=== PATIENT | male | born 1955 | race Caucasian/White ===

== ENCOUNTER 2016-12-02 16:40 | Inpatient (IN) | payer MEDICARE ==
[2016-12-02] VITALS (11 sets, daily range): BP systolic 85–174; BP diastolic 52–110; PULSE 82–104; RESP 16–20; TEMP 97.4–98.5; O2SAT 100
[~2016-12-02] VITALS: Ht 172.7 cm; Wt 62.0 kg
--- NOTE | 2016-12-02 17:01 | PD ---
HPI Chief Complaint: Alcohol/Drug Intoxication Time Seen by Provider: 16:55 Travel History International Travel<30 days: No Contact w/Intl Traveler<30days: No Traveled to known affect area: No History of Present Illness HPI Patient of unknown identity was brought into the emergency room by EMS and 911 was called by the bystanders while the patient was noticed to be lying unconscious on the ground. He did appear to be intoxicated and he was brought in as an intoxicated, unresponsive person. Soon after coming to the medical pod it was noticed by the nurse that patient was not breathing and I was called in the room. He had agonal respirations with feeble pulses. Decision was made to intubate him. Just before he was getting intubated patient lost his pulse. However soon after intubation and bagging him couple times return of spontaneous circulation was achieved. Patient did not require any CPR. Patient is extremely disheveled and there is no family member or friend who can provide identity or more history. PFSH Past Medical History Narrative Medical Unknown Social History Tobacco Use: Yes Allergies-Medications (Allergen,Severity, Reaction): Coded Allergies: Codeine (Verified Allergy, Severe, HIVES, 12/01/15) Morphine (Verified Allergy, Severe, 12/01/15) Penicillin (Verified Allergy, Severe, HIVES, 12/01/15) Bactrim (Verified Allergy, Mild, HIVES, 12/01/15) Comments Unknown Reported Meds & Prescriptions Reported Meds & Active Scripts Active Active Prescriptions or Reported Medications Unobtainable Narrative Medication Unknown Review of Systems Except as stated in HPI: all other systems reviewed are Neg Physical Exam Narrative GENERAL: Unresponsive, disheveled, extremely poor hygiene SKIN: Poor skin hygiene, cyanotic, ecchymosis on the left upper, lower abdomen and flank HEAD: Atraumatic. Normocephalic. EYES: Pupils equal and round. No scleral icterus. No injection or drainage. ENT: No nasal bleeding or discharge. Mucous membranes pink and moist. Extremely poor dental hygiene with halitosis NECK: Trachea midline. No JVD. CARDIOVASCULAR: Regular rate and rhythm. No murmur appreciated. RESPIRATORY: No accessory muscle use. Clear to auscultation. Breath sounds equal bilaterally. GASTROINTESTINAL: Abdomen soft, non-tender, nondistended. Hepatic and splenic margins not palpable. Large left inguinal hernia into the scrotum MUSCULOSKELETAL: No obvious deformities. No clubbing. No cyanosis. No edema. NEUROLOGICAL: GCS of 3 PSYCHIATRIC: Unable to assess Data Data Last Documented VS Vital Signs Date Time Temp Pulse Resp B/P Pulse Ox O2 Delivery O2 Flow Rate FiO2 12/02/16 18:22 104 174/103 12/02/16 18:02 20 100 Ventilator 12/02/16 17:55 98.5 12/02/16 17:20 100 Orders Complete Blood Count With Diff (12/02/16 17:07) Ct Brain W/O Iv Contrast(Rout) (12/02/16 17:07) Blood Glucose (12/02/16 17:07) Ecg Monitoring (12/02/16 17:07) Oximetry (12/02/16 17:07) Ammonia (12/02/16 17:30) Comprehensive Metabolic Panel (12/02/16 17:30) Creatine Kinase (Cpk) (12/02/16 17:30) Drug Screen, Random Urine (12/02/16 17:30) Prothrombin Time / Inr (Pt) (12/02/16 17:30) Act Partial Throm Time (Ptt) (12/02/16 17:30) Salicylates (Aspirin) (12/02/16 17:30) Troponin I (12/02/16 17:30) Tylenol (Acetaminophen) (12/02/16 17:30) Thyroid Stimulating Hormone (12/02/16 17:30) Lactic Acid Sepsis Protocol (12/02/16 17:30) Urinalysis - C+S If Indicated (12/02/16 17:30) Arterial Blood Gas (Abg) (12/02/16 17:30) Blood Culture (12/02/16 17:30) Chest, Single Ap (12/02/16 17:30) Iv Access Insert/Monitor (12/02/16 17:30) Sodium Chloride 0.9% Flush (Ns Flush) (12/02/16 17:30) Sodium Chlor 0.9% 1000 Ml Inj (Ns 1000 M (12/02/16 17:30) Midazolam Inj (Versed Inj) (12/02/16 17:41) Ct Abd/Pel W/O Iv Contrast (12/02/16 ) Sodium Chlor 0.9% 1000 Ml Inj (Ns 1000 M (12/02/16 18:00) Dexmedetomidine Inj (Precedex Inj) (12/02/16 18:00) Neurological Rass Scale Q30MX2,Q2HX4,Q4H (12/02/16 17:53) Midazolam Inj (Versed Inj) (12/02/16 18:00) I-Stat Creatinine (12/02/16 17:30) I-Stat Profile (12/02/16 17:30) Heparin-Ns/Pf Inj (Heparin-Ns/Pf Inj) (12/02/16 18:07) Magnesium (Mg) (12/02/16 18:21) Alcohol (Ethanol) (12/02/16 18:21) Tyler-Gastric Tube Insert/Mon (12/02/16 18:22) Urinary Catheter Insert/Apply (12/02/16 18:22) Urine Culture (12/02/16 17:20) Ceftriaxone Inj (Rocephin Inj) (12/02/16 18:30) Admit Order (Ed Use Only) (12/02/16 18:27) Labs Laboratory Tests Test 12/02/16 12/02/16 12/02/16 12/02/16 14:55 17:15 17:20 17:30 Lactic Acid Level 2.7 mmol/L 3.2 mmol/L Total Creatine Kinase 374 U/L 235 U/L Creatine Kinase MB 14.7 NG/ML Creatine Kinase MB % 3.9 % Troponin I 0.02 NG/ML LESS THAN 0.02 NG/ML White Blood Count 10.4 TH/MM3 Red Blood Count 4.91 MIL/MM3 Hemoglobin 16.6 GM/DL Hematocrit 49.2 % Mean Corpuscular Volume 100.3 FL Mean Corpuscular Hemoglobin 33.8 PG Mean Corpuscular Hemoglobin 33.7 % Concent Red Cell Distribution Width 15.3 % Platelet Count 170 TH/MM3 Mean Platelet Volume 7.3 FL Neutrophils (%) (Auto) 77.6 % Lymphocytes (%) (Auto) 16.2 % Monocytes (%) (Auto) 5.4 % Eosinophils (%) (Auto) 0.4 % Basophils (%) (Auto) 0.4 % Neutrophils # (Auto) 8.1 TH/MM3 Lymphocytes # (Auto) 1.7 TH/MM3 Monocytes # (Auto) 0.6 TH/MM3 Eosinophils # (Auto) 0.0 TH/MM3 Basophils # (Auto) 0.0 TH/MM3 CBC Comment DIFF FINAL Differential Comment Prothrombin Time 11.3 SEC Prothromb Time International 1.0 RATIO Ratio Activated Partial 24.0 SEC Thromboplast Time Sodium Level 146 MEQ/L Potassium Level 3.5 MEQ/L Chloride Level 107 MEQ/L Carbon Dioxide Level 29.3 MEQ/L Anion Gap 10 MEQ/L Blood Urea Nitrogen 9 MG/DL Creatinine 1.02 MG/DL Estimat Glomerular Filtration 63 ML/MIN Rate Random Glucose 143 MG/DL Calcium Level 8.5 MG/DL Magnesium Level 2.1 MG/DL Total Bilirubin 0.3 MG/DL Aspartate Amino Transf 36 U/L (AST/SGOT) Alanine Aminotransferase 26 U/L (ALT/SGPT) Alkaline Phosphatase 115 U/L Total Protein 7.7 GM/DL Albumin 4.0 GM/DL Thyroid Stimulating Hormone 1.460 uIU/ML 3rd Gen Acetaminophen Level LESS THAN 2.0 MCG/ML Ethyl Alcohol Level 522 MG/DL Urine Color YELLOW Urine Turbidity HAZY Urine pH 5.0 Urine Specific [place] 1.018 Urine Protein TRACE mg/dL Urine Glucose (UA) NEG mg/dL Urine Ketones NEG mg/dL Urine Occult Blood SMALL Urine Nitrite NEG Urine Bilirubin NEG Urine Urobilinogen LESS THAN 2.0 MG/DL Urine Leukocyte Esterase LARGE Urine RBC 8 /hpf Urine WBC 54 /hpf Urine WBC Clumps FEW Urine Squamous Epithelial <1 /hpf Cells Urine Bacteria RARE /hpf Urine Hyaline Casts 18 /lpf Urine Mucus FEW /lpf Microscopic Urinalysis Comment CULTURE INDICATED Urine Opiates Screen NEG Urine Barbiturates Screen NEG Urine Amphetamines Screen NEG Urine Benzodiazepines Screen NEG Urine Cocaine Screen NEG Urine Cannabinoids Screen NEG Bedside Hemoglobin 17.7 G/DL Bedside Hematocrit 52.0 % Bedside Sodium 145 MMOL/L Bedside Potassium 3.5 MMOL/L Bedside Chloride 104 MMOL/L Bedside Blood Urea Nitrogen 9 MG/DL Bedside Creatinine 1.3 MG/DL Bedside Glucose 148 MG/DL Ammonia 18 MCMOL/L Salicylates Level 4.0 MG/DL [facility] Medical Decision Making Medical Screen Exam Complete: Yes Emergency Medical Condition: Yes Medical Record Reviewed: Yes Interpretation(s) Twelve-lead EKG was reviewed by me. Normal sinus rhythm, left axis deviation, possible anterior ST elevation, peaked T waves, tachycardia. Heart rate of 110 bpm. Differential Diagnosis Intracranial bleed, alcohol intoxication, electrolyte abnormalities Narrative Course 6:17 PM based on the EKG and lack of information by patient or absence of any family members a friend's I called a STEMI alert. However I spoke with Dr. Santillan who wanted the 12-lead EKG picture to be texted to him. After he looked at the EKG call back and he did not think this qualified for a STEMI at the present time. STEMI alert was called off. Head CT report is back and within normal limits. I had reduced the hernia manually and completely. Awaiting for the blood test results and blood gas. Patient will be admitted to the ICU. He is getting 2 L of fluid bolus. Chest x-ray showed the ET tube to be in good position and otherwise negative lung centeno. 6:23 PM CAT scan shows recurrence of the left inguinal hernia. However is fully reducible. Currently awaiting for the nurse to put the oral G-tube. Awaiting for the cell coverer to call back for admission. Critical Care Narrative Aggregate critical care time was 60 minutes. Time to perform other separately billable procedures was not included in the critical care time. My time did not include minutes spent treating any other patients simultaneously or on activities that did not directly contribute to the patient's treatment. The services I provided to this patient were to treat and/or prevent clinically significant deterioration that could result in: Cardiorespiratory arrest, return of spontaneous circulation, ventilator management, acute alcohol intoxication I provided critical care services requiring my management, as noted below: Chart data review, documentation time, medication orders and management, vital sign assessments/reviewing monitor data, ordering and reviewing lab tests, ordering and interpreting/reviewing x-rays and diagnostic studies, care of the patient and discussion of the patient with the admitting physicians. Procedures Procedure Narrative Intubation was performed emergently: INTUBATION: The patient was put in optimal position for the procedure. Rapid sequence intubation was initiated by me using 0 milligrams of etomidate IV and 0 milligrams of 0 IV. The patient was intubated with a 7.5 cuffed endotracheal tube. Tube placement was confirmed by visualization of the tube and balloon passing through the cords, capnometry and subsequent chest x-ray. Breath sounds were equal and well aerated bilaterally postintubation. No breath sounds over stomach. Patient tolerated procedure well. EKG Prior to Arrival: No Physician Communication Physician Communication Dr. Spencer Diagnosis Primary Impression: Unresponsive Additional Impressions: Alcohol intoxication Qualified Code: F10.129 - Alcohol intoxication, with unspecified complication Cardiac arrest Respiratory arrest Inguinal hernia Qualified Code: K40.90 - Unilateral inguinal hernia without obstruction or gangrene, recurrence not specified Dehydration Lactic acidosis UTI (urinary tract infection) Qualified Code: N39.0 - Urinary tract infection without hematuria, site unspecified Admitting Information Admitting Physician Requests: Admit Scripts Unable to Obtain Active Prescriptions or Reported Meds Hannah Nam MD Dec 02, 2016 17:01
[2016-12-02] MEDS ORDERED: SODIUM CHLORIDE 0.9% FLUSH 5 ML FLUSH IVF PRN (17:30)
[2016-12-02] MEDS ORDERED: SODIUM CHLOR 0.9% 1000 ML INJ 1,000 ML IV SCH (17:30)
[2016-12-02] MEDS ORDERED: MIDAZOLAM HCL 5 MG/ML VIAL (1 ML) ONE (17:41)
--- NOTE | 2016-12-02 17:51 | RADRPT ---
EXAM DATE/TIME: 12/02/2016 17:41 [facility] COMPARISON: No previous studies available for comparison. INDICATIONS : Post intubation. Stemi-alert. MEDICAL HISTORY : Unobtainable. SURGICAL HISTORY : Unobtainable. ENCOUNTER: Initial ACUITY: 1 day PAIN SCORE: Non-responsive. LOCATION: Bilateral chest FINDINGS: ET tube in good position. A single view of the chest demonstrates the lungs to be symmetrically aera zeynep without evidence of mass, infiltrate or effusion. The cardiomediastinal contours are unremarkabl e. Osseous structures are intact. CONCLUSION: ET tube in good position. Juan Noguera MD FACR on December 02, 2016 at 17:49 Board Certified Radiologist. This report was verified electronically.
--- NOTE | 2016-12-02 17:56 | RADRPT ---
EXAM DATE/TIME: 12/02/2016 17:46 [facility] COMPARISON: No previous studies available for comparison. INDICATIONS : Altered mental status. ETOH. RADIATION DOSE: 45.21 CTDIvol (mGy) MEDICAL HISTORY : Non-responsive. SURGICAL HISTORY : Non-responsive. ENCOUNTER: Initial ACUITY: 1 day PAIN SCALE: Non-responsive LOCATION: cranial TECHNIQUE: Multiple contiguous axial images were obtained of the head. Using automated exposure control and adj ustment of the mA and/or kV according to patient size, radiation dose was kept as low as reasonably a chievable to obtain optimal diagnostic quality images. FINDINGS: CEREBRUM: The ventricles are normal for age. No evidence of midline shift, mass lesion, hemorrhage or acute in farction. No extra-axial fluid collections are seen. Old lacunar infarct head of the caudate on the left. POSTERIOR FOSSA: The cerebellum and brainstem are intact. The 4th ventricle is midline. The cerebellopontine angle i s unremarkable. EXTRACRANIAL: The visualized portion of the orbits is intact. SKULL: The calvaria is intact. No evidence of skull fracture. Moderate sinus disease is evident. CONCLUSION: Negative for acute intracranial process. Juan Noguera MD FACR on December 02, 2016 at 17:53 Board Certified Radiologist. This report was verified electronically.
[2016-12-02] MEDS ORDERED: SODIUM CHLOR 0.9% 1000 ML INJ 1,000 ML IV ONE (18:00)
[2016-12-02] MEDS ORDERED: MIDAZOLAM HCL 2 MG/2 ML VIAL IV PUSH ONE ×2 (18:00→19:30)
[2016-12-02] MEDS ORDERED: DEXMEDETOMIDINE INJ 50 ML IV SCH (18:00)
[2016-12-02 18:07] LABS: AUTOMATED NEUTROPHIL # 8.1 TH/MM3 (1.8-7.7); BASOPHIL % 0.4 % (0.0-2.0); EOSINOPHIL % 0.4 % (0.0-4.0); HEMATOCRIT 49.2 % (39.0-51.0); LYMPH % 16.2 % (9.0-44.0); LYMPHOCYTE # 1.7 TH/MM3 (1.0-4.8); MEAN CELL VOLUME 100.3 FL (80.0-100.0); MEAN CORPUSCULAR HEMOGLOBIN 33.8 PG (27.0-34.0); MEAN CORPUSCULAR HGB CONC 33.7 % (32.0-36.0); MONO % 5.4 % (0.0-8.0); NEUT % 77.6 % (16.0-70.0); PLATELET COUNT 170 TH/MM3 (150-450); PROTHROMBIN TIME - PATIENT 11.3 SEC (9.8-11.6); RED BLOOD COUNT 4.91 MIL/MM3 (4.50-5.90); RED CELL DISTRIBUTION WIDTH 15.3 % (11.6-17.2); WHITE BLOOD COUNT 10.4 TH/MM3 (4.0-11.0)
[2016-12-02] MEDS ORDERED: HEPARIN-NS/PF INJ 500 ML ONE (18:07)
[2016-12-02 18:10] LABS: I-STAT POTASSIUM 3.5 MMOL/L (3.5-4.9)
[2016-12-02 18:12] LABS: HEMO FLAGS DIFF FINAL
[2016-12-02 18:17] LABS: AMPHETAMINE, URINE NEG (NEG); BARBITURATES, URINE NEG (NEG); COCAINE, URINE NEG (NEG)
--- NOTE | 2016-12-02 18:18 | RADRPT ---
EXAM DATE/TIME: 12/02/2016 17:51 [facility] COMPARISON: No previous studies available for comparison. INDICATIONS : Abdominal pain per written order; patient is intubated. ORAL CONTRAST: No oral contrast ingested. RADIATION DOSE: 7.98 CTDIvol (mGy) MEDICAL HISTORY : Non-responsive. SURGICAL HISTORY : Non-responsive. ENCOUNTER: Initial ACUITY: 1 day PAIN SCALE: Non-responsive LOCATION: Abdomen TECHNIQUE: Volumetric scanning of the abdomen and pelvis was performed. Using automated exposure control and ad justment of the mA and/or kV according to patient size, radiation dose was kept as low as reasonably achievable to obtain optimal diagnostic quality images. FINDINGS: The lung bases are clear. There is no pericardial effusion. The liver is free of focal defects. Spleen contains some calcification in the upper pole with what l ooks like an old hematoma that has resolved. Pancreas, adrenal glands and kidneys are unremarkable. There is a large inguinal hernia on the left containing colon without evidence for incarceration. Bowel gas pattern is unremarkable. CONCLUSION: 1. Large inguinal hernia on the left. 2. Apparent old resolved traumatic cyst upper pole of the spleen. 3. Negative for an acute traumatic injury. Juan Noguera MD FACR on December 02, 2016 at 18:07 Board Certified Radiologist. This report was verified electronically.
[2016-12-02 18:24] LABS: BACTERIA, URINE RARE /hpf; BLOOD, URINE SMALL (NEG); COMMENT (UR) CULTURE INDICATED; CULTURE IF INDICATED CULTURE INDICATED; GLUCOSE,URINE NEG (NEG); HYALINE CAST, URINE 18 /lpf (RARE); KETONE, URINE NEG (NEG); MUCUS URINE FEW /lpf (OCC); NITRITE,URINE NEG (NEG); SQUAMOUS EPITHELIAL CELL URINE <1 /hpf (0-5); URINE COLOR YELLOW (YELLW/STRAW)
[2016-12-02 18:26] LABS: ALT (GPT) 26 U/L (12-78); ANION GAP 10 MEQ/L (5-15); AST (GOT) 36 U/L (15-37); BICARBONATE 29.3 MEQ/L (21.0-32.0); BLOOD UREA NITROGEN 9 MG/DL (7-18); CHLORIDE 107 MEQ/L (98-107); GLOMERULAR FILTRATION RATE 63 ML/MIN (>89); POTASSIUM 3.5 MEQ/L (3.5-5.1); SODIUM (NA) 146 MEQ/L (136-145)
[2016-12-02] MEDS ORDERED: cefTRIAXone INJ 1,000 MG in SODIUM CHLORIDE 0.9% INJ 100 ML IV ONE (18:30)
[2016-12-02 18:35] LABS: ALKALINE PHOSPHATASE 115 U/L (45-117); CREATINE KINASE 235 U/L (39-308); TOTAL BILIRUBIN ADULT 0.3 MG/DL (0.2-1.0)
[2016-12-02] MEDS ORDERED: THIAMINE HCL 200 MG/2 ML VIAL IM ONE (18:45)
[2016-12-02 18:53] LABS: ACETAMINOPHEN LESS THAN 2.0 MCG/ML (10.0-30.0)
[2016-12-02] MEDS ORDERED: MISCELLANEOUS NURSING INFORMATION XX SCH (19:00)
[2016-12-02] MEDS ORDERED: CHLORHEXIDINE GLUCONATE 2 % 1 PACK (2 CLOTHS) TOP PRN (19:00)
[2016-12-02] MEDS ORDERED: RESP: ALBUTEROL 2.5 MG/IPRATROPIUM 0.5 MG NEB (PRN) INH (19:00)
[2016-12-02] MEDS ORDERED: SODIUM CHLORIDE 0.9% FLUSH 5 ML FLUSH IV FLUSH PRN (19:00)
[2016-12-02] MEDS ORDERED: LORazepam 2 MG/ML VIAL IV PRN (19:00)
[2016-12-02] MEDS ORDERED: ONDANSETRON HCL 4 MG/2 ML VIAL IV PRN (19:00)
[2016-12-02] MEDS ORDERED: ACETAMINOPHEN 325 MG TAB PO PRN (19:00)
[2016-12-02 19:01] LABS: BLOOD GAS BASE EXCESS -2.5 mmol/L (-2-2); BLOOD GAS CARBOXYHEMOGLOBIN 4.4 % (0-4); BLOOD GAS HCO3 22 mmol/L (22-26); BLOOD GAS METHEMOGLOBIN 1.9 % (0-2); BLOOD GAS O2 HGB SATURATION 94 % (90-100); BLOOD GAS PCO2 41 mmHg (38-42); BLOOD GAS PO2 520 mmHG (61-120); CRITICAL VALUE NO; OXYGEN DEVICE VENTILATOR; TEMP CORR TO 98.6
[2016-12-02 19:02] LABS: DRAW SITE RT RADIAL; FIO2 100 %; NUMBER OF ARTERIAL PUNCTURES 1; STAT NO; ULNAR PULSE PRESENT; VENT SETTINGS SEE COMMENTS
[2016-12-02 19:31] LABS: MAGNESIUM 2.1 MG/DL (1.5-2.5)
[2016-12-02 19:49] LABS: LACTIC ACID GHOST NOT REPORTABLE
[2016-12-02] MEDS: LORazepam 2 MG/ML VIAL IV PUSH SCH (21:00)
[2016-12-02 21:02] LABS: CKMB 14.7 NG/ML (0.5-3.6)
[2016-12-02] MEDS ORDERED: LORazepam 2 MG/ML VIAL IV PUSH PRN (21:15)
--- NOTE | 2016-12-02 21:16 | HHI.HP ---
HPI Service Critical Care Medicine Primary Care Physician Unknown Admission Diagnosis respiratory failure, acute alcohol intoxication, UTI Diagnosis: Chief Complaint: Obtunded. Travel History International Travel<30 Days: No Contact w/Intl Traveler <30 Da: No Traveled to Known Affected Are: No History of Present Illness Elderly man with ETOH toxicity found obtunded on the ground. No history. ETOH level > 500. Review of Systems ROS Unobtainable. Past Family Social History Allergies: Coded Allergies: UNOBTAINABLE (Unverified , 12/02/16) Past Medical History Past Medical History Narrative Medical Unknown Allergies-Medications Allergies-Medications (Allergen,Severity, Reaction): Coded Allergies: UNOBTAINABLE (Unverified , 12/02/16) Comments Unknown Narrative Medication Unknown Physical Exam Vital Signs Vital Signs Date Time Temp Pulse Resp B/P Pulse Ox O2 Delivery O2 Flow Rate FiO2 12/02/16 18:48 100 100 12/02/16 18:48 100 100 12/02/16 18:22 104 174/103 12/02/16 18:02 103 20 152/102 100 Ventilator 12/02/16 17:55 98.5 102 20 166/88 12/02/16 17:20 100 12/02/16 17:20 95 20 152/89 Physical Exam Gen: Jorge appearing, obtunded, flushed. Head: Disheveled hair, no trauma. Neck: Supple, orally intubated. Lungs: Bilateral sonorous rhonchi, acceptable air movement. Heart: NL S1S2, no m,r. RRR. No JVD. Abdomen: Soft, no guarding, BS few. Extremities: Cool, adequately perfused. Neuro: Opens eyes to stimulation, breathes over vent. Otherwise unresponsive. FLAVIO. Laboratory Laboratory Tests Test 12/02/16 12/02/16 12/02/16 12/02/16 14:55 17:15 17:20 17:30 Lactic Acid Level 2.7 3.2 Total Creatine Kinase 374 235 Creatine Kinase MB 14.7 Creatine Kinase MB % 3.9 Troponin I 0.02 LESS THAN 0.02 White Blood Count 10.4 Red Blood Count 4.91 Hemoglobin 16.6 Hematocrit 49.2 Mean Corpuscular Volume 100.3 Mean Corpuscular Hemoglobin 33.8 Mean Corpuscular Hemoglobin 33.7 Concent Red Cell Distribution Width 15.3 Platelet Count 170 Mean Platelet Volume 7.3 Neutrophils (%) (Auto) 77.6 Lymphocytes (%) (Auto) 16.2 Monocytes (%) (Auto) 5.4 Eosinophils (%) (Auto) 0.4 Basophils (%) (Auto) 0.4 Neutrophils # (Auto) 8.1 Lymphocytes # (Auto) 1.7 Monocytes # (Auto) 0.6 Eosinophils # (Auto) 0.0 Basophils # (Auto) 0.0 CBC Comment DIFF FINAL Differential Comment Prothrombin Time 11.3 Prothromb Time International 1.0 Ratio Activated Partial 24.0 Thromboplast Time Sodium Level 146 Potassium Level 3.5 Chloride Level 107 Carbon Dioxide Level 29.3 Anion Gap 10 Blood Urea Nitrogen 9 Creatinine 1.02 Estimat Glomerular Filtration 63 Rate Random Glucose 143 Calcium Level 8.5 Magnesium Level 2.1 Total Bilirubin 0.3 Aspartate Amino Transf 36 (AST/SGOT) Alanine Aminotransferase 26 (ALT/SGPT) Alkaline Phosphatase 115 Total Protein 7.7 Albumin 4.0 Thyroid Stimulating Hormone 1.460 3rd Gen Acetaminophen Level LESS THAN 2.0 Ethyl Alcohol Level 522 Urine Color YELLOW Urine Turbidity HAZY Urine pH 5.0 Urine Specific [place] 1.018 Urine Protein TRACE Urine Glucose (UA) NEG Urine Ketones NEG Urine Occult Blood SMALL Urine Nitrite NEG Urine Bilirubin NEG Urine Urobilinogen LESS THAN 2.0 Urine Leukocyte Esterase LARGE Urine RBC 8 Urine WBC 54 Urine WBC Clumps FEW Urine Squamous Epithelial <1 Cells Urine Bacteria RARE Urine Hyaline Casts 18 Urine Mucus FEW Microscopic Urinalysis Comment CULTURE INDICATED Urine Opiates Screen NEG Urine Barbiturates Screen NEG Urine Amphetamines Screen NEG Urine Benzodiazepines Screen NEG Urine Cocaine Screen NEG Urine Cannabinoids Screen NEG Bedside Hemoglobin 17.7 Bedside Hematocrit 52.0 Bedside Sodium 145 Bedside Potassium 3.5 Bedside Chloride 104 Bedside Blood Urea Nitrogen 9 Bedside Creatinine 1.3 Bedside Glucose 148 Ammonia 18 Salicylates Level 4.0 Test 12/02/16 18:57 Blood Gas Puncture Site RT RADIAL Blood Gas Patient Temperature 98.6 Blood Gas HCO3 22 Blood Gas Base Excess -2.5 Blood Gas Oxygen Saturation 94 Arterial Blood pH 7.35 Arterial Blood Partial 41 Pressure CO2 Arterial Blood Partial 520 Pressure O2 Arterial Blood Oxygen Content 21.0 Arterial Blood 4.4 Carboxyhemoglobin Arterial Blood Methemoglobin 1.9 Blood Gas Hemoglobin 15.0 Oxygen Delivery Device VENTILATOR Blood Gas Ventilator Setting SEE COMMENTS Blood Gas Inspired Oxygen 100 Date/Time Procedure Status Source Growth 12/02/16 17:30 Aerobic Blood Culture Received Blood Peripheral Pending 12/02/16 17:30 Anaerobic Blood Culture Received Blood Peripheral Pending 12/02/16 17:20 Urine Culture Received Urine Catheterized Urine Pending Result Diagram: 12/02/16 1715 12/02/16 1715 Assessment and Plan Assessment and Plan Assessment: 1. Acute Respiratory Failure requiring mechanical ventilation. 2. ETOH toxicity. Plan: 1. PRVC vent mode. 2. Ativan prophylaxis when more responsive. 3. NG to LIS. 4. Propofol for vent synchrony. 5. Lovenox DVT px. 6. Protonix. 7. Thiamine. 8. Seizure precautions. 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 Prognosis guarded. Critical care 44 mins Paul Spencer MD Dec 02, 2016 21:16
[2016-12-02] MEDS: SODIUM CHLOR 0.9% 1000 ML INJ 1,000 ML IV SCH (23:05)
[2016-12-02] MEDS: HEPARIN SODIUM - SQ 10,000 UNITS/ML VIAL SQ SCH (23:06)
[2016-12-02] MEDS: SODIUM CHLORIDE 0.9% FLUSH 5 ML FLUSH IV FLUSH SCH (23:06)
[2016-12-03] VITALS (16 sets, daily range): BP systolic 75–182; BP diastolic 49–114; PULSE 74–116; RESP 12–20; TEMP 97.1–99.9; O2SAT 93–100
[2016-12-03] MEDS: PROPOFOL 1000 MG/100 ML INJ 100 ML IV SCH ×3 (00:26→07:03)
[2016-12-03] MEDS: SODIUM CHLOR 0.9% 1000 ML INJ 1,000 ML IV SCH (02:54)
[2016-12-03 03:01] LABS: ALKALINE PHOSPHATASE 100 U/L (45-117); ALT (GPT) 30 U/L (12-78); ANION GAP 9 MEQ/L (5-15); AST (GOT) 46 U/L (15-37); BICARBONATE 29.5 MEQ/L (21.0-32.0); BLOOD UREA NITROGEN 8 MG/DL (7-18); CHLORIDE 112 MEQ/L (98-107); GLOMERULAR FILTRATION RATE 78 ML/MIN (>89); MAGNESIUM 1.6 MG/DL (1.5-2.5); POTASSIUM 4.4 MEQ/L (3.5-5.1); SODIUM (NA) 150 MEQ/L (136-145); TOTAL BILIRUBIN ADULT 0.3 MG/DL (0.2-1.0)
[2016-12-03] MEDS ORDERED: NOREPINEPHRINE 4 MG/D5W 250 ML IV SCH (03:30)
[2016-12-03] MEDS ORDERED: SODIUM CHLOR 0.9% 1000 ML INJ 999 ML IV ONE (03:30)
[2016-12-03] MEDS: CHLORHEXIDINE GLUCONATE 2 % 1 PACK (2 CLOTHS) TOP SCH (04:00)
[2016-12-03 04:01] LABS: AUTOMATED NEUTROPHIL # 5.5 TH/MM3 (1.8-7.7); BASOPHIL % 0.3 % (0.0-2.0); EOSINOPHIL % 0.6 % (0.0-4.0); HEMATOCRIT 41.6 % (39.0-51.0); HEMO FLAGS DIFF FINAL; LYMPH % 15.4 % (9.0-44.0); LYMPHOCYTE # 1.1 TH/MM3 (1.0-4.8); MEAN CORPUSCULAR HEMOGLOBIN 33.5 PG (27.0-34.0); MEAN CORPUSCULAR HGB CONC 33.5 % (32.0-36.0); MONO % 9.4 % (0.0-8.0); NEUT % 74.3 % (16.0-70.0); PLATELET COUNT 124 TH/MM3 (150-450); RED BLOOD COUNT 4.16 MIL/MM3 (4.50-5.90); RED CELL DISTRIBUTION WIDTH 15.6 % (11.6-17.2); WHITE BLOOD COUNT 7.4 TH/MM3 (4.0-11.0)
[2016-12-03] MEDS: LORazepam 2 MG/ML VIAL IV PUSH SCH ×4 (04:40→20:43)
[2016-12-03] MEDS: HEPARIN SODIUM - SQ 10,000 UNITS/ML VIAL SQ SCH ×3 (04:40→20:42)
--- NOTE | 2016-12-03 08:19 | HHI.CCPN ---
Subjective Remarks/Hospital Course Elderly man with ETOH toxicity found obtunded on the ground. No history. ETOH level > 500. SUBJECTIVE 12/03: Remains intubated sedated with propofol. Spontaneously moves extremities occasionally Objective Vital Signs Date Time Temp Pulse Resp B/P Pulse Ox O2 Delivery O2 Flow Rate FiO2 12/03/16 08:02 99 30 12/03/16 04:00 74 109/69 12/03/16 03:00 Mechanical Ventilator 12/03/16 03:00 97.1 14 Result Diagram: 12/03/16 0352 12/03/16 0149 Other Results Laboratory Tests Test 12/02/16 18:57 Blood Gas Puncture Site RT RADIAL Blood Gas Patient Temperature 98.6 Blood Gas HCO3 22 mmol/L (22-26) Blood Gas Base Excess -2.5 mmol/L (-2-2) Blood Gas Oxygen Saturation 94 % (90-100) Arterial Blood pH 7.35 (7.380-7.420) Arterial Blood Partial 41 mmHg (38-42) Pressure CO2 Arterial Blood Partial 520 mmHG Pressure O2 (61-120) Arterial Blood Oxygen Content 21.0 Vol % (12.0-20.0) Arterial Blood 4.4 % (0-4) Carboxyhemoglobin Arterial Blood Methemoglobin 1.9 % (0-2) Blood Gas Hemoglobin 15.0 G/DL (12.0-16.0) Oxygen Delivery Device VENTILATOR Blood Gas Ventilator Setting SEE COMMENTS Blood Gas Inspired Oxygen 100 % Objective Remarks Gen: Disheveled elderly male, intubated sedated with propofol Head: Disheveled hair, no trauma. Neck: Supple, orally intubated. Lungs: Bilateral sonorous rhonchi, acceptable air movement. Heart: NL S1S2, no m,r. RRR. No JVD. Abdomen: Soft, no guarding, BS few. Extremities: Cool, adequately perfused. Neuro: Intubated sedated, moves extremities spontaneously, breathes over vent. Otherwise unresponsive. FLAVIO. Urinary Catheter: Yes Assessment to: Continue A/P Assessment and Plan Assessment: Acute Respiratory Failure requiring mechanical ventilation. ETOH toxicity. UTI Hypernatremia Alcohol dependence Plan: 1. PRVC vent mode. Daily C Pap trials 2. Ativan prophylaxis when more responsive. 3. NG to LIS. Start tube feeds if not extubated in 24 hours 4. Propofol for vent synchrony. 5. Lovenox DVT px. 6. Protonix. 7. Thiamine 100 mg daily. 8. Seizure precautions. 9. Follow-up on blood and urine culture, Rocephin 1 g IV every 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 Prognosis guarded. Critical care 35 mins Aquiles Marsh MD Dec 03, 2016 08:19
[2016-12-03] MEDS: SODIUM CHLOR 0.45% 1000 ML INJ 1,000 ML IV SCH ×2 (08:31→16:48)
[2016-12-03] MEDS: cefTRIAXone INJ 1,000 MG in SODIUM CHLORIDE 0.9% INJ 100 ML IV SCH (08:32)
[2016-12-03] MEDS: PANTOPRAZOLE SODIUM 40 MG VIAL IV SCH (08:33)
[2016-12-03] MEDS: SODIUM CHLORIDE 0.9% FLUSH 5 ML FLUSH IV FLUSH SCH ×2 (08:34→20:43)
[2016-12-03] MEDS: THIAMINE INJ 100 MG in SODIUM CHLORIDE 0.9% INJ 100 ML IV SCH (10:43)
[2016-12-03] MEDS ORDERED: DEXMEDETOMIDINE INJ 50 ML IV SCH (12:00)
--- NOTE | 2016-12-03 13:42 | EKG ---
Date Performed: 12/03/2016 Time Performed: 02:00:57 PTAGE: 61 years EKG: ECTOPIC ATRIAL RHYTHM SEPTAL MYOCARDIAL INFARCTION POSSIBLE INFERIOR MYOCARDIAL INFARCTION ABNORMAL ECG Compared to prior tracing no significant change PREVIOUS TRACING : 12/03/2016 01.59 DOCTOR: Sánchez Okeefe Interpretating Date/Time 12/03/2016 13:39:53
[2016-12-03] MEDS ORDERED: chlordiazePOXIDE 25 MG CAP PO SCH (14:00)
--- NOTE | 2016-12-03 14:10 | EKG ---
Date Performed: 12/02/2016 Time Performed: 20:09:33 PTAGE: 89 years EKG: SINUS TACHYCARDIA INDETERMINATE AXIS SEPTAL MYOCARDIAL INFARCTION ABNORMAL ECG INTERPRETATI ON BASED ON A DEFAULT AGE OF 39 YEARS Possible paced rhythm Clinical correlation is strongly reccomen ded PREVIOUS TRACING : 12/02/2016 17.22 DOCTOR: Sánchez Okeefe Interpretating Date/Time 12/03/2016 14:13:21
--- NOTE | 2016-12-03 14:14 | EKG ---
Date Performed: 12/02/2016 Time Performed: 17:22:05 PTAGE: 89 years EKG: SINUS TACHYCARDIA MARKED LEFT AXIS DEVIATION SEPTAL MYOCARDIAL INFARCTION INFERIOR MYOCARDI AL INFARCTION ACUTE FL Suggestive of small pacer spikes, best seen in V2 Suggests possible pace d rhythm, which would alter interpretation above Clinical correlation is strongly recommended INTERPR ETATION BASED ON A DEFAULT AGE OF 39 YEARS NO PREVIOUS TRACING DOCTOR: Sánchez Okeefe Interpretating Date/Time 12/03/2016 14:13:58
--- NOTE | 2016-12-03 14:16 | EKG ---
Date Performed: 12/02/2016 Time Performed: 22:48:51 PTAGE: 61 years EKG: Sinus rhythm MARKED LEFT AXIS DEVIATION SEPTAL MYOCARDIAL INFARCTION INFERIOR MYOCARDIAL INFARCTION Possible pace d rhythm Clinical correlation is strongly recommended ABNORMAL ECG PREVIOUS TRACING : 12/02/2016 20.09 DOCTOR: Sánchez Okeefe Interpretating Date/Time 12/03/2016 14:16:33
[2016-12-03] MEDS: chlordiazePOXIDE 25 MG CAP PO SCH ×2 (17:56→20:43)
[2016-12-04] VITALS (9 sets, daily range): BP systolic 136–158; BP diastolic 70–92; PULSE 65–99; RESP 12–20; TEMP 98.1–99.2; O2SAT 93–98
[2016-12-04] MEDS: SODIUM CHLOR 0.45% 1000 ML INJ 1,000 ML IV SCH ×3 (00:30→13:02)
[2016-12-04] MEDS: LORazepam 2 MG/ML VIAL IV PUSH SCH ×4 (03:00→21:50)
[2016-12-04] MEDS: HEPARIN SODIUM - SQ 10,000 UNITS/ML VIAL SQ SCH ×3 (04:00→20:00)
[2016-12-04] MEDS: CHLORHEXIDINE GLUCONATE 2 % 1 PACK (2 CLOTHS) TOP SCH (04:00)
[2016-12-04] MEDS: SODIUM CHLORIDE 0.9% FLUSH 5 ML FLUSH IV FLUSH SCH ×2 (08:32→21:00)
[2016-12-04] MEDS: THIAMINE INJ 100 MG in SODIUM CHLORIDE 0.9% INJ 100 ML IV SCH (08:32)
[2016-12-04] MEDS: cefTRIAXone INJ 1,000 MG in SODIUM CHLORIDE 0.9% INJ 100 ML IV SCH (08:34)
[2016-12-04] MEDS: PANTOPRAZOLE SODIUM 40 MG VIAL IV SCH (08:34)
[2016-12-04] MEDS: chlordiazePOXIDE 25 MG CAP PO SCH ×4 (08:35→21:50)
--- NOTE | 2016-12-04 10:28 | HHI.CCPN ---
Subjective Remarks/Hospital Course Elderly man with ETOH toxicity found obtunded on the ground. No history. ETOH level > 500. SUBJECTIVE 12/03: Remains intubated sedated with propofol. Spontaneously moves extremities occasionally SUBJECTIVE 12/04: Extubated yesterday tolerating well. Drowsy but wakes up easily follows commands. No evidence of alcohol withdrawal it, getting scheduled Librium Objective Vital Signs Date Time Temp Pulse Resp B/P Pulse Ox O2 Delivery O2 Flow Rate FiO2 12/04/16 08:00 98.9 65 20 141/92 95 12/04/16 08:00 Nasal Cannula 2.00 12/04/16 07:20 21 Intake and Output 12/03/16 12/03/16 12/04/16 08:00 16:00 00:00 Intake Total 484 ml 1907 ml Output Total 500 ml 950 ml Balance -16 ml 957 ml Result Diagram: 12/03/16 0352 12/03/16 0149 Other Results Microbiology Date/Time Procedure Status Source Growth 12/02/16 17:20 Urine Culture - Final Complete Urine Catheterized Urine NO GROWTH IN 48 HOURS. Objective Remarks Gen: Disheveled elderly male, slightly drowsy Head: Disheveled, atraumatic Neck: Supple, orally intubated. Lungs: Bilateral sonorous rhonchi, acceptable air movement. Heart: NL S1S2, no m,r. RRR. No JVD. Abdomen: Soft, no guarding, BS few. Extremities: Cool, adequately perfused. Neuro: Alert awake slightly drowsy. Follows commands no focal deficit Urinary Catheter: Yes Assessment to: Remove A/P Assessment and Plan Assessment: Acute Respiratory Failure requiring mechanical ventilation-resolved ETOH toxicity. Possible UTI Hypernatremia Alcohol dependence Plan: 1. NC oxygen, Extubated 12/03/15 2. Ativan PRN. Continue scheduled Librium 25 mg 4 times a day. 3. Diet per speech and swallow 4. PT OOB. Counselled about complete alcohol cessation 5. Lovenox DVT px. 6. Protonix. 7. Thiamine 100 mg daily. 8. Seizure precautions. 9. Negative blood and urine culture,DC Rocephin 1 g IV every 24 hours 10. Reduce IVF to 50 ml per hour [facility] Dr. Bejarano to assume care in am, 12/05/16 Aquiles Marsh MD Dec 04, 2016 10:28
[2016-12-04 12:21] LABS: ANION GAP 8 MEQ/L (5-15); AST (GOT) 27 U/L (15-37); BICARBONATE 27.7 MEQ/L (21.0-32.0); BLOOD UREA NITROGEN 7 MG/DL (7-18); CHLORIDE 104 MEQ/L (98-107); GLOMERULAR FILTRATION RATE 109 ML/MIN (>89); POTASSIUM 3.6 MEQ/L (3.5-5.1); SODIUM (NA) 140 MEQ/L (136-145)
[2016-12-04 12:26] LABS: ALKALINE PHOSPHATASE 93 U/L (45-117); ALT (GPT) 21 U/L (12-78)
[2016-12-05] VITALS (9 sets, daily range): BP systolic 106–181; BP diastolic 60–94; PULSE 74–108; RESP 16–20; TEMP 97.4–99.2; O2SAT 93–100
[2016-12-05] MEDS: HEPARIN SODIUM - SQ 10,000 UNITS/ML VIAL SQ SCH ×3 (03:30→20:25)
[2016-12-05] MEDS: CHLORHEXIDINE GLUCONATE 2 % 1 PACK (2 CLOTHS) TOP SCH (03:47)
[2016-12-05] MEDS: LORazepam 2 MG/ML VIAL IV PUSH SCH ×4 (03:48→20:26)
[2016-12-05] MEDS: SODIUM CHLOR 0.45% 1000 ML INJ 1,000 ML IV SCH (06:30)
[2016-12-05 07:22] LABS: ALKALINE PHOSPHATASE 86 U/L (45-117); ALT (GPT) 20 U/L (12-78); ANION GAP 8 MEQ/L (5-15); AST (GOT) 25 U/L (15-37); BICARBONATE 29.1 MEQ/L (21.0-32.0); BLOOD UREA NITROGEN 10 MG/DL (7-18); CHLORIDE 103 MEQ/L (98-107); GLOMERULAR FILTRATION RATE 102 ML/MIN (>89); POTASSIUM 3.4 MEQ/L (3.5-5.1); SODIUM (NA) 140 MEQ/L (136-145)
[2016-12-05] MEDS: THIAMINE INJ 100 MG in SODIUM CHLORIDE 0.9% INJ 100 ML IV SCH (08:13)
[2016-12-05] MEDS: chlordiazePOXIDE 25 MG CAP PO SCH ×4 (08:13→20:25)
[2016-12-05] MEDS: SODIUM CHLORIDE 0.9% FLUSH 5 ML FLUSH IV FLUSH SCH ×2 (08:17→20:25)
--- NOTE | 2016-12-05 22:41 | HHI.PR ---
Subjective Remarks Follow up for alcoholism, respiratory failure. Mr. Vera is sitting in a chair near nurses station, eating his lunch at the time of this interview. Patient denies any acute concerns. He states he is a [place] . He reports drinking 1 pint of vodka a day and does not have any plan to quit drinking. Objective Vitals Vital Signs Date Time Temp Pulse Resp B/P Pulse Ox O2 Delivery O2 Flow Rate FiO2 12/05/16 20:00 99.2 90 20 106/60 96 12/05/16 16:42 98.2 108 16 120/72 100 12/05/16 16:00 97.5 95 20 130/77 95 Manual Cuff/Auscultation 12/05/16 12:00 98.9 84 20 150/80 96 Automatic Cuff 12/05/16 08:00 98.2 81 18 178/92 97 12/05/16 07:54 87 12/05/16 07:54 Room Air 12/05/16 07:52 96 21 12/05/16 04:00 97.9 86 20 181/94 96 12/05/16 00:00 97.4 74 18 117/75 100 I/O 12/04/16 12/04/16 12/04/16 12/05/16 12/05/16 12/05/16 07:00 15:00 23:00 07:00 15:00 23:00 Intake Total 1615 ml 1027 ml 360 ml 840 ml Output Total 950 ml 1210 ml 500 ml 650 ml Balance 665 ml -183 ml -140 ml 190 ml Intake Oral 240 ml 480 ml 360 ml 840 ml IV Total 1375 ml 547 ml Output Urine Total 950 ml 1210 ml 500 ml 650 ml # Voids 1 2 # Bowel Movements 0 0 0 Result Diagram: 12/03/16 0352 12/05/16 0558 Imaging Last Impressions Chest X-Ray 12/02/16 1730 Signed Impressions: Service Date/Time: Friday, December 02, 2016 17:41 - CONCLUSION: ET tube in good position. Juan Noguera MD FACR Head CT 12/02/16 1707 Signed Impressions: Service Date/Time: Friday, December 02, 2016 17:46 - CONCLUSION: Negative for acute intracranial process. Juan Noguera MD FACR Abdomen/Pelvis CT 12/02/16 0000 Signed Impressions: Service Date/Time: Friday, December 02, 2016 17:51 - CONCLUSION: 1. Large inguinal hernia on the left. 2. Apparent old resolved traumatic cyst upper pole of the spleen. 3. Negative for an acute traumatic injury. Juan Noguera MD FACR Objective Remarks GENERAL: Alert, oriented to person, place. SKIN: Warm and dry. HEAD: Normocephalic. EYES: No scleral icterus. No injection or drainage. NECK: Supple, trachea midline. No JVD or lymphadenopathy. CARDIOVASCULAR: Regular rate and rhythm without murmurs, gallops, or rubs. RESPIRATORY: moderate air entry. Bilateral rhonchi. GASTROINTESTINAL: Abdomen soft, non-tender, nondistended. MUSCULOSKELETAL: No cyanosis, or edema. BACK: Nontender without obvious deformity. No CVA tenderness. Procedures Intubated and extubated on 12/03/2016. A/P Assessment and Plan Mr. Vera is a 61 year, probably a [place] , homeless who was admitted to the hospital on 12/03/2016 due to alcohol toxicity, respiratory failure requiring intubation. He was extubated and managed by critical care team. Care of transferred to the hospitalist service on 12/05/2016. - Acute respiratory failure - Alcohol toxicity - Hypernatremia - Hypertension - Continue Amlodipine 10mg Qday. - Continue Librium 25mg QID, Lorazepam PRN - Folic acid, thiamine PO Qday - Continue mechanical soft diet, thin liquid per speech recommendations. - Hypernatremia resolved. Full code. Heparin SQ. Discharge plan: Will ask CM to look into any [facility] benefit for this patient. Dalton Monae DO Dec 05, 2016 22:41
[2016-12-06] VITALS (8 sets, daily range): BP systolic 125–164; BP diastolic 75–100; PULSE 68–110; RESP 18–20; TEMP 91.8–98.4; O2SAT 94–97
[2016-12-06] MEDS: CHLORHEXIDINE GLUCONATE 2 % 1 PACK (2 CLOTHS) TOP SCH (03:20)
[2016-12-06] MEDS: HEPARIN SODIUM - SQ 10,000 UNITS/ML VIAL SQ SCH ×3 (03:20→19:35)
[2016-12-06] MEDS: LORazepam 2 MG/ML VIAL IV PUSH SCH ×8 (03:20→23:47)
[2016-12-06] MEDS: SODIUM CHLORIDE 0.9% FLUSH 5 ML FLUSH IV FLUSH SCH ×2 (08:39→19:34)
[2016-12-06] MEDS: NICOTINE 21 MG/24 HR PATCH TD SCH (08:39)
[2016-12-06] MEDS: FOLIC ACID 1 MG TAB PO SCH (08:39)
[2016-12-06] MEDS: THIAMINE HCL 100 MG TAB PO SCH (08:40)
[2016-12-06] MEDS: chlordiazePOXIDE 25 MG CAP PO SCH ×4 (08:40→19:35)
--- NOTE | 2016-12-06 15:32 | HHI.PR ---
Subjective Remarks Earlier received a call from the nurse to renew restrain order patient has been agitated this morning trying to jump of bed I went to see the patient later on, he was in bed he was naked, but calm and aware and oriented to the month, place, the president, he was unable to specify the year He wants to be off restrain, I discussed with him and with the nurse, if he continued to be calm we can try to release to restrain He currently doesn't seem to be ready to be discharged, mental status seemed to be on and off altered Objective Vitals Vital Signs Date Time Temp Pulse Resp B/P Pulse Ox O2 Delivery O2 Flow Rate FiO2 12/06/16 12:00 96.8 80 18 142/79 94 12/06/16 08:30 76 12/06/16 08:30 Room Air 12/06/16 08:00 97.7 68 18 159/75 97 12/06/16 04:00 98.0 84 20 161/80 97 12/06/16 02:33 Room Air 12/06/16 00:00 98.4 83 20 143/86 97 12/05/16 20:00 99.2 90 20 106/60 96 12/05/16 16:42 98.2 108 16 120/72 100 12/05/16 16:00 97.5 95 20 130/77 95 Manual Cuff/Auscultation I/O 12/05/16 12/05/16 12/05/16 12/06/16 12/06/16 12/06/16 07:00 15:00 23:00 07:00 15:00 23:00 Intake Total 360 ml 840 ml 420 ml 220 ml Output Total 500 ml 650 ml Balance -140 ml 190 ml 420 ml 220 ml Intake Oral 360 ml 840 ml 420 ml 220 ml Output Urine Total 500 ml 650 ml # Voids 2 2 3 # Bowel Movements 0 0 1 Result Diagram: 12/03/16 0352 12/05/16 0558 Objective Remarks - - GENERAL: This is a frail 61 years old alcoholic male, in no apparent distress. In the restrained SKIN: warm and dry HEAD: Atraumatic. Normocephalic. EYES: Pupils equal round and reactive. Extraocular motions intact. No scleral icterus. ENT: Nose without bleeding, or drainage, Airway patent. NECK: Trachea midline. Supple CARDIOVASCULAR: Regular rate and rhythm without murmurs, gallops, or rubs. RESPIRATORY: Fair air entry bilaterally. No wheezes, rales, or rhonchi. GASTROINTESTINAL: Abdomen soft, non-tender, nondistended. Positive bowel sounds MUSCULOSKELETAL: Extremities without clubbing, cyanosis, or edema. Pedal pulses appreciated NEUROLOGICAL: Awake and alert. Moves all extremity. Normal speech.no focal neurological deficit Procedures Intubated and extubated on 12/03/2016. A/P Assessment and Plan Mr. Vera is a 61 year, probably a [place] , homeless who was admitted to the hospital on 12/03/2016 due to alcohol toxicity, respiratory failure requiring intubation. He was extubated and managed by critical care team. Care of transferred to the hospitalist service on 12/05/2016. - Acute respiratory failure - Alcohol toxicity - Hypernatremia - Hypertension - Continue Amlodipine 10mg Qday. - Continue Librium 25mg QID, Lorazepam PRN - Folic acid, thiamine PO Qday - Continue mechanical soft diet, thin liquid per speech recommendations. - Hypernatremia resolved. Full code. Heparin SQ. Discharge plan: CM 10.patient is not registered with [facility] , we will continue with PT until his strong enough to be discharged home Justyna Carbajal MD Dec 06, 2016 15:32
[2016-12-07] VITALS (8 sets, daily range): BP systolic 124–168; BP diastolic 66–88; PULSE 88–112; RESP 16–18; TEMP 97.1–99; O2SAT 94–100
[2016-12-07] MEDS: LORazepam 2 MG/ML VIAL IV PUSH SCH ×8 (01:54→23:25)
[2016-12-07] MEDS: CHLORHEXIDINE GLUCONATE 2 % 1 PACK (2 CLOTHS) TOP SCH (04:00)
[2016-12-07] MEDS: HEPARIN SODIUM - SQ 10,000 UNITS/ML VIAL SQ SCH ×3 (04:42→21:42)
[2016-12-07] MEDS: NICOTINE 21 MG/24 HR PATCH TD SCH (08:19)
[2016-12-07] MEDS: REMOVE OLD NICODERM (NICOTINE) PATCH TD SCH (08:20)
[2016-12-07] MEDS: chlordiazePOXIDE 25 MG CAP PO SCH ×4 (08:20→21:42)
[2016-12-07] MEDS: THIAMINE HCL 100 MG TAB PO SCH (08:20)
[2016-12-07] MEDS: SODIUM CHLORIDE 0.9% FLUSH 5 ML FLUSH IV FLUSH SCH ×2 (08:20→21:42)
[2016-12-07] MEDS: FOLIC ACID 1 MG TAB PO SCH (08:20)
--- NOTE | 2016-12-07 15:39 | HHI.PR ---
Subjective Remarks Patient sitting at the nursing station eating his lunch, he is not oriented to day he think he is in the collision [place], he is not oriented to time or place He doesn't seem to be safe to be discharged this time, we'll continue assessing daily Per the nurse she getting agitated at night needed vest restraint Objective Vitals Vital Signs Date Time Temp Pulse Resp B/P Pulse Ox O2 Delivery O2 Flow Rate FiO2 12/07/16 12:06 97.1 104 17 130/66 96 12/07/16 10:18 92 12/07/16 08:52 Room Air 12/07/16 08:00 99.0 95 16 146/83 95 12/07/16 04:33 98.9 88 18 168/88 94 12/07/16 00:12 98.3 99 18 124/70 94 12/06/16 20:30 Room Air 21 12/06/16 20:00 97.9 110 20 125/84 94 12/06/16 20:00 107 12/06/16 16:00 91.8 88 18 164/100 94 I/O 12/06/16 12/06/16 12/06/16 12/07/16 12/07/16 12/07/16 06:59 14:59 22:59 06:59 14:59 22:59 Intake Total 220 ml 480 ml 240 ml Output Total 350 ml Balance 220 ml 480 ml -110 ml Intake Oral 220 ml 480 ml 240 ml Output Urine Total 350 ml # Voids 3 4 # Bowel Movements 1 0 Result Diagram: 12/03/16 0352 12/05/16 0558 Objective Remarks - - GENERAL: This is a frail 61 years old alcoholic male, in no apparent distress. In the restrained SKIN: warm and dry HEAD: Atraumatic. Normocephalic. EYES: Pupils equal round and reactive. Extraocular motions intact. No scleral icterus. ENT: Nose without bleeding, or drainage, Airway patent. NECK: Trachea midline. Supple CARDIOVASCULAR: Regular rate and rhythm without murmurs, gallops, or rubs. RESPIRATORY: Fair air entry bilaterally. No wheezes, rales, or rhonchi. GASTROINTESTINAL: Abdomen soft, non-tender, nondistended. Positive bowel sounds MUSCULOSKELETAL: Extremities without clubbing, cyanosis, or edema. Pedal pulses appreciated NEUROLOGICAL: Awake and alert. Moves all extremity. Normal speech.no focal neurological deficit Procedures Intubated and extubated on 12/03/2016. A/P Assessment and Plan 12/07/16: Patient not oriented today, he is very weak and fragile to be discharged, will continue daily assessment, improve nutrition and PT OT Mr. Vera is a 61 year, probably a [place] , homeless who was admitted to the hospital on 12/03/2016 due to alcohol toxicity, respiratory failure requiring intubation. He was extubated and managed by critical care team. Care of transferred to the hospitalist service on 12/05/2016. - Acute respiratory failure - Alcohol toxicity - Hypernatremia - Hypertension - Continue Amlodipine 10mg Qday. - Continue Librium 25mg QID, Lorazepam PRN - Folic acid, thiamine PO Qday - Continue mechanical soft diet, thin liquid per speech recommendations. - Hypernatremia resolved. Full code. Heparin SQ. Discharge plan: CM 10.patient is not registered with [facility] , we will continue with PT until his strong enough to be discharged home Discharge Planning To be discharged home when stable or to rehabilitation if [facility] bed is available Justyna Carbajal MD Dec 07, 2016 15:38
[2016-12-08] VITALS (8 sets, daily range): BP systolic 104–160; BP diastolic 63–80; PULSE 94–113; RESP 20–24; TEMP 96–98.9; O2SAT 82–99
[2016-12-08] MEDS: LORazepam 2 MG/ML VIAL IV PUSH SCH ×3 (02:15→08:00)
[2016-12-08] MEDS: CHLORHEXIDINE GLUCONATE 2 % 1 PACK (2 CLOTHS) TOP SCH (04:00)
[2016-12-08] MEDS: HEPARIN SODIUM - SQ 10,000 UNITS/ML VIAL SQ SCH ×3 (05:19→21:41)
[2016-12-08 06:51] LABS: AUTOMATED NEUTROPHIL # 5.7 TH/MM3 (1.8-7.7); BASOPHIL % 0.3 % (0.0-2.0); EOSINOPHIL # 0.1 TH/MM3 (0-0.4); EOSINOPHIL % 0.6 % (0.0-4.0); HEMO FLAGS DIFF FINAL; LYMPH % 13.9 % (9.0-44.0); LYMPHOCYTE # 1.1 TH/MM3 (1.0-4.8); MEAN CELL VOLUME 98.5 FL (80.0-100.0); MEAN CORPUSCULAR HEMOGLOBIN 33.6 PG (27.0-34.0); MEAN CORPUSCULAR HGB CONC 34.1 % (32.0-36.0); MONO % 12.1 % (0.0-8.0); NEUT % 73.1 % (16.0-70.0); PLATELET COUNT 140 TH/MM3 (150-450); RED BLOOD COUNT 4.16 MIL/MM3 (4.50-5.90); RED CELL DISTRIBUTION WIDTH 14.7 % (11.6-17.2); WHITE BLOOD COUNT 7.8 TH/MM3 (4.0-11.0)
[2016-12-08 07:08] LABS: BICARBONATE 24.7 MEQ/L (21.0-32.0)
[2016-12-08] MEDS: REMOVE OLD NICODERM (NICOTINE) PATCH TD SCH (09:00)
[2016-12-08] MEDS: chlordiazePOXIDE 25 MG CAP PO SCH ×4 (09:00→21:41)
[2016-12-08] MEDS: THIAMINE HCL 100 MG TAB PO SCH (09:00)
[2016-12-08] MEDS: FOLIC ACID 1 MG TAB PO SCH (10:13)
[2016-12-08] MEDS: NICOTINE 21 MG/24 HR PATCH TD SCH (10:14)
[2016-12-08] MEDS: SODIUM CHLORIDE 0.9% FLUSH 5 ML FLUSH IV FLUSH SCH ×2 (10:15→21:41)
[2016-12-08] MEDS: POTASSIUM CHLORIDE 10 MEQ CONTROLLED RELEASE TAB PO SCH ×2 (13:00→17:00)
--- NOTE | 2016-12-08 16:05 | HHI.PR ---
Subjective Remarks Patient sitting on the nurses station is lethargic, discussed with the nurse, obviously is benign Ativan 1 mg every 3 hours ordered by the night physician, we 'll Paper that , we'll check swallow eval per nurse recommendation Patient location very that shape, definitely not safe to be discharged at this point Objective Vitals Vital Signs Date Time Temp Pulse Resp B/P Pulse Ox O2 Delivery O2 Flow Rate FiO2 12/08/16 12:06 98.4 99 20 110/70 99 12/08/16 08:07 96.0 113 20 142/69 82 12/08/16 04:00 98.1 97 20 160/80 96 12/08/16 00:00 98.9 94 20 119/63 93 12/07/16 20:45 Room Air 12/07/16 20:01 94 12/07/16 20:00 99.0 90 16 136/76 100 12/07/16 16:06 98.3 112 18 129/78 94 I/O 12/07/16 12/07/16 12/07/16 12/08/16 12/08/16 12/08/16 07:00 15:00 23:00 07:00 15:00 23:00 Intake Total 140 ml 242 ml 126 ml Output Total 50 ml Balance 140 ml 242 ml 76 ml Intake Oral 140 ml 240 ml 120 ml IV Total 2 ml 6 ml Output Urine Total 50 ml # Voids 5 2 # Bowel Movements 0 0 Result Diagram: 12/08/1652512/08/16 05 Objective Remarks - - GENERAL: This is a frail 61 years old alcoholic male, in no apparent distr ess. He is very somnolent SKIN: warm and dry HEAD: Atraumatic. Normocephalic. EYES: Pupils equal round and reactive. Extraocular motions intact. No scleral icterus. ENT: Nose without bleeding, or drainage, Airway patent. NECK: Trachea midline. Supple CARDIOVASCULAR: Regular rate and rhythm without murmurs, gallops, or rubs. RESPIRATORY: Fair air entry bilaterally. No wheezes, rales, or rhonchi. GASTROINTESTINAL: Abdomen soft, non-tender, nondistended. Positive bowel sounds MUSCULOSKELETAL: Extremities without clubbing, cyanosis, or edema. Pedal pulses appreciated NEUROLOGICAL: Very somnolent, on the chair next to the nurse station Procedures Intubated and extubated on 12/03/2016. A/P Assessment and Plan 12/07/16: Patient not oriented today, he is very weak and fragile to be discharged, will continue daily assessment, improve nutrition and PT OT 12/08/16: Patient lethargic, we'll taper Ativan schedule and make it when necessary, and will monitor his mental status, will check swallow eval for possible problem with dysphagia A/P: Mr. Vera is a 61 year, probably a [place] , homeless who was admitted to the hospital on 12/03/2016 due to alcohol toxicity, respiratory failure requiring intubation. He was extubated and managed by critical care team. Care of transferred to the hospitalist service on 12/05/2016. - Acute respiratory failure - Alcohol toxicity - Hypernatremia - Hypertension - Continue Amlodipine 10mg Qday. - Continue Librium 25mg QID, Lorazepam PRN - Folic acid, thiamine PO Qday - Continue mechanical soft diet, thin liquid per speech recommendations. - Hypernatremia resolved. Full code. Heparin SQ. Discharge plan: CM 10.patient is not registered with [facility] , we will continue with PT until his strong enough to be discharged home Discharge Planning To be discharged home when stable or to rehabilitation if [facility] bed is available Justyna Carbajal MD Dec 08, 2016 16:05 Justyna Carbajal MD Dec 08, 2016 16:05
[2016-12-08] MEDS ORDERED: POTASSIUM CHLOR 20 MEQ PREMIX 100 ML IV ONE (19:00)
[2016-12-09] VITALS (8 sets, daily range): BP systolic 115–166; BP diastolic 67–98; PULSE 91–121; RESP 18–24; TEMP 98.6–100.6; O2SAT 91–97
[2016-12-09] MEDS: CHLORHEXIDINE GLUCONATE 2 % 1 PACK (2 CLOTHS) TOP SCH (03:39)
[2016-12-09] MEDS: HEPARIN SODIUM - SQ 10,000 UNITS/ML VIAL SQ SCH ×3 (03:40→20:42)
[2016-12-09] MEDS: NICOTINE 21 MG/24 HR PATCH TD SCH (09:31)
[2016-12-09] MEDS: chlordiazePOXIDE 25 MG CAP PO SCH (09:31)
[2016-12-09] MEDS: THIAMINE HCL 100 MG TAB PO SCH (09:31)
[2016-12-09] MEDS: SODIUM CHLORIDE 0.9% FLUSH 5 ML FLUSH IV FLUSH SCH ×2 (09:31→20:42)
[2016-12-09] MEDS: FOLIC ACID 1 MG TAB PO SCH (09:31)
[2016-12-09] MEDS: REMOVE OLD NICODERM (NICOTINE) PATCH TD SCH (09:31)
--- NOTE | 2016-12-09 10:22 | RADRPT ---
EXAM DATE/TIME: 12/09/2016 08:58 [facility] COMPARISON: CHEST SINGLE AP, December 02, 2016, 17:41. CHEST PA & LAT, June 17, 2014, 11:20. INDICATIONS : Short of breath. MEDICAL HISTORY : None. SURGICAL HISTORY : None. ENCOUNTER: Initial ACUITY: 3 days PAIN SCORE: Non-responsive. LOCATION: Bilateral chest FINDINGS: Frontal and lateral views of the chest demonstrate a normal-sized cardiac silhouette. There is no eff usion, consolidation, or pneumothorax. The bones and soft tissues demonstrate no acute abnormality. CONCLUSION: No acute cardiopulmonary abnormality is identified. Maximo Encinas MD on December 09, 2016 at 10:20 Board Certified Radiologist. This report was verified electronically.
[2016-12-09] MEDS ORDERED: ACETAMINOPHEN 325 MG/10.15 ML UDC PO PRN (10:45)
--- NOTE | 2016-12-09 10:48 | HHI.PR ---
Subjective Remarks Patient continued to be somnolent, currently he is getting NG tube insertion Per the nurse he had a fever of 100.4 this morning, chest x-ray has been done was unremarkable Very frail, looks ill, malnourished we need to start nutrition with tube feed since he is nothing by mouth by speech therapist due to dysphagia Objective Vitals Vital Signs Date Time Temp Pulse Resp B/P Pulse Ox O2 Delivery O2 Flow Rate FiO2 12/09/16 04:00 99.3 103 24 138/74 94 12/09/16 00:00 99.3 103 20 127/68 94 12/08/16 21:45 Room Air 12/08/16 20:11 101 12/08/16 20:00 98.5 97 24 129/77 95 12/08/16 16:07 98.1 96 20 104/67 96 12/08/16 12:06 98.4 99 20 110/70 99 I/O 12/08/16 12/08/16 12/08/16 12/09/16 12/09/16 12/09/16 07:00 15:00 23:00 07:00 15:00 23:00 Intake Total 126 ml 240 ml 105 ml 0 ml Output Total 50 ml 600 ml 50 ml 175 ml Balance 76 ml -360 ml 55 ml -175 ml Intake Oral 120 ml 240 ml 0 ml 0 ml IV Total 6 ml 105 ml Output Urine Total 50 ml 600 ml 50 ml 175 ml # Bowel Movements 0 0 0 Result Diagram: 12/08/16 0526 12/08/162134 Objective Remarks - - GENERAL: This is a frail 61 years old alcoholic male, in no apparent distress. SKIN: warm and dry HEAD: Atraumatic. Normocephalic. EYES: Pupils equal round and reactive. Extraocular motions intact. No scleral icterus. ENT: Nose without bleeding, or drainage, Airway patent. NECK: Trachea midline. Supple CARDIOVASCULAR: Regular rate and rhythm without murmurs, gallops, or rubs. RESPIRATORY: Fair air entry bilaterally. No wheezes, rales, or rhonchi. GASTROINTESTINAL: Abdomen soft, non-tender, nondistended. Positive bowel sounds MUSCULOSKELETAL: Extremities without clubbing, cyanosis, or edema. Pedal pulses appreciated NEUROLOGICAL: Somnolent, moves extremity to sternal rub Procedures Intubated and extubated on 12/03/2016. A/P Assessment and Plan A/P: Mr. Vera is a 61 year, probably a [place] , homeless who was admitted to the hospital on 12/03/2016 due to alcohol toxicity, respiratory failure requiring intubation. He was extubated and managed by critical care team. Care of transferred to the hospitalist service on 12/05/2016. -Lethargic -Dysphagia -Fever 100.4 Keep nothing by mouth NG tube with Jevity, consult dietary Chest x-ray done last midnight was unremarkable, monitor for fever or hypoxia , consider antibiotic if developed clinical aspiration pneumonia Decrease Librium to 10 mg twice a day On it or mental status Discussed with the nurse - Status post Acute respiratory failure - Alcohol toxicity - Hypernatremia - Hypertension - Continue Amlodipine 10mg Qday. - Continue Librium 25mg QID, Lorazepam PRN - Folic acid, thiamine PO Qday - Continue mechanical soft diet, thin liquid per speech recommendations. - Hypernatremia resolved. Full code. Heparin SQ. Discharge plan: CM 10.patient is not [facility] with [facility] , we will continue with PT until his strong enough to be discharged home Discharge Planning To be discharged home when stable or to rehabilitation if [facility] bed is available Justyna Carbajal MD Dec 09, 2016 10:48
[2016-12-09] MEDS: DEXTROSE 5% IN WATE 1000ML INJ 1,000 ML IV SCH (15:15)
[2016-12-09] MEDS: HYOSCYAMINE SOLN 0.125 MG/ML 15 ML BTL PO PRN ×2 (22:45→23:00)
[2016-12-10] VITALS (10 sets, daily range): BP systolic 119–151; BP diastolic 68–89; PULSE 83–122; RESP 18–20; TEMP 98–100.2; O2SAT 93–99
[2016-12-10] MEDS: HYOSCYAMINE SOLN 0.125 MG/ML 15 ML BTL PO PRN ×2 (01:07→03:30)
[2016-12-10] MEDS: CHLORHEXIDINE GLUCONATE 2 % 1 PACK (2 CLOTHS) TOP SCH (04:00)
[2016-12-10] MEDS: HEPARIN SODIUM - SQ 10,000 UNITS/ML VIAL SQ SCH ×3 (04:57→21:14)
[2016-12-10] MEDS: SODIUM CHLORIDE 0.9% IV SCH (08:26)
[2016-12-10] MEDS: THIAMINE IV SCH (08:26)
[2016-12-10] MEDS: FOLIC ACID IV SCH (08:26)
[2016-12-10] MEDS: FOLIC ACID INJ 1 MG in SYRINGE/BAG 1 EA IM SCH (08:27)
[2016-12-10] MEDS: THIAMINE HCL 200 MG/2 ML VIAL IM SCH (08:27)
[2016-12-10] MEDS: SODIUM CHLORIDE 0.9% FLUSH 5 ML FLUSH IV FLUSH SCH ×2 (08:33→21:11)
[2016-12-10] MEDS: REMOVE OLD NICODERM (NICOTINE) PATCH TD SCH (08:33)
[2016-12-10] MEDS: NICOTINE 21 MG/24 HR PATCH TD SCH (08:34)
[2016-12-10] MEDS ORDERED: THIAMINE HCL 200 MG/2 ML VIAL IV SCH (09:00)
[2016-12-10] MEDS ORDERED: FOLIC ACID 1 MG/0.2 ML INJ IM SCH (09:00)
[2016-12-10] MEDS ORDERED: FOLIC ACID 1 MG/0.2 ML INJ IV SCH (09:00)
[2016-12-10] MEDS: DEXTROSE 5% IN WATE 1000ML INJ 1,000 ML IV SCH (12:25)
--- NOTE | 2016-12-10 14:11 | HHI.PR ---
Subjective Remarks Patient laying in bed he's awake, he is alert oriented to time place and situation and person Denied pain however he said on restrain, per the nurse on and off confusion He still nothing by mouth per speech recommendation for dysphagia, failed NG tube in surgeon yesterday, I discussed with the nurse possible giving Ativan overnight for indication of agitation, will strictly stop that and making only for withdrawal seizure Objective Vitals Vital Signs Date Time Temp Pulse Resp B/P Pulse Ox O2 Delivery O2 Flow Rate FiO2 12/10/16 12:13 98.0 83 19 129/68 99 12/10/16 11:05 122 12/10/16 11:05 Simple Mask 6.00 21 12/10/16 09:51 Simple Mask 6.00 21 12/10/16 08:06 98.8 107 18 137/82 94 12/10/16 04:00 98.3 89 20 119/69 97 12/10/16 00:51 93 Simple Mask 6.00 12/10/16 00:00 98.8 100 20 131/82 97 12/09/16 20:00 98.6 100 20 142/76 97 12/09/16 20:00 Simple Mask 6.00 12/09/16 20:00 Simple Mask 6.00 12/09/16 20:00 91 12/09/16 16:00 99.2 101 18 115/67 96 I/O 12/09/16 12/09/16 12/09/16 12/10/16 12/10/16 12/10/16 07:00 15:00 23:00 07:00 15:00 23:00 Intake Total 0 ml 2 ml Output Total 175 ml 375 ml 300 ml Balance -175 ml 2 ml -375 ml -300 ml Intake Oral 0 ml IV Total 2 ml Output Urine Total 175 ml 375 ml 300 ml # Bowel Movements 0 Result Diagram: 12/08/16 0526 12/08/163 Objective Remarks - - GENERAL: This is a frail 61 years old alcoholic male, in no apparent distr ess. Awake alert oriented SKIN: warm and dry HEAD: Atraumatic. Normocephalic. EYES: Pupils equal round and reactive. Extraocular motions intact. No scleral icterus. ENT: Nose without bleeding, or drainage, Airway patent. NECK: Trachea midline. Supple CARDIOVASCULAR: Regular rate and rhythm without murmurs, gallops, or rubs. RESPIRATORY: Fair air entry bilaterally. No wheezes, rales, or rhonchi. GASTROINTESTINAL: Abdomen soft, non-tender, nondistended. Positive bowel sounds MUSCULOSKELETAL: Extremities without clubbing, cyanosis, or edema. Pedal pulses appreciated NEUROLOGICAL: Awake alert oriented, moves all extremities Procedures Intubated and extubated on 12/03/2016. A/P Assessment and Plan A/P: Mr. Vera is a 61 year, probably a [place] , homeless who was admitted to the hospital on 12/03/2016 due to alcohol toxicity, respiratory failure requiring intubation. He was extubated and managed by critical care team. Care of transferred to the hospitalist service on 12/05/2016. -Lethargic>> resolved but still on and off -Dysphagia -Fever 100.6>> resolved over 24 hours -Hypoxia acute>> repeat chest x-ray rule out aspiration pneumonia reviewed showed only atelectasis>> apply IS Keep nothing by mouth Failed NG tube insertion, continue on D5 iv fluid 8 speech eval Decrease Librium to 10 mg twice a day Ativan only for withdrawal seizure D/W nurse - Status post Acute respiratory failure - Alcohol toxicity - Hypernatremia - Hypertension - Continue Amlodipine 10mg Qday. - Continue Librium 25mg QID, Lorazepam PRN - Folic acid, thiamine PO Qday - Hypernatremia resolved. Full code. Heparin SQ. Discharge plan: CM 10.patient is not [facility] with [facility] , we will continue with PT until his strong enough to be discharged home Discharge Planning To be discharged home when stable or to rehabilitation if [facility] bed is available Justyna Carbajal MD Dec 10, 2016 14:11
--- NOTE | 2016-12-10 15:07 | RADRPT ---
EXAM DATE/TIME: 12/10/2016 14:42 [facility] COMPARISON: CHEST SINGLE AP, December 02, 2016, 17:41. INDICATIONS : Respiratory failure. Desaturation. Infiltrate. MEDICAL HISTORY : None. SURGICAL HISTORY : None. ENCOUNTER: Subsequent ACUITY: 1 week PAIN SCORE: 0/10 LOCATION: Bilateral chest FINDINGS: AP view of the chest demonstrates a normal-sized cardiac silhouette. Lungs are underinflated with mil d atelectasis at the bases. No effusion, consolidation, or pneumothorax is visualized. CONCLUSION: Mild atelectasis at the lung bases. Otherwise, no acute finding is identified. Maximo Encinas MD on December 10, 2016 at 15:04 Board Certified Radiologist. This report was verified electronically.
[2016-12-10 16:11] LABS: AUTOMATED NEUTROPHIL # 6.8 TH/MM3 (1.8-7.7); BASOPHIL # 0.1 TH/MM3 (0-0.2); BASOPHIL % 0.6 % (0.0-2.0); EOSINOPHIL # 0.1 TH/MM3 (0-0.4); EOSINOPHIL % 0.6 % (0.0-4.0); HEMATOCRIT 41.1 % (39.0-51.0); HEMO FLAGS DIFF FINAL; LYMPH % 10.2 % (9.0-44.0); LYMPHOCYTE # 0.9 TH/MM3 (1.0-4.8); MEAN CELL VOLUME 99.7 FL (80.0-100.0); MEAN CORPUSCULAR HEMOGLOBIN 33.6 PG (27.0-34.0); MEAN CORPUSCULAR HGB CONC 33.7 % (32.0-36.0); NEUT % 76.6 % (16.0-70.0); PLATELET COUNT 176 TH/MM3 (150-450); RED BLOOD COUNT 4.13 MIL/MM3 (4.50-5.90); RED CELL DISTRIBUTION WIDTH 14.8 % (11.6-17.2); WHITE BLOOD COUNT 8.9 TH/MM3 (4.0-11.0)
[2016-12-10 16:40] LABS: BICARBONATE 29.1 MEQ/L (21.0-32.0); POTASSIUM 3.4 MEQ/L (3.5-5.1)
[2016-12-11] VITALS (15 sets, daily range): BP systolic 86–170; BP diastolic 49–91; PULSE 67–116; RESP 16–20; TEMP 98.2–99.3; O2SAT 1–100
[2016-12-11] MEDS: HEPARIN SODIUM - SQ 10,000 UNITS/ML VIAL SQ SCH ×2 (03:59→13:11)
[2016-12-11] MEDS: CHLORHEXIDINE GLUCONATE 2 % 1 PACK (2 CLOTHS) TOP SCH (04:00)
[2016-12-11] MEDS: THIAMINE IV SCH (07:54)
[2016-12-11] MEDS: SODIUM CHLORIDE 0.9% IV SCH (07:54)
[2016-12-11] MEDS: FOLIC ACID IV SCH (07:54)
[2016-12-11] MEDS: THIAMINE HCL 200 MG/2 ML VIAL IM SCH ×2 (07:54→08:20)
[2016-12-11] MEDS: NICOTINE 21 MG/24 HR PATCH TD SCH (08:03)
[2016-12-11] MEDS: DEXTROSE 5% IN WATE 1000ML INJ 1,000 ML IV SCH (08:04)
[2016-12-11] MEDS: SODIUM CHLORIDE 0.9% FLUSH 5 ML FLUSH IV FLUSH SCH ×2 (08:04→20:27)
[2016-12-11] MEDS: REMOVE OLD NICODERM (NICOTINE) PATCH TD SCH (08:05)
[2016-12-11 08:10] LABS: AUTOMATED NEUTROPHIL # 7.4 TH/MM3 (1.8-7.7); BASOPHIL % 0.3 % (0.0-2.0); EOSINOPHIL % 0.4 % (0.0-4.0); HEMATOCRIT 44.8 % (39.0-51.0); HEMO FLAGS DIFF FINAL; LYMPH % 12.4 % (9.0-44.0); LYMPHOCYTE # 1.2 TH/MM3 (1.0-4.8); MEAN CELL VOLUME 100.5 FL (80.0-100.0); MEAN CORPUSCULAR HEMOGLOBIN 33.6 PG (27.0-34.0); MEAN CORPUSCULAR HGB CONC 33.4 % (32.0-36.0); MONO % 13.4 % (0.0-8.0); NEUT % 73.5 % (16.0-70.0); PLATELET COUNT 219 TH/MM3 (150-450); RED BLOOD COUNT 4.46 MIL/MM3 (4.50-5.90); WHITE BLOOD COUNT 10.1 TH/MM3 (4.0-11.0)
[2016-12-11] MEDS: ENALAPRILAT 1.25 MG/ML VIAL IV PUSH PRN (08:17)
[2016-12-11] MEDS: FOLIC ACID INJ 1 MG in SYRINGE/BAG 1 EA IM SCH (08:21)
[2016-12-11 08:40] LABS: POTASSIUM 3.4 MEQ/L (3.5-5.1)
[2016-12-11] MEDS ORDERED: METOPROLOL TARTRATE 5 MG/5 ML VIAL IV PUSH ONE (10:45)
[2016-12-11] MEDS ORDERED: MIDAZOLAM HCL 5 MG/ML VIAL (1 ML) ONE ×2 (10:56→11:01)
[2016-12-11] MEDS ORDERED: MIDAZOLAM HCL 5 MG/5 ML VIAL IV ONE (11:00)
[2016-12-11] MEDS ORDERED: NOREPINEPHRINE 4 MG/D5W 250 ML IV SCH (11:15)
--- NOTE | 2016-12-11 11:16 | HHI.PR ---
Addendum to Inpatient Note Additional Information I was called about the patient being tachycardic with high blood pressure and lethargic, I ordered a stat ABG, chest x-ray, CBC and BMP, lactic acid, one dose of Lopressor 5 mg iv 1 By the time I got to the room patient was already called for halicat , was intubated at the site, Dr. Webber sawmill moulder operator intubated the patient, discussed with him and explained about the condition, he graciously will take over care. Patient might have aspirated his own saliva, awaiting chest x-ray and lab test. Justyna Carbajal MD Dec 11, 2016 11:16
[2016-12-11 11:54] LABS: BLOOD GAS VENOUS BASE EXCESS 2.6 mmol/L (-2-2); BLOOD GAS VENOUS HCO3 29 mmol/L (22-26); BLOOD GAS VENOUS O2 CONTENT 10.9 Vol % (9.0-17.0); BLOOD GAS VENOUS O2 HGB SAT 53 % (70-76); BLOOD GAS VENOUS PCO2 64 mmHg (44-48); BLOOD GAS VENOUS PO2 34 mmHg (35-40); BLOOD GAS VENOUS pH 7.28 (7.360-7.400); CRITICAL VALUE YES; OXYGEN DEVICE VENTILATOR; TEMP CORR TO 98.6
[2016-12-11 11:55] LABS: DRAW SITE CENTRAL LINE; FIO2 100 %; STAT YES
--- NOTE | 2016-12-11 12:18 | HHI.CCPN ---
Subjective Remarks/Hospital Course Elderly man with ETOH toxicity found obtunded on the ground. No history. ETOH level > 500. SUBJECTIVE 12/03: Remains intubated sedated with propofol. Spontaneously moves extremities occasionally SUBJECTIVE 12/04: Extubated yesterday tolerating well. Drowsy but wakes up easily follows commands. No evidence of alcohol withdrawal it, getting scheduled Librium 12/11: Reconsulted for combined respiratory failure, obtundation. Required immediate intubation and respiratory resuscitation. Objective Vital Signs Date Time Temp Pulse Resp B/P Pulse Ox O2 Delivery O2 Flow Rate FiO2 12/11/16 08:00 98.2 110 20 170/91 94 12/11/16 07:45 Simple Mask 6.00 12/10/16 11:05 21 Intake and Output 12/10/16 12/10/16 12/11/16 08:00 16:00 00:00 Intake Total 1180 ml 311 ml Output Total 300 ml 100 ml Balance -300 ml 1180 ml 211 ml Result Diagram: 12/11/16 0651 12/11/16 0651 Other Results Laboratory Tests Test 12/11/16 11:43 Blood Gas Puncture Site CENTRAL LINE Blood Gas Patient Temperature 98.6 Venous Blood pH 7.28 (7.360-7.400) Venous Blood Partial Pressure 64 mmHg (44-48) CO2 Venous Blood Partial Pressure 34 mmHg (35-40) O2 Venous Blood HCO3 29 mmol/L (22-26) Venous Blood Oxygen Saturation 53 % (70-76) Venous Blood Oxygen Content 10.9 Vol % (9.0-17.0) Venous Blood Base Excess 2.6 mmol/L (-2-2) Oxygen Delivery Device VENTILATOR Blood Gas Ventilator Setting Blood Gas Inspired Oxygen 100 % Objective Remarks Gen: Disheveled elderly male, unresponsive. Head: Normal, atraumatic Neck: Supple, orally intubated. Lungs: Minimal respiratory effort, diffuse rhonchi and secretions. Blue. Heart: NL S1S2, no m,r. RRR. No JVD. Abdomen: Soft, no guarding, BS few. Nondistended. Extremities: Tepid, adequately perfused. Neuro: Unresponsive. Gag weak. Pupils 3 mm. Procedures Intubated and extubated on 12/03/2016. A/P Assessment and Plan Assessment: Acute Respiratory Failure requiring mechanical ventilation ETOHism Alcohol dependence Metabolic encephalopathy. Plan: 1. PRVC vent mode. 2.Scheduled Librium 25 mg 4 times a day when alet. 3. NG to LIS. 4. Place a-line. 5. Lovenox DVT px. 6. Protonix. 7. Thiamine 100 mg daily. 8. Seizure precautions. 9. Sputume cults 10. NS bolus 1 liter. 11. Nebs. Overall impression: Chronic alcoholic resuscitated partially from respiratory arrest. Never lost pulse. Critically ill with pneumonia and severe hypoxemia. Critical care 40 mins aside from procedures. Paul Spnecer MD Dec 11, 2016 12:17
--- NOTE | 2016-12-11 12:27 | PD.PROCEDR ---
Procedure Note Procedure DX: Respiratory Arrest, Hypoxemia OP: 1. Orotracheal Intubation (27461) 2. Insertion Left Subclavian Central Venous Line (09451) 3. Insertion Right radial artery line (37673) Procedure: Bag mask ventilation and hyperoxygenation. Versed 5 mg iv. Intubated orally with 8.0 tube. Position confirmed with CO2 detection, breath sounds, improved sats. Left chest prepped and draped. Left subclavian vein cannulated and wire advanced. Catheter passed over wire to 18 cm. Lumens aspirated and flushed. Dressing applied. Right hand Alexei test intact and normal. Right radial artery cannulated with 20 gauge needle and cannula advanced into artery. Good waveform observed. Dressing applied. Circulation to right hand intact after procedure. CXR ordered, will review. Paul Spencer MD Dec 11, 2016 12:27
[2016-12-11] MEDS ORDERED: Vancomycin Consult Pharmacy 1 EA OTHER SCH (12:30)
[2016-12-11] MEDS: AZTREONAM INJ 1,000 MG in SODIUM CHLORIDE 0.9% INJ 100 ML IV SCH ×2 (13:11→20:27)
[2016-12-11] MEDS: NS + KCL 20 MEQ INJ 1,000 ML IV SCH ×2 (13:11→20:09)
--- NOTE | 2016-12-11 14:00 | RADRPT ---
EXAM DATE/TIME: 12/11/2016 12:28 [facility] COMPARISON: CHEST SINGLE AP, December 10, 2016, 14:42. INDICATIONS : Central line placement And endotracheal tube placement MEDICAL HISTORY : None. SURGICAL HISTORY : None. ENCOUNTER: Subsequent ACUITY: 4 - 6 days PAIN SCORE: Non-responsive. LOCATION: Bilateral chest FINDINGS: A single portable frontal view of the chest shows an endotracheal tube tip approximately 3 cm proxima l to the miguel. Left subclavian central line with the tip at the innominate vein/brachiocephalic vei n confluence. Nasogastric tube tip courses off the inferior margin of the film. A 2.5 cm rounded area of consolidation is seen within the medial right lung base. This is new. Left lung is clear. No disc rete effusions. Heart is normal in size. CONCLUSION: 1. Lines and tubes as detailed above without pneumothorax. 2. 2.5 cm rounded area of consolidation involving the medial right lung base. Differential diagnostic considerations include an infectious infiltrate versus rounded atelectasis. Jay Velasquez Jr., MD on December 11, 2016 at 13:53 Board Certified Radiologist. This report was verified electronically.
[2016-12-11 14:25] LABS: AUTOMATED NEUTROPHIL # 11.2 TH/MM3 (1.8-7.7); BASOPHIL % 0.1 % (0.0-2.0); EOSINOPHIL % 0.1 % (0.0-4.0); HEMATOCRIT 42.8 % (39.0-51.0); LYMPH % 2.3 % (9.0-44.0); LYMPHOCYTE # 0.3 TH/MM3 (1.0-4.8); MEAN CELL VOLUME 98.7 FL (80.0-100.0); MEAN CORPUSCULAR HGB CONC 34.5 % (32.0-36.0); MONO % 7.1 % (0.0-8.0); NEUT % 90.4 % (16.0-70.0); PLATELET COUNT 246 TH/MM3 (150-450); RED BLOOD COUNT 4.34 MIL/MM3 (4.50-5.90); RED CELL DISTRIBUTION WIDTH 14.1 % (11.6-17.2); WHITE BLOOD COUNT 12.4 TH/MM3 (4.0-11.0)
[2016-12-11 14:26] LABS: HEMO FLAGS AUTO DIFF
[2016-12-11 15:04] LABS: BICARBONATE 24.8 MEQ/L (21.0-32.0); POTASSIUM 3.8 MEQ/L (3.5-5.1)
[2016-12-11 15:10] LABS: BANDS 23 % (0-6); METAMYELOCYTES 3 % (0-1); NEUTROPHIL # MANUAL DIFF 11.3 TH/MM3 (1.8-7.7); PLATELET ESTIMATE SMEAR NORMAL (NORMAL); PLATELET MORPHOLOGY NORMAL (NORMAL); POLYS (SEG NEUTROPHILS) 65 % (16-70); SCAN/DIFF FINAL DIFF MANUAL; WBC DIFF SAMPLE 100
[2016-12-11] MEDS: VANCOMYCIN 1,000 MG/NS 250 ML IV SCH ×2 (15:42)
[2016-12-11] MEDS: PROPOFOL 1000 MG/100 ML IV SCH (15:42)
[2016-12-11] MEDS ORDERED: SODIUM CHLOR 0.9% 1000 ML INJ 1,000 ML IV ONE (17:00)
[2016-12-11] MEDS: PANTOPRAZOLE INJ 80 MG in SODIUM CHLORIDE 0.9% INJ 100 ML IV SCH (17:37)
[2016-12-11 18:00] LABS: APTT (PATIENT) 30.6 SEC (24.3-30.1); INTERNATIONAL NORMALIZED RATIO 1.1 RATIO
[2016-12-11] MEDS ORDERED: PANTOPRAZOLE INJ 80 MG in SODIUM CHLORIDE 0.9% INJ 35 ML IV ONE (18:00)
[2016-12-11] MEDS: CHLORHEXIDINE 0.12% (ORAL KIT) 15 ML CUP MT SCH (20:00)
[2016-12-11] MEDS ORDERED: FAMOTIDINE 20 MG TAB PO SCH (21:00)
[2016-12-11 21:45] LABS: HEMATOCRIT 39.2 % (39.0-51.0); REVIEW FLAG FINAL
[2016-12-12] VITALS (18 sets, daily range): BP systolic 115–169; BP diastolic 59–90; PULSE 64–88; RESP 20–27; TEMP 97.7–99.3; O2SAT 98–100
[2016-12-12] MEDS: PANTOPRAZOLE INJ 80 MG in SODIUM CHLORIDE 0.9% INJ 100 ML IV SCH ×2 (00:26→12:02)
[2016-12-12] MEDS: VANCOMYCIN 1,000 MG/NS 250 ML IV SCH ×4 (02:48→14:39)
[2016-12-12] MEDS: NS + KCL 20 MEQ INJ 1,000 ML IV SCH ×3 (02:49→21:53)
[2016-12-12] MEDS: CHLORHEXIDINE GLUCONATE 2 % 1 PACK (2 CLOTHS) TOP SCH (02:49)
[2016-12-12 04:18] LABS: AUTOMATED NEUTROPHIL # 14.5 TH/MM3 (1.8-7.7); BASOPHIL % 0.1 % (0.0-2.0); HEMO FLAGS DIFF FINAL; LYMPH % 5.4 % (9.0-44.0); LYMPHOCYTE # 0.9 TH/MM3 (1.0-4.8); MEAN CELL VOLUME 99.9 FL (80.0-100.0); MEAN CORPUSCULAR HEMOGLOBIN 33.3 PG (27.0-34.0); MEAN CORPUSCULAR HGB CONC 33.3 % (32.0-36.0); MONO % 6.5 % (0.0-8.0); PLATELET COUNT 194 TH/MM3 (150-450); RED CELL DISTRIBUTION WIDTH 14.1 % (11.6-17.2); WHITE BLOOD COUNT 16.5 TH/MM3 (4.0-11.0)
[2016-12-12 04:36] LABS: BLOOD GAS BASE EXCESS -4.4 mmol/L (-2-2); BLOOD GAS HCO3 20 mmol/L (22-26); BLOOD GAS METHEMOGLOBIN 0.8 % (0-2); BLOOD GAS O2 HGB SATURATION 98 % (90-100); BLOOD GAS OXYGEN CONTENT 18.5 Vol % (12.0-20.0); BLOOD GAS PCO2 37 mmHg (38-42); BLOOD GAS PO2 163 mmHg (61-120); BLOOD GAS TOTAL HGB 13.3 G/DL (12.0-16.0); CRITICAL VALUE NO; OXYGEN DEVICE VENTILATOR; TEMP CORR TO 98.6
[2016-12-12 04:37] LABS: DRAW SITE ART LINE; FIO2 70 %; NUMBER OF ARTERIAL PUNCTURES 0; STAT NO; ULNAR PULSE PRESENT; VENT SETTINGS SEE COMMENTS
[2016-12-12 04:45] LABS: ALKALINE PHOSPHATASE 71 U/L (45-117); ALT (GPT) 26 U/L (12-78); ANION GAP 10 MEQ/L (5-15); AST (GOT) 17 U/L (15-37); BICARBONATE 22.4 MEQ/L (21.0-32.0); BLOOD UREA NITROGEN 17 MG/DL (7-18); CHLORIDE 119 MEQ/L (98-107); GLOMERULAR FILTRATION RATE 82 ML/MIN (>89); POTASSIUM 3.9 MEQ/L (3.5-5.1); SODIUM (NA) 151 MEQ/L (136-145); TOTAL BILIRUBIN ADULT 1.1 MG/DL (0.2-1.0)
[2016-12-12] MEDS: AZTREONAM INJ 1,000 MG in SODIUM CHLORIDE 0.9% INJ 100 ML IV SCH ×3 (05:13→19:45)
[2016-12-12] MEDS: CHLORHEXIDINE 0.12% (ORAL KIT) 15 ML CUP MT SCH ×2 (08:00→19:44)
[2016-12-12] MEDS: REMOVE OLD NICODERM (NICOTINE) PATCH TD SCH (08:30)
[2016-12-12] MEDS: NICOTINE 21 MG/24 HR PATCH TD SCH (08:30)
[2016-12-12] MEDS ORDERED: FOLIC ACID INJ 1 MG in SYRINGE/BAG 1 EA IV PRN (09:00)
[2016-12-12] MEDS: SODIUM CHLORIDE 0.9% FLUSH 5 ML FLUSH IV FLUSH SCH ×2 (09:00→19:45)
[2016-12-12] MEDS ORDERED: THIAMINE HCL 200 MG/2 ML VIAL IM PRN (09:00)
[2016-12-12] MEDS ORDERED: FOLIC ACID INJ 1 MG in SYRINGE/BAG 1 EA IM PRN (09:00)
--- NOTE | 2016-12-12 09:38 | HHI.CCPN ---
Subjective Remarks/Hospital Course Elderly man with ETOH toxicity found obtunded on the ground. No history. ETOH level > 500. SUBJECTIVE 12/03: Remains intubated sedated with propofol. Spontaneously moves extremities occasionally SUBJECTIVE 12/04: Extubated yesterday tolerating well. Drowsy but wakes up easily follows commands. No evidence of alcohol withdrawal it, getting scheduled Librium 12/11: Reconsulted for combined respiratory failure, obtundation. Required immediate intubation and respiratory resuscitation. 12/12: Poor gas exchange with bad diffusion capacity. Objective Vital Signs Date Time Temp Pulse Resp B/P Pulse Ox O2 Delivery O2 Flow Rate FiO2 12/12/16 08:00 99.3 73 20 156/65 100 12/12/16 07:59 50 12/11/16 19:15 Mechanical Ventilator 12/11/16 07:45 6.00 Intake and Output 12/11/16 12/11/16 12/12/16 08:00 16:00 00:00 Intake Total 376 ml 1192 ml 1918 ml Output Total 150 ml 275 ml 500 ml Balance 226 ml 917 ml 1418 ml Result Diagram: 12/12/16 0345 12/12/16 0345 Other Results Laboratory Tests Test 12/11/16 12/12/16 11:43 04:15 Blood Gas Puncture Site CENTRAL LINE ART LINE Blood Gas Patient Temperature 98.6 98.6 Venous Blood pH 7.28 (7.360-7.400) Venous Blood Partial Pressure 64 mmHg (44-48) CO2 Venous Blood Partial Pressure 34 mmHg (35-40) O2 Venous Blood HCO3 29 mmol/L (22-26) Venous Blood Oxygen Saturation 53 % (70-76) Venous Blood Oxygen Content 10.9 Vol % (9.0-17.0) Venous Blood Base Excess 2.6 mmol/L (-2-2) Oxygen Delivery Device VENTILATOR VENTILATOR Blood Gas Ventilator Setting SEE COMMENTS Blood Gas Inspired Oxygen 100 % 70 % Blood Gas HCO3 20 mmol/L (22-26) Blood Gas Base Excess -4.4 mmol/L (-2-2) Blood Gas Oxygen Saturation 98 % (90-100) Arterial Blood pH 7.36 (7.380-7.420) Arterial Blood Partial 37 mmHg (38-42) Pressure CO2 Arterial Blood Partial 163 mmHg Pressure O2 (61-120) Arterial Blood Oxygen Content 18.5 Vol % (12.0-20.0) Arterial Blood 1.0 % (0-4) Carboxyhemoglobin Arterial Blood Methemoglobin 0.8 % (0-2) Blood Gas Hemoglobin 13.3 G/DL (12.0-16.0) Objective Remarks Gen: Disheveled elderly male, unresponsive. Head: Normal, atraumatic Neck: Supple, orally intubated. Lungs: Acceptable harshad air entry, diffuse rhonchi and secretions. Heart: NL S1S2, no m,r. RRR. No JVD. Abdomen: Soft, no guarding, BS few. Nondistended. Extremities: Warm, adequately perfused. Neuro: Unresponsive. Gag weak. Pupils 3 mm. Procedures Intubated and extubated on 12/03/2016. A/P Assessment and Plan Assessment: Acute Respiratory Failure requiring mechanical ventilation ETOHism Alcohol dependence Metabolic encephalopathy. Plan: 1. PRVC vent mode. 2. Scheduled Librium 25 mg 4 times a day when alert. 3. NG to LIS. 4. Place a-line. 5. Lovenox DVT px. 6. Protonix. 7. Thiamine 100 mg daily. 8. Seizure precautions. 9. Sputum cults 10. NS bolus 1 liter. 11. Nebs. 12. Review cultures. Continue broad coverage pending C&S sputum. Overall impression: Chronic alcoholic resuscitated from respiratory arrest and sepsis. Critically ill with pneumonia and continued severe hypoxemia. Critical care 36 mins aside from procedures. Paul Spencer MD Dec 12, 2016 09:38
[2016-12-12] MEDS: FOLIC ACID IV SCH (12:02)
[2016-12-12] MEDS: SODIUM CHLORIDE 0.9% IV SCH (12:02)
[2016-12-12] MEDS: THIAMINE IV SCH (12:02)
[2016-12-12] MEDS: PROPOFOL 1000 MG/100 ML IV SCH (19:47)
[2016-12-12] MEDS ORDERED: PHARMACY ORDERED LAB XX ONE (20:45)
[2016-12-13] VITALS (15 sets, daily range): BP systolic 133–172; BP diastolic 69–89; PULSE 65–95; RESP 14–25; TEMP 97.6–98.7; O2SAT 93–100
[2016-12-13] MEDS: PROPOFOL 1000 MG/100 ML IV SCH ×2 (01:21→05:31)
[2016-12-13] MEDS ORDERED: PHARMACY ORDERED LAB XX ONE (02:45)
[2016-12-13 02:58] LABS: AUTOMATED NEUTROPHIL # 10.2 TH/MM3 (1.8-7.7); BASOPHIL # 0.1 TH/MM3 (0-0.2); BASOPHIL % 0.4 % (0.0-2.0); EOSINOPHIL # 0.1 TH/MM3 (0-0.4); EOSINOPHIL % 0.5 % (0.0-4.0); HEMATOCRIT 35.8 % (39.0-51.0); HEMO FLAGS DIFF FINAL; LYMPH % 8.3 % (9.0-44.0); MEAN CELL VOLUME 99.5 FL (80.0-100.0); MEAN CORPUSCULAR HGB CONC 33.2 % (32.0-36.0); MONO % 6.9 % (0.0-8.0); NEUT % 83.9 % (16.0-70.0); PLATELET COUNT 194 TH/MM3 (150-450); RED CELL DISTRIBUTION WIDTH 14.4 % (11.6-17.2); WHITE BLOOD COUNT 12.2 TH/MM3 (4.0-11.0)
[2016-12-13] MEDS: VANCOMYCIN 1,000 MG/NS 250 ML IV SCH ×2 (03:00)
[2016-12-13 03:24] LABS: BICARBONATE 23.3 MEQ/L (21.0-32.0); POTASSIUM 3.5 MEQ/L (3.5-5.1)
[2016-12-13 03:28] LABS: VANCOMYCIN TROUGH 10.7 MCG/ML (5.0-10.0)
[2016-12-13] MEDS: CHLORHEXIDINE GLUCONATE 2 % 1 PACK (2 CLOTHS) TOP SCH (04:00)
[2016-12-13] MEDS: NS + KCL 20 MEQ INJ 1,000 ML IV SCH ×2 (04:00→11:34)
--- NOTE | 2016-12-13 04:32 | RADRPT ---
EXAM DATE/TIME: 12/13/2016 03:03 [facility] COMPARISON: CHEST SINGLE AP, December 10, 2016, 14:42. CHEST PA & LAT, December 09, 2016, 8:58. CHEST SINGLE AP, December 11, 2016, 12:28. INDICATIONS : Respiratory failure MEDICAL HISTORY : Unknown SURGICAL HISTORY : Uknown ENCOUNTER: Subsequent ACUITY: 4 - 6 days PAIN SCORE: Non-responsive. LOCATION: Bilateral chest FINDINGS: A single view of the chest demonstrates hyperaeration of both lung centeno. There continues to be a ro unded density in the medial right lung base. This was present on the prior study and appears to be ab out the same. The rest of the lungs are grossly clear. The support devices remain in place. There is no pneumothorax. No pleural effusions. The heart size is stable. The bony structures are stable.. CONCLUSION: Stable rounded density in the medial right lower lung suggestive of rounded atelectasis. Otherwise, n o other new infiltrates are demonstrated. No significant change compared to the prior study.. Celestino Galindo MD on December 13, 2016 at 4:29 Board Certified Radiologist. This report was verified electronically.
[2016-12-13] MEDS: ENALAPRILAT 1.25 MG/ML VIAL IV PUSH PRN (05:53)
[2016-12-13] MEDS: AZTREONAM INJ 1,000 MG in SODIUM CHLORIDE 0.9% INJ 100 ML IV SCH (06:11)
[2016-12-13] MEDS: PANTOPRAZOLE INJ 80 MG in SODIUM CHLORIDE 0.9% INJ 100 ML IV SCH ×3 (07:26)
[2016-12-13] MEDS: SODIUM CHLORIDE 0.9% FLUSH 5 ML FLUSH IV FLUSH SCH ×2 (07:54→19:28)
[2016-12-13] MEDS: NICOTINE 21 MG/24 HR PATCH TD SCH (07:54)
[2016-12-13] MEDS: CHLORHEXIDINE 0.12% (ORAL KIT) 15 ML CUP MT SCH ×2 (07:54→19:28)
[2016-12-13] MEDS: REMOVE OLD NICODERM (NICOTINE) PATCH TD SCH (07:55)
--- NOTE | 2016-12-13 09:57 | HHI.CCPN ---
Subjective Remarks/Hospital Course Elderly man with ETOH toxicity found obtunded on the ground. No history. ETOH level > 500. SUBJECTIVE 12/03: Remains intubated sedated with propofol. Spontaneously moves extremities occasionally SUBJECTIVE 12/04: Extubated yesterday tolerating well. Drowsy but wakes up easily follows commands. No evidence of alcohol withdrawal it, getting scheduled Librium 12/11: Reconsulted for combined respiratory failure, obtundation. Required immediate intubation and respiratory resuscitation. 12/12: Poor gas exchange with bad diffusion capacity. 12/13: Sputum culture NGTD.CXR clearing. Objective Vital Signs Date Time Temp Pulse Resp B/P Pulse Ox O2 Delivery O2 Flow Rate FiO2 12/13/16 08:47 100 40 12/13/16 06:00 66 12/13/16 04:00 98.0 20 146/76 12/11/16 19:15 Mechanical Ventilator 12/11/16 07:45 6.00 Intake and Output 12/12/16 12/12/16 12/13/16 08:00 16:00 00:00 Intake Total 1207 ml 1102 ml 1312 ml Output Total 225 ml 250 ml 300 ml Balance 982 ml 852 ml 1012 ml Result Diagram: 12/13/16 0245 12/13/16 0245 Objective Remarks Gen: Disheveled elderly male, unresponsive. Head: Normal, atraumatic Neck: Supple, orally intubated. Lungs: Acceptable harshad air entry, few rhonchi. Heart: NL S1S2, no m,r. RRR. No JVD. Abdomen: Soft, no guarding, BS few. Nondistended. Extremities: Warm, adequately perfused. Neuro: Opens eyes.. Gag weak. Pupils 3 mm. Procedures Intubated and extubated on 12/03/2016. A/P Assessment and Plan Assessment: Acute Respiratory Failure requiring mechanical ventilation ETOHism Alcohol dependence Metabolic encephalopathy. Plan: 1. PRVC vent mode. Start CPAP trials. 2. Scheduled Librium 25 mg 4 times a day when alert. 3. NG to LIS. 5. Lovenox DVT px. 6. Protonix. 7. Thiamine 100 mg daily. 8. Seizure precautions. 9. Sputum cults 11. Nebs. 12. Stop abx, reculture for fevers. Overall impression: Chronic alcoholic resuscitated from respiratory arrest and sepsis. Critically ill with ongoing hypoxemia, unable to wean from vent, failed SBT. Critical care 33 mins Paul Spencer MD Dec 13, 2016 09:57
[2016-12-13] MEDS: SODIUM CHLORIDE 0.9% IV SCH (11:39)
[2016-12-13] MEDS: FOLIC ACID IV SCH (11:39)
[2016-12-13] MEDS: THIAMINE IV SCH (11:39)
[2016-12-13] MEDS ORDERED: VANCOMYCIN INJ 1,500 MG in SODIUM CHLORID 0.9% 500 ML INJ 500 ML IV SCH (12:00)
[2016-12-13] MEDS: cefTRIAXone INJ 1,000 MG in SODIUM CHLORIDE 0.9% INJ 100 ML IV SCH (13:37)
[2016-12-13] MEDS: LABETALOL HCL 100 MG/20 ML VIAL IV PUSH PRN (18:15)
[2016-12-13] MEDS: LORazepam 2 MG/ML VIAL IV PUSH PRN (18:20)
[2016-12-13] MEDS: HYOSCYAMINE 0.5 MG/ML AMP IVP PRN (21:56)
[2016-12-14] VITALS (11 sets, daily range): BP systolic 128–185; BP diastolic 72–90; PULSE 79–102; RESP 22–27; TEMP 98.2–98.8; O2SAT 87–96
[2016-12-14] MEDS: NS + KCL 20 MEQ INJ 1,000 ML IV SCH ×2 (01:09→17:58)
[2016-12-14] MEDS: CHLORHEXIDINE GLUCONATE 2 % 1 PACK (2 CLOTHS) TOP SCH (01:10)
[2016-12-14] MEDS ORDERED: HALOPERIDOL LACTATE 5 MG/ML AMP IV PUSH ONE (02:15)
[2016-12-14 04:20] LABS: AUTOMATED NEUTROPHIL # 8.6 TH/MM3 (1.8-7.7); BASOPHIL # 0.1 TH/MM3 (0-0.2); BASOPHIL % 0.5 % (0.0-2.0); EOSINOPHIL # 0.1 TH/MM3 (0-0.4); EOSINOPHIL % 0.8 % (0.0-4.0); HEMATOCRIT 32.9 % (39.0-51.0); HEMO FLAGS DIFF FINAL; LYMPH % 8.9 % (9.0-44.0); LYMPHOCYTE # 0.9 TH/MM3 (1.0-4.8); MEAN CORPUSCULAR HEMOGLOBIN 33.9 PG (27.0-34.0); MEAN CORPUSCULAR HGB CONC 34.2 % (32.0-36.0); MONO % 7.4 % (0.0-8.0); NEUT % 82.4 % (16.0-70.0); PLATELET COUNT 207 TH/MM3 (150-450); RED BLOOD COUNT 3.32 MIL/MM3 (4.50-5.90); RED CELL DISTRIBUTION WIDTH 14.3 % (11.6-17.2); WHITE BLOOD COUNT 10.4 TH/MM3 (4.0-11.0)
[2016-12-14 04:43] LABS: BICARBONATE 24.8 MEQ/L (21.0-32.0); POTASSIUM 3.4 MEQ/L (3.5-5.1)
[2016-12-14] MEDS: LABETALOL HCL 100 MG/20 ML VIAL IV PUSH PRN ×4 (07:19→20:20)
[2016-12-14] MEDS: CHLORHEXIDINE 0.12% (ORAL KIT) 15 ML CUP MT SCH ×2 (08:00→20:36)
[2016-12-14] MEDS: SODIUM CHLORIDE 0.9% FLUSH 5 ML FLUSH IV FLUSH SCH ×2 (08:40→20:19)
[2016-12-14] MEDS: NICOTINE 21 MG/24 HR PATCH TD SCH (08:47)
[2016-12-14] MEDS: HYOSCYAMINE 0.5 MG/ML AMP IVP PRN ×2 (08:47→21:50)
[2016-12-14] MEDS: REMOVE OLD NICODERM (NICOTINE) PATCH TD SCH (08:48)
--- NOTE | 2016-12-14 10:24 | HHI.PR ---
Subjective Remarks somewhat lethargic and on four point restraints. afebrile. has failed the swallow eval so far. d/w the RN. Objective Vitals Vital Signs Date Time Temp Pulse Resp B/P Pulse Ox O2 Delivery O2 Flow Rate FiO2 12/14/16 08:00 98.2 93 27 155/90 95 12/14/16 08:00 95 Nasal Cannula 4.00 12/14/16 08:00 93 12/14/16 06:00 96 12/14/16 04:00 92 12/14/16 04:00 98.8 92 24 156/85 95 12/14/16 02:00 102 12/14/16 00:00 89 12/14/16 00:00 98.6 89 22 161/82 95 12/13/16 22:00 95 12/13/16 20:00 92 12/13/16 20:00 98.5 92 25 141/77 94 12/13/16 19:37 93 Nasal Cannula 5.00 12/13/16 19:15 96 Nasal Cannula 4.00 12/13/16 16:00 98.5 83 18 156/82 99 12/13/16 16:00 99 Nasal Cannula 4.00 12/13/16 16:00 83 12/13/16 12:37 94 Nasal Cannula 2.00 12/13/16 12:00 91 Nasal Cannula 4.00 12/13/16 12:00 88 12/13/16 12:00 98.4 88 14 133/69 93 12/13/16 11:50 94 Nasal Cannula 2 12/13/16 11:50 98 Nasal Cannula 3.00 12/13/16 11:04 Nasal Cannula 40 12/13/16 11:04 100 40 12/13/16 11:04 40 I/O 12/13/16 12/13/16 12/13/16 12/14/16 12/14/16 12/14/16 07:00 15:00 23:00 07:00 15:00 23:00 Intake Total 1085 ml 1213 ml 520 ml 634 ml Output Total 275 ml 350 ml 850 ml 1175 ml Balance 810 ml 863 ml -330 ml -541 ml IV Total 1025 ml 1213 ml 520 ml 634 ml Tube Irrigant 60 ml Output Urine Total 250 ml 350 ml 850 ml 1175 ml Gastric Drainage Total 25 ml # Bowel Movements 0 Result Diagram: 1/26/17 0400 12/14/16 0400 Imaging Last Impressions Chest X-Ray 12/13/16 0400 Signed Impressions: Service Date/Time: Tuesday, December 13, 2016 03:03 - CONCLUSION: Stable rounded density in the medial right lower lung suggestive of rounded atelectasis. Otherwise, no other new infiltrates are demonstrated. No significant change compared to the prior study.. Celestino Galindo MD Head CT 12/02/16 1707 Signed Impressions: Service Date/Time: Friday, December 02, 2016 17:46 - CONCLUSION: Negative for acute intracranial process. Juan Noguera MD FACR Abdomen/Pelvis CT 12/02/16 0000 Signed Impressions: Service Date/Time: Friday, December 02, 2016 17:51 - CONCLUSION: 1. Large inguinal hernia on the left. 2. Apparent old resolved traumatic cyst upper pole of the spleen. 3. Negative for an acute traumatic injury. Juan Noguera MD FACR Objective Remarks GENERAL: ill looking but in no acute distress CARDIOVASCULAR: Regular rate and irregular rhythm without murmurs, gallops, or rubs. RESPIRATORY: sounds congested GASTROINTESTINAL: Abdomen soft, non-tender, nondistended. Normal, active bowel sounds MUSCULOSKELETAL: Extremities without clubbing, cyanosis, or edema. NEURO: somewhat lethargic- Procedures intubation/ extubation Medications and IVs Current Medications IV Flush 2 ml 2 ml UNSCH PRN IVF FLUSH AFTER USING IV ACCESS Last administered on 12/02/16 18:06; Start 12/02/16 at 17:30; Stop 12/09/16 at 15:07; Status DC Sodium Chloride (NS 1000 ml Inj) 1,000 ml @ 1,000 mls/hr Q1H IV Last administered on 12/02/16 18:06; Start 12/02/16 at 17:30; Stop 12/02/16 at 18:29 ; Status DC Midazolam HCl 5 mg 5 mg STK-MED ONCE .ROUTE Last administered on 12/02/16 18: 04; Start 12/02/16 at 17:41; Stop 12/02/16 at 17:42; Status DC Sodium Chloride 1,000 ml @ 999 mls/hr BOLUS ONCE IV Last administered on 12/02 20:05; Start 12/02/16 at 18:00; Stop 12/02/16 at 19:00; Status DC Dexmedetomidine HCl (Precedex Inj) 50 ml @ 0 mls/hr TITRATE IV ; Start 12/02/16 at 18:00; Stop 12/04/16 at 09:58; Status DC Midazolam HCl 2 mg 2 mg ONCE ONCE IV PUSH Last administered on 12/02/16 18:23 ; Start 12/02/16 at 18:00; Stop 12/02/16 at 18:01; Status DC Heparin Sodium/ Sodium Chloride 500 ml @ As Directed STK-MED ONCE .ROUTE ; Start 12/02/16 at 18:07; Stop 12/02/16 at 18:08; Status DC Ceftriaxone Sodium/Sodium Chloride (Rocephin Inj/NS Inj) 100 ml @ 200 mls/hr ONCE ONCE IV Last administered on 12/02/16 18:48; Start 12/02/16 at 18:30; Stop 12/02/16 at 18:59; Status DC Thiamine HCl 100 mg 100 mg ONCE ONCE IM Last administered on 12/02/16 18:49; Start 12/02/16 at 18:45; Stop 12/02/16 at 18:46; Status DC Sodium Chloride (NS 1000 ml Inj) 1,000 ml @ 125 mls/hr Q8H IV Last administered on 12/03/16 02:54; Start 12/02/16 at 18:54; Stop 12/03/16 at 08:23 ; Status DC IV Flush (NS Flush) 2 ml UNSCH PRN IV FLUSH FLUSH AFTER USING IV ACCESS; Start 12/02/16 at 19:00 IV Flush (NS Flush) 2 ml BID IV FLUSH Last administered on 12/14/16 08:40; Start 12/02/16 at 21:00 Acetaminophen (Tylenol) 650 mg Q6H PRN PO PAIN 1-10 AND/OR FEVER >101F; Start 12/02/16 at 19:00; Stop 12/04/16 at 10:27; Status DC Pantoprazole Sodium (Protonix Inj) 40 mg DAILY IV Last administered on 08:34; Start 12/03/16 at 09:00; Stop 12/04/16 at 09:58; Status DC Lorazepam (Ativan Inj) 1 mg Q1H PRN IV Seizures; Start 12/02/16 at 19:00; Stop 12/02/16 at 21:09; Status DC Ondansetron HCl (Zofran Inj) 4 mg Q6H PRN IV NAUSEA OR VOMITING; Start at 19:00 Albuterol/ Ipratropium (Duoneb Neb) 1 ampule Q4HR NEB PRN INH WHEEZING Last administered on 12/13/16 19:39; Start 12/02/16 at 19:00 Heparin Sodium (Porcine) (Heparin Inj) 5,000 units Q8H SQ Last administered on 12/11/16 13:11; Start 12/02/16 at 20:00; Stop 12/11/16 at 16:58; Status DC Miscellaneous Information 1 [id number] XX ; Start 12/02/16 at 19:00 Chlorhexidine Gluconate (Chlorhexidine 2% Cloth) Taper DAILY@04 TOP Last administered on 12/04/16 04:00; Start 12/03/16 at 04:00; Stop 11/29/17 at 03:59 Chlorhexidine Gluconate 3 pack 3 pack UNSCH PRN TOP HYGIENIC CARE; Start at 19:00 Propofol (Diprivan 1000 Mg/100ml Inj) 100 ml @ 0 mls/hr TITRATE IV Last administered on 12/03/16 07:03; Start 12/02/16 at 19:00; Stop 12/04/16 at 09:58 ; Status DC Midazolam HCl 2 mg 2 mg ONCE ONCE IV PUSH ; Start 12/02/16 at 19:30; Stop 12/02 at 19:32; Status DC Thiamine HCl/ Sodium Chloride (Thiamine Inj/NS Inj) 101 ml @ 101 mls/hr DAILY IV Last administered on 12/05/16 08:13; Start 12/03/16 at 09:00; Stop at 22:36; Status DC Lorazepam (Ativan Inj) 1 mg Q15M PRN IV PUSH seizures; Start 12/02/16 at 21:15 ; Stop 12/08/16 at 13:19; Status DC Lorazepam 1 mg 1 mg Q6H IV PUSH Last administered on 12/05/16 20:26; Start at 21:00; Stop 12/06/16 at 03:06; Status DC Sodium Chloride 999 ml @ 0 mls/hr BOLUS ONCE IV Last administered on 03:30; Start 12/03/16 at 03:30; Stop 12/03/16 at 03:31; Status DC Norepinephrine Bitartrate 250 ml @ 0 mls/hr TITRATE IV ; Start 12/03/16 at 03:30 ; Stop 12/04/16 at 09:58; Status DC Ceftriaxone Sodium 1000 mg/ Sodium Chloride 100 ml @ 200 mls/hr Q24H IV Last administered on 12/04/16 08:34; Start 12/03/16 at 09:00; Stop 12/04/16 at 10:27 ; Status DC Sodium Chloride (1/2 NS 1000 ml Inj) 1,000 ml @ 125 mls/hr Q8H IV Last administered on 12/04/16 08:30; Start 12/03/16 at 08:30; Stop 12/04/16 at 09:58 ; Status DC Labetalol HCl 20 mg 20 mg Q3H PRN IV PUSH SBP >160 Last administered on 07:19; Start 12/03/16 at 12:00 Dexmedetomidine HCl (Precedex Inj) 50 ml @ 0 mls/hr TITRATE IV ; Start 12/03/16 at 12:00; Stop 12/04/16 at 09:59; Status DC Chlordiazepoxide (Librium) 50 mg Q8H PO ; Start 12/03/16 at 14:00; Stop at 14:34; Status DC Hyoscyamine Sulfate (Levsin Liq) 0.25 mg Q3H PRN PO ORAL SECRETIONS Last administered on 12/10/16 03:30; Start 12/03/16 at 13:00; Stop 12/13/16 at 21:39 ; Status DC Chlordiazepoxide 25 mg 25 mg QID PO Last administered on 12/09/16 09:31; Start 12/03/16 at 18:00; Stop 12/09/16 at 10:44; Status DC Sodium Chloride (1/2 NS 1000 ml Inj) 1,000 ml @ 50 mls/hr Q20H IV Last administered on 12/04/16 13:02; Start 12/04/16 at 10:30; Stop 12/05/16 at 10:29 ; Status DC Amlodipine Besylate (Norvasc) 10 mg DAILY PO Last administered on 12/13/16 07: 54; Start 12/05/16 at 05:08 Folic Acid (Folate) 1 mg DAILY PO Last administered on 12/09/16 09:31; Start 12/06/16 at 09:00; Stop 12/09/16 at 15:09; Status DC Thiamine HCl (Vitamin B1) 100 mg DAILY PO Last administered on 12/09/16 09:31 ; Start 12/06/16 at 09:00; Stop 12/09/16 at 15:06; Status DC Lorazepam (Ativan Inj) 1 mg Q3HR IV PUSH Last administered on 12/08/16 05:20; Start 12/06/16 at 03:15; Stop 12/08/16 at 13:12; Status DC Nicotine (Habitrol 21 Mg Patch.24 Hr) 1 patch Q24H TD Last administered on 12/14 08:47; Start 12/06/16 at 09:00 Miscellaneous Information 1 DAILY TD Last administered on 12/14/16 08:48; Start 12/07/16 at 09:00 Potassium Chloride (KCl) 40 meq Q4H PO ; Start 12/08/16 at 13:00; Stop 12/08/16 at 17:01; Status DC Lorazepam 1 mg 1 mg Q6H PRN IV PUSH withdrawl seizure only Last administered on 12/13/16 18:20; Start 12/08/16 at 18:00 Potassium Chloride (KCl 20 Meq Premix Inj) 100 ml @ 50 mls/hr ONCE ONCE IV Last administered on 12/08/16 21:41; Start 12/08/16 at 19:00; Stop 12/08/16 at 20:59; Status DC Chlordiazepoxide (Librium) 10 mg BID PO Last administered on 12/13/16 07:54; Start 12/09/16 at 21:00 Acetaminophen (Tylenol 325 Mg/ 10 ml Liq) 325 mg Q6H PRN PO fever; Start at 10:45 Enalaprilat 1.25 mg 1.25 mg Q6H PRN IV PUSH SBP > 160 OR DBP > 90 Last administered on 12/13/16 05:53; Start 12/09/16 at 15:15 Dextrose (D5W 1000 ml Inj) 1,000 ml @ 50 mls/hr Q20H IV Last administered on t 08:04; Start 12/09/16 at 16:00; Stop 12/11/16 at 12:31; Status DC Thiamine HCl (Thiamine Inj) 100 mg DAILY IV ; Start 12/10/16 at 09:00; Stop at 09:00; Status DC Thiamine HCl (Thiamine Inj) 100 mg DAILY IM ; Start 12/10/16 at 09:00; Stop at 08:21; Status DC Folic Acid (Folvite Inj) 1 mg DAILY IV ; Start 12/10/16 at 09:00; Stop 12/10/16 at 09:00; Status DC Folic Acid 1 mg 1 mg DAILY IM ; Start 12/10/16 at 09:00; Stop 12/10/16 at 09:00 ; Status DC Folic Acid 1 mg/ Syringe / Bag 0.2 ml @ 0 mls/hr DAILY IM ; Start 12/10/16 at 09 :00; Stop 12/11/16 at 08:22; Status DC Thiamine HCl 100 mg/Folic Acid 1 mg/Sodium Chloride 101.2 ml @ 101 mls/hr DAILY IV Last administered on 12/13/16t 11:39; Start 12/10/16 at 09:00 Folic Acid/ Syringe / Bag (Folvite Inj/ Syringe/Bag) 0.2 ml @ 0 mls/hr DAILY PRN IV ALTERNATIVE TO IM ROUTE; Start 12/12/16 at 09:00; Status Cancel Thiamine HCl 100 mg 100 mg DAILY PRN IM ; Start 12/12/16 at 09:00; Stop at 09:00; Status DC Folic Acid/ Syringe / Bag (Folvite Inj/ Syringe/Bag) 0.2 ml @ 0 mls/hr DAILY PRN IM ; Start 12/12/16 at 09:00; Stop 12/12/16 at 09:00; Status DC Metoprolol Tartrate (Lopressor Inj) 5 mg NOW ONCE IV PUSH ; Start 12/11/16 at 10:45; Stop 12/11/16 at 10:46; Status DC Midazolam HCl (Versed Inj) 5 mg STK-MED ONCE .ROUTE ; Start 12/11/16 at 10:56; Stop 12/11/16 at 10:57; Status DC Midazolam HCl (Versed Inj) 5 mg STAT ONCE IV ; Start 12/11/16 at 11:00; Stop at 11:01; Status DC Midazolam HCl 5 mg 5 mg STK-MED ONCE .ROUTE ; Start 12/11/16 at 11:01; Stop at 11:02; Status DC Norepinephrine Bitartrate (Levophed-Dextrose Drip) 250 ml @ 0 mls/hr TITRATE IV ; Start 12/11/16 at 11:15; Stop 12/13/16 at 12:19; Status DC Chlorhexidine Gluconate (Peridex 0.12% Liq) 15 ml BID@08,20 MT Last administered on 12/14/16 08:00; Start 12/11/16 at 20:00 Famotidine 20 mg 20 mg BID PO ; Start 12/11/16 at 21:00; Stop 12/11/16 at 21:00 ; Status DC Potassium Chloride/Sodium Chloride 1,000 ml @ 75 mls/hr [id number] IV Last administered on 12/14/16 01:09; Start 12/11/16 at 12:00 Aztreonam 1000 mg/ Sodium Chloride 100 ml @ 200 mls/hr Q8H IV Last administered on 12/13/16 06:11; Start 12/11/16 at 13:00; Stop 12/13/16 at 12:19 ; Status DC Pharmacy Profile Note 0 ml @ 0 mls/hr UNSCH OTHER ; Start 12/11/16 at 12:30; Stop 12/13/16 at 12:19; Status DC Vancomycin HCl/ Sodium Chloride (Vancomycin Inj/ NS 250 ml Inj) 250 ml @ 250 mls/hr Q12H IV Last administered on 12/13/16 03:00; Start 12/11/16 at 15:00; Stop 12/13/16 at 09:12; Status DC Miscellaneous Information SPECIFIC LAB TO BE JOANNA... ONCE ONCE XX ; Start at 20:45; Stop 12/12/16 at 20:45; Status DC Propofol 100 ml @ 0 mls/hr TITRATE IV Last administered on 12/13/16 05:31; Start 12/11/16 at 14:30; Stop 12/13/16 at 12:20; Status DC Pantoprazole Sodium 80 mg/ Sodium Chloride 35 ml @ 420 mls/hr ONCE ONCE IV Last administered on 12/11/16 17:37; Start 12/11/16 at 18:00; Stop 12/11/16 at 18:04; Status DC Pantoprazole Sodium 80 mg/ Sodium Chloride 100 ml @ 10 mls/hr Q10H IV Last administered on 12/13/16 07:26; Start 12/11/16 at 18:00; Stop 12/13/16 at 12:20 ; Status DC Sodium Chloride (NS 1000 ml Inj) 1,000 ml @ 999 mls/hr BOLUS ONCE IV Last administered on 12/11/16 17:36; Start 12/11/16 at 17:00; Stop 12/11/16 at 18:00 ; Status DC Miscellaneous Information SPECIFIC LAB TO BE DRAWN:VANCOMYCIN TROUGH DATE TO... ONCE ONCE XX Last administered on 12/13/16 02:45; Start 12/13/16 at 02:45; Stop 12/13/16 at 02:46; Status DC Vancomycin HCl/ Sodium Chloride (Vancomycin Inj/ NS 500 ml Inj) 515 ml @ 250 mls/hr Q12H IV Last administered on 12/13/16 11:37; Start 12/13/16 at 12:00; Stop 12/13/16 at 12:20; Status DC Miscellaneous Information SPECIFIC LAB TO BE DRAWN:VANCOMYCIN TROUGH DATE TO... ONCE ONCE XX ; Start 12/15/16 at 11:45; Stop 12/15/16 at 11:46; Status Cancel Ceftriaxone Sodium/Sodium Chloride (Rocephin Inj/NS Inj) 100 ml @ 200 mls/hr Q24H IV Last administered on 12/13/16 13:37; Start 12/13/16 at 13:00 Hyoscyamine Sulfate (Levsin Inj) 0.25 mg Q4H PRN IVP SECRETIONS Last administered on 12/14/16 08:47; Start 12/13/16 at 21:45 Haloperidol Lactate (Haldol Inj) 5 mg ONCE ONCE IV PUSH Last administered on 02:12; Start 12/14/16 at 02:15; Stop 12/14/16 at 02:16; Status DC A/P Assessment and Plan A/P Acute Respiratory Failure requiring mechanical ventilation s/p extubation- continue neb treatment- suction as needed. keep on oxygen to keep O2 sat > 90% pneumococcal pneumonia continue with IV Rocephin - neb treatment ETOHism; continue librium and ativan- continue thiamine/ folic acid dysphagia; has failed the swallow eval- will insert NG tube and consult criminal profiler for tube feeding for now Metabolic encephalopathy; continue neuro-checks hypernatremia; continue with IV fluid- will monitor- BMP in am DVT/ GI prophylaxis with subq lovenox/ and PPI patient is ill looking- will keep in ICU for now for close monitoring. low threshold for hourly sales staff reconsult and this was d/w the RN. Janette Penaloza MD Dec 14, 2016 10:24
[2016-12-14] MEDS: PANTOPRAZOLE SODIUM 40 MG VIAL IV PUSH SCH (10:59)
[2016-12-14] MEDS: ENOXAPARIN SODIUM 40 MG/0.4 ML SYRINGE SQ SCH (10:59)
[2016-12-14] MEDS: SODIUM CHLORIDE 0.9% IV SCH (11:00)
[2016-12-14] MEDS: THIAMINE IV SCH (11:00)
[2016-12-14] MEDS: FOLIC ACID IV SCH (11:00)
[2016-12-14] MEDS: ENALAPRILAT 1.25 MG/ML VIAL IV PUSH PRN ×3 (11:45→21:44)
[2016-12-14] MEDS: hydrALAZINE HCL 20 MG/ML VIAL IV PRN ×2 (12:30→23:12)
[2016-12-14] MEDS ORDERED: hydrALAZINE HCL 20 MG/ML VIAL ONE (12:30)
[2016-12-14] MEDS: cefTRIAXone INJ 1,000 MG in SODIUM CHLORIDE 0.9% INJ 100 ML IV SCH (12:32)
[2016-12-15] VITALS (8 sets, daily range): BP systolic 146–164; BP diastolic 70–86; PULSE 60–91; RESP 16–24; TEMP 98.1–98.9; O2SAT 93–100
[2016-12-15] MEDS: CHLORHEXIDINE GLUCONATE 2 % 1 PACK (2 CLOTHS) TOP SCH (04:00)
[2016-12-15] MEDS: NS + KCL 20 MEQ INJ 1,000 ML IV SCH (04:35)
[2016-12-15 04:50] LABS: BICARBONATE 25.7 MEQ/L (21.0-32.0); POTASSIUM 3.2 MEQ/L (3.5-5.1)
[2016-12-15] MEDS: LORazepam 2 MG/ML VIAL IV PUSH PRN (04:52)
[2016-12-15] MEDS ORDERED: MIDAZOLAM HCL 5 MG/ML VIAL (1 ML) ONE ×2 (06:33→06:34)
--- NOTE | 2016-12-15 06:53 | HHI.CCPN ---
Subjective Remarks/Hospital Course Elderly man with ETOH toxicity found obtunded on the ground. No history. ETOH level > 500. SUBJECTIVE 12/03: Remains intubated sedated with propofol. Spontaneously moves extremities occasionally SUBJECTIVE 12/04: Extubated yesterday tolerating well. Drowsy but wakes up easily follows commands. No evidence of alcohol withdrawal it, getting scheduled Librium 12/11: Reconsulted for combined respiratory failure, obtundation. Required immediate intubation and respiratory resuscitation. 12/12: Poor gas exchange with bad diffusion capacity. 12/13: Sputum culture NGTD.CXR clearing. 12/15: Hypoxemic and hypercapneic respiratory distress made worse due to inability to clear secretions. Intubated for respiratory failure. Will require tracheostomy. Objective Vital Signs Date Time Temp Pulse Resp B/P Pulse Ox O2 Delivery O2 Flow Rate FiO2 12/15/16 06:00 91 12/15/16 04:00 98.7 24 163/77 95 12/14/16 19:31 Nasal Cannula 4.00 12/13/16 11:04 40 Intake and Output 12/14/16 12/14/16 12/15/16 08:00 16:00 00:00 Intake Total 634 ml 633 ml 624 ml Output Total 1175 ml 1225 ml 1000 ml Balance -541 ml -592 ml -376 ml Result Diagram: 12/14/16 0400 12/15/16409 Objective Remarks Gen: Disheveled elderly male, obtunded, gasping. Head: Normal, atraumatic Neck: Supple, obstructed with secretions. Lungs: Obstructed harshad air entry, diffuse rhonchi and mobile secretions. Heart: NL S1S2, no m,r. RRR. No JVD. Abdomen: Soft, no guarding, BS few. Nondistended. Extremities: Warm, adequately perfused. Neuro: Opens eyes. Gag negative. Pupils 2 mm, reactive. Weakly moves 4 limbs. Procedures intubation/ extubation A/P Assessment and Plan Assessment: Acute Respiratory Failure, combined, requiring mechanical ventilation ETOHism Alcohol dependence Metabolic encephalopathy. Plan: 1. PRVC vent mode. 2. D/C sedation. 3. NG to LIS. 5. Lovenox DVT px. 6. Protonix. 7. Thiamine 100 mg daily. 8. Seizure precautions. 9. Sputum cults 11. Nebs. 12. Sputum cultures. Overall impression: Chronic alcoholic with acute on chronic combined respiratory failure. Critically ill and requiring intubation and mechanical ventilation again. Will require tracheostomy. Critical care 38 mins aside from procedures Paul Spencer MD Dec 15, 2016 06:53
[2016-12-15] MEDS ORDERED: PROPOFOL 1000 MG/100 ML INJ 100 ML IV SCH (07:00)
[2016-12-15 07:39] LABS: BLOOD GAS VENOUS BASE EXCESS -0.7 mmol/L (-2-2); BLOOD GAS VENOUS HCO3 24 mmol/L (22-26); BLOOD GAS VENOUS O2 CONTENT 15.4 Vol % (9.0-17.0); BLOOD GAS VENOUS O2 HGB SAT 83 % (70-76); BLOOD GAS VENOUS PCO2 44 mmHg (44-48); BLOOD GAS VENOUS PO2 56 mmHg (35-40); BLOOD GAS VENOUS pH 7.36 (7.360-7.400); CRITICAL VALUE NO; OXYGEN DEVICE VENTILATOR; TEMP CORR TO 98.6
[2016-12-15 07:40] LABS: DRAW SITE CENTRAL LINE; FIO2 100 %; STAT YES
[2016-12-15] MEDS: SODIUM CHLORIDE 0.9% FLUSH 5 ML FLUSH IV FLUSH SCH (07:52)
[2016-12-15] MEDS ORDERED: ROCURONIUM INJ 50 MG/5 ML VIAL ONE (07:52)
[2016-12-15] MEDS ORDERED: CHLORHEXIDINE 0.12% (ORAL KIT) 15 ML CUP MT SCH (08:00)
--- NOTE | 2016-12-15 08:14 | RADRPT ---
EXAM DATE/TIME: 12/15/2016 07:40 [facility] COMPARISON: CHEST SINGLE AP, December 13, 2016, 3:03. INDICATIONS : Evaluate ET tube placment. MEDICAL HISTORY : Unknown. SURGICAL HISTORY : Unknown. ENCOUNTER: Initial ACUITY: 1 day PAIN SCORE: Non-responsive. LOCATION: chest FINDINGS: 2 portable frontal views of the chest show an endotracheal tube with the tip approximately 3 cm cepha lad to the miguel. Nasogastric tube tip is just past the GE junction. The most proximal sidehole is a t the GE junction. Left subclavian central line unchanged in position. No pneumothorax. Heart is mild ly enlarged. Small bilateral pleural effusions and associated bibasilar parenchymal opacities are mor e pronounced from the prior study. CONCLUSION: 1. Lines and tubes as detailed above. 2. Small bilateral pleural effusions with worsening bibasilar infiltrates. Jay Velasquez Jr., MD on December 15, 2016 at 8:10 Board Certified Radiologist. This report was verified electronically.
[2016-12-15] MEDS: FOLIC ACID IV SCH (09:00)
[2016-12-15] MEDS: THIAMINE IV SCH (09:00)
[2016-12-15] MEDS: REMOVE OLD NICODERM (NICOTINE) PATCH TD SCH (09:00)
[2016-12-15] MEDS: SODIUM CHLORIDE 0.9% IV SCH (09:00)
[2016-12-15] MEDS: NICOTINE 21 MG/24 HR PATCH TD SCH (09:31)
[2016-12-15] MEDS: CHLORHEXIDINE 0.12% (ORAL KIT) 15 ML CUP MT SCH (09:31)
[2016-12-15] MEDS: ENOXAPARIN SODIUM 40 MG/0.4 ML SYRINGE SQ SCH (09:32)
[2016-12-15] MEDS: PANTOPRAZOLE SODIUM 40 MG VIAL IV PUSH SCH (09:32)
[2016-12-15] MEDS ORDERED: ICU - SODIUM PHOSPHATE 30 MMOL/NS 250 ML IV PRN ×2 (11:45)
[2016-12-15] MEDS ORDERED: ICU - CALL ORDERING PHYSICIAN XX PRN (11:45)
[2016-12-15] MEDS ORDERED: ICU - MAGNESIUM OXIDE 400 MG TAB PO PRN (11:45)
[2016-12-15] MEDS ORDERED: ICU - POTASSIUM CHLORIDE/AQUEOUS SOLN 20 MEQ/100 ML IVPB IV PRN (11:45)
[2016-12-15] MEDS ORDERED: ICU - MAGNESIUM SULFATE 4 GM/NS 100 ML IV PRN ×2 (11:45)
[2016-12-15] MEDS ORDERED: ICU - POTASSIUM PHOSPHATE 30 MMOL/NS 250 ML IV PRN ×2 (11:45)
[2016-12-15] MEDS ORDERED: ICU - POTASSIUM PHOSPHATE MONOBASIC 500 MG TAB PO/TUBE PRN (11:45)
[2016-12-15] MEDS ORDERED: ICU - D/C ICU ELECTROLYTE ORDERS XX PRN (11:45)
[2016-12-15] MEDS ORDERED: ICU - POTASSIUM CHLORIDE 10% LIQUID 40 MEQ/30 ML CUP PO PRN (11:45)
[2016-12-15] MEDS ORDERED: ICU - MAGNESIUM SULFATE 2 GM/NS 100 ML IV PRN ×2 (11:45)
[2016-12-15] MEDS ORDERED: PHARMACY ORDERED LAB XX ONE (11:45)
[2016-12-15] MEDS: cefTRIAXone INJ 1,000 MG in SODIUM CHLORIDE 0.9% INJ 100 ML IV SCH (11:48)
[2016-12-15] MEDS: ICU - POTASSIUM CHLORIDE/AQUEOUS SOLN 40 MEQ/100 ML IVPB IV PRN (11:49)
--- NOTE | 2016-12-15 12:26 | HHI.DS ---
Discharge Summary Admission Date Dec 02, 2016 at 18:29 Discharge Date: Dec 15, 2016 Admitting Diagnosis respiratory failure, acute alcohol intoxication, UTI Procedures intubation/ extubation Brief History Elderly man with ETOH toxicity found obtunded on the ground. No history. ETOH level > 500. CBC/BMP: 12/14/16 0400 12/15/16 0410 Significant Findings Laboratory Tests Test 12/13/16 12/14/16 12/15/16 12/15/16 02:45 04:00 04:10 07:25 White Blood Count 12.2 TH/MM3 (4.0-11.0) Red Blood Count 3.60 MIL/MM3 3.32 MIL/MM3 (4.50-5.90) (4.50-5.90) Hemoglobin 11.9 GM/DL 11.2 GM/DL (13.0-17.0) (13.0-17.0) Hematocrit 35.8 % 32.9 % (39.0-51.0) (39.0-51.0) Neutrophils (%) (Auto) 83.9 % 82.4 % (16.0-70.0) (16.0-70.0) Lymphocytes (%) (Auto) 8.3 % 8.9 % (9.0-44.0) (9.0-44.0) Neutrophils # (Auto) 10.2 TH/MM3 8.6 TH/MM3 (1.8-7.7) (1.8-7.7) Sodium Level 151 MEQ/L 151 MEQ/L (136-145) (136-145) Chloride Level 121 MEQ/L 118 MEQ/L 109 MEQ/L (98-107) (98-107) (98-107) Random Glucose 108 MG/DL (74-106) Vancomycin Level Trough 10.7 MCG/ML (5.0-10.0) Lymphocytes # (Auto) 0.9 TH/MM3 (1.0-4.8) Potassium Level 3.4 MEQ/L 3.2 MEQ/L (3.5-5.1) (3.5-5.1) Calcium Level 8.3 MG/DL (8.5-10.1) Venous Blood Partial Pressure 56 mmHg (35-40) O2 Venous Blood Oxygen Saturation 83 % (70-76) PE at Discharge GENERAL: ill-appearing but in no acute distress CARDIOVASCULAR: Regular rate and irregular rhythm without murmurs, gallops, or rubs. RESPIRATORY: diffuse mobile secretions, diffuse wheezes GASTROINTESTINAL: Abdomen soft, non-tender, nondistended. Normal, active bowel sounds MUSCULOSKELETAL: Extremities without clubbing, cyanosis, or edema. Well perfused. NEURO: Lethargic, moves 4 limbs to stimulation Hospital Course Elderly man with ETOH toxicity found obtunded on the ground. No history. ETOH level > 500. SUBJECTIVE 12/03: Remains intubated sedated with propofol. Spontaneously moves extremities occasionally SUBJECTIVE 12/04: Extubated yesterday tolerating well. Drowsy but wakes up easily follows commands. No evidence of alcohol withdrawal it, getting scheduled Librium 12/11: Reconsulted for combined respiratory failure, obtundation. Required immediate intubation and respiratory resuscitation. 12/12: Poor gas exchange with bad diffusion capacity. 12/13: Sputum culture NGTD.CXR clearing. 12/15: Hypoxemic and hypercapneic respiratory distress made worse due to inability to clear secretions. Intubated for respiratory failure. Will require tracheostomy. Pt Condition on Discharge: Stable Discharge Instructions Speech Therapy-Diet Recommends: Mechanical Soft, [place] Thickened Liquids Additional Information Chronic alcoholic. Required re-intubation twice for inability to clear secretions, hypoxemia. Very weak. Probably will require trach. Paul Spencer MD Dec 15, 2016 12:26
[2016-12-19 11:09] LABS: BLOOD GAS BASE EXCESS -1.1 mmol/L (-2-2); BLOOD GAS CARBOXYHEMOGLOBIN 0.9 % (0-4); BLOOD GAS HCO3 23 mmol/L (22-26); BLOOD GAS METHEMOGLOBIN 0.7 % (0-2); BLOOD GAS O2 HGB SATURATION 99 % (90-100); BLOOD GAS OXYGEN CONTENT 18.8 Vol % (12.0-20.0); BLOOD GAS PCO2 34 mmHg (38-42); BLOOD GAS PO2 400 mmHg (61-120); BLOOD GAS TOTAL HGB 12.9 G/DL (12.0-16.0); CRITICAL VALUE NO; OXYGEN DEVICE VENTILATOR
[2016-12-19 11:10] LABS: DRAW SITE RT RADIAL; FIO2 40 %; NUMBER OF ARTERIAL PUNCTURES 1; STAT NO; TEMP CORR TO 98.6; ULNAR PULSE PRESENT; VENT SETTINGS PRVC/550/16/5PEEP
== END 2016-12-15 14:15 | DRG 917 ==
LOC: NEPC 16:40 → EDBD 18:29 → NEDA 18:29 → MERGE 18:29 → NEDH 23:04 → HCVR 12-03 02:25 → N04B 12-04 12:12 → N03A 12-11 11:08
PROVIDERS: ADMIT Internal Medicine; ATTEND Internal Medicine
PROC: 5A1935Z Respiratory Ventilation, Less than 24 Consecutive Hours (ICD-10-PCS; 2016-12-02)
PROC: 0BH17EZ Insertion of Endotracheal Airway into Trachea, Via Natural or Artificial Opening (ICD-10-PCS; 2016-12-04)
PROC: 5A1955Z Respiratory Ventilation, Greater than 96 Consecutive Hours (ICD-10-PCS; principal; 2016-12-11)
PROC: 03HY32Z Insertion of Monitoring Device into Upper Artery, Percutaneous Approach (ICD-10-PCS; 2016-12-11)
PROC: 0BH17EZ Insertion of Endotracheal Airway into Trachea, Via Natural or Artificial Opening (ICD-10-PCS; 2016-12-11)
PROC: 05H633Z Insertion of Infusion Device into Left Subclavian Vein, Percutaneous Approach (ICD-10-PCS; 2016-12-11)
DX: T51.0X1A Toxic effect of ethanol, accidental (unintentional), initial encounter (principal); I46.9 Cardiac arrest, cause unspecified; J96.21 Acute and chronic respiratory failure with hypoxia; G93.41 Metabolic encephalopathy; J13 Pneumonia due to Streptococcus pneumoniae; A41.9 Sepsis, unspecified organism; E87.0 Hyperosmolality and hypernatremia; E46 Unspecified protein-calorie malnutrition; J96.22 Acute and chronic respiratory failure with hypercapnia; E87.2 Acidosis; N39.0 Urinary tract infection, site not specified; J98.11 Atelectasis; R13.10 Dysphagia, unspecified; G83.89 Other specified paralytic syndromes; K40.90 Unilateral inguinal hernia, without obstruction or gangrene, not specified as recurrent; I10 Essential (primary) hypertension; F10.229 Alcohol dependence with intoxication, unspecified; Y90.8 Blood alcohol level of 240 mg/100 ml or more; Z59.0 Homelessness; Z68.20 Body mass index [BMI] 20.0-20.9, adult; Z72.0 Tobacco use; Z78.1 Physical restraint status; Z88.0 Allergy status to penicillin; Z88.2 Allergy status to sulfonamides; Z88.5 Allergy status to narcotic agent
CPT/HCPCS: 31500; 36556; 36600; 51702; 70450; 71010; 71020; 74176; 80048; 80053; 80202; 80307; 80320; 80329; 81001; 82140; 82435; 82550; 82552; 82565; 82805; 82947; 83605; 83735; 84100; 84132; 84295; 84443; 84484; 84520; 85007; 85014; 85018; 85025; 85027; 85610; 85730; 87040; 87070; 87086; 87186; 87205; 87641; 93005; 94002; 94003; 94150; 94664; 96361; 96374; C9113; G0480; G0481; J0360; J0696; J1630; J1644; J1650; J1980; J2060; J2250; J3370; J3411; J3480; J7030; J7040; J7050; J7070

== ENCOUNTER 2017-03-15 12:35 | Inpatient (IN) | payer MEDICARE ==
[~2017-03-15] VITALS: Ht 172.7 cm; Wt 61.3 kg
[2017-03-15 12:39] VITALS: BP 129/76; PULSE 124; RESP 20; TEMP 99.6; O2SAT 92
[2017-03-15] MEDS ORDERED: SODIUM CHLOR 0.9% 1000 ML INJ 1,000 ML IV ONE ×3 (14:45→16:00)
--- NOTE | 2017-03-15 15:03 | PD ---
HPI Chief Complaint: Medical Clearance Time Seen by Provider: 14:32 Travel History International Travel<30 days: No Contact w/Intl Traveler<30days: No Traveled to known affect area: No History of Present Illness HPI The patient is a 61-year-old male who presents emergency department for multiple complaints. The patient notes a productive cough over the last several days with mild shortness of breath, has a history of pneumonia and bronchitis with similar symptoms. The patient also complains of difficulty with urination, he notes urgency, hesitancy, dribbling, and difficulty initiating a stream. The patient believes he may have an a large prostate, has not followed up with a primary physician or urologist. The patient also notes a history of left inguinal hernia that is been present for the last 2 years. He notes occasional discomfort in left side of the scrotum, states when he lays down the hernia is reducible, when he stands up or sits, the hernia is larger. He has not followed up with a general surgeon or his primary physician for referral to see a general surgeon in regards to his left inguinal hernia. The patient does admit to drinking alcohol earlier today, denies any accompany chest pain, nausea, vomiting, diarrhea, or upper abdominal pain. PFSH Past Medical History ADD: Yes Arthritis: Yes Asthma: No Autoimmune Disease: No Blood Disorders: No Anxiety: No Depression: No Heart Rhythm Problems: No Cancer: No Cardiovascular Problems: Yes High Cholesterol: No Chemotherapy: No Chest Pain: No Congestive Heart Failure: No COPD: Yes Cerebrovascular Accident: No Diabetes: No Diminished Hearing: No Endocrine: No Gastrointestinal Disorders: No GERD: No Genitourinary: No Headaches: No Hepatitis: No Hiatal Hernia: Yes Heparin Induced Thrombocytopen: No Hypertension: Yes Immune Disorder: No Implanted Vascular Access Dvce: No Kidney Stones: No Musculoskeletal: Yes Neurologic: Yes Psychiatric: No Reproductive: No Respiratory: Yes (BRONCHITIS YEARLY, PNEUMONIA X 2) Migraines: No Myocardial Infarction: No Pneumonia: Yes Radiation Therapy: No Renal Failure: No Seizures: No Sickle Cell Disease: No Sleep Apnea: No Thyroid Disease: No Ulcer: No Past Surgical History Abdominal Surgery: No AICD: No Appendectomy: No Arteriovenous Shunt: No Cardiac Surgery: No Cholecystectomy: No Ear Surgery: No Endocrine Surgery: No Eye Surgery: No Genitourinary Surgery: No Gynecologic Surgery: No Insulin Pump: No Joint Replacement: No Neurologic Surgery: No Oral Surgery: No Pacemaker: No Thoracic Surgery: No Tonsillectomy: Yes Other Surgery: Yes Social History Tobacco Use: Yes Substance Use: Yes (Alcohol ) Allergies-Medications (Allergen,Severity, Reaction): Coded Allergies: Codeine (Verified Allergy, Severe, HIVES, 03/15/17) Morphine (Verified Allergy, Severe, 03/15/17) Penicillin (Verified Allergy, Severe, HIVES, 03/15/17) Bactrim (Verified Allergy, Mild, HIVES, 03/15/17) Reported Meds & Prescriptions Reported Meds & Active Scripts Active Active Prescriptions or Reported Medications Unobtainable Review of Systems Except as stated in HPI: all other systems reviewed are Neg General / Constitutional: No: Fever Cardiovascular: No: Chest Pain or Discomfort Respiratory: Positive: Cough, Shortness of Breath Gastrointestinal: Positive: Other (left inguinal hernia), No: Nausea, Vomiting , Abdominal Pain Genitourinary: Positive: Urgency, Frequency, Hesitancy, Dribbling Musculoskeletal: Positive: Edema, No: Myalgias, Arthralgias Physical Exam Narrative GENERAL: Awake, alert, very pleasant 61-year-old male who appears his stated age and is in no acute respiratory distress. SKIN: Focused skin assessment warm/dry. HEAD: Atraumatic. Normocephalic. EYES: Pupils equal and round. No scleral icterus. No injection or drainage. ENT: No nasal bleeding or discharge. Breath smells of alcohol. NECK: Trachea midline. No JVD. CARDIOVASCULAR: Regular, tachycardic with a heart rate of 115. RESPIRATORY: No accessory muscle use. Diminished breath sounds in the right base with rhonchi. GASTROINTESTINAL: Abdomen soft, non-tender, nondistended. No rebound tenderness. Genitourinary: Large left inguinal hernia which is reducible when the patient is placed in the Trendelenburg position. No erythema or tenderness. MUSCULOSKELETAL: No obvious deformities. No clubbing. No cyanosis. No edema. NEUROLOGICAL: Awake and alert. No obvious cranial nerve deficits. Motor grossly within normal limits. Normal speech. PSYCHIATRIC: Appropriate mood and affect; insight and judgment normal. Data Data Last Documented VS Vital Signs Date Time Temp Pulse Resp B/P Pulse Ox O2 Delivery O2 Flow Rate FiO2 03/15/17 12:39 99.6 124 20 129/76 92 Room Air Orders Complete Blood Count With Diff (03/15/17 14:42) Comprehensive Metabolic Panel (03/15/17 14:42) Alcohol (Ethanol) (03/15/17 14:42) Chest, Single Ap (03/15/17 ) Urinalysis - C+S If Indicated (03/15/17 14:42) Sodium Chlor 0.9% 1000 Ml Inj (Ns 1000 M (03/15/17 14:45) Albuterol-Ipratropium Neb (Duoneb Neb) (03/15/17 16:00) Blood Culture (03/15/17 15:56) Lactic Acid (03/15/17 15:56) Sodium Chlor 0.9% 1000 Ml Inj (Ns 1000 M (03/15/17 16:00) Sodium Chlor 0.9% 1000 Ml Inj (Ns 1000 M (03/15/17 16:00) Levofloxacin 500 Mg Premix Inj (Levaquin (03/15/17 16:00) Aztreonam Inj (Azactam Inj) (03/15/17 15:59) Levofloxacin 750 Mg Premix Inj (Levaquin (03/15/17 15:59) Labs Laboratory Tests Test 03/15/17 03/15/17 03/15/17 14:50 14:55 16:00 Urine Color YELLOW Urine Turbidity CLEAR Urine pH 6.0 Urine Specific [place] 1.017 Urine Protein 30 mg/dL Urine Glucose (UA) NEG mg/dL Urine Ketones TRACE mg/dL Urine Occult Blood TRACE Urine Nitrite NEG Urine Bilirubin NEG Urine Urobilinogen 2.0 MG/DL Urine Leukocyte Esterase NEG Urine RBC LESS THAN 1 /hpf Urine WBC 1 /hpf Urine Mucus FEW /lpf Microscopic Urinalysis Comment CULT NOT INDICATED White Blood Count 14.6 TH/MM3 Red Blood Count 3.73 MIL/MM3 Hemoglobin 11.5 GM/DL Hematocrit 34.0 % Mean Corpuscular Volume 91.1 FL Mean Corpuscular Hemoglobin 30.7 PG Mean Corpuscular Hemoglobin 33.7 % Concent Red Cell Distribution Width 16.9 % Platelet Count 151 TH/MM3 Mean Platelet Volume 6.8 FL Neutrophils (%) (Auto) 87.9 % Lymphocytes (%) (Auto) 6.4 % Monocytes (%) (Auto) 5.4 % Eosinophils (%) (Auto) 0.0 % Basophils (%) (Auto) 0.3 % Neutrophils # (Auto) 12.8 TH/MM3 Lymphocytes # (Auto) 0.9 TH/MM3 Monocytes # (Auto) 0.8 TH/MM3 Eosinophils # (Auto) 0.0 TH/MM3 Basophils # (Auto) 0.0 TH/MM3 CBC Comment DIFF FINAL Differential Comment Sodium Level 140 MEQ/L Potassium Level 3.4 MEQ/L Chloride Level 99 MEQ/L Carbon Dioxide Level 29.2 MEQ/L Anion Gap 12 MEQ/L Blood Urea Nitrogen 11 MG/DL Creatinine 0.74 MG/DL Estimat Glomerular Filtration 107 ML/MIN Rate Random Glucose 189 MG/DL Calcium Level 9.2 MG/DL Total Bilirubin 0.4 MG/DL Aspartate Amino Transf 26 U/L (AST/SGOT) Alanine Aminotransferase 16 U/L (ALT/SGPT) Alkaline Phosphatase 119 U/L Total Protein 7.3 GM/DL Albumin 2.3 GM/DL Ethyl Alcohol Level 256 MG/DL Lactic Acid Level 3.4 mmol/L MDM Medical Decision Making Medical Screen Exam Complete: Yes Emergency Medical Condition: Yes Medical Record Reviewed: Yes Interpretation(s) Laboratory Tests Test 03/15/17 03/15/17 14:50 14:55 Urine Color YELLOW Urine Turbidity CLEAR Urine pH 6.0 Urine Specific [place] 1.017 Urine Protein 30 mg/dL Urine Glucose (UA) NEG mg/dL Urine Ketones TRACE mg/dL Urine Occult Blood TRACE Urine Nitrite NEG Urine Bilirubin NEG Urine Urobilinogen 2.0 MG/DL Urine Leukocyte Esterase NEG Urine RBC LESS THAN 1 /hpf Urine WBC 1 /hpf Urine Mucus FEW /lpf Microscopic Urinalysis Comment CULT NOT INDICATED White Blood Count 14.6 TH/MM3 Red Blood Count 3.73 MIL/MM3 Hemoglobin 11.5 GM/DL Hematocrit 34.0 % Mean Corpuscular Volume 91.1 FL Mean Corpuscular Hemoglobin 30.7 PG Mean Corpuscular Hemoglobin 33.7 % Concent Red Cell Distribution Width 16.9 % Platelet Count 151 TH/MM3 Mean Platelet Volume 6.8 FL Neutrophils (%) (Auto) 87.9 % Lymphocytes (%) (Auto) 6.4 % Monocytes (%) (Auto) 5.4 % Eosinophils (%) (Auto) 0.0 % Basophils (%) (Auto) 0.3 % Neutrophils # (Auto) 12.8 TH/MM3 Lymphocytes # (Auto) 0.9 TH/MM3 Monocytes # (Auto) 0.8 TH/MM3 Eosinophils # (Auto) 0.0 TH/MM3 Basophils # (Auto) 0.0 TH/MM3 CBC Comment DIFF FINAL Differential Comment Sodium Level 140 MEQ/L Potassium Level 3.4 MEQ/L Chloride Level 99 MEQ/L Carbon Dioxide Level 29.2 MEQ/L Anion Gap 12 MEQ/L Blood Urea Nitrogen 11 MG/DL Creatinine 0.74 MG/DL Estimat Glomerular Filtration 107 ML/MIN Rate Random Glucose 189 MG/DL Calcium Level 9.2 MG/DL Total Bilirubin 0.4 MG/DL Aspartate Amino Transf 26 U/L (AST/SGOT) Alanine Aminotransferase 16 U/L (ALT/SGPT) Alkaline Phosphatase 119 U/L Total Protein 7.3 GM/DL Albumin 2.3 GM/DL Ethyl Alcohol Level 256 MG/DL Differential Diagnosis Differential diagnoses includes inguinal hernia, reducible inguinal hernia, strangulated hernia, incarcerated hernia, pneumonia, bronchitis, UTI, BPH. Narrative Course IV was established, labs are drawn and sent, and the patient was placed on cardiac telemetry monitoring and continuous pulse oximetry monitoring. The patient was placed in the Trendelenburg position, was able to reduce the hernia , there is no evidence of obstruction, straining ablation, or incarceration. The patient is advised to follow-up with general surgery in regards to his inguinal hernia. Chest x-ray was obtained to evaluate for pneumonia. The patient was administered IV fluids. UA was sent to lab. Alcohol was elevated at 246. UA is negative for infection. White count is mildly elevated at 14.6. Electrolytes are unremarkable. The patient's chest x-ray reveals a left lower lobe pneumonia, patient is tachycardic with an elevated white count of 14.6, meets SIRS criteria. Therefore, blood culture and lactic acid were sent to lab. The patient was administered 2 more liters of IV fluids and administered Levaquin 750 milligrams intravenously. The patient's lactic acid is elevated at 3.4. The patient meets severe sepsis criteria, is immunocompromised secondary to alcohol abuse. O2 sat was 92%, therefore, patient will be admitted for pulmonary toilet, IV antibiotics, and IV fluids. The on-call medical service will be paged for admission. Sepsis Criteria SIRS Criteria (2 or more): Heart rate over 90, WBC > 59658, < 4000 or > 10% bands Severe Sepsis (+one): Lactate >2 Criteria Outcome: Meets severe sepsis criteria Physician Communication Physician Communication [facility]. Diagnosis Primary Impression: Pneumonia Qualified Code: J18.1 - Pneumonia of left lower lobe due to infectious organism Additional Impressions: Sepsis Qualified Code: A41.9 - Sepsis, due to unspecified organism Inguinal hernia Qualified Code: K40.90 - Unilateral inguinal hernia without obstruction or gangrene, recurrence not specified Alcohol abuse Admitting Information Admitting Physician Requests: Admit Scripts Unable to Obtain Active Prescriptions or Reported Meds Condition: Stable Morgan Gutierrez MD Mar 15, 2017 15:03
[2017-03-15 15:11] LABS: AUTOMATED NEUTROPHIL # 12.8 TH/MM3 (1.8-7.7); BASOPHIL % 0.3 % (0.0-2.0); HEMO FLAGS DIFF FINAL; LYMPH % 6.4 % (9.0-44.0); LYMPHOCYTE # 0.9 TH/MM3 (1.0-4.8); MEAN CELL VOLUME 91.1 FL (80.0-100.0); MEAN CORPUSCULAR HEMOGLOBIN 30.7 PG (27.0-34.0); MEAN CORPUSCULAR HGB CONC 33.7 % (32.0-36.0); MONO % 5.4 % (0.0-8.0); NEUT % 87.9 % (16.0-70.0); PLATELET COUNT 151 TH/MM3 (150-450); RED BLOOD COUNT 3.73 MIL/MM3 (4.50-5.90); RED CELL DISTRIBUTION WIDTH 16.9 % (11.6-17.2); WHITE BLOOD COUNT 14.6 TH/MM3 (4.0-11.0)
[2017-03-15 15:13] LABS: BLOOD, URINE TRACE (NEG); COMMENT (UR) CULT NOT INDICATED; CULTURE IF INDICATED CULT NOT INDICATED; GLUCOSE,URINE NEG (NEG); KETONE, URINE TRACE mg/dL (NEG); MUCUS URINE FEW /lpf (OCC); NITRITE,URINE NEG (NEG); URINE COLOR YELLOW (YELLW/STRAW)
[2017-03-15 15:24] LABS: ALT (GPT) 16 U/L (12-78); ANION GAP 12 MEQ/L (5-15); AST (GOT) 26 U/L (15-37); BICARBONATE 29.2 MEQ/L (21.0-32.0); BLOOD UREA NITROGEN 11 MG/DL (7-18); CHLORIDE 99 MEQ/L (98-107); GLOMERULAR FILTRATION RATE 107 ML/MIN (>89); POTASSIUM 3.4 MEQ/L (3.5-5.1); SODIUM (NA) 140 MEQ/L (136-145)
[2017-03-15 15:26] LABS: ALKALINE PHOSPHATASE 119 U/L (45-117); TOTAL BILIRUBIN ADULT 0.4 MG/DL (0.2-1.0)
[2017-03-15] MEDS ORDERED: LEVOFLOXACIN 750 MG PREMIX INJ 150 ML IV STA (15:59)
[2017-03-15] MEDS ORDERED: AZTREONAM INJ 2,000 MG in SODIUM CHLORIDE 0.9% INJ 100 ML IV STA (15:59)
[2017-03-15] MEDS ORDERED: RESP: ALBUTEROL 2.5 MG/IPRATROPIUM 0.5 MG NEB (SCH) NEB ONE (16:00)
[2017-03-15] MEDS ORDERED: LEVOFLOXACIN 500 MG PREMIX INJ 100 ML IV ONE (16:00)
--- NOTE | 2017-03-15 16:26 | RADRPT ---
EXAM DATE/TIME: 03/15/2017 15:38 [facility] COMPARISON: CHEST SINGLE AP, December 15, 2016, 7:40. INDICATIONS : Chest pain, cough, and shortness of breath. MEDICAL HISTORY : COPD SURGICAL HISTORY : None. ENCOUNTER: Initial ACUITY: 1 month PAIN SCORE: 0/10 LOCATION: Bilateral chest FINDINGS: A single AP erect portable view of the chest was obtained and demonstrates patchy left perihilar and lower lobe consolidative infiltrate with small to moderate left effusion with blunting of the costoph renic angle. The right lung is clear. The heart size is at the upper limits of normal. The bony thora x is intact. CONCLUSION: Consolidative opacity in the left perihilar region and left lung base as well as small to moderate ef fusion. These findings are most characteristic of pneumonia. Wilfredo Andersen MD on March 15, 2017 at 16:23 Board Certified Radiologist. This report was verified electronically.
[2017-03-15 16:50] VITALS: BP 138/80; PULSE 105; RESP 18; O2SAT 93
[2017-03-15] MEDS: SODIUM CHLOR 0.9% 1000 ML INJ 1,000 ML IV SCH (17:40)
[2017-03-15] MEDS ORDERED: SODIUM CHLORIDE 0.9% FLUSH 10 ML FLUSH IV FLUSH PRN (17:45)
[2017-03-15] MEDS ORDERED: Vancomycin Consult Pharmacy 1 EA OTHER SCH ×2 (17:45→18:15)
[2017-03-15] MEDS ORDERED: NALOXONE HCL 0.4 MG/ML AMP IV PRN (17:45)
[2017-03-15] MEDS ORDERED: DEXTROSE 50% IN WATER 50 ML VIAL(D50) IV PUSH PRN (17:45)
[2017-03-15] MEDS ORDERED: ACETAMINOPHEN 325 MG TAB PO PRN (17:45)
[2017-03-15] MEDS ORDERED: ONDANSETRON HCL 4 MG/2 ML VIAL IVP PRN (17:45)
[2017-03-15] MEDS ORDERED: GLUCAGON 1 MG/ML VIAL OTHER PRN (17:45)
[2017-03-15] MEDS ORDERED: RESP: ALBUTEROL 2.5 MG/IPRATROPIUM 0.5 MG NEB (PRN) NEB (17:45)
--- NOTE | 2017-03-15 17:58 | HHI.HP ---
[facility] No Primary Care Physician Admission Diagnosis left lower lobe pneumonia, sepsis, alcohol abuse Diagnoses: Chief Complaint: Left lower lobe pneumonia, shortness of breath Travel History International Travel<30 Days: No Contact w/Intl Traveler <30 Da: No Traveled to Known Affected Are: No Sepsis Criteria SIRS Criteria (2 or more): Heart rate over 90, RR > 20 or PaCO2 < 32, WBC > 03319, < 4000 or > 10% bands Sepsis Criteria (SIRS+source): Infect source susp/known Severe Sepsis (+one): Lactate >2 Criteria Outcome: Meets SIRS criteria, Meets sepsis criteria History of Present Illness Patient is a 61-year-old male with primary medical history of COPD, HTN who came in to the hospital complaining of productive cough, not feeling well, generalized weakness, fevers, chills. Patient states that it started about 2 days ago, noted some swelling on his face and increasingly not feeling that he brought himself to the hospital for further evaluation. States that about 3-4 [place] but he has no vertigo secondary to homelessness. Patient states he is expectorating yellow dark sputum, has been having fevers, chills, shortness of breath. He also noted that he has been dribbling when he voids. Patient denies any hematuria, dysuria, urgency, frequency. Denies pain and discomfort. Denies chest pain, palpitations, headaches, dizziness. Denies v/d. Chest x-ray showed consolidative opacity in the left perihilar region and left lung base as well as small to moderate effusion. This findings are most characteristic of pneumonia. Leukocytosis WBC 14.6. Normocytic normochromic anemia RBC 3.73, hemoglobin 11.5 , hematocrit 34. Hypokalemia 3.4 potassium, random glucose 189, lactic acid 3.4, alkaline phosphatase 119, albumin 2.3 Review of Systems Except as stated in HPI: all other systems reviewed are Neg Past Family Social History Past Medical History HTN COPD ADD Arthritis Hiatal hernia Bronchitis Pneumonia Past Surgical History Tonsillectomy Abdominal surgery, X oratory left Reported Medications None Allergies: Coded Allergies: Codeine (Verified Allergy, Severe, HIVES, 03/15/17) Morphine (Verified Allergy, Severe, 03/15/17) Penicillin (Verified Allergy, Severe, HIVES, 03/15/17) Bactrim (Verified Allergy, Mild, HIVES, 03/15/17) Family History Father of brain cancer Mother of heart disease Social History Daily alcohol use 1 pint of vodka Daily tobacco use 1 pack per day Denies recent illicit drug use, smokes marijuana previous years Physical Exam Vital Signs Vital Signs Date Time Temp Pulse Resp B/P Pulse Ox O2 Delivery O2 Flow Rate FiO2 03/15/17 16:50 105 18 138/80 93 Room Air 03/15/17 12:39 99.6 124 20 129/76 92 Room Air Physical Exam GENERAL: This is a disheveled, older than stated age, mildly ill-appearing SKIN: Left periorbital area bulla, facial sunburn HEAD: Normocephalic. No temporal or scalp tenderness. EYES: Pupils equal round and reactive. No scleral icterus. No injection or drainage. ENT: Nose without bleeding. Throat mild erythema. Uvula midline. Airway patent. NECK: Trachea midline. No JVD or lymphadenopathy. CARDIOVASCULAR: Regular rate and rhythm without murmurs, gallops, or rubs. RESPIRATORY: Bibasilar crackles, left greater than the right, positive wheezes GASTROINTESTINAL: Abdomen soft, non-tender, nondistended. No hepato-splenomegaly , or palpable masses. No guarding. Bowel sounds active 4 MUSCULOSKELETAL: Extremities without clubbing, cyanosis, trace bilateral lower extremity edema. Left third and fourth digit amputation. NEUROLOGICAL: Awake and alert. Motor and sensory grossly within normal limits. No focal neuro deficits. Normal speech. Laboratory Laboratory Tests Test 03/15/17 03/15/17 03/15/17 14:50 14:55 16:00 Urine Color YELLOW Urine Turbidity CLEAR Urine pH 6.0 Urine Specific [place] 1.017 Urine Protein 30 Urine Glucose (UA) NEG Urine Ketones TRACE Urine Occult Blood TRACE Urine Nitrite NEG Urine Bilirubin NEG Urine Urobilinogen 2.0 Urine Leukocyte Esterase NEG Urine RBC LESS THAN 1 Urine WBC 1 Urine Mucus FEW Microscopic Urinalysis Comment CULT NOT INDICATED White Blood Count 14.6 Red Blood Count 3.73 Hemoglobin 11.5 Hematocrit 34.0 Mean Corpuscular Volume 91.1 Mean Corpuscular Hemoglobin 30.7 Mean Corpuscular Hemoglobin 33.7 Concent Red Cell Distribution Width 16.9 Platelet Count 151 Mean Platelet Volume 6.8 Neutrophils (%) (Auto) 87.9 Lymphocytes (%) (Auto) 6.4 Monocytes (%) (Auto) 5.4 Eosinophils (%) (Auto) 0.0 Basophils (%) (Auto) 0.3 Neutrophils # (Auto) 12.8 Lymphocytes # (Auto) 0.9 Monocytes # (Auto) 0.8 Eosinophils # (Auto) 0.0 Basophils # (Auto) 0.0 CBC Comment DIFF FINAL Differential Comment Sodium Level 140 Potassium Level 3.4 Chloride Level 99 Carbon Dioxide Level 29.2 Anion Gap 12 Blood Urea Nitrogen 11 Creatinine 0.74 Estimat Glomerular Filtration 107 Rate Random Glucose 189 Calcium Level 9.2 Total Bilirubin 0.4 Aspartate Amino Transf 26 (AST/SGOT) Alanine Aminotransferase 16 (ALT/SGPT) Alkaline Phosphatase 119 Total Protein 7.3 Albumin 2.3 Ethyl Alcohol Level 256 Lactic Acid Level 3.4 Date/Time Procedure Status Source Growth 03/15/17 16:00 Aerobic Blood Culture Received Blood Peripheral Pending 03/15/17 16:00 Anaerobic Blood Culture Received Blood Peripheral Pending Result Diagram: 03/15/17 1455 03/15/17 1455 Imaging Last Impressions Chest X-Ray 03/15/17 0000 Signed Impressions: Service Date/Time: February 15:38 - CONCLUSION: Consolidative opacity in the left perihilar region and left lung base as well as small to moderate effusion. These findings are most characteristic of pneumonia. Wilfredo Andersen MD Assessment and Plan Problem List: (1) Alcohol abuse ICD Code: 305.00 Status: Chronic (2) Pneumonia ICD Code: J18.9 Status: Acute (3) Inguinal hernia ICD Code: K40.90 Status: Acute (4) Severe sepsis ICD Code: A41.9 Status: Acute (5) Lactic acidosis ICD Code: E87.2 Status: Acute Assessment and Plan Patient is a 61-year-old male with primary medical history of COPD, HTN who came in to the hospital complaining of productive cough, not feeling well, generalized weakness, fevers, chills, SOB/ Dyspnea. Patient recent admission 12/02/16 with acute respiratory failure secondary to pneumonia. Severe sepsis Hospital acquired pneumonia, increased risk for multidrug resistant pathogens ( MDR) Lactic acidosis, leukocytosis - Chest x-ray showed consolidative opacity in the left perihilar region and left lung base as well as small to moderate effusion. This findings are most characteristic of pneumonia. - Leukocytosis WBC 14.6 - Lactic acid 3.4 - Blood cultures, sputum culture - Patient was given Levaquin IV and aztreonam IV in the ED. - Continue with Levaquin, aztreonam IV, vancomycin 1250mg q12 - Solu-Medrol 40 mg every 8 hours - DuoNeb scheduled, when necessary - Trend lactic acid, trend CBC, BMP Facial burn, sunburn - Aquaphor ointment every 12 hours apply to facial area Tobacco abuse - Nicotine patch Alcohol abuse - Alcohol level 256 - Librium 10mg TID PRN - Ativan when necessary - Folic acid, thiamine Hyperglycemia - Insulin sliding scale, blood glucose checked - Maybe secondary to Solu-Medrol use Normocytic normochromic anemia - Monitor trend Noncompliance, social issues - Patient is homeless - Case management to facilitate safe discharge DVT prop Lovenox Written by Miguel Laws, acting as scribe for Dr. Carbajal on 03/15/17 at 17:55. Code Status Full code Discussed Condition With Patient, nursing, ED attending Physician Certification 2 Midnight Certification Type: Admission for Inpatient Services Order for Inpatient Services The services are ordered in accordance with Medicare regulations or non- Medicare payer requirements, as applicable. In the case of services not specified as inpatient-only, they are appropriately provided as inpatient services in accordance with the 2-midnight benchmark. Estimated LOS (days): 2 days is the estimated time the patient will need to remain in the hospital, assuming treatment plan goals are met and no additional complications. Post-Hospital Plan: Not yet determined Problem Qualifiers (1) Pneumonia: Qualified Code: J18.1 - Pneumonia of left lower lobe due to infectious organism (2) Inguinal hernia: Qualified Code: K40.90 - Unilateral inguinal hernia without obstruction or gangrene, recurrence not specified Miguel Chaudhary Mar 15, 2017 17:58 Justyna Carbajal MD Mar 16, 2017 09:13
[2017-03-15] MEDS ORDERED: VANCOMYCIN INJ 1,250 MG in SODIUM CHLOR 0.9% 250 ML INJ 250 ML IV SCH (18:15)
[2017-03-15 18:41] VITALS: BP 138/80; PULSE 78; RESP 16; O2SAT 97
[2017-03-15 20:00] VITALS: BP 152/92; PULSE 89; RESP 20; TEMP 100.7; O2SAT 92
[2017-03-15] MEDS ORDERED: VANCOMYCIN INJ 1,250 MG in SODIUM CHLOR 0.9% 250 ML INJ 250 ML IV ONE (20:00)
[2017-03-15] MEDS: ENOXAPARIN SODIUM 40 MG/0.4 ML SYRINGE SQ SCH (20:33)
[2017-03-15] MEDS: LORazepam 2 MG/ML VIAL IV PUSH PRN (20:33)
[2017-03-15] MEDS: methylPREDNISolone SOD SUCC 40 MG/1 ML VIAL IV PUSH SCH (20:34)
[2017-03-15] MEDS: NICOTINE 14 MG/24 HR PATCH T-DERMAL SCH (20:34)
[2017-03-15] MEDS: RESP: ALBUTEROL 2.5 MG/IPRATROPIUM 0.5 MG NEB (SCH) NEB (20:39)
[2017-03-15] MEDS: SODIUM CHLORIDE 0.9% FLUSH 10 ML FLUSH IV FLUSH SCH (20:42)
[2017-03-15 21:00] VITALS: PULSE 111
[2017-03-15] MEDS: AQUAPHOR OINT 50 APPLIC/50 GM TUBE TOPICAL SCH (21:00)
[2017-03-15] MEDS: INSULIN NovoLIN REGULAR SUPPLEMENTAL SCALE SQ SCH (21:00)
[2017-03-16] VITALS (7 sets, daily range): BP systolic 151–172; BP diastolic 90–105; PULSE 92–119; RESP 17–21; TEMP 96.9–99; O2SAT 95–98
[2017-03-16] MEDS ORDERED: LORazepam 2 MG/ML VIAL IV PUSH ONE
[2017-03-16] MEDS: AZTREONAM INJ 2,000 MG in SODIUM CHLORIDE 0.9% INJ 100 ML IV SCH ×3 (00:20→16:50)
[2017-03-16 05:03] LABS: BASOPHIL % 0.2 % (0.0-2.0); HEMATOCRIT 33.3 % (39.0-51.0); HEMO FLAGS DIFF FINAL; LYMPH % 3.5 % (9.0-44.0); LYMPHOCYTE # 0.4 TH/MM3 (1.0-4.8); MEAN CORPUSCULAR HEMOGLOBIN 30.4 PG (27.0-34.0); MEAN CORPUSCULAR HGB CONC 33.4 % (32.0-36.0); MONO % 1.5 % (0.0-8.0); NEUT % 94.8 % (16.0-70.0); PLATELET COUNT 102 TH/MM3 (150-450); RED BLOOD COUNT 3.66 MIL/MM3 (4.50-5.90); WHITE BLOOD COUNT 10.5 TH/MM3 (4.0-11.0)
[2017-03-16 05:11] LABS: BICARBONATE 27.6 MEQ/L (21.0-32.0); POTASSIUM 3.6 MEQ/L (3.5-5.1)
[2017-03-16 05:36] LABS: INDIRECT BILIRUBIN 0.4 MG/DL (0.0-0.8); TOTAL BILIRUBIN ADULT 0.5 MG/DL (0.2-1.0)
[2017-03-16] MEDS: LORazepam 2 MG/ML VIAL IV PUSH PRN (06:24)
[2017-03-16] MEDS: SODIUM CHLOR 0.9% 1000 ML INJ 1,000 ML IV SCH ×3 (06:24→22:07)
[2017-03-16] MEDS: INSULIN NovoLIN REGULAR SUPPLEMENTAL SCALE SQ SCH ×4 (06:24→21:00)
[2017-03-16] MEDS: methylPREDNISolone SOD SUCC 40 MG/1 ML VIAL IV PUSH SCH ×3 (06:24→22:07)
[2017-03-16] MEDS: RESP: ALBUTEROL 2.5 MG/IPRATROPIUM 0.5 MG NEB (SCH) NEB ×4 (08:00→20:00)
[2017-03-16] MEDS ORDERED: PHARMACY ORDERED LAB ONE (08:45)
[2017-03-16] MEDS: NICOTINE 14 MG/24 HR PATCH T-DERMAL SCH (08:50)
[2017-03-16] MEDS: AQUAPHOR OINT 50 APPLIC/50 GM TUBE TOPICAL SCH ×2 (08:51→22:10)
[2017-03-16] MEDS: SODIUM CHLORIDE 0.9% FLUSH 10 ML FLUSH IV FLUSH SCH ×2 (08:51→21:00)
[2017-03-16] MEDS: REMOVE OLD PATCH T-DERMAL SCH (08:52)
--- NOTE | 2017-03-16 09:12 | HHI.PR ---
Subjective Remarks Resting and then, sleeping, woke up to verbal stimuli He had a fever 100.7 last night, he is afebrile this morning Blood pressure is uncontrolled, patient received 2 doses of Ativan overnight, Currently no chest pain, still having crackles and wheezes Objective Vitals Vital Signs Date Time Temp Pulse Resp B/P Pulse Ox O2 Delivery O2 Flow Rate FiO2 03/16/17 08:16 96.9 95 19 166/97 95 03/16/17 04:00 97.8 92 19 172/92 97 03/16/17 00:00 99.0 119 21 155/105 96 03/15/17 21:00 111 03/15/17 20:00 100.7 89 20 152/92 92 03/15/17 18:41 78 16 138/80 97 03/15/17 16:50 105 18 138/80 93 Room Air 03/15/17 12:39 99.6 124 20 129/76 92 Room Air I/O 03/15/17 03/15/17 03/15/17 03/16/17 03/16/17 03/16/17 07:00 15:00 23:00 07:00 15:00 23:00 Intake Total 120 ml 1284 ml 120 ml Output Total 300 ml 300 ml Balance -180 ml 984 ml 120 ml Intake Oral 120 ml 120 ml 120 ml IV Total 1164 ml Output Urine Total 300 ml 300 ml # Voids 1 2 # Bowel Movements 0 1 Result Diagram: 03/16/17 0424 03/16/17 0424 Objective Remarks GENERAL: This is a disheveled, older than stated age, mildly ill-appearing SKIN: Left periorbital area bulla, facial sunburn HEAD: Normocephalic. No temporal or scalp tenderness. EYES: Pupils equal round and reactive. No scleral icterus. No injection or drainage. ENT: Nose without bleeding. Throat mild erythema. Uvula midline. Airway patent. NECK: Trachea midline. No JVD or lymphadenopathy. CARDIOVASCULAR: Regular rate and rhythm without murmurs, gallops, or rubs. RESPIRATORY: Bibasilar crackles, left greater than the right, positive wheezes GASTROINTESTINAL: Abdomen soft, non-tender, nondistended. No hepato-splenomegaly , or palpable masses. No guarding. Bowel sounds active 4 MUSCULOSKELETAL: Extremities without clubbing, cyanosis, trace bilateral lower extremity edema. Left third and fourth digit amputation. NEUROLOGICAL: Awake and alert. Motor and sensory grossly within normal limits. No focal neuro deficits. Normal speech. A/P Problem List: (1) Alcohol abuse ICD Code: 305.00 Status: Chronic (2) Pneumonia ICD Code: J18.9 Status: Acute (3) Inguinal hernia ICD Code: K40.90 Status: Acute (4) Severe sepsis ICD Code: A41.9 Status: Acute (5) Lactic acidosis ICD Code: E87.2 Status: Acute Assessment and Plan Patient is a 61-year-old male with primary medical history of COPD, HTN who came in to the hospital complaining of productive cough, not feeling well, generalized weakness, fevers, chills, SOB/ Dyspnea. Patient recent admission 12/02/16 with acute respiratory failure secondary to pneumonia. Severe sepsis Hospital acquired pneumonia, increased risk for multidrug resistant pathogens ( MDR) Lactic acidosis, leukocytosis>resolved - Chest x-ray showed consolidative opacity in the left perihilar region and left lung base as well as small to moderate effusion. This findings are most characteristic of pneumonia. - Leukocytosis WBC 14.6>>10.5 - Lactic acid 3.4>>0.9, cont IVF - Blood cultures, sputum culture - Patient was given Levaquin IV and aztreonam IV in the ED. - Continue with Levaquin, aztreonam IV, vancomycin 1250mg q12 - Solu-Medrol 40 mg every 8 hours - DuoNeb scheduled, when necessary - Trend lactic acid, trend CBC, BMP Uncontrolled HTN: - Vasotec prn , add lisinopril , monitor bp Facial burn, sunburn - Aquaphor ointment every 12 hours apply to facial area Tobacco abuse - Nicotine patch Alcohol abuse - Alcohol level 256 - Librium 10mg TID PRN - Ativan when necessary - Folic acid, thiamine Hyperglycemia - Insulin sliding scale, blood glucose checked - Maybe secondary to Solu-Medrol use Normocytic normochromic anemia - Monitor trend Noncompliance, social issues - Patient is homeless - Case management to facilitate safe discharge DVT prop Lovenox Problem Qualifiers (1) Pneumonia: Qualified Code: J18.1 - Pneumonia of left lower lobe due to infectious organism (2) Inguinal hernia: Qualified Code: K40.90 - Unilateral inguinal hernia without obstruction or gangrene, recurrence not specified Justyna Carbajal MD Mar 16, 2017 09:12
[2017-03-16] MEDS: VANCOMYCIN 1,000 MG/NS 250 ML IV SCH ×4 (09:26→22:06)
[2017-03-16] MEDS: LISINOPRIL 5 MG TAB PO SCH (11:36)
[2017-03-16] MEDS: LEVOFLOXACIN 750 MG PREMIX INJ 150 ML IV SCH (11:37)
[2017-03-16] MEDS: LORazepam 1 MG TAB PO PRN ×2 (13:53→22:06)
[2017-03-16] MEDS: ENOXAPARIN SODIUM 40 MG/0.4 ML SYRINGE SQ SCH (22:06)
[2017-03-17] VITALS (7 sets, daily range): BP systolic 141–171; BP diastolic 76–111; PULSE 81–121; RESP 17–20; TEMP 96.9–98.3; O2SAT 94–98
[2017-03-17] MEDS: AZTREONAM INJ 2,000 MG in SODIUM CHLORIDE 0.9% INJ 100 ML IV SCH ×3 (01:32→17:22)
[2017-03-17] MEDS: methylPREDNISolone SOD SUCC 40 MG/1 ML VIAL IV PUSH SCH ×2 (05:25→12:36)
[2017-03-17] MEDS: INSULIN NovoLIN REGULAR SUPPLEMENTAL SCALE SQ SCH ×4 (05:27→20:51)
[2017-03-17] MEDS: LISINOPRIL 5 MG TAB PO SCH (07:55)
[2017-03-17] MEDS: REMOVE OLD PATCH T-DERMAL SCH (07:55)
[2017-03-17] MEDS: SODIUM CHLORIDE 0.9% FLUSH 10 ML FLUSH IV FLUSH SCH ×2 (07:55→20:50)
[2017-03-17] MEDS: NICOTINE 14 MG/24 HR PATCH T-DERMAL SCH (07:56)
[2017-03-17] MEDS: SODIUM CHLOR 0.9% 1000 ML INJ 1,000 ML IV SCH ×2 (07:56→17:22)
[2017-03-17] MEDS: AQUAPHOR OINT 50 APPLIC/50 GM TUBE TOPICAL SCH ×2 (07:58→20:51)
[2017-03-17] MEDS: RESP: ALBUTEROL 2.5 MG/IPRATROPIUM 0.5 MG NEB (SCH) NEB ×4 (08:00→20:00)
[2017-03-17] MEDS ORDERED: PHARMACY ORDERED LAB ONE (08:45)
[2017-03-17] MEDS: VANCOMYCIN 1,000 MG/NS 250 ML IV SCH ×2 (09:14)
[2017-03-17] MEDS: LEVOFLOXACIN 750 MG PREMIX INJ 150 ML IV SCH (11:43)
[2017-03-17] MEDS: LISINOPRIL 10 MG TAB PO SCH ×2 (12:36→20:51)
--- NOTE | 2017-03-17 15:25 | HHI.PR ---
Subjective Remarks Patient doing okay, laying in bed stated he breathing better, off oxygen but still coughing Blood pressure is not control with increase lisinopril to 10 mg twice a day Will get PT OT and will wean O2 Objective Vitals Vital Signs Date Time Temp Pulse Resp B/P Pulse Ox O2 Delivery O2 Flow Rate FiO2 03/17/17 12:00 98.2 104 17 141/81 95 03/17/17 08:00 97.0 98 17 147/95 94 03/17/17 04:00 96.9 81 18 147/76 96 03/17/17 00:00 98.0 84 18 171/100 98 03/16/17 20:00 98.0 95 18 161/91 97 03/16/17 16:00 99.0 117 20 151/90 95 I/O 03/16/17 03/16/17 03/16/17 03/17/17 03/17/17 03/17/17 07:00 15:00 23:00 07:00 15:00 23:00 Intake Total 1284 ml 793 ml 1280 ml 920 ml 2055 ml Output Total 300 ml 300 ml 700 ml 675 ml Balance 984 ml 793 ml 980 ml 220 ml 1380 ml Intake Oral 120 ml 120 ml 480 ml 120 ml 720 ml IV Total 1164 ml 673 ml 800 ml 800 ml 1335 ml Output Urine Total 300 ml 300 ml 700 ml 675 ml # Voids 2 # Bowel Movements 1 1 Result Diagram: 03/16/1742303/16/17423 Objective Remarks GENERAL: This is a disheveled, older than stated age, mildly ill-appearing SKIN: Left periorbital area bulla, facial sunburn HEAD: Normocephalic. No temporal or scalp tenderness. EYES: Pupils equal round and reactive. No scleral icterus. No injection or drainage. ENT: Nose without bleeding. Throat mild erythema. Uvula midline. Airway patent. NECK: Trachea midline. No JVD or lymphadenopathy. CARDIOVASCULAR: Regular rate and rhythm without murmurs, gallops, or rubs. RESPIRATORY: Bibasilar crackles, left greater than the right, positive wheezes GASTROINTESTINAL: Abdomen soft, non-tender, nondistended. No hepato-splenomegaly , or palpable masses. No guarding. Bowel sounds active 4 MUSCULOSKELETAL: Extremities without clubbing, cyanosis, trace bilateral lower extremity edema. Left third and fourth digit amputation. NEUROLOGICAL: Awake and alert. Motor and sensory grossly within normal limits. No focal neuro deficits. Normal speech. A/P Problem List: (1) Alcohol abuse ICD Code: 305.00 Status: Chronic (2) Pneumonia ICD Code: J18.9 Status: Acute (3) Inguinal hernia ICD Code: K40.90 Status: Acute (4) Severe sepsis ICD Code: A41.9 Status: Acute (5) Lactic acidosis ICD Code: E87.2 Status: Acute Assessment and Plan 03/17: Continue current care, taper Solu-Medrol, PT OT, wean O2, ambulate, discharge in a.m. if stable Uncontrolled blood aguayo or increase lisinopril to 10 mg twice a day Initial A/P: Patient is a 61-year-old male with primary medical history of COPD, HTN who came in to the hospital complaining of productive cough, not feeling well, generalized weakness, fevers, chills, SOB/ Dyspnea. Patient recent admission 12/02/16 with acute respiratory failure secondary to pneumonia. Severe sepsis Hospital acquired pneumonia, increased risk for multidrug resistant pathogens ( MDR) Lactic acidosis, leukocytosis>resolved - Chest x-ray showed consolidative opacity in the left perihilar region and left lung base as well as small to moderate effusion. This findings are most characteristic of pneumonia. - Leukocytosis WBC 14.6>>10.5 - Lactic acid 3.4>>0.9, cont IVF - Blood cultures, sputum culture - Patient was given Levaquin IV and aztreonam IV in the ED. - Continue with Levaquin, aztreonam IV, vancomycin 1250mg q12 - Solu-Medrol 40 mg every 8 hours - DuoNeb scheduled, when necessary - Trend lactic acid, trend CBC, BMP Uncontrolled HTN: - Vasotec prn , add lisinopril , monitor bp Facial burn, sunburn - Aquaphor ointment every 12 hours apply to facial area Tobacco abuse - Nicotine patch Alcohol abuse - Alcohol level 256 - Librium 10mg TID PRN - Ativan when necessary - Folic acid, thiamine Hyperglycemia - Insulin sliding scale, blood glucose checked - Maybe secondary to Solu-Medrol use Normocytic normochromic anemia - Monitor trend Noncompliance, social issues - Patient is homeless - Case management to facilitate safe discharge DVT prop Lovenox Problem Qualifiers (1) Pneumonia: Qualified Code: J18.1 - Pneumonia of left lower lobe due to infectious organism (2) Inguinal hernia: Qualified Code: K40.90 - Unilateral inguinal hernia without obstruction or gangrene, recurrence not specified Justyna Carbajal MD Mar 17, 2017 15:25
[2017-03-17] MEDS: ENOXAPARIN SODIUM 40 MG/0.4 ML SYRINGE SQ SCH (20:50)
[2017-03-17] MEDS: VANCOMYCIN INJ 1,250 MG in SODIUM CHLOR 0.9% 250 ML INJ 250 ML IV SCH (20:50)
[2017-03-17] MEDS: LORazepam 1 MG TAB PO PRN (20:51)
[2017-03-17] MEDS: ENALAPRILAT 1.25 MG/ML VIAL IV PUSH PRN (20:57)
[2017-03-18] VITALS (7 sets, daily range): BP systolic 152–171; BP diastolic 91–115; PULSE 81–115; RESP 16–20; TEMP 97–98.3; O2SAT 93–98
[2017-03-18] MEDS: AZTREONAM INJ 2,000 MG in SODIUM CHLORIDE 0.9% INJ 100 ML IV SCH ×2 (00:52→08:10)
[2017-03-18] MEDS: SODIUM CHLOR 0.9% 1000 ML INJ 1,000 ML IV SCH ×2 (02:43→12:18)
[2017-03-18] MEDS: ENALAPRILAT 1.25 MG/ML VIAL IV PUSH PRN (03:07)
[2017-03-18] MEDS: INSULIN NovoLIN REGULAR SUPPLEMENTAL SCALE SQ SCH ×4 (05:54→20:57)
[2017-03-18] MEDS ORDERED: METOPROLOL TARTRATE 25 MG TAB PO ONE (06:00)
[2017-03-18] MEDS: RESP: ALBUTEROL 2.5 MG/IPRATROPIUM 0.5 MG NEB (SCH) NEB ×4 (08:00→20:00)
[2017-03-18] MEDS: REMOVE OLD PATCH T-DERMAL SCH (08:10)
[2017-03-18] MEDS: LISINOPRIL 10 MG TAB PO SCH (08:10)
[2017-03-18] MEDS: SODIUM CHLORIDE 0.9% FLUSH 10 ML FLUSH IV FLUSH SCH ×2 (08:10→20:57)
[2017-03-18] MEDS: NICOTINE 14 MG/24 HR PATCH T-DERMAL SCH (08:11)
[2017-03-18] MEDS: AQUAPHOR OINT 50 APPLIC/50 GM TUBE TOPICAL SCH ×2 (08:11→21:00)
[2017-03-18] MEDS: VANCOMYCIN INJ 1,250 MG in SODIUM CHLOR 0.9% 250 ML INJ 250 ML IV SCH (08:14)
[2017-03-18] MEDS ORDERED: methylPREDNISolone SOD SUCC 40 MG/1 ML VIAL IV PUSH SCH (09:00)
[2017-03-18] MEDS: LEVOFLOXACIN 750 MG PREMIX INJ 150 ML IV SCH (10:53)
[2017-03-18] MEDS ORDERED: LISINOPRIL 20 MG TAB PO ONE (11:45)
--- NOTE | 2017-03-18 11:58 | HHI.PR ---
Subjective Remarks Patient was found smoking tobacco in the bathroom today Reported feeling well, is off oxygen, no fever or chills or chest tightness We'll DC iv antibiotic and Solu-Medrol and place him Levaquin and prednisone, monitor O2 and temperature if stable will discharge in a.m. Objective Vitals Vital Signs Date Time Temp Pulse Resp B/P Pulse Ox O2 Delivery O2 Flow Rate FiO2 03/18/17 09:36 96 21 03/18/17 08:00 97.2 81 16 167/91 96 03/18/17 04:00 97.8 90 20 152/103 93 03/18/17 02:14 169/99 03/18/17 00:00 97.2 115 20 171/115 96 03/17/17 20:45 95 21 03/17/17 20:00 98.3 99 20 168/111 97 03/17/17 20:00 100 03/17/17 16:00 97.8 121 18 163/90 95 03/17/17 12:00 98.2 104 17 141/81 95 I/O 03/17/17 03/17/17 03/17/17 03/18/17 03/18/17 03/18/17 07:00 15:00 23:00 07:00 15:00 23:00 Intake Total 920 ml 2055 ml 1074 ml 787 ml Output Total 700 ml 675 ml 250 ml 750 ml Balance 220 ml 1380 ml 824 ml 37 ml Intake Oral 120 ml 720 ml 240 ml 0 ml IV Total 800 ml 1335 ml 834 ml 787 ml Output Urine Total 700 ml 675 ml 250 ml 750 ml # Bowel Movements 1 1 Result Diagram: 03/16/17 0424 03/16/17 0424 Objective Remarks GENERAL: This is a disheveled, older than stated age, mildly ill-appearing SKIN: Left periorbital area bulla, facial sunburn HEAD: Normocephalic. No temporal or scalp tenderness. EYES: Pupils equal round and reactive. No scleral icterus. No injection or drainage. ENT: Nose without bleeding. Throat mild erythema. Uvula midline. Airway patent. NECK: Trachea midline. No JVD or lymphadenopathy. CARDIOVASCULAR: Regular rate and rhythm without murmurs, gallops, or rubs. RESPIRATORY: Bibasilar crackles, left greater than the right, positive wheezes GASTROINTESTINAL: Abdomen soft, non-tender, nondistended. No hepato-splenomegaly , or palpable masses. No guarding. Bowel sounds active 4 MUSCULOSKELETAL: Extremities without clubbing, cyanosis, trace bilateral lower extremity edema. Left third and fourth digit amputation. NEUROLOGICAL: Awake and alert. Motor and sensory grossly within normal limits. No focal neuro deficits. Normal speech. A/P Problem List: (1) Alcohol abuse ICD Code: 305.00 Status: Chronic (2) Pneumonia ICD Code: J18.9 Status: Acute (3) Inguinal hernia ICD Code: K40.90 Status: Acute (4) Severe sepsis ICD Code: A41.9 Status: Acute (5) Lactic acidosis ICD Code: E87.2 Status: Acute Assessment and Plan 03/17: Continue current care, taper Solu-Medrol, PT OT, wean O2, ambulate, discharge in a.m. if stable Uncontrolled blood aguayo or increase lisinopril to 10 mg twice a day 03/18:We'll DC iv antibiotic and Solu-Medrol and place him Levaquin po and prednisone, monitor O2 and temperature if stable will discharge in a.m. Blood pressure still uncontrolled with tachycardia, will increase lisinopril and add low dose Lopressor Initial A/P: Patient is a 61-year-old male with primary medical history of COPD, HTN who came in to the hospital complaining of productive cough, not feeling well, generalized weakness, fevers, chills, SOB/ Dyspnea. Patient recent admission 12/02/16 with acute respiratory failure secondary to pneumonia. Severe sepsis Hospital acquired pneumonia, increased risk for multidrug resistant pathogens ( MDR) Lactic acidosis, leukocytosis>resolved - Chest x-ray showed consolidative opacity in the left perihilar region and left lung base as well as small to moderate effusion. This findings are most characteristic of pneumonia. - Leukocytosis WBC 14.6>>10.5 - Lactic acid 3.4>>0.9, cont IVF - Blood cultures, sputum culture - Patient was given Levaquin IV and aztreonam IV in the ED. - Continue with Levaquin, aztreonam IV, vancomycin 1250mg q12 - Solu-Medrol 40 mg every 8 hours - DuoNeb scheduled, when necessary - Trend lactic acid, trend CBC, BMP Uncontrolled HTN: With tachycardia - Vasotec prn , increase lisinopril , at low dose Lopressor monitor bp Facial burn, sunburn - Aquaphor ointment every 12 hours apply to facial area Tobacco abuse - Nicotine patch Alcohol abuse - Alcohol level 256 - Librium 10mg TID PRN - Ativan when necessary - Folic acid, thiamine Hyperglycemia - Insulin sliding scale, blood glucose checked - Maybe secondary to Solu-Medrol use Normocytic normochromic anemia - Monitor trend Noncompliance, social issues - Patient is homeless - Case management to facilitate safe discharge DVT prop Lovenox Problem Qualifiers (1) Pneumonia: Qualified Code: J18.1 - Pneumonia of left lower lobe due to infectious organism (2) Inguinal hernia: Qualified Code: K40.90 - Unilateral inguinal hernia without obstruction or gangrene, recurrence not specified Justyna Carbajal MD Mar 18, 2017 11:58
[2017-03-18] MEDS: METOPROLOL TARTRATE 25 MG TAB PO SCH ×2 (12:18→20:56)
[2017-03-18 13:48] LABS: AUTOMATED NEUTROPHIL # 11.1 TH/MM3 (1.8-7.7); HEMO FLAGS DIFF FINAL; LYMPH % 1.7 % (9.0-44.0); LYMPHOCYTE # 0.2 TH/MM3 (1.0-4.8); MEAN CELL VOLUME 91.4 FL (80.0-100.0); MEAN CORPUSCULAR HEMOGLOBIN 30.1 PG (27.0-34.0); MONO % 4.2 % (0.0-8.0); NEUT % 94.1 % (16.0-70.0); PLATELET COUNT 198 TH/MM3 (150-450); RED CELL DISTRIBUTION WIDTH 17.3 % (11.6-17.2); WHITE BLOOD COUNT 11.7 TH/MM3 (4.0-11.0)
[2017-03-18 14:06] LABS: BICARBONATE 30.1 MEQ/L (21.0-32.0); POTASSIUM 3.8 MEQ/L (3.5-5.1)
[2017-03-18] MEDS: ENOXAPARIN SODIUM 40 MG/0.4 ML SYRINGE SQ SCH (20:56)
[2017-03-19] VITALS: BP 154/90; PULSE 76; RESP 20; TEMP 96.8; O2SAT 97
[2017-03-19] MEDS: SODIUM CHLOR 0.9% 1000 ML INJ 1,000 ML IV SCH ×2 (01:40→11:40)
[2017-03-19 05:12] LABS: AUTOMATED NEUTROPHIL # 6.1 TH/MM3 (1.8-7.7); BASOPHIL % 0.1 % (0.0-2.0); EOSINOPHIL % 0.3 % (0.0-4.0); HEMATOCRIT 29.5 % (39.0-51.0); HEMO FLAGS DIFF FINAL; LYMPH % 15.1 % (9.0-44.0); LYMPHOCYTE # 1.2 TH/MM3 (1.0-4.8); MEAN CELL VOLUME 90.7 FL (80.0-100.0); MEAN CORPUSCULAR HEMOGLOBIN 30.7 PG (27.0-34.0); MEAN CORPUSCULAR HGB CONC 33.9 % (32.0-36.0); MONO % 10.8 % (0.0-8.0); NEUT % 73.7 % (16.0-70.0); PLATELET COUNT 158 TH/MM3 (150-450); RED BLOOD COUNT 3.26 MIL/MM3 (4.50-5.90); RED CELL DISTRIBUTION WIDTH 16.9 % (11.6-17.2); WHITE BLOOD COUNT 8.3 TH/MM3 (4.0-11.0)
[2017-03-19] MEDS: INSULIN NovoLIN REGULAR SUPPLEMENTAL SCALE SQ SCH ×2 (05:29→12:23)
[2017-03-19 08:00] VITALS: BP 164/92; PULSE 86; RESP 18; TEMP 98.2; O2SAT 96
[2017-03-19] MEDS: RESP: ALBUTEROL 2.5 MG/IPRATROPIUM 0.5 MG NEB (SCH) NEB ×2 (08:00→08:43)
[2017-03-19 08:42] VITALS: O2SAT 95
[2017-03-19] MEDS ORDERED: PHARMACY ORDERED LAB ONE (08:45)
[2017-03-19] MEDS: REMOVE OLD PATCH T-DERMAL SCH (08:51)
[2017-03-19] MEDS: METOPROLOL TARTRATE 25 MG TAB PO SCH (08:51)
[2017-03-19] MEDS: NICOTINE 14 MG/24 HR PATCH T-DERMAL SCH (08:51)
[2017-03-19] MEDS: AQUAPHOR OINT 50 APPLIC/50 GM TUBE TOPICAL SCH (08:52)
[2017-03-19] MEDS: SODIUM CHLORIDE 0.9% FLUSH 10 ML FLUSH IV FLUSH SCH (08:52)
[2017-03-19] MEDS ORDERED: LEVOFLOXACIN 750 MG TAB PO SCH (09:00)
[2017-03-19] MEDS ORDERED: predniSONE 20 MG TAB PO SCH (09:00)
[2017-03-19] MEDS ORDERED: LISINOPRIL 10 MG TAB PO SCH (09:00)
[2017-03-19] MEDS ORDERED: LISI10TA3 PO (11:55)
[2017-03-19] MEDS ORDERED: PRED10PA PO (11:55)
[2017-03-19] MEDS ORDERED: METO25TA3 PO (11:55)
[2017-03-19] MEDS ORDERED: LEVA750T PO (11:55)
[2017-03-19 12:00] VITALS: BP 141/77; PULSE 82; RESP 18; TEMP 98.6; O2SAT 97
--- NOTE | 2017-03-19 16:05 | HHI.DS ---
Discharge Summary Admission Date Mar 15, 2017 at 16:58 Discharge Date: March 19, 2017 Admitting Diagnosis left lower lobe pneumonia, sepsis, alcohol abuse (1) Alcohol abuse ICD Code: 305.00 (2) Pneumonia ICD Code: J18.9 (3) Inguinal hernia ICD Code: K40.90 (4) Severe sepsis ICD Code: A41.9 (5) Lactic acidosis ICD Code: E87.2 Procedures None Brief History - From Admission Patient is a 61-year-old male with primary medical history of COPD, HTN who came in to the hospital complaining of productive cough, not feeling well, generalized weakness, fevers, chills. Patient states that it started about 2 days ago, noted some swelling on his face and increasingly not feeling that he brought himself to the hospital for further evaluation. States that about 3-4 [place] but he has no vertigo secondary to homelessness. Patient states he is expectorating yellow dark sputum, has been having fevers, chills, shortness of breath. He also noted that he has been dribbling when he voids. Patient denies any hematuria, dysuria, urgency, frequency. Denies pain and discomfort. Denies chest pain, palpitations, headaches, dizziness. Denies v/d. Chest x-ray showed consolidative opacity in the left perihilar region and left lung base as well as small to moderate effusion. This findings are most characteristic of pneumonia. Leukocytosis WBC 14.6. Normocytic normochromic anemia RBC 3.73, hemoglobin 11.5 , hematocrit 34. Hypokalemia 3.4 potassium, random glucose 189, lactic acid 3.4, alkaline phosphatase 119, albumin 2.3 CBC/BMP: 03/19/17 0445 03/18/17 1300 Significant Findings Laboratory Tests Test 03/18/17 03/19/17 13:00 04:45 White Blood Count 11.7 TH/MM3 (4.0-11.0) Red Blood Count 3.60 MIL/MM3 3.26 MIL/MM3 (4.50-5.90) (4.50-5.90) Hemoglobin 10.9 GM/DL 10.0 GM/DL (13.0-17.0) (13.0-17.0) Hematocrit 33.0 % 29.5 % (39.0-51.0) (39.0-51.0) Red Cell Distribution Width 17.3 % (11.6-17.2) Neutrophils (%) (Auto) 94.1 % 73.7 % (16.0-70.0) (16.0-70.0) Lymphocytes (%) (Auto) 1.7 % (9.0-44.0) Neutrophils # (Auto) 11.1 TH/MM3 (1.8-7.7) Lymphocytes # (Auto) 0.2 TH/MM3 (1.0-4.8) Sodium Level 134 MEQ/L (136-145) Chloride Level 97 MEQ/L (98-107) Random Glucose 177 MG/DL (74-106) Calcium Level 8.1 MG/DL (8.5-10.1) Monocytes (%) (Auto) 10.8 % (0.0-8.0) PE at Discharge GENERAL: This is a disheveled, older than stated age, mildly ill-appearing SKIN: Left periorbital area bulla, facial sunburn HEAD: Normocephalic. No temporal or scalp tenderness. EYES: Pupils equal round and reactive. No scleral icterus. No injection or drainage. ENT: Nose without bleeding. Throat mild erythema. Uvula midline. Airway patent. NECK: Trachea midline. No JVD or lymphadenopathy. CARDIOVASCULAR: Regular rate and rhythm without murmurs, gallops, or rubs. RESPIRATORY: Bibasilar crackles, left greater than the right, positive wheezes GASTROINTESTINAL: Abdomen soft, non-tender, nondistended. No hepato-splenomegaly , or palpable masses. No guarding. Bowel sounds active 4 MUSCULOSKELETAL: Extremities without clubbing, cyanosis, trace bilateral lower extremity edema. Left third and fourth digit amputation. NEUROLOGICAL: Awake and alert. Motor and sensory grossly within normal limits. No focal neuro deficits. Normal speech. Hospital Course Patient is a 61-year-old male with primary medical history of COPD, HTN who came in to the hospital complaining of productive cough, not feeling well, generalized weakness, fevers, chills, SOB/ Dyspnea. Patient recent admission 12/02/16 with acute respiratory failure secondary to pneumonia. Patient started on iv antibiotic for Severe sepsis, Hospital acquired pneumonia , increased risk for multidrug resistant pathogens (MDR) He also had Lactic acidosis, leukocytosis, Uncontrolled HTN: With tachycardia, O2 DuoNeb Solu-Medrol iv continued along with titration of his antihypertensive medication, patient improved, O2 sat improved wean down oxygen he was stable to be discharged on by mouth antibiotic and taper her prednisone dose Pt Condition on Discharge: Fair Discharge Disposition: Discharge Home Discharge Time: <= 30 minutes Discharge Instructions DIET: Follow Instructions for: Heart Healthy Diet Activities you can perform: Weight Bearing as [place] Follow up Referrals: PCP Follow-up - 1 Week New Medications: Prednisone (21) 10 mg tab Dose Pack (Prednisone (21) 10 mg tab Dose Pack) 10 Mg Pack 10 MG PO DIRECTED Inflammation #1 Ref 0 DSPK Levofloxacin (Levaquin) 750 Mg Tab 750 MG PO DAILY pna #7 TAB Lisinopril (Lisinopril) 10 Mg Tab 40 MG PO DAILY htn #30 TAB Metoprolol Tartrate (Metoprolol Tartrate) 25 Mg Tab 25 MG PO Q12HR htn #60 TAB Justyna Carbajal MD March 19, 2017 16:05
== END 2017-03-19 13:33 | disposition home or self-care (01) | DRG 871 ==
LOC: NEPE 12:35 → NEDA 16:58 → N07A 19:32
PROVIDERS: ADMIT Hospitalist; ATTEND Hospitalist
DX: A41.9 Sepsis, unspecified organism (principal); J18.9 Pneumonia, unspecified organism; E87.2 Acidosis; J44.9 Chronic obstructive pulmonary disease, unspecified; K40.90 Unilateral inguinal hernia, without obstruction or gangrene, not specified as recurrent; F10.10 Alcohol abuse, uncomplicated; R00.0 Tachycardia, unspecified; Z72.0 Tobacco use; Z88.5 Allergy status to narcotic agent; Z88.0 Allergy status to penicillin; Z88.2 Allergy status to sulfonamides; I10 Essential (primary) hypertension; Z59.0 Homelessness; D64.9 Anemia, unspecified; E87.6 Hypokalemia; M19.90 Unspecified osteoarthritis, unspecified site; K44.9 Diaphragmatic hernia without obstruction or gangrene; J40 Bronchitis, not specified as acute or chronic; Z80.8 Family history of malignant neoplasm of other organs or systems; Z82.49 Family history of ischemic heart disease and other diseases of the circulatory system; R65.20 Severe sepsis without septic shock; L55.9 Sunburn, unspecified; Y90.8 Blood alcohol level of 240 mg/100 ml or more; R73.9 Hyperglycemia, unspecified; Z91.19 Patient's noncompliance with other medical treatment and regimen; Y95 Nosocomial condition; Z87.01 Personal history of pneumonia (recurrent)
CPT/HCPCS: 71010; 76937; 80048; 80053; 80076; 80202; 80307; 81001; 82948; 83605; 85025; 87040; 94640; 94664; 96374; 96375; 96376; J1650; J1956; J2060; J2920; J3370; J7030; J7050; J7512

== ENCOUNTER 2017-04-11 09:50 | Inpatient (IN) | payer MEDICARE ==
[~2017-04-11] VITALS: Ht 172.7 cm; Wt 54.2 kg
[2017-04-11] VITALS (10 sets, daily range): BP systolic 118–165; BP diastolic 38–91; PULSE 95–148; RESP 18–24; TEMP 96.9–99.1; O2SAT 87–100
[~2017-04-11 09:50] MED LIST: LEVA750T PO; LISI10TA3 PO; METO25TA3 PO; PRED10PA PO
[2017-04-11] MEDS ORDERED: methylPREDNISolone SOD SUCC 125 MG/2 ML VIAL IVP ONE (10:00)
[2017-04-11] MEDS ORDERED: SODIUM CHLORIDE 0.9% FLUSH 10 ML FLUSH IVF PRN (10:00)
[2017-04-11] MEDS ORDERED: AMLO2.5T PO (10:01)
[2017-04-11] MEDS ORDERED: FAMO1TAB30 PO (10:01)
--- NOTE | 2017-04-11 10:01 | PD ---
HPI Chief Complaint: Respiratory Distress Time Seen by Provider: 09:56 Travel History International Travel<30 days: No Contact w/Intl Traveler<30days: No Traveled to known affect area: No History of Present Illness HPI 61-year-old male with history of COPD, recent admission for pneumonia a few weeks ago, never got his scripts filled because he states he could not afford them, presents to the ER today for coughing, shortness of breath, and dyspnea on exertion that has been worsening over several days. He had some palpitations several days ago and family had called EMS but he had refused to come. He denies other issues, vomiting, or other symptoms. Modifying Factors: None Associated Signs & Symptoms: Coughing, shortness of breath, dyspnea on exertion Risk Factors: COPD, recent pneumonia PFSH Past Medical History ADD: Yes Arthritis: Yes Asthma: No Autoimmune Disease: No Blood Disorders: No Anxiety: No Depression: No Heart Rhythm Problems: No Cancer: No Cardiovascular Problems: Yes High Cholesterol: No Chemotherapy: No Chest Pain: No Congestive Heart Failure: No COPD: Yes Cerebrovascular Accident: No Diabetes: No Diminished Hearing: No Endocrine: No Gastrointestinal Disorders: No GERD: No Genitourinary: No Headaches: No Hepatitis: No Hiatal Hernia: Yes Heparin Induced Thrombocytopen: No Hypertension: Yes Immune Disorder: No Implanted Vascular Access Dvce: No Kidney Stones: No Musculoskeletal: Yes Neurologic: Yes Psychiatric: No Reproductive: No Respiratory: Yes Migraines: No Myocardial Infarction: No Pneumonia: Yes Radiation Therapy: No Renal Failure: No Seizures: No Sickle Cell Disease: No Sleep Apnea: No Thyroid Disease: No Ulcer: No Past Surgical History Abdominal Surgery: Yes (ABDOMINAL SX) AICD: No Appendectomy: No Arteriovenous Shunt: No Cardiac Surgery: No Cholecystectomy: No Ear Surgery: No Endocrine Surgery: No Eye Surgery: No Genitourinary Surgery: No Gynecologic Surgery: No Insulin Pump: No Joint Replacement: No Neurologic Surgery: No Oral Surgery: No Pacemaker: No Thoracic Surgery: No Tonsillectomy: Yes Other Surgery: Yes Social History Alcohol Use: Yes Tobacco Use: Yes Substance Use: No Allergies-Medications (Allergen,Severity, Reaction): Coded Allergies: Codeine (Verified Allergy, Severe, HIVES, 04/11/17) Morphine (Verified Allergy, Severe, 04/11/17) Penicillin (Verified Allergy, Severe, HIVES, 04/11/17) Bactrim (Verified Allergy, Mild, HIVES, 04/11/17) Reported Meds & Prescriptions Reported Meds & Active Scripts Active Metoprolol Tartrate 25 Mg Tab 25 Mg PO Q12HR Lisinopril 10 Mg Tab 40 Mg PO DAILY Reported Famotidine 10 Mg Tab 10 Mg PO BID Amlodipine (Amlodipine Besylate) 2.5 Mg Tab 2.5 Mg PO DAILY Review of Systems Except as stated in HPI: all other systems reviewed are Neg Physical Exam Narrative GENERAL: Well-developed elderly white male patient in moderate respiratory distress. Awake and oriented 3. SKIN: Focused skin assessment warm/dry. HEAD: Atraumatic. Normocephalic. EYES: Pupils equal and round. No scleral icterus. No injection or drainage. ENT: No nasal bleeding or discharge. Mucous membranes pink and moist. NECK: Trachea midline. No JVD. CARDIOVASCULAR: Regular rate and rhythm. No murmur appreciated. RESPIRATORY: Moderate accessory muscle use. Equal but decreased throughout with mild wheezes bilaterally. GASTROINTESTINAL: Abdomen soft, non-tender, nondistended. Hepatic and splenic margins not palpable. MUSCULOSKELETAL: No obvious deformities. No clubbing. No cyanosis. No edema. NEUROLOGICAL: Awake and alert. No obvious cranial nerve deficits. Motor grossly within normal limits. Normal speech. PSYCHIATRIC: Appropriate mood and affect; insight and judgment normal. Data Data Last Documented VS Vital Signs Date Time Temp Pulse Resp B/P Pulse Ox O2 Delivery O2 Flow Rate FiO2 04/11/17 10:05 133 24 124/83 95 Nasal Cannula 3 04/11/17 09:54 99.1 Orders Complete Blood Count With Diff (04/11/17 09:56) Comprehensive Metabolic Panel (04/11/17 09:56) B-Type Natriuretic Peptide (04/11/17 09:56) Ckmb (Isoenzyme) Profile (04/11/17 09:56) Troponin I (04/11/17 09:56) Blood Culture (04/11/17 09:56) Iv Access Insert/Monitor (04/11/17 09:56) Electrocardiogram (04/11/17 09:56) Ecg Monitoring (04/11/17 09:56) Oximetry (04/11/17 09:56) Oxygen Administration (04/11/17 09:56) Chest, Single Ap (04/11/17 09:56) Sodium Chloride 0.9% Flush (Ns Flush) (04/11/17 10:00) Methylprednisolone So Succ Inj (Solumedr (04/11/17 10:00) Albuterol-Ipratropium Neb (Duoneb Neb) (04/11/17 10:00) Lactic Acid Sepsis Protocol (04/11/17 09:56) Cefepime Inj (Maxipime Inj) (04/11/17 10:18) Azithromycin Inj (Zithromax Inj) (04/11/17 10:18) Sodium Chlorid 0.9% 500 Ml Inj (Ns 500 M (04/11/17 10:30) Chest, Pa & Lat (04/11/17 10:53) Ns + Kcl 20 Meq Inj (Ns + Kcl 20 Meq Inj (04/11/17 11:45) Consult General Surgery (04/11/17 ) Labs Laboratory Tests Test 04/11/17 04/11/17 10:10 10:15 White Blood Count 14.6 TH/MM3 Red Blood Count 3.54 MIL/MM3 Hemoglobin 10.4 GM/DL Hematocrit 31.6 % Mean Corpuscular Volume 89.3 FL Mean Corpuscular Hemoglobin 29.5 PG Mean Corpuscular Hemoglobin 33.0 % Concent Red Cell Distribution Width 17.1 % Platelet Count 486 TH/MM3 Mean Platelet Volume 7.4 FL Neutrophils (%) (Auto) 88.6 % Lymphocytes (%) (Auto) 4.1 % Monocytes (%) (Auto) 7.2 % Eosinophils (%) (Auto) 0.0 % Basophils (%) (Auto) 0.1 % Neutrophils # (Auto) 12.9 TH/MM3 Lymphocytes # (Auto) 0.6 TH/MM3 Monocytes # (Auto) 1.0 TH/MM3 Eosinophils # (Auto) 0.0 TH/MM3 Basophils # (Auto) 0.0 TH/MM3 CBC Comment DIFF FINAL Differential Comment Sodium Level 139 MEQ/L Potassium Level 2.9 MEQ/L Chloride Level 95 MEQ/L Carbon Dioxide Level 29.1 MEQ/L Anion Gap 15 MEQ/L Blood Urea Nitrogen 13 MG/DL Creatinine 0.61 MG/DL Estimat Glomerular Filtration 134 ML/MIN Rate Random Glucose 97 MG/DL Calcium Level 8.9 MG/DL Total Bilirubin 0.6 MG/DL Aspartate Amino Transf 58 U/L (AST/SGOT) Alanine Aminotransferase 20 U/L (ALT/SGPT) Alkaline Phosphatase 153 U/L Total Creatine Kinase 29 U/L Troponin I LESS THAN 0.02 NG/ML B-Type Natriuretic Peptide 123 PG/ML Total Protein 7.6 GM/DL Albumin 1.9 GM/DL Lactic Acid Level 2.1 mmol/L MDM Medical Decision Making Medical Screen Exam Complete: Yes Emergency Medical Condition: Yes Medical Record Reviewed: Yes Interpretation(s) EKG shows sinus tachycardia at rate of 130 bpm with no signs of acute ST-T changes. Laboratory Tests Test 04/11/17 04/11/17 10:10 10:15 White Blood Count 14.6 TH/MM3 (4.0-11.0) Red Blood Count 3.54 MIL/MM3 (4.50-5.90) Hemoglobin 10.4 GM/DL (13.0-17.0) Hematocrit 31.6 % (39.0-51.0) Platelet Count 486 TH/MM3 (150-450) Neutrophils (%) (Auto) 88.6 % (16.0-70.0) Lymphocytes (%) (Auto) 4.1 % (9.0-44.0) Neutrophils # (Auto) 12.9 TH/MM3 (1.8-7.7) Lymphocytes # (Auto) 0.6 TH/MM3 (1.0-4.8) Monocytes # (Auto) 1.0 TH/MM3 (0-0.9) Potassium Level 2.9 MEQ/L (3.5-5.1) Chloride Level 95 MEQ/L (98-107) Aspartate Amino Transf 58 U/L (15-37) (AST/SGOT) Alkaline Phosphatase 153 U/L (45-117) Total Creatine Kinase 29 U/L (39-308) Troponin I LESS THAN 0.02 NG/ML (0.02-0.05) B-Type Natriuretic Peptide 123 PG/ML (0-100) Albumin 1.9 GM/DL (3.4-5.0) Lactic Acid Level 2.1 mmol/L (0.4-2.0) Last 24 hours Impressions Chest X-Ray 04/11/17 1053 Signed Impressions: Service Date/Time: Tuesday, April 11, 2017 11:36 - CONCLUSION: Hydropneumothorax on the left. Left basilar consolidation. Sacha Benites MD Chest X-Ray 04/11/17 0956 Signed Impressions: Service Date/Time: Tuesday, April 11, 2017 10:04 - CONCLUSION: 1. Left basilar consolidation and pleural effusion. 2. New vertical curvilinear opacity left upper lobe could be related to fluid in fissure or possible pneumothorax. PA and lateral views of the chest are recommended for further characterization. Sacha Benites MD Differential Diagnosis Coughing, shortness of breathCOPD exacerbation versus bronchitis versus pneumonia versus CHF Narrative Course White blood cell count is fairly elevated and there is concern for underlying sepsis. IV antibiotics were started after blood cultures were done. Lactate is also elevated. Chest x-rays showing a left-sided pleural effusion as well as pneumothorax and there is concern for a parapneumonic infection. At this point, case was discussed with general surgery, Dr. Suarez, who agrees to do a chest tube in this patient. In addition, case was discussed with family practice resident service for admission for further treatment. Diagnosis Primary Impression: Pneumonia Additional Impressions: Severe sepsis Pneumothorax Pleural effusion Admitting Information Admitting Physician Requests: Admit Aundrea Lam MD April 11, 2017 10:01
[2017-04-11] MEDS ORDERED: AZITHROMYCIN INJ 500 MG in SODIUM CHLOR 0.9% 250 ML INJ 250 ML IV STA (10:18)
[2017-04-11] MEDS ORDERED: CEFEPIME INJ 2,000 MG in SODIUM CHLORIDE 0.9% INJ 100 ML IV STA (10:18)
[2017-04-11] MEDS ORDERED: SODIUM CHLORID 0.9% 500 ML INJ 500 ML IV ONE (10:30)
--- NOTE | 2017-04-11 10:36 | RADRPT ---
EXAM DATE/TIME: 04/11/2017 10:04 [facility] COMPARISON: CHEST SINGLE AP, March 15, 2017, 15:38. INDICATIONS : short of breath. MEDICAL HISTORY : Chronic obstructive pulmonary disease. Pneumonia. SURGICAL HISTORY : None. ENCOUNTER: Initial ACUITY: 1 day PAIN SCORE: 0/10 LOCATION: Bilateral chest FINDINGS: A single view of the chest demonstrates left basilar consolidation and small pleural effusion. There is a vertical curvilinear opacity in the left upper lobe could be related to fluid in fissure or poss ible pneumothorax. Right lung is clear. Osseous structures are intact. CONCLUSION: 1. Left basilar consolidation and pleural effusion. 2. New vertical curvilinear opacity left upper lobe could be related to fluid in fissure or possible pneumothorax. PA and lateral views of the chest are recommended for further characterization. Sacha Benites MD on April 11, 2017 at 10:31 Board Certified Radiologist. This report was verified electronically.
[2017-04-11] MEDS: RESP: ALBUTEROL 2.5 MG/IPRATROPIUM 0.5 MG NEB (SCH) INH (10:45)
[2017-04-11 10:49] LABS: AUTOMATED NEUTROPHIL # 12.9 TH/MM3 (1.8-7.7); BASOPHIL % 0.1 % (0.0-2.0); HEMATOCRIT 31.6 % (39.0-51.0); HEMO FLAGS DIFF FINAL; LYMPH % 4.1 % (9.0-44.0); LYMPHOCYTE # 0.6 TH/MM3 (1.0-4.8); MEAN CELL VOLUME 89.3 FL (80.0-100.0); MEAN CORPUSCULAR HEMOGLOBIN 29.5 PG (27.0-34.0); MONO % 7.2 % (0.0-8.0); NEUT % 88.6 % (16.0-70.0); PLATELET COUNT 486 TH/MM3 (150-450); RED BLOOD COUNT 3.54 MIL/MM3 (4.50-5.90); RED CELL DISTRIBUTION WIDTH 17.1 % (11.6-17.2); WHITE BLOOD COUNT 14.6 TH/MM3 (4.0-11.0)
[2017-04-11 11:14] LABS: ALT (GPT) 20 U/L (12-78); ANION GAP 15 MEQ/L (5-15); AST (GOT) 58 U/L (15-37); BICARBONATE 29.1 MEQ/L (21.0-32.0); BLOOD UREA NITROGEN 13 MG/DL (7-18); CHLORIDE 95 MEQ/L (98-107); GLOMERULAR FILTRATION RATE 134 ML/MIN (>89); SODIUM (NA) 139 MEQ/L (136-145)
[2017-04-11 11:17] LABS: POTASSIUM 2.9 MEQ/L (3.5-5.1)
[2017-04-11 11:20] LABS: ALKALINE PHOSPHATASE 153 U/L (45-117); TOTAL BILIRUBIN ADULT 0.6 MG/DL (0.2-1.0)
[2017-04-11 11:24] LABS: CREATINE KINASE 29 U/L (39-308)
--- NOTE | 2017-04-11 11:43 | RADRPT ---
EXAM DATE/TIME: 04/11/2017 11:36 [facility] COMPARISON: CHEST SINGLE AP, April 11, 2017, 10:04. INDICATIONS : Short of breath. MEDICAL HISTORY : Chronic obstructive pulmonary disease. Pneumonia. SURGICAL HISTORY : None. ENCOUNTER: Initial ACUITY: 1 day PAIN SCORE: 6/10 LOCATION: Bilateral chest FINDINGS: PA and lateral views of the chest demonstrate hydropneumothorax on the left mediastinum is midline. A ir-fluid level within the left pleural space. Left basilar consolidation. Osseous structures are inta ct. CONCLUSION: Hydropneumothorax on the left. Left basilar consolidation. Sacha Benites MD on April 11, 2017 at 11:39 Board Certified Radiologist. This report was verified electronically.
[2017-04-11] MEDS ORDERED: NS + KCL 20 MEQ INJ 1,000 ML IV ONE (11:45)
[2017-04-11 12:37] LABS: LACTIC ACID GHOST NOT REPORTABLE
[2017-04-11] MEDS ORDERED: Vancomycin Consult Pharmacy 1 EA OTHER SCH (13:00)
--- NOTE | 2017-04-11 13:04 | HHI.HP ---
HPI Service Family Medicine Primary Care Physician Unknown Admission Diagnosis pneumonia/sepsis/left-sided pneumo/ pleural effusion Diagnoses: International Travel<30 Days: No Contact w/Intl Traveler<30days: No Known Affected Area: No History of Present Illness Patient is a 61-year-old male with PMH significant for COPD not requiring oxygen at home, brought to the ED via [facility] today due to shortness of breath at home. Patient was evaluated in the ED with his caregiver at bedside. His caregiver states earlier today he became very short of breath while walking a short distance in his living room and it was concerning enough to call the ambulance. Patient was recently admitted here to the hospital on 03/15/17 and treated for sepsis due to HCAP with Levaquin, aztreonam, and vancomycin. He was discharged on 03/19/17 on po antibiotics and a prednisone taper. His chest x-ray today in the ED demonstrates a left hydropneumothorax, and left basilar consolidation. He denies any significant cough recently. Denies fevers. He may have had some chills recently. They also state that over the past week the patient has not been able to tolerate PO intake. They also report black stools and at times visible blood in his stools. His caregiver states that sometimes he has fecal incontinence while sleeping at night. Patient denies any abdominal pain. Patient states he is a Mu-ism and would not want blood products if indicated. (Ernst David MD R1) Review of Systems Constitutional: COMPLAINS OF: Fever, Chills, Change in appetite Respiratory: COMPLAINS OF: Shortness of breath, DENIES: Cough, Sputum production Cardiovascular: DENIES: Chest pain Gastrointestinal: COMPLAINS OF: Black stools, Bloody stools, Diarrhea, Nausea, Vomiting, DENIES: Abdominal pain, Constipation Genitourinary: DENIES: Hematuria, Dysuria Neurologic: DENIES: Headache (Ernst David MD R1) Past Family Social History Past Medical History HTN COPD not on home O2 ADD Arthritis Hiatal hernia Bronchitis Pneumonia Past Surgical History Tonsillectomy Abdominal surgery, X oratory left (Ernst David MD R1) Allergies: Coded Allergies: Codeine (Verified Allergy, Severe, HIVES, 04/11/17) Morphine (Verified Allergy, Severe, 04/11/17) Penicillin (Verified Allergy, Severe, HIVES, 04/11/17) Bactrim (Verified Allergy, Mild, HIVES, 04/11/17) Family History Father of brain cancer Mother of heart disease Social History Admits to daily etoh intake for many years, drink of choice is vodka, he states he drinks at least one pint of vodka daily; last etoh drink was early this AM Tobacco: at least 1 PPD for many years Denies recent illicit drug use, per EMR had smoked marijuana in earlier years Lives with his caregiver Had previously been homeless (Ernst David MD R1) Physical Exam Vital Signs Vital Signs Date Time Temp Pulse Resp B/P Pulse Ox O2 Delivery O2 Flow Rate FiO2 04/11/17 12:40 119 22 133/84 94 Nasal Cannula 3 04/11/17 10:05 133 24 124/83 95 Nasal Cannula 3 04/11/17 10:03 133 24 95 Nasal Cannula 04/11/17 10:02 24 95 Nasal Cannula 3 04/11/17 10:01 95 Nasal Cannula 3 04/11/17 09:54 99.1 148 24 124/80 93 Physical Exam GENERAL: NAD, lying comfortably in bed NEURO: AOx3. Normal speech. 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 SKIN: Warm and dry. No rashes or erythema. HEAD: Normocephalic. Atraumatic. EYES: PERRL. EOMI. No scleral icterus. No injection or drainage. ENT: No nasal drainage. Moist mucous membranes. No oral ulcers or lesions. NECK: Supple, trachea midline. No JVD or lymphadenopathy. CARDIOVASCULAR: Tachycardic rate, regular rhythm without murmurs, rubs, or gallops. Peripheral pulses 2+. Capillary refill < 2 seconds. RESPIRATORY: Diminished breath sounds at left mid lung to left lung base. Fair aeration of left upper lung field. Clear breath sounds right lung. GASTROINTESTINAL: Abdomen soft, nontender, nondistended, normal BS. No rebound tenderness. No guarding. MUSCULOSKELETAL: No edema, cyanosis, or clubbing. Normal range of motion. BACK: Nontender without obvious deformity. Laboratory Laboratory Tests Test 04/11/17 04/11/17 10:10 10:15 White Blood Count 14.6 Red Blood Count 3.54 Hemoglobin 10.4 Hematocrit 31.6 Mean Corpuscular Volume 89.3 Mean Corpuscular Hemoglobin 29.5 Mean Corpuscular Hemoglobin 33.0 Concent Red Cell Distribution Width 17.1 Platelet Count 486 Mean Platelet Volume 7.4 Neutrophils (%) (Auto) 88.6 Lymphocytes (%) (Auto) 4.1 Monocytes (%) (Auto) 7.2 Eosinophils (%) (Auto) 0.0 Basophils (%) (Auto) 0.1 Neutrophils # (Auto) 12.9 Lymphocytes # (Auto) 0.6 Monocytes # (Auto) 1.0 Eosinophils # (Auto) 0.0 Basophils # (Auto) 0.0 CBC Comment DIFF FINAL Differential Comment Sodium Level 139 Potassium Level 2.9 Chloride Level 95 Carbon Dioxide Level 29.1 Anion Gap 15 Blood Urea Nitrogen 13 Creatinine 0.61 Estimat Glomerular Filtration 134 Rate Random Glucose 97 Calcium Level 8.9 Total Bilirubin 0.6 Aspartate Amino Transf 58 (AST/SGOT) Alanine Aminotransferase 20 (ALT/SGPT) Alkaline Phosphatase 153 Total Creatine Kinase 29 Troponin I LESS THAN 0.02 B-Type Natriuretic Peptide 123 Total Protein 7.6 Albumin 1.9 Lactic Acid Level 2.1 Date/Time Procedure Status Source Growth 04/11/17 10:15 Aerobic Blood Culture Received Blood Peripheral Pending 04/11/17 10:15 Anaerobic Blood Culture Received Blood Peripheral Pending (Ernst David MD R1) Result Diagram: 04/11/17 1010 04/11/17 1010 Septic Shock Reassessment Heart: Other (tachycardic rate, regular rhythm) Lungs: Other (as above) Skin: Cold, Dry Peripheral Pulses: Bounding Right Radial Bounding Left Radial Bounding Right Dorsalis Pedis Bounding Left Dorsalis Pedis Bounding Right Posterior Tibial Bounding Left Posterior Tibial Capillary Refill: <2 seconds (Ernst David MD R1) Assessment and Plan Assessment and Plan 61-year-old male with PMH significant for COPD brought to the ED via [facility] today due to shortness of breath at home and found to have a left hydropneumothorax and left basilar consolidation. Cardiovascular surgery has been consulted for recommendations and chest tube placement. Code Status Full code Discussed Condition With Dr. Justin Suarez (Ernst David MD R1) Attending Attestation Patient seen, examined, and discussed with resident team. I agree with assessment and management as documented and discussed with me. The patient has been seen and examined. The chart and all resident notes have been reviewed. I agree that inpatient care is appropriate and that a two midnight stay is expected for the reasons documented in the resident history and physical. I have discussed this with the resident and certify the resident s order for inpatient admission. Ric Vera is a 61yo gentleman with hx significant for alcohol abuse and tobacco abuse admitted for hydropneumothorax. He was hospitalized for pneumonia and discharged roughly 3 weeks ago on Levaquin. He did not take this medication and subsequently developed worsening shortness of breath. Plan for IV antibiotics (treatment of health care associated pneumonia); chest tube to be placed by Dr Rae. Fluid studies per orders - suspect empyema. [facility] protocol for anticipated alcohol withdrawal. 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 - Pleural fluid studies ordered - Per cardiovascular surgery, if the patient's long does not fully expand the patient will require video-assisted thoracotomy or a small open thoracotomy with decortication - Patient should not lie on his disease-free right lateral side - Will treat patient for HCAP, patient meets sepsis criteria - Received cefepime 2 g IV 1 and azithromycin 500 mg IV 1 in the ED - Start Vancomycin IV q12h, dosing per pharmacy consult - Zosyn 4.5 gm IV q6h - Levaquin 750 mg IV q24h - ABG shows mild respiratory acidosis with metabolic compensation (2) Sepsis Status: Acute Plan: Patient meets sepsis criteria on admission Plan as above (3) Hypokalemia Status: Acute Plan: 2.9 on admission; most recently 3.8 on 03/18/17 May be due to GI losses due to diarrhea, acidosis with resulting K shifts, hypomagnesemia KCl 20 mEq IV ordered by ED, added additional 40 mEq IV Replete magnesium Continue to monitor and replete if necessary (4) Hypomagnesemia Status: Acute Plan: 1.3 on admission Replete with magnesium sulfate 1gm IV x1 Continue to monitor (5) Anemia Status: Acute Plan: Hgb 10.4 on admission Normocytic Patient reported melena over the past week as well as visible blood in stools Obtain hemoccult, GI consult if positive Consider iron studies Patient is a Mu-ism Continue to monitor Avoid frequent blood draws (6) Melena Status: Acute Plan: - Patient endorsed melena over the past week - Obtain Hemoccult, GI consult if positive (7) Alcohol abuse Status: Chronic Plan: - Last etoh drink early this AM - [facility] protocol - IV MVs and thiamine, PO tomorrow (8) Tobacco dependence, continuous Status: Chronic Plan: Nicotine patch 21 mg Remove each night before sleeping (9) Nutrition, metabolism, and development symptoms Status: Acute Plan: Fluids: NS at 100 cc/hr Electrolytes: Continue to monitor and replete as necessary Nutrition: Heart healthy diet DVT prophylaxis: Lovenox GI prophylaxis: Protonix Patient is a Mu-ism, avoid blood draws if possible (Ernst David MD R1) Physician Certification 2 Midnight Certification Type: Admission for Inpatient Services Order for Inpatient Services The services are ordered in accordance with Medicare regulations or non- Medicare payer requirements, as applicable. In the case of services not specified as inpatient-only, they are appropriately provided as inpatient services in accordance with the 2-midnight benchmark. Estimated LOS (days): 2 days is the estimated time the patient will need to remain in the hospital, assuming treatment plan goals are met and no additional complications. Post-Hospital Plan: Home (Ernst Davdi MD R1) Ernst David MD R1 April 11, 2017 13:04 Emilia Anderson MD April 11, 2017 20:30
[2017-04-11] MEDS ORDERED: SODIUM CHLORIDE 0.9% FLUSH 10 ML FLUSH IV FLUSH PRN (13:15)
[2017-04-11] MEDS ORDERED: FLUMAZENIL 0.5 MG/5 ML VIAL IV PUSH PRN (13:15)
[2017-04-11] MEDS ORDERED: LORazepam 2 MG TAB PO PRN (13:15)
[2017-04-11] MEDS ORDERED: LORazepam 2 MG/ML VIAL IV PUSH PRN ×2 (13:15)
[2017-04-11] MEDS: SODIUM CHLORIDE 0.9% FLUSH 10 ML FLUSH IV FLUSH SCH ×2 (13:15→21:56)
[2017-04-11] MEDS ORDERED: NALOXONE HCL 0.4 MG/ML AMP IV PRN (13:15)
[2017-04-11] MEDS ORDERED: RESP: ALBUTEROL 2.5 MG/3 ML NEB (PRN) NEB (13:30)
[2017-04-11] MEDS: LEVOFLOXACIN 750 MG PREMIX INJ 150 ML IV SCH (13:46)
[2017-04-11] MEDS ORDERED: ACETAMINOPHEN 325 MG TAB PO PRN (14:00)
[2017-04-11] MEDS ORDERED: VANCOMYCIN INJ 1,000 MG in SODIUM CHLOR 0.9% 250 ML INJ 250 ML IV SCH (14:00)
[2017-04-11] MEDS ORDERED: LIDOCAINE 1%/EPINEPHrine 1:100,000 SOLN 50 ML VIAL ONE (14:08)
[2017-04-11] MEDS ORDERED: MIDAZOLAM HCL 5 MG/ML VIAL (1 ML) ONE (14:10)
[2017-04-11] MEDS ORDERED: LIDOCAINE 1%/EPINEPHrine 1:100,000 SOLN 20 ML VIAL INFIL ONE (14:30)
[2017-04-11] MEDS ORDERED: MIDAZOLAM HCL 5 MG/ML VIAL (1 ML) IM ONE (14:30)
[2017-04-11] MEDS: THIAMINE INJ 100 MG in SODIUM CHLORIDE 0.9% INJ 100 ML IV SCH (14:37)
[2017-04-11] MEDS ORDERED: MIDAZOLAM HCL 5 MG/5 ML VIAL IV PUSH ONE (14:45)
[2017-04-11] MEDS ORDERED: MAGNESIUM SULFATE 1 GM PREMIX 100 ML IV ONE (15:00)
[2017-04-11] MEDS: NICOTINE 21 MG/24 HR PATCH T-DERMAL SCH (15:04)
--- NOTE | 2017-04-11 15:36 | PD.CAR.PN ---
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 Left chest tube placed and about 500 cc of foul-smelling purulent material obtained Discussed with medicine CT of the chest pending Patient will either proceed to be on antibiotics and heal this or the lung will not fully expand and patient will require thoracoscopy and decortication We will see which way it goes Full consult dictated Will follow Itzel Rae Objective: Vital Signs Date Time Temp Pulse Resp B/P Pulse Ox O2 Delivery O2 Flow Rate FiO2 04/11/17 14:42 121 22 134/68 91 Nasal Cannula 3 04/11/17 12:40 119 22 133/84 94 Nasal Cannula 3 04/11/17 10:05 133 24 124/83 95 Nasal Cannula 3 04/11/17 10:03 133 24 95 Nasal Cannula 04/11/17 10:02 24 95 Nasal Cannula 3 04/11/17 10:01 95 Nasal Cannula 3 04/11/17 09:54 99.1 148 24 124/80 93 Labs: Laboratory Tests Test 04/11/17 04/11/17 04/11/17 10:10 10:15 13:45 White Blood Count 14.6 TH/MM3 (4.0-11.0) Red Blood Count 3.54 MIL/MM3 (4.50-5.90) Hemoglobin 10.4 GM/DL (13.0-17.0) Hematocrit 31.6 % (39.0-51.0) Mean Corpuscular Volume 89.3 FL (80.0-100.0) Mean Corpuscular Hemoglobin 29.5 PG (27.0-34.0) Mean Corpuscular Hemoglobin 33.0 % Concent (32.0-36.0) Red Cell Distribution Width 17.1 % (11.6-17.2) Platelet Count 486 TH/MM3 (150-450) Mean Platelet Volume 7.4 FL (7.0-11.0) Neutrophils (%) (Auto) 88.6 % (16.0-70.0) Lymphocytes (%) (Auto) 4.1 % (9.0-44.0) Monocytes (%) (Auto) 7.2 % (0.0-8.0) Eosinophils (%) (Auto) 0.0 % (0.0-4.0) Basophils (%) (Auto) 0.1 % (0.0-2.0) Neutrophils # (Auto) 12.9 TH/MM3 (1.8-7.7) Lymphocytes # (Auto) 0.6 TH/MM3 (1.0-4.8) Monocytes # (Auto) 1.0 TH/MM3 (0-0.9) Eosinophils # (Auto) 0.0 TH/MM3 (0-0.4) Basophils # (Auto) 0.0 TH/MM3 (0-0.2) CBC Comment DIFF FINAL Differential Comment Sodium Level 139 MEQ/L (136-145) Potassium Level 2.9 MEQ/L (3.5-5.1) Chloride Level 95 MEQ/L (98-107) Carbon Dioxide Level 29.1 MEQ/L (21.0-32.0) Anion Gap 15 MEQ/L (5-15) Blood Urea Nitrogen 13 MG/DL (7-18) Creatinine 0.61 MG/DL (0.60-1.30) Estimat Glomerular Filtration 134 ML/MIN Rate (>89) Random Glucose 97 MG/DL (74-106) Calcium Level 8.9 MG/DL (8.5-10.1) Magnesium Level 1.3 MG/DL (1.5-2.5) Total Bilirubin 0.6 MG/DL (0.2-1.0) Aspartate Amino Transf 58 U/L (15-37) (AST/SGOT) Alanine Aminotransferase 20 U/L (12-78) (ALT/SGPT) Alkaline Phosphatase 153 U/L (45-117) Total Creatine Kinase 29 U/L (39-308) Troponin I LESS THAN 0.02 NG/ML (0.02-0.05) B-Type Natriuretic Peptide 123 PG/ML (0-100) Total Protein 7.6 GM/DL (6.4-8.2) Albumin 1.9 GM/DL (3.4-5.0) Lactic Acid Level 2.1 mmol/L 1.9 mmol/L (0.4-2.0) (0.4-2.0) Result Diagram: 04/11/17 1010 04/11/17 1010 Emma Suarez MD April 11, 2017 3:36 pm
[2017-04-11] MEDS ORDERED: PILL SPLITTER OTHER PRN (15:45)
[2017-04-11] MEDS: ENOXAPARIN SODIUM 40 MG/0.4 ML SYRINGE SQ SCH (15:48)
[2017-04-11] MEDS: RESP: ALBUTEROL 2.5 MG/IPRATROPIUM 0.5 MG NEB (SCH) NEB ×2 (15:57→21:55)
--- NOTE | 2017-04-11 16:00 | RADRPT ---
EXAM DATE/TIME: 04/11/2017 15:31 [facility] COMPARISON: CHEST PA & LAT, April 11, 2017, 11:36. INDICATIONS : Pleural effusion RADIATION DOSE: 3.07 CTDIvol (mGy) MEDICAL HISTORY : Cardiovascular disease. Hypertension. SURGICAL HISTORY : Chest tube insertion today ENCOUNTER: Initial ACUITY: 1 day PAIN SCALE: 10/10 LOCATION: chest TECHNIQUE: Volumetric scanning of the chest was performed. Using automated exposure control and adjustment of t he mA and/or kV according to patient size, radiation dose was kept as low as reasonably achievable to obtain optimal diagnostic quality images. FINDINGS: A left-sided chest tube is in place with a small hydropneumothorax identified greatest at the left sandy ng base. There is consolidation with air bronchogram formation in the left lower lobe and lingula. Th e right lung demonstrates minimal airspace disease in the medial segment of the right middle lobe and medial right lower lobe. There is an air cyst in the right upper lobe measuring 1.7 cm. Atherosclero tic calcifications of the aorta and coronary arteries are identified. Volume loss of the left hemith orax. There are subcentimeter nodes in the AP window, subcarinal and left hilar region. Degenerative changes of the spine are noted. CONCLUSION: 1. Consolidation, hydropneumothorax and volume loss on the left with chest tube in place. 2. Minimal airspace disease in the right lung. Gregory Douglas MD on April 11, 2017 at 15:56 Board Certified Radiologist. This report was verified electronically.
[2017-04-11] MEDS: MULTIVITAMIN INJ 10 ML, FOLIC ACID INJ 1 MG in SODIUM CHLORID 0.9% 500 ML INJ 500 ML IV SCH (16:57)
[2017-04-11 17:15] LABS: BLOOD GAS BASE EXCESS 1.7 mmol/L (-2-2); BLOOD GAS CARBOXYHEMOGLOBIN 1.4 % (0-4); BLOOD GAS HCO3 27 mmol/L (22-26); BLOOD GAS METHEMOGLOBIN 0.7 % (0-2); BLOOD GAS O2 HGB SATURATION 96 % (90-100); BLOOD GAS OXYGEN CONTENT 20.3 Vol % (12.0-20.0); BLOOD GAS PCO2 47 mmHg (38-42); BLOOD GAS PO2 122 mmHG (61-120); CRITICAL VALUE NO; DRAW SITE RT RADIAL; LITER FLOW 4 L/M; NUMBER OF ARTERIAL PUNCTURES 1; OXYGEN DEVICE NASAL CANNULA; STAT YES; TEMP CORR TO 98.6; ULNAR PULSE PRESENT
--- NOTE | 2017-04-11 17:19 | MB ---
cc: EMMA DOLAN MD DATE OF CONSULTATION 04/11/[address] Dolan, general and chest surgery. REASON FOR CONSULTATION Hydropneumothorax of the left chest. HISTORY OF THE PRESENT ILLNESS This 61-year-old male with a long past medical history comes to the emergency room with shortness of breath. The patient apparently was here for awhile, was diagnosed with left lower lobe pneumonia, discharged on p.o. antibiotics which he never took. And then became progressively worse in the last week. Hence, the patient is now here. A chest x-ray reveals collapse of the left lung and hydropneumothorax which in this case is obviously empyema of the chest hence the consultation. PAST MEDICAL HISTORY Is that of: 1. Severe chronic obstructive pulmonary disease, oxygen-dependent. 2. Hiatal hernia. 3. Recurrent pneumonia. 4. Hypertension. PAST SURGICAL HISTORY 1. Tonsillectomy. 2. Some sort of a abdominal exploration in the distant past. SOCIAL HISTORY The patient drinks vodka heavily all day. At least one pack a day smoker and clearly noncompliant with any level of care. PHYSICAL EXAMINATION GENERAL: Reveals a 61-year-old male in somewhat of a respiratory distress but doing okay. HEENT: Normocephalic. No trauma to the head. Pupils equally reactive. Extraocular muscles intact. NECK: Supple. Bilateral carotid pulses. Bilateral faint bruits. CHEST: Over the right side the patient has decreased breath sounds consistent with COPD and some expiratory wheezing. Over the left side the patient has no breath sounds. On percussion the left chest is hyperresonant in the upper part and dull in the lower part consistent with hydrothorax. HEART: Regular rhythm. The patient has all signs of pulmonary cachexia with loss of the chest wall musculature and atrophy of the chest wall. ABDOMEN: Soft. Active bowel sounds. No rebound or guarding. No masses. The patient is fairly thin. The liver is enlarged. It is about 2 inches below the costal margin in the midclavicular line. The spleen is also a little bigger than it should be. Groins are normal. EXTREMITIES: The patient has bilateral femoral, popliteal, dorsalis pedis and posterior tibial pulses on palpation. BACK: Grossly normal. IMPRESSION AND RECOMMENDATIONS I reviewed laboratory and diagnostic procedures. 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 The patient needs a chest tube placed at this point and empyema drained, followed by the CT scan. By no means should the patient be placed at the diseased side up because there is a good chance that there is a hole in the bronchus big enough for this purulent material to traverse into the right lung and this would be fatal. Once the chest tube is placed this will drain and we will go from there. In the best case scenario the lung will expand and the patient be treated with antibiotics, the chest tube will be removed and he will be able to go home. And worst case scenario the patient's lung is already entrapped and there is a inflammatory peel on it and will not completely expand at which time the patient will need to go to the operating room for decortication and expansion of the left lung. Sometimes this can be accomplished by video-assisted thoracotomy and sometimes patients will need small open thoracotomy to accomplish this. This patient is a poor surgical candidate to start with and every effort should be made to fix this without needing any major surgery. I will place the chest tube next. Thank you much for the referral. Emma Dolan SJ/KK /3:19 PM /5:02 PM DOTTIE
[2017-04-11] MEDS: VANCOMYCIN INJ 1,500 MG in SODIUM CHLORID 0.9% 500 ML INJ 500 ML IV SCH (17:38)
[2017-04-11] MEDS: POTASSIUM CHLOR 20 MEQ PREMIX 100 ML IV SCH ×2 (18:33→21:56)
--- NOTE | 2017-04-11 19:18 | EKG ---
Date Performed: 04/11/2017 Time Performed: 10:09:20 PTAGE: 61 years EKG: SINUS TACHYCARDIA LOW QRS VOLTAGE IN EXTREMITY LEADS LEFT ANTERIOR FASCICULAR BLOCK SEPTAL MYOCARDIAL INFARCTION ABNORMAL ECG PREVIOUS TRACING : 09/24/2016 16.31 Compared to the previous tracing rate faster DOCTOR: Lily Smith Interpretating Date/Time 04/11/2017 19:18:00
--- NOTE | 2017-04-11 19:37 | HHI.FPPN ---
Addendum to progress note ADDENDUM Reason for addendum: Additonal documentation Additional information S: Patient seen and examined at ~19:30. Chest tube in place, draining thick yellow purulent material. Patient was drowsy. He was oriented to person and place. He stated it was 1977. He did not have any complaints other than being tired. O: GEN: Drowsy. Oriented to person and place, not to time NEURO: Normal speech. recreation therapist grossly intact. Moving all extremities. SKIN: Warm and dry. HEAD: Normocephalic. Atraumatic. EYES: EOMI. Mild scleral icterus. No injection or drainage. NECK: Supple, trachea midline. No JVD. CARDIOVASCULAR: RRR without murmurs, rubs, or gallops. RESPIRATORY: Coarse breath sounds of left lung centeno. Clear breath sounds right lung. GASTROINTESTINAL: Abdomen soft, nontender, nondistended, normal BS. A/P: 61-year-old male with PMH significant for COPD admitted with a left hydropneumothorax with empyema and bronchopleural fistula. Now a concern as patient seems to have altered mentation with unclear etiology at this time. - Will transfer patient to the ICU as patient is high risk for respiratory decompensation - Neuro checks q2h - Repeat BMP to assess for electrolytes abnormalities - Repeat lactic acid - Recheck EKG - Consider neuroimaging or repeat CXR or ABG if patient has worsening mentation or respiratory distress Ernst David MD R1 April 11, 2017 19:37
[2017-04-11 20:56] LABS: ALKALINE PHOSPHATASE 113 U/L (45-117); ALT (GPT) 17 U/L (12-78); ANION GAP 10 MEQ/L (5-15); AST (GOT) 43 U/L (15-37); BLOOD UREA NITROGEN 12 MG/DL (7-18); CHLORIDE 102 MEQ/L (98-107); GLOMERULAR FILTRATION RATE 181 ML/MIN (>89); POTASSIUM 3.1 MEQ/L (3.5-5.1); SODIUM (NA) 141 MEQ/L (136-145); TOTAL BILIRUBIN ADULT 0.4 MG/DL (0.2-1.0)
[2017-04-11] MEDS: SODIUM CHLOR 0.9% 1000 ML INJ 1,000 ML IV SCH ×2 (21:53→23:12)
[2017-04-11] MEDS: REMOVE OLD PATCH T-DERMAL SCH (21:53)
[2017-04-11] MEDS: PANTOPRAZOLE SOD 40 MG DELAYED RELEASE TAB PO SCH (21:56)
[2017-04-11] MEDS: PIPERACIL-TAZO 4.5 GM PREMIX 100 ML IV SCH (21:56)
[2017-04-11] MEDS ORDERED: POTASSIUM CHLORIDE 20 MEQ CONTROLLED RELEASE TAB PO ONE (23:15)
[2017-04-11] MEDS: LORazepam 1 MG TAB PO PRN (23:28)
[2017-04-12] VITALS (14 sets, daily range): BP systolic 136–177; BP diastolic 74–87; PULSE 82–97; RESP 18–27; TEMP 97.3–98.1; O2SAT 97–100
[2017-04-12] MEDS: PIPERACIL-TAZO 4.5 GM PREMIX 100 ML IV SCH ×4 (01:47→18:58)
[2017-04-12 04:42] LABS: AUTOMATED NEUTROPHIL # 11.9 TH/MM3 (1.8-7.7); BASOPHIL % 0.1 % (0.0-2.0); EOSINOPHIL % 0.1 % (0.0-4.0); HEMATOCRIT 31.1 % (39.0-51.0); HEMO FLAGS DIFF FINAL; LYMPH % 3.1 % (9.0-44.0); LYMPHOCYTE # 0.4 TH/MM3 (1.0-4.8); MEAN CELL VOLUME 91.3 FL (80.0-100.0); MEAN CORPUSCULAR HGB CONC 31.7 % (32.0-36.0); MONO % 5.6 % (0.0-8.0); NEUT % 91.1 % (16.0-70.0); PLATELET COUNT 383 TH/MM3 (150-450); RED BLOOD COUNT 3.41 MIL/MM3 (4.50-5.90); RED CELL DISTRIBUTION WIDTH 16.6 % (11.6-17.2)
[2017-04-12 04:52] LABS: ALKALINE PHOSPHATASE 121 U/L (45-117); ALT (GPT) 18 U/L (12-78); ANION GAP 9 MEQ/L (5-15); AST (GOT) 40 U/L (15-37); BICARBONATE 28.4 MEQ/L (21.0-32.0); BLOOD UREA NITROGEN 14 MG/DL (7-18); CHLORIDE 102 MEQ/L (98-107); GLOMERULAR FILTRATION RATE 101 ML/MIN (>89); POTASSIUM 3.4 MEQ/L (3.5-5.1); SODIUM (NA) 139 MEQ/L (136-145); TOTAL BILIRUBIN ADULT 0.4 MG/DL (0.2-1.0)
[2017-04-12] MEDS: RESP: ALBUTEROL 2.5 MG/IPRATROPIUM 0.5 MG NEB (SCH) NEB ×4 (05:06→20:55)
[2017-04-12] MEDS: VANCOMYCIN INJ 1,500 MG in SODIUM CHLORID 0.9% 500 ML INJ 500 ML IV SCH ×2 (05:08→15:14)
[2017-04-12] MEDS ORDERED: POTASSIUM CHLORIDE 10 MEQ CONTROLLED RELEASE TAB PO ONE (07:15)
[2017-04-12] MEDS: PANTOPRAZOLE SOD 40 MG DELAYED RELEASE TAB PO SCH (07:53)
[2017-04-12] MEDS: LISINOPRIL 20 MG TAB PO SCH (07:53)
[2017-04-12] MEDS: amLODIPine BESYLATE 5 MG TAB PO SCH (07:53)
[2017-04-12] MEDS: NICOTINE 21 MG/24 HR PATCH T-DERMAL SCH (07:53)
[2017-04-12] MEDS: SODIUM CHLOR 0.9% 1000 ML INJ 1,000 ML IV SCH ×2 (07:54→18:58)
[2017-04-12] MEDS: SODIUM CHLORIDE 0.9% FLUSH 10 ML FLUSH IV FLUSH SCH ×2 (07:54→20:39)
--- NOTE | 2017-04-12 08:45 | MP ---
cc: EMMA DOLAN MD DATE OF SURGERY 04/11/2017 PREOPERATIVE DIAGNOSIS Left hydropneumothorax, empyema of the left chest, collapse of the left lung. POSTOPERATIVE DIAGNOSIS Left hydropneumothorax, empyema of the left chest, collapse of the left lung. OPERATIVE PROCEDURE Left chest tube placement. SURGEON MD Erick ANESTHESIA 1% Xylocaine and Versed. ESTIMATED BLOOD LOSS Minimal. PROCEDURE IN DETAIL The patient is prepped and draped in the usual fashion, the area filtrated with 1% Xylocaine. The patient is given 4 mg of Versed and under monitored conditions, the incision is made at the sixth intercostal space in the mid-axillary line and deepened down with hemostat into the chest cavity. A 28-Arabic chest tube is easily placed in the posterior sulcus, sutured in place with 0-silk and connected to Pleur-Evac. About 500-600 cc of white, purulent material, foul-smelling is obtained. This was all sent for cultures and other studies. The patient is to undergo CAT scan shortly and further care of chronic illnesses. Emma YEAGER/MICHELLE /3:24 PM /8:30 AM
[2017-04-12] MEDS ORDERED: REMOVE OLD PATCH T-DERMAL SCH (09:00)
--- NOTE | 2017-04-12 09:23 | RADRPT ---
EXAM DATE/TIME: 04/12/2017 08:39 [facility] COMPARISON: CT THORAX W/O CONTRAST, April 11, 2017, 15:31. CHEST SINGLE AP, April 11, 2017, 10:04. INDICATIONS : Post chest tube placement on 04/11. MEDICAL HISTORY : Cardiovascular disease. Hypertension. SURGICAL HISTORY : Chest tube. ENCOUNTER: Subsequent ACUITY: 3 days PAIN SCORE: 4/10 LOCATION: Bilateral chest FINDINGS: Portable upright expiratory view the chest demonstrates a normal-sized cardiac silhouette. Large or l eft chest tube remains present. There is trace pleural air but no significant pleural effusion is pre sent. There is persistent thickening of the pleura on the left and there is airspace consolidation in the left lower lung zone. Right lung demonstrates no significant abnormality. CONCLUSION: 1. Left chest tube is present and there is only trace pleural air with associated pleural thickening. No significant pneumothorax is present. 2. Stable severe air space consolidation in the left lower lung zone. Maximo Encinas MD on April 12, 2017 at 9:14 Board Certified Radiologist. This report was verified electronically.
[2017-04-12] MEDS: LEVOFLOXACIN 750 MG PREMIX INJ 150 ML IV SCH (12:18)
--- NOTE | 2017-04-12 12:25 | HHI.FPPN ---
Subjective Remarks No acute events overnight. Remains afebrile. BPs ranging 110s-170s/70s-90s. Remains on 3L O2 via NC. Patient is alert and oriented this AM. States he has about a 6-7/10 pain around his chest tube. Denies significant SOB while at rest. (Ernst David MD R1) Objective Vitals Vital Signs Date Time Temp Pulse Resp B/P Pulse Ox O2 Delivery O2 Flow Rate FiO2 04/12/17 12:00 98.0 89 24 136/78 99 04/12/17 12:00 89 04/12/17 10:00 93 04/12/17 09:30 100 Nasal Cannula 2.00 04/12/17 08:00 93 04/12/17 08:00 97.6 93 25 149/80 100 04/12/17 07:00 99 Nasal Cannula 2.00 04/12/17 06:00 86 04/12/17 04:00 97.3 93 27 177/82 98 04/12/17 04:00 86 04/12/17 02:00 94 04/12/17 00:00 98.0 97 24 137/74 100 04/12/17 00:00 97 04/11/17 22:00 96.9 106 24 165/90 99 04/11/17 22:00 106 04/11/17 22:00 99 Nasal Cannula 3.00 04/11/17 21:55 100 Nasal Cannula 3.00 04/11/17 18:33 97.4 95 20 151/91 87 04/11/17 16:16 97.2 101 18 118/81 99 Nasal Cannula 4 04/11/17 15:59 97 Nasal Cannula 4.00 04/11/17 14:42 121 22 134/68 91 Nasal Cannula 3 04/11/17 12:40 119 22 133/84 94 Nasal Cannula 3 I/O 04/11/17 04/11/17 04/11/17 04/12/17 04/12/17 04/12/17 07:00 15:00 23:00 07:00 15:00 23:00 Intake Total 990 ml 908 ml Output Total 601 ml 318 ml Balance 389 ml 590 ml Intake Oral 240 ml IV Total 750 ml 908 ml Output Urine Total 200 ml 250 ml Stool Total 1 ml Chest Tube Drainage Total 400 ml 68 ml # Voids 2 (Ernst David MD R1) Result Diagram: 04/12/17 0346 04/12/17 0346 Objective Remarks GENERAL: NAD, lying comfortably in bed NEURO: AOx3. Normal speech. assistant golf coach grossly intact. SKIN: Warm and dry. No rashes or erythema. HEAD: Normocephalic. Atraumatic. EYES: EOMI. No scleral icterus. No injection or drainage. ENT: No nasal drainage. Moist mucous membranes. NECK: Supple, trachea midline. No JVD. CARDIOVASCULAR: Tachycardic rate, regular rhythm without murmurs, rubs, or gallops. Peripheral pulses 2+. RESPIRATORY: Diminished breath sounds at left mid lung to left lung base. Fair aeration of left upper lung field. Clear breath sounds right lung. GASTROINTESTINAL: Abdomen soft, nontender, nondistended, normal BS. MUSCULOSKELETAL: No edema, cyanosis, or clubbing. Normal range of motion. BACK: Nontender without obvious deformity. (Ernst David MD R1) A/P Assessment and Plan 61-year-old male with PMH significant for COPD brought to the ED via [facility] today due to shortness of breath at home and found to have a left hydropneumothorax and left basilar consolidation. Cardiovascular surgery has been consulted for recommendations and chest tube placement. Patient is a Rastafarian Avoid frequent blood draws Discharge Planning Unclear timetable. Cardiovascular surgery following patient. Pt may need additional procedure in OR if lung is unable to fully expand (Ernst David MD R1) Attending Attestation Patient seen, examined, and discussed with resident team. I agree with assessment and management as documented and discussed with me. Pt still with significant output from chest tube. Continue antibiotics. Await pleural studies, culture. (Emilia Anderson MD) Problem List: (1) Hydropneumothorax Status: Acute Plan: - Cardiovascular surgery consulted, has placed left chest tube noting to drain purulent material - Patient has a pneumothorax on the left consistent with empyema of the chest and bronchopleural fistula - Pleural fluid studies ordered - Serum LDH 210 - Per cardiovascular surgery, if the patient's long does not fully expand the patient will require video-assisted thoracotomy or a small open thoracotomy with decortication - Patient should not lie on his disease-free right lateral side - Will treat patient for HCAP, patient meets sepsis criteria - Received cefepime 2 g IV 1 and azithromycin 500 mg IV 1 in the ED - Continue Vancomycin IV q12h, dosing per pharmacy consult - Continue Zosyn 4.5 gm IV q6h - Continue Levaquin 750 mg IV q24h - ABG shows mild respiratory acidosis with metabolic compensation (2) Sepsis Status: Acute Plan: Patient meets sepsis criteria on admission Plan as above (3) Hypokalemia Status: Resolved Plan: 2.9 on admission; most recently 3.8 on 03/18/17 May be due to GI losses due to diarrhea, acidosis with resulting K shifts, hypomagnesemia Replete as necessary Replete magnesium Continue to monitor and replete if necessary (4) Hypomagnesemia Status: Acute Plan: 1.3 on admission Replete with magnesium sulfate 1gm IV x1 Continue to monitor (5) Anemia Status: Acute Plan: Hgb 10.4 on admission Normocytic Patient reported melena over the past week as well as visible blood in stools Obtain hemoccult, GI consult if positive Consider iron studies Patient is a Rastafarian Continue to monitor Avoid frequent blood draws (6) Melena Status: Acute Plan: - Patient endorsed melena over the past week - Obtain Hemoccult, GI consult if positive (7) Alcohol abuse Status: Chronic Plan: - Last etoh drink early this AM - [facility] protocol - PO MV, thiamine, folic acid (8) Tobacco dependence, continuous Status: Chronic Plan: Nicotine patch 21 mg Remove each night before sleeping (9) Nutrition, metabolism, and development symptoms Status: Acute Plan: Fluids: NS at 100 cc/hr Electrolytes: Continue to monitor and replete as necessary Nutrition: Heart healthy diet DVT prophylaxis: Lovenox GI prophylaxis: Protonix Patient is a Rastafarian, avoid blood draws if possible (Ernst David MD R1) Ernst David MD R1 April 12, 2017 12:25 Emilia Anderson MD April 13, 2017 10:45
[2017-04-12] MEDS: MULTIVITAMIN INJ 10 ML, FOLIC ACID INJ 1 MG in SODIUM CHLORID 0.9% 500 ML INJ 500 ML IV SCH (13:20)
[2017-04-12] MEDS: THIAMINE INJ 100 MG in SODIUM CHLORIDE 0.9% INJ 100 ML IV SCH (13:20)
--- NOTE | 2017-04-12 13:25 | PD.CAR.PN ---
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 Left chest tube placed and about 500 cc of foul-smelling purulent material obtained Discussed with medicine CT of the chest pending Patient will either proceed to be on antibiotics and heal this or the lung will not fully expand and patient will require thoracoscopy and decortication We will see which way it goes Full consult dictated Will follow Thanks J 04/12/17 Patient with left chest empyema and partial entrapment of the left lung Chest tube drainage is copious and the pleura vac had to be changed yesterday due to month of drainage which is now over a liter in last 24 hours. Patient is on wide spectrum antibiotics as he should be Lung is not fully expanded yet and when drainage seizes in next few days we will reevaluate the patient as far as the need for surgery In the lung is unable to expand due to pleural peel patient will need thoracoscopy and possible thoracotomy with decortication but I will give him at least 4-5 days for this to sort out All things equal patient may need thoracoscopy in the near future and I'll taken to the OR next week if indicated Will continue to follow Objective: Vital Signs Date Time Temp Pulse Resp B/P Pulse Ox O2 Delivery O2 Flow Rate FiO2 04/12/17 12:00 98.0 89 24 136/78 99 04/12/17 12:00 89 04/12/17 10:00 93 04/12/17 09:30 100 Nasal Cannula 2.00 04/12/17 08:00 93 04/12/17 08:00 97.6 93 25 149/80 100 04/12/17 07:00 99 Nasal Cannula 2.00 04/12/17 06:00 86 04/12/17 04:00 97.3 93 27 177/82 98 04/12/17 04:00 86 04/12/17 02:00 94 04/12/17 00:00 98.0 97 24 137/74 100 04/12/17 00:00 97 04/11/17 22:00 96.9 106 24 165/90 99 04/11/17 22:00 106 04/11/17 22:00 99 Nasal Cannula 3.00 04/11/17 21:55 100 Nasal Cannula 3.00 04/11/17 18:33 97.4 95 20 151/91 87 04/11/17 16:16 97.2 101 18 118/81 99 Nasal Cannula 4 04/11/17 15:59 97 Nasal Cannula 4.00 04/11/17 14:42 121 22 134/68 91 Nasal Cannula 3 Labs: Laboratory Tests Test 04/12/17 04/12/17 03:44 03:46 Nasal Screen MRSA (PCR) MRSA NOT DETECTED (NOT DETECT) White Blood Count 13.0 TH/MM3 (4.0-11.0) Red Blood Count 3.41 MIL/MM3 (4.50-5.90) Hemoglobin 9.9 GM/DL (13.0-17.0) Hematocrit 31.1 % (39.0-51.0) Mean Corpuscular Volume 91.3 FL (80.0-100.0) Mean Corpuscular Hemoglobin 29.0 PG (27.0-34.0) Mean Corpuscular Hemoglobin 31.7 % Concent (32.0-36.0) Red Cell Distribution Width 16.6 % (11.6-17.2) Platelet Count 383 TH/MM3 (150-450) Mean Platelet Volume 7.7 FL (7.0-11.0) Neutrophils (%) (Auto) 91.1 % (16.0-70.0) Lymphocytes (%) (Auto) 3.1 % (9.0-44.0) Monocytes (%) (Auto) 5.6 % (0.0-8.0) Eosinophils (%) (Auto) 0.1 % (0.0-4.0) Basophils (%) (Auto) 0.1 % (0.0-2.0) Neutrophils # (Auto) 11.9 TH/MM3 (1.8-7.7) Lymphocytes # (Auto) 0.4 TH/MM3 (1.0-4.8) Monocytes # (Auto) 0.7 TH/MM3 (0-0.9) Eosinophils # (Auto) 0.0 TH/MM3 (0-0.4) Basophils # (Auto) 0.0 TH/MM3 (0-0.2) CBC Comment DIFF FINAL Differential Comment Sodium Level 139 MEQ/L (136-145) Potassium Level 3.4 MEQ/L (3.5-5.1) Chloride Level 102 MEQ/L (98-107) Carbon Dioxide Level 28.4 MEQ/L (21.0-32.0) Anion Gap 9 MEQ/L (5-15) Blood Urea Nitrogen 14 MG/DL (7-18) Creatinine 0.78 MG/DL (0.60-1.30) Estimat Glomerular Filtration 101 ML/MIN Rate (>89) Random Glucose 284 MG/DL (74-106) Calcium Level 8.1 MG/DL (8.5-10.1) Total Bilirubin 0.4 MG/DL (0.2-1.0) Aspartate Amino Transf 40 U/L (15-37) (AST/SGOT) Alanine Aminotransferase 18 U/L (12-78) (ALT/SGPT) Alkaline Phosphatase 121 U/L (45-117) Total Protein 6.6 GM/DL (6.4-8.2) Albumin 1.5 GM/DL (3.4-5.0) Result Diagram: 04/12/17 0346 04/12/17 0346 Emma Suarez MD April 12, 2017 13:25
[2017-04-12] MEDS: ENOXAPARIN SODIUM 40 MG/0.4 ML SYRINGE SQ SCH (15:14)
[2017-04-12] MEDS ORDERED: POTASSIUM CHLORIDE 20 MEQ CONTROLLED RELEASE TAB PO ONE (15:30)
--- NOTE | 2017-04-12 17:16 | EKG ---
Date Performed: 04/11/2017 Time Performed: 20:31:14 PTAGE: 61 years EKG: Sinus rhythm with PAC(s) Left axis deviation Possible septal infarct - age undetermined Low QRS voltages in limb leads Abnormal ECG PREVIOUS TRACING : 04/11/2017 10.09 Compared to prior tracing no significant change DOCTOR: Radhames Corado Interpretating Date/Time 04/12/2017 17:15:29
[2017-04-12 18:24] LABS: PLEURAL FLUID LYMPHS 0 %; PLEURAL FLUID PH 6.5
[2017-04-12] MEDS: REMOVE OLD PATCH T-DERMAL SCH (20:37)
[2017-04-12] MEDS: LORazepam 1 MG TAB PO PRN (23:31)
[2017-04-13] VITALS (7 sets, daily range): BP systolic 127–154; BP diastolic 82–89; PULSE 71–98; RESP 18–24; TEMP 97.2–98.7; O2SAT 93–98
[2017-04-13] MEDS: PIPERACIL-TAZO 4.5 GM PREMIX 100 ML IV SCH ×4 (01:00→19:37)
[2017-04-13 01:22] LABS: GLUCOSE,PLEURAL FLUID 10 MG/DL; TOTAL PROTEIN,PLEURAL FLUID 2.9 GM/DL
[2017-04-13] MEDS ORDERED: PHARMACY ORDERED LAB ONE (03:45)
[2017-04-13] MEDS: RESP: ALBUTEROL 2.5 MG/IPRATROPIUM 0.5 MG NEB (SCH) NEB ×4 (04:00→20:19)
[2017-04-13] MEDS: SODIUM CHLOR 0.9% 1000 ML INJ 1,000 ML IV SCH ×2 (04:05→15:12)
[2017-04-13] MEDS: VANCOMYCIN INJ 1,500 MG in SODIUM CHLORID 0.9% 500 ML INJ 500 ML IV SCH ×2 (04:05→16:00)
[2017-04-13 08:06] LABS: BASOPHIL % 0.1 % (0.0-2.0); EOSINOPHIL % 0.1 % (0.0-4.0); HEMATOCRIT 29.7 % (39.0-51.0); HEMO FLAGS DIFF FINAL; LYMPH % 8.2 % (9.0-44.0); LYMPHOCYTE # 1.1 TH/MM3 (1.0-4.8); MEAN CELL VOLUME 91.2 FL (80.0-100.0); MEAN CORPUSCULAR HEMOGLOBIN 28.5 PG (27.0-34.0); MEAN CORPUSCULAR HGB CONC 31.3 % (32.0-36.0); MONO % 7.1 % (0.0-8.0); NEUT % 84.5 % (16.0-70.0); PLATELET COUNT 379 TH/MM3 (150-450); RED BLOOD COUNT 3.25 MIL/MM3 (4.50-5.90); RED CELL DISTRIBUTION WIDTH 16.9 % (11.6-17.2)
[2017-04-13 08:15] LABS: BICARBONATE 30.8 MEQ/L (21.0-32.0); POTASSIUM 3.9 MEQ/L (3.5-5.1)
[2017-04-13] MEDS: SODIUM CHLORIDE 0.9% FLUSH 10 ML FLUSH IV FLUSH SCH ×2 (09:00→21:00)
[2017-04-13] MEDS: PANTOPRAZOLE SOD 40 MG DELAYED RELEASE TAB PO SCH (09:00)
[2017-04-13] MEDS: LISINOPRIL 20 MG TAB PO SCH (09:05)
[2017-04-13] MEDS: FOLIC ACID 1 MG TAB PO SCH (09:05)
[2017-04-13] MEDS: THIAMINE HCL 100 MG TAB PO SCH (09:05)
[2017-04-13] MEDS: NICOTINE 21 MG/24 HR PATCH T-DERMAL SCH (09:05)
[2017-04-13] MEDS: amLODIPine BESYLATE 5 MG TAB PO SCH (09:05)
[2017-04-13] MEDS: MULTIVITAMINS/MINERALS THERAPEUTIC TAB PO SCH (09:05)
--- NOTE | 2017-04-13 09:42 | HHI.FPPN ---
Subjective Remarks Patient doing well this morning. Patient states he did not sleep very well, otherwise denies chest pain, nausea, vomiting, shortness of breath. No fevers. Intermittent chills. Chest tube with approximately 700 mL's output since 04/12 (Niko Bauer MD R2) Objective Vitals Vital Signs Date Time Temp Pulse Resp B/P Pulse Ox O2 Delivery O2 Flow Rate FiO2 04/13/17 08:00 97.3 93 20 138/85 94 04/13/17 04:00 97.4 89 20 147/88 98 04/13/17 04:00 Room Air 04/13/17 00:00 97.2 83 18 154/87 98 04/13/17 00:00 Nasal Cannula 2.00 04/12/17 23:28 83 04/12/17 20:59 97 Nasal Cannula 2.00 04/12/17 20:35 Nasal Cannula 2.00 04/12/17 20:35 98.1 86 18 151/87 100 04/12/17 18:00 90 04/12/17 16:00 85 04/12/17 16:00 98.0 85 20 161/84 99 04/12/17 14:00 82 04/12/17 12:00 98.0 89 24 136/78 99 04/12/17 12:00 89 04/12/17 10:00 93 04/12/17 09:30 100 Nasal Cannula 2.00 I/O 04/12/17 04/12/17 04/12/17 04/13/17 04/13/17 04/13/17 07:00 15:00 23:00 07:00 15:00 23:00 Intake Total 908 ml 1916 ml 1182 ml 1588 ml Output Total 318 ml 442 ml 600 ml 675 ml Balance 590 ml 1474 ml 582 ml 913 ml Intake Oral 720 ml 360 ml 0 ml IV Total 908 ml 1196 ml 822 ml 1588 ml Output Urine Total 250 ml 350 ml 550 ml 600 ml Chest Tube Drainage Total 68 ml 92 ml 50 ml 75 ml # Bowel Movements 1 0 (Niko Bauer MD R2) Result Diagram: 04/13/17 0648 04/13/17 0648 Objective Remarks GENERAL: NAD, lying comfortably in bed NEURO: AOx3. Normal speech. administrative support specialist grossly intact. SKIN: Warm and dry. No rashes or erythema. HEAD: Normocephalic. Atraumatic. EYES: EOMI. No scleral icterus. No injection or drainage. ENT: No nasal drainage. Moist mucous membranes. NECK: Supple, trachea midline. No JVD. CARDIOVASCULAR: Regular rate and rhythm. RESPIRATORY: Diminished breath sounds at left mid lung to left lung base. Fair aeration of left upper lung field. Clear breath sounds right lung. GASTROINTESTINAL: Abdomen soft, nontender, nondistended, normal BS. MUSCULOSKELETAL: No edema, cyanosis, or clubbing. Normal range of motion. BACK: Nontender without obvious deformity. (Niko Bauer MD R2) A/P Assessment and Plan 61-year-old male with PMH significant for COPD brought to the ED via [facility] today due to shortness of breath at home and found to have a left hydropneumothorax and left basilar consolidation. Cardiovascular surgery has been consulted for recommendations and chest tube placement. Patient is a Tenriism Avoid frequent blood draws Discharge Planning Unclear timetable. Cardiovascular surgery following patient. Pt may need additional procedure in OR if lung is unable to fully expand (Niko Bauer MD R2) Attending Attestation Patient seen and examined, discussed with resident team. I agree with assessment and management as documented and discussed with me. Monitor with chest x-ray, chest tube output. Await pleural culture. Continue IV antibiotics, broad spectrum, until able to narrow based on pleural culture. Patient is now on room air. (Emilia Anderson MD) Problem List: (1) Hydropneumothorax Status: Acute Plan: - Cardiovascular surgery consulted, has placed left chest tube noting to drain purulent material - Per cardiovascular surgery, if the patient's long does not fully expand the patient will require video-assisted thoracotomy or a small open thoracotomy with decortication Pleural fluid: Elevated white blood cells. LDH greater than 4000. 99 neutrophils. Pleural culture: Pending Blood culture: No growth 1 day Antibiotics: - Received cefepime 2 g IV 1 and azithromycin 500 mg IV 1 in the ED - Continue Vancomycin IV q12h, dosing per pharmacy consult - Continue Zosyn 4.5 gm IV q6h - Continue Levaquin 750 mg IV q24h (2) Sepsis Status: Acute Plan: Patient meets sepsis criteria on admission Plan as above (3) Hypomagnesemia Status: Acute Plan: 1.3 on admission Replete with magnesium sulfate 1gm IV x1 Continue to monitor (4) Anemia Status: Acute Plan: Hgb 10.4 on admission Stable Normocytic Patient reported melena over the past week as well as visible blood in stools Obtain hemoccult, GI consult if positive Consider iron studies Patient is a Tenriism Continue to monitor Avoid frequent blood draws (5) Melena Status: Acute Plan: - Patient endorsed melena over the past week - Obtain Hemoccult, GI consult if positive (6) Alcohol abuse Status: Chronic Plan: - [facility] protocol - PO MV, thiamine, folic acid (7) Tobacco dependence, continuous Status: Chronic Plan: Nicotine patch 21 mg Remove each night before sleeping (8) Nutrition, metabolism, and development symptoms Status: Acute Plan: Fluids: NS at 100 cc/hr Electrolytes: Continue to monitor and replete as necessary Nutrition: Heart healthy diet DVT prophylaxis: Lovenox GI prophylaxis: Protonix Patient is a Tenriism, avoid blood draws if possible (9) Hypokalemia Status: Resolved Plan: Resolved. (Niko Bauer MD R2) Niko Bauer MD R2 April 13, 2017 09:42 Emilia Anderson MD April 13, 2017 15:24
--- NOTE | 2017-04-13 09:49 | RADRPT ---
EXAM DATE/TIME: 04/13/2017 09:26 [facility] COMPARISON: CHEST SINGLE AP, April 12, 2017, 8:39. INDICATIONS : Dizziness. Evaluate for pneumothorax post chest tube placement. MEDICAL HISTORY : Hypertension. Cardiovascular disease. SURGICAL HISTORY : Chest tube. ENCOUNTER: Subsequent ACUITY: 2 days PAIN SCORE: 0/10 LOCATION: Bilateral chest FINDINGS: A single view of the chest demonstrates tiny lateral pneumothorax. Pleural-parenchymal density is sta ble. Right lung clear. Left-sided chest tube is stable in position. CONCLUSION: Tiny lateral pneumothorax, unchanged. Sacha Benites MD on April 13, 2017 at 9:46 Board Certified Radiologist. This report was verified electronically.
[2017-04-13] MEDS: LEVOFLOXACIN 750 MG PREMIX INJ 150 ML IV SCH (11:31)
[2017-04-13] MEDS: ENOXAPARIN SODIUM 40 MG/0.4 ML SYRINGE SQ SCH (14:11)
--- NOTE | 2017-04-13 15:04 | PD.CAR.PN ---
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 Patient is on wide spectrum antibiotics as he should be Lung is not fully expanded yet and when drainage seizes in next few days we will reevaluate the patient as far as the need for surgery In the lung is unable to expand due to pleural peel patient will need thoracoscopy and possible thoracotomy with decortication but I will give him at least 4-5 days for this to sort out All things equal patient may need thoracoscopy in the near future and I'll taken to the OR next week if indicated Will continue to follow 04/13/17 Drainage from the left chest tube has decreased and is more serosanguineous at this time Patient continuous IV antibiotics and will remain on for at least 2 weeks On current chest x-ray lung is still not fully expanded and there is a residual pneumothorax of about 2 cm all around the lower portion of the lung where it does not appear to the chest wall If this persists patient will be taken next week for thoracoscopy/thoracotomy and decortication Objective: Vital Signs Date Time Temp Pulse Resp B/P Pulse Ox O2 Delivery O2 Flow Rate FiO2 04/13/17 12:00 98.7 94 20 127/82 93 04/13/17 10:16 93 04/13/17 08:00 71 04/13/17 08:00 Nasal Cannula 2.00 04/13/17 08:00 97.3 93 20 138/85 94 04/13/17 04:00 97.4 89 20 147/88 98 04/13/17 04:00 Room Air 04/13/17 00:00 97.2 83 18 154/87 98 04/13/17 00:00 Nasal Cannula 2.00 04/12/17 23:28 83 04/12/17 20:59 97 Nasal Cannula 2.00 04/12/17 20:35 Nasal Cannula 2.00 04/12/17 20:35 98.1 86 18 151/87 100 04/12/17 18:00 90 04/12/17 16:00 85 04/12/17 16:00 98.0 85 20 161/84 99 Labs: Laboratory Tests Test 04/13/17 04/13/17 03:40 06:48 Vancomycin Level Trough 16.6 MCG/ML (5.0-10.0) White Blood Count 13.0 TH/MM3 (4.0-11.0) Red Blood Count 3.25 MIL/MM3 (4.50-5.90) Hemoglobin 9.3 GM/DL (13.0-17.0) Hematocrit 29.7 % (39.0-51.0) Mean Corpuscular Volume 91.2 FL (80.0-100.0) Mean Corpuscular Hemoglobin 28.5 PG (27.0-34.0) Mean Corpuscular Hemoglobin 31.3 % Concent (32.0-36.0) Red Cell Distribution Width 16.9 % (11.6-17.2) Platelet Count 379 TH/MM3 (150-450) Mean Platelet Volume 7.4 FL (7.0-11.0) Neutrophils (%) (Auto) 84.5 % (16.0-70.0) Lymphocytes (%) (Auto) 8.2 % (9.0-44.0) Monocytes (%) (Auto) 7.1 % (0.0-8.0) Eosinophils (%) (Auto) 0.1 % (0.0-4.0) Basophils (%) (Auto) 0.1 % (0.0-2.0) Neutrophils # (Auto) 11.0 TH/MM3 (1.8-7.7) Lymphocytes # (Auto) 1.1 TH/MM3 (1.0-4.8) Monocytes # (Auto) 0.9 TH/MM3 (0-0.9) Eosinophils # (Auto) 0.0 TH/MM3 (0-0.4) Basophils # (Auto) 0.0 TH/MM3 (0-0.2) CBC Comment DIFF FINAL Differential Comment Sodium Level 142 MEQ/L (136-145) Potassium Level 3.9 MEQ/L (3.5-5.1) Chloride Level 106 MEQ/L (98-107) Carbon Dioxide Level 30.8 MEQ/L (21.0-32.0) Anion Gap 5 MEQ/L (5-15) Blood Urea Nitrogen 9 MG/DL (7-18) Creatinine 0.51 MG/DL (0.60-1.30) Estimat Glomerular Filtration 165 ML/MIN Rate (>89) Random Glucose 97 MG/DL (74-106) Calcium Level 8.0 MG/DL (8.5-10.1) Result Diagram: 04/13/17 0648 04/13/17 0648 Emma Suarez MD April 13, 2017 15:04
[2017-04-13] MEDS: REMOVE OLD PATCH T-DERMAL SCH (21:00)
[2017-04-13] MEDS: LORazepam 2 MG/ML VIAL IV PUSH PRN ×2 (21:14→23:40)
[2017-04-14] VITALS (10 sets, daily range): BP systolic 114–147; BP diastolic 68–84; PULSE 82–114; RESP 18–24; TEMP 94.3–98.6; O2SAT 92–100
[2017-04-14] MEDS: PIPERACIL-TAZO 4.5 GM PREMIX 100 ML IV SCH ×4 (01:19→18:27)
[2017-04-14] MEDS: SODIUM CHLOR 0.9% 1000 ML INJ 1,000 ML IV SCH ×3 (01:20→22:02)
[2017-04-14] MEDS: LORazepam 2 MG/ML VIAL IV PUSH PRN ×5 (02:19→20:21)
[2017-04-14] MEDS: VANCOMYCIN INJ 1,500 MG in SODIUM CHLORID 0.9% 500 ML INJ 500 ML IV SCH ×2 (03:09→15:38)
[2017-04-14] MEDS: RESP: ALBUTEROL 2.5 MG/IPRATROPIUM 0.5 MG NEB (SCH) NEB ×4 (04:40→20:37)
--- NOTE | 2017-04-14 07:14 | HHI.FPPN ---
Addendum to progress note ADDENDUM Reason for addendum: Additonal documentation Additional information Residents paged regarding pt had fallen earlier this morning. Per nurse, he fell and hit his head while walking in the room. He sustained a laceration on his head. Nurse states that he denies any headache or pain anywhere else. Nurse states he is mildly confused, but at baseline. Placed order for CT scan and went to evaluate patient. Patient had already been taken down for CT scan. Will discuss with day team and reevaluate after pt returns. pio Masterson,Dani Rae MD R1 April 14, 2017 07:14
--- NOTE | 2017-04-14 07:15 | RADRPT ---
EXAM DATE/TIME: 04/14/2017 07:01 [facility] COMPARISON: CT BRAIN W/O CONTRAST, December 02, 2016, 17:46. INDICATIONS : Trauma; fall. RADIATION DOSE: 37.22 CTDIvol (mGy) MEDICAL HISTORY : Cardiovascular disease. Hypertension. SURGICAL HISTORY : Tonsillectomy. ENCOUNTER: Initial ACUITY: 1 day PAIN SCALE: 3/10 LOCATION: cranial TECHNIQUE: Multiple contiguous axial images were obtained of the head. Using automated exposure control and adj ustment of the mA and/or kV according to patient size, radiation dose was kept as low as reasonably a chievable to obtain optimal diagnostic quality images. FINDINGS: CEREBRUM: There is moderate generalized atrophy. Ventricles are normal in size given the degree of atrophy pres ent. There is an ovoid area of low density near the left caudate nucleus head and characteristic of a n old lacune. This finding is stable. There is mild periventricular white matter low attenuation. No evidence of midline shift, mass lesion, hemorrhage or acute infarction. No extra-axial fluid collec tions are seen. POSTERIOR FOSSA: The cerebellum and brainstem emonstrate no acute finding. The 4th ventricle is midline. The cerebel lopontine angle is unremarkable. EXTRACRANIAL: Sinuses demonstrate no acute abnormality. SKULL: The calvaria is intact. No evidence of skull fracture. CONCLUSION: Stable noncontrast head CT. No acute intracranial abnormality is identified. Chronic changes include generalized atrophy and old left lacune. Maximo Encinas MD on April 14, 2017 at 7:11 Board Certified Radiologist. This report was verified electronically.
--- NOTE | 2017-04-14 07:45 | HHI.FPPN ---
Subjective Remarks Overnight the patient had a fall and did hit his head. RN who had the patient overnight stated the patient started walking out of bed himself and fell while in his room and had trauma to his head and sustained a laceration to his head as well as trauma to his left elbow area. RN stated the patient remains at his baseline neurological functioning. Head CT shows no acute intracranial abnormality. He stated the patient prior to the fall alternated between periods of being alert and oriented and then being very tired. Patient remains afebrile, vitals are stable. RN states the chest tube drainage has been about 60 cc of drained fluid, however the chest tube sometimes unhooks and some drainage is noted on the patients bed. Bedsheets have been changed a few times due to this. RN stated patient would likely need soft restraints as the patient frequently sits up on the side of the bed himself and sometimes starts walking himself. RN also stated the patients caregiver would be OK with this as well. (Ernst David MD R1) Objective Vitals Vital Signs Date Time Temp Pulse Resp B/P Pulse Ox O2 Delivery O2 Flow Rate FiO2 04/14/17 06:00 98.1 114 22 135/73 92 04/14/17 04:44 96 Nasal Cannula 2.00 04/14/17 04:00 97.6 90 22 123/84 96 04/14/17 00:00 98.6 96 22 114/68 95 04/13/17 20:00 98.6 96 24 137/89 93 04/13/17 16:00 97.6 98 20 136/88 94 04/13/17 12:00 98.7 94 20 127/82 93 04/13/17 10:16 93 04/13/17 08:00 71 04/13/17 08:00 Nasal Cannula 2.00 04/13/17 08:00 97.3 93 20 138/85 94 I/O 04/13/17 04/13/17 04/13/17 04/14/17 04/14/17 04/14/17 07:00 15:00 23:00 07:00 15:00 23:00 Intake Total 1588 ml 1432 ml 320 ml 240 ml Output Total 675 ml 1660 ml 900 ml 2200 ml Balance 913 ml -228 ml -580 ml -1960 ml Intake Oral 0 ml 600 ml 320 ml 240 ml IV Total 1588 ml 832 ml Output Urine Total 600 ml 1600 ml 900 ml 2200 ml Chest Tube Drainage Total 75 ml 60 ml # Bowel Movements 0 0 0 1 (Ernst David MD R1) Result Diagram: 04/13/1764704/13/17647 Objective Remarks GENERAL: NAD, lying comfortably in bed NEURO: Alert. Oriented to person and place. States it is 1978. Normal speech. pole inspector grossly intact. Triple Drum Operator strength 4/5 b/l. Lower extremity strength 4/5 b/l. SKIN: Warm and dry. Small laceration covered by adhesive over left eyebrow. Another small laceration along left elbow that is wrapped. No active bleeding. HEAD: Normocephalic. Atraumatic. EYES: EOMI. No scleral icterus. No injection or drainage. ENT: No nasal drainage. Moist mucous membranes. NECK: Supple, trachea midline. No JVD. CARDIOVASCULAR: Regular rate and rhythm. RESPIRATORY: Diminished breath sounds at left mid lung to left lung base. Fair aeration of left upper lung field. Clear breath sounds right lung. GASTROINTESTINAL: Abdomen soft, nontender, nondistended, normal BS. MUSCULOSKELETAL: No edema, cyanosis, or clubbing. Normal range of motion. BACK: Nontender without obvious deformity. (Ernst David MD R1) A/P Assessment and Plan 61-year-old male with PMH significant for COPD brought to the ED via [facility] today due to shortness of breath at home and found to have a left hydropneumothorax and left basilar consolidation. Cardiovascular surgery has been consulted for recommendations and chest tube placement. Patient is a Buddhist Avoid frequent blood draws Discharge Planning Unclear timetable. Cardiovascular surgery following patient. Pt may need additional procedure in OR if lung is unable to fully expand (Ernst David MD R1) Attending Attestation Patient seen, examined, and discussed with Dr. David. I agree with assessment and management as documented and discussed with me. CXR with residual pneumothorax despite Chest tube to suction. Anticiapte surgery early next week by Dr. aRe. Pt without complaints this morning except that he wants to smoke. He denies chest pain, SOB. (Emilia Anderson MD) Problem List: (1) Hydropneumothorax Status: Acute Plan: - Cardiovascular surgery consulted, has placed left chest tube noting to drain purulent material - Per cardiovascular surgery, if the patient's long does not fully expand the patient will require video-assisted thoracotomy or a small open thoracotomy with decortication Pleural fluid: Elevated white blood cells. LDH greater than 4000. 99 neutrophils. Pleural culture: light growth streptococcus species, further ID to follow; no anaerobes isolated Blood culture: No growth 2 day Repeat CXR to assess extent of residual pneumothorax Antibiotics: - Received cefepime 2 g IV 1 and azithromycin 500 mg IV 1 in the ED - Continue Vancomycin IV q12h, dosing per pharmacy consult - Continue Zosyn 4.5 gm IV q6h - Continue Levaquin 750 mg IV q24h (2) Sepsis Status: Acute Plan: Patient meets sepsis criteria on admission Plan as above (3) Anemia Status: Acute Plan: Hgb 10.4 on admission Stable Normocytic Patient reported melena over the past week as well as visible blood in stools Obtain hemoccult, GI consult if positive Consider iron studies Patient is a Buddhist Continue to monitor Avoid frequent blood draws (4) Hypokalemia Status: Acute Plan: 3.3 today Replete PO Continue to monitor Draw blood with pediatric tubs (5) Hypomagnesemia Status: Acute Plan: 1.3 on admission Replete with magnesium sulfate 1gm IV x1 Continue to monitor (6) Melena Status: Acute Plan: - Patient endorsed melena over the past week - Obtain Hemoccult, GI consult if positive (7) Alcohol abuse Status: Chronic Plan: - [facility] protocol - PO MV, thiamine, folic acid (8) Tobacco dependence, continuous Status: Chronic Plan: Nicotine patch 21 mg Remove each night before sleeping (9) Nutrition, metabolism, and development symptoms Status: Acute Plan: Fluids: NS at 100 cc/hr Electrolytes: Continue to monitor and replete as necessary Nutrition: Heart healthy diet DVT prophylaxis: Lovenox GI prophylaxis: Protonix Patient is a Buddhist, avoid blood draws if possible (Ernst David MD R1) Ernst David MD R1 April 14, 2017 07:45 Emilia Anderson MD April 14, 2017 17:26
[2017-04-14 08:45] LABS: AUTOMATED NEUTROPHIL # 13.1 TH/MM3 (1.8-7.7); BASOPHIL % 0.2 % (0.0-2.0); EOSINOPHIL % 0.1 % (0.0-4.0); HEMATOCRIT 27.5 % (39.0-51.0); HEMO FLAGS DIFF FINAL; LYMPH % 6.4 % (9.0-44.0); MEAN CELL VOLUME 88.1 FL (80.0-100.0); MEAN CORPUSCULAR HEMOGLOBIN 28.9 PG (27.0-34.0); MEAN CORPUSCULAR HGB CONC 32.7 % (32.0-36.0); MONO % 7.3 % (0.0-8.0); PLATELET COUNT 342 TH/MM3 (150-450); RED BLOOD COUNT 3.12 MIL/MM3 (4.50-5.90); WHITE BLOOD COUNT 15.3 TH/MM3 (4.0-11.0)
[2017-04-14 09:12] LABS: ALKALINE PHOSPHATASE 109 U/L (45-117); ALT (GPT) 30 U/L (12-78); ANION GAP 9 MEQ/L (5-15); AST (GOT) 45 U/L (15-37); BICARBONATE 29.4 MEQ/L (21.0-32.0); CHLORIDE 101 MEQ/L (98-107); GLOMERULAR FILTRATION RATE 168 ML/MIN (>89); POTASSIUM 3.3 MEQ/L (3.5-5.1); SODIUM (NA) 139 MEQ/L (136-145); TOTAL BILIRUBIN ADULT 0.4 MG/DL (0.2-1.0)
[2017-04-14 09:16] LABS: BLOOD UREA NITROGEN 6 MG/DL (7-18)
[2017-04-14] MEDS: amLODIPine BESYLATE 5 MG TAB PO SCH (10:22)
[2017-04-14] MEDS: THIAMINE HCL 100 MG TAB PO SCH (10:23)
[2017-04-14] MEDS: LISINOPRIL 20 MG TAB PO SCH (10:23)
[2017-04-14] MEDS: NICOTINE 21 MG/24 HR PATCH T-DERMAL SCH (10:23)
[2017-04-14] MEDS: FOLIC ACID 1 MG TAB PO SCH (10:23)
[2017-04-14] MEDS: MULTIVITAMINS/MINERALS THERAPEUTIC TAB PO SCH (10:23)
[2017-04-14] MEDS: PANTOPRAZOLE SOD 40 MG DELAYED RELEASE TAB PO SCH (10:23)
[2017-04-14] MEDS: SODIUM CHLORIDE 0.9% FLUSH 10 ML FLUSH IV FLUSH SCH ×2 (10:24→20:20)
--- NOTE | 2017-04-14 11:07 | PD.CAR.PN ---
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 Patient is on wide spectrum antibiotics as he should be Lung is not fully expanded yet and when drainage seizes in next few days we will reevaluate the patient as far as the need for surgery In the lung is unable to expand due to pleural peel patient will need thoracoscopy and possible thoracotomy with decortication but I will give him at least 4-5 days for this to sort out All things equal patient may need thoracoscopy in the near future and I'll taken to the OR next week if indicated Will continue to follow 04/13/17 Drainage from the left chest tube has decreased and is more serosanguineous at this time Patient continuous IV antibiotics and will remain on for at least 2 weeks On current chest x-ray lung is still not fully expanded and there is a residual pneumothorax of about 2 cm all around the lower portion of the lung where it does not appear to the chest wall If this persists patient will be taken next week for thoracoscopy/thoracotomy and decortication 04/14/17 Lung still not fully expanded and while the left lower lobe area is slowly expanding and effusion is clearing up the entire lung appears to be encased and there is a persistent pneumothorax present due to lung entrapment Patient will be scheduled for thoracoscopy / thoracotomy and decortication early next week Objective: Vital Signs Date Time Temp Pulse Resp B/P Pulse Ox O2 Delivery O2 Flow Rate FiO2 04/14/17 10:02 98 Nasal Cannula 2.00 04/14/17 08:00 98.2 101 24 129/81 97 04/14/17 06:00 98.1 114 22 135/73 92 04/14/17 04:44 96 Nasal Cannula 2.00 04/14/17 04:00 97.6 90 22 123/84 96 04/14/17 00:00 98.6 96 22 114/68 95 04/13/17 20:30 Room Air 04/13/17 20:00 98.6 96 24 137/89 93 04/13/17 20:00 95 04/13/17 16:00 97.6 98 20 136/88 94 04/13/17 12:00 98.7 94 20 127/82 93 Labs: Laboratory Tests Test 04/14/17 08:03 White Blood Count 15.3 TH/MM3 (4.0-11.0) Red Blood Count 3.12 MIL/MM3 (4.50-5.90) Hemoglobin 9.0 GM/DL (13.0-17.0) Hematocrit 27.5 % (39.0-51.0) Mean Corpuscular Volume 88.1 FL (80.0-100.0) Mean Corpuscular Hemoglobin 28.9 PG (27.0-34.0) Mean Corpuscular Hemoglobin 32.7 % Concent (32.0-36.0) Red Cell Distribution Width 17.0 % (11.6-17.2) Platelet Count 342 TH/MM3 (150-450) Mean Platelet Volume 7.6 FL (7.0-11.0) Neutrophils (%) (Auto) 86.0 % (16.0-70.0) Lymphocytes (%) (Auto) 6.4 % (9.0-44.0) Monocytes (%) (Auto) 7.3 % (0.0-8.0) Eosinophils (%) (Auto) 0.1 % (0.0-4.0) Basophils (%) (Auto) 0.2 % (0.0-2.0) Neutrophils # (Auto) 13.1 TH/MM3 (1.8-7.7) Lymphocytes # (Auto) 1.0 TH/MM3 (1.0-4.8) Monocytes # (Auto) 1.1 TH/MM3 (0-0.9) Eosinophils # (Auto) 0.0 TH/MM3 (0-0.4) Basophils # (Auto) 0.0 TH/MM3 (0-0.2) CBC Comment DIFF FINAL Differential Comment Hematology Comments Sodium Level 139 MEQ/L (136-145) Potassium Level 3.3 MEQ/L (3.5-5.1) Chloride Level 101 MEQ/L (98-107) Carbon Dioxide Level 29.4 MEQ/L (21.0-32.0) Anion Gap 9 MEQ/L (5-15) Blood Urea Nitrogen 6 MG/DL (7-18) Creatinine 0.50 MG/DL (0.60-1.30) Estimat Glomerular Filtration 168 ML/MIN Rate (>89) Random Glucose 103 MG/DL (74-106) Calcium Level 7.9 MG/DL (8.5-10.1) Total Bilirubin 0.4 MG/DL (0.2-1.0) Aspartate Amino Transf 45 U/L (15-37) (AST/SGOT) Alanine Aminotransferase 30 U/L (12-78) (ALT/SGPT) Alkaline Phosphatase 109 U/L (45-117) Total Protein 5.3 GM/DL (6.4-8.2) Albumin 1.3 GM/DL (3.4-5.0) Result Diagram: 04/14/17 0803 04/14/17 0803 Emma Suarez MD April 14, 2017 11:07
[2017-04-14] MEDS ORDERED: POTASSIUM CHLORIDE 10 MEQ CONTROLLED RELEASE TAB PO ONE (11:15)
--- NOTE | 2017-04-14 11:17 | RADRPT ---
EXAM DATE/TIME: 04/14/2017 10:42 [facility] COMPARISON: CHEST SINGLE AP, April 13, 2017, 9:26. INDICATIONS : Short of breath. Evaluate for pneumothorax. MEDICAL HISTORY : Hypertension. Cardiovascular disease. SURGICAL HISTORY : Chest tube. ENCOUNTER: Subsequent ACUITY: 3 days PAIN SCORE: Non-responsive. LOCATION: Bilateral chest FINDINGS: Portable upright expiratory view of the chest demonstrates a normal-sized cardiac silhouette. Large b ore left chest tube remains present. There is persistent but decreased trace left pleural air. No sig nificant pneumothorax is present. There is stable pleural thickening on the left with airspace consol idation the left lung base. There is also mild atelectasis versus consolidation at the right base. CONCLUSION: 1. Trace left pleural air, slightly decreased from yesterday's examination. No significant pneumothor ax is present. 2. Stable left pleural thickening and consolidation at the left lung base. Maximo Encinas MD on April 14, 2017 at 11:14 Board Certified Radiologist. This report was verified electronically.
[2017-04-14] MEDS: LEVOFLOXACIN 750 MG PREMIX INJ 150 ML IV SCH (12:33)
--- NOTE | 2017-04-14 12:43 | HHI.FPPN ---
Addendum to progress note ADDENDUM Reason for addendum: Additonal documentation Additional information Patient seen and examined this afternoon. Patient sleeping in bed. Per RN, he had been awake all morning and had eaten some of his breakfast. He was given 1mg of IV ativan at about 10:30. He has been drowsy for about the past hour. Patient is asking for a beer upon waking up. Patient is alert and oriented to person and place. Still states that it is 1978. Able to follow basic commands. His only complaint is of wanting a beer and stating he is tired. CXR shows trace left pleural air, slightly decreased from yesterdays examination; stable left pleural thickening and consolidation at the left lung base. Will continue to monitor clinically and reevaluate if the patient has any acute changes respiratory or in mentation. Ernst David MD R1 April 14, 2017 12:43
[2017-04-14] MEDS ORDERED: MAGNESIUM OXIDE 400 MG TAB PO ONE (12:45)
[2017-04-14] MEDS: ENOXAPARIN SODIUM 40 MG/0.4 ML SYRINGE SQ SCH (14:20)
[2017-04-14] MEDS: REMOVE OLD PATCH T-DERMAL SCH (20:20)
[2017-04-15] VITALS (9 sets, daily range): BP systolic 100–141; BP diastolic 53–83; PULSE 80–98; RESP 18–20; TEMP 97.6–98.3; O2SAT 95–98
[2017-04-15] MEDS: PIPERACIL-TAZO 4.5 GM PREMIX 100 ML IV SCH ×4 (00:40→19:00)
[2017-04-15] MEDS: LORazepam 2 MG/ML VIAL IV PUSH PRN ×2 (00:44→04:56)
[2017-04-15] MEDS: RESP: ALBUTEROL 2.5 MG/IPRATROPIUM 0.5 MG NEB (SCH) NEB ×4 (03:58→20:41)
[2017-04-15] MEDS: VANCOMYCIN INJ 1,500 MG in SODIUM CHLORID 0.9% 500 ML INJ 500 ML IV SCH ×2 (04:54→16:00)
[2017-04-15 07:12] LABS: BASOPHIL # 0.1 TH/MM3 (0-0.2); BASOPHIL % 0.5 % (0.0-2.0); EOSINOPHIL % 0.3 % (0.0-4.0); HEMATOCRIT 28.6 % (39.0-51.0); HEMO FLAGS DIFF FINAL; LYMPH % 7.2 % (9.0-44.0); LYMPHOCYTE # 0.9 TH/MM3 (1.0-4.8); MEAN CELL VOLUME 89.2 FL (80.0-100.0); MEAN CORPUSCULAR HEMOGLOBIN 28.8 PG (27.0-34.0); MEAN CORPUSCULAR HGB CONC 32.3 % (32.0-36.0); MONO % 5.9 % (0.0-8.0); NEUT % 86.1 % (16.0-70.0); PLATELET COUNT 352 TH/MM3 (150-450); RED CELL DISTRIBUTION WIDTH 17.1 % (11.6-17.2); WHITE BLOOD COUNT 12.8 TH/MM3 (4.0-11.0)
[2017-04-15 07:38] LABS: BICARBONATE 34.4 MEQ/L (21.0-32.0); MAGNESIUM 1.2 MG/DL (1.5-2.5); POTASSIUM 3.3 MEQ/L (3.5-5.1)
[2017-04-15] MEDS ORDERED: POTASSIUM CHLORIDE 10 MEQ CONTROLLED RELEASE TAB PO ONE ×2 (08:00→10:45)
[2017-04-15] MEDS: SODIUM CHLORIDE 0.9% FLUSH 10 ML FLUSH IV FLUSH SCH ×2 (09:00→21:30)
--- NOTE | 2017-04-15 09:04 | HHI.FPPN ---
Subjective Remarks Patient is doing "okay" this morning. He states "the pneumonia is taking its toll on me." Discussed with nursing, patient is in restraints and has a sitter because he has tried pulling out his lines overnight. Nursing states if allowed to be out of the restraints, he will get up and walk out of the room. Nursing is concerned with his swallowing, and is requesting a swallow evaluation by speech therapy. He is tolerating Jell-O without problems. Denies fever, chills, nausea, vomiting. (Niko Bauer MD R2) Objective Vitals Vital Signs Date Time Temp Pulse Resp B/P Pulse Ox O2 Delivery O2 Flow Rate FiO2 04/15/17 04:00 97.6 95 18 124/76 96 04/15/17 00:00 97.6 94 18 141/81 98 04/14/17 20:42 96 Nasal Cannula 2.00 04/14/17 20:00 Nasal Cannula 2.00 04/14/17 20:00 97.7 94 18 139/76 94 04/14/17 16:00 94.3 82 20 143/80 100 04/14/17 12:00 98.2 87 20 147/72 98 04/14/17 10:02 98 Nasal Cannula 2.00 I/O 04/14/17 04/14/17 04/14/17 04/15/17 04/15/17 04/15/17 07:00 15:00 23:00 07:00 15:00 23:00 Intake Total 240 ml 0 ml 160 ml 1829 ml Output Total 2200 ml 1000 ml 0 ml 650 ml Balance -1960 ml -1000 ml 160 ml 1179 ml Intake Oral 240 ml 0 ml 160 ml 100 ml IV Total 1729 ml Output Urine Total 2200 ml 900 ml 600 ml Chest Tube Drainage Total 100 ml 0 ml 50 ml # Voids 1 1 # Bowel Movements 1 0 0 (Niko Bauer MD R2) Result Diagram: 04/15/1734 04/15/17 06 Objective Remarks Chest tube: 150 ML's sero-sanguinous output in 24 hours GENERAL: NAD, lying comfortably in bed NEURO: Alert. Oriented to person and place. Not oriented to time. States the months of the years forward, refuses to state the months of the years in reverse. Normal speech. pumper gauger grossly intact. Woods Rider strength 4/5 b/l. Lower extremity strength 4/5 b/l. SKIN: Warm and dry. Small laceration covered by adhesive over left eyebrow. Another small laceration along left elbow that is wrapped. No active bleeding. HEAD: Normocephalic. Atraumatic. EYES: EOMI. No scleral icterus. No injection or drainage. ENT: No nasal drainage. Moist mucous membranes. NECK: Supple, trachea midline. No JVD. CARDIOVASCULAR: Regular rate and rhythm. RESPIRATORY: Diminished breath sounds at left mid lung to left lung base. Fair aeration of left upper lung field. Clear breath sounds right lung. GASTROINTESTINAL: Abdomen soft, nontender, nondistended, normal BS. MUSCULOSKELETAL: No edema, cyanosis, or clubbing. Normal range of motion. BACK: Nontender without obvious deformity. (Niko Bauer MD R2) A/P Assessment and Plan 61-year-old male with PMH significant for COPD brought to the ED via EV[facility] today due to shortness of breath at home and found to have a left hydropneumothorax and left basilar consolidation. Cardiovascular surgery has been consulted for recommendations and chest tube placement. Patient is a [employer] Avoid frequent blood draws Discharge Planning Unclear timetable. Cardiovascular surgery following patient. Pt may need additional procedure in OR if lung is unable to fully expand (Niko Bauer MD R2) Attending Attestation Patient seen and examined, discussed with resident team. I agree with assessment and management as documented and discussed with me. Pt denies SOB, chest pain. Pneumothorax resolved on today's CXR. Still with drainage/output from chest tube. Strep viridans from pleural culture - Requested sensitivities. D/C Levaquin today. Consider d/c of vancomycin pending sensitivities results. (Emilia Anderson MD) Problem List: (1) Hydropneumothorax Status: Acute Plan: - Cardiovascular surgery consulted, has placed left chest tube noting to drain purulent material - Per cardiovascular surgery, if the patient's long does not fully expand the patient will require video-assisted thoracotomy or a small open thoracotomy with decortication Pleural fluid: Elevated white blood cells. LDH greater than 4000. 99 neutrophils. Pleural culture: streptococcus species Blood culture: No growth 3 day Repeat x-ray this a.m. Antibiotics: - Received cefepime 2 g IV 1 and azithromycin 500 mg IV 1 in the ED - Continue Vancomycin IV q12h, dosing per pharmacy consult - Continue Zosyn 4.5 gm IV q6h - Continue Levaquin 750 mg IV q24h (2) Sepsis Status: Acute Plan: Patient meets sepsis criteria on admission Plan as above (3) Anemia Status: Acute Plan: Hgb 10.4 on admission Stable Normocytic Patient reported melena over the past week as well as visible blood in stools Obtain hemoccult, GI consult if positive Consider iron studies Patient is a [employer] Continue to monitor Avoid frequent blood draws (4) Hypokalemia Status: Acute Plan: Monitor and replace as needed (5) Hypomagnesemia Status: Acute Plan: Monitor and replace as needed (6) Melena Status: Acute Plan: - Patient endorsed melena over the past week - Obtain Hemoccult, GI consult if positive (7) Alcohol abuse Status: Chronic Plan: - [facility] protocol - PO MV, thiamine, folic acid (8) Tobacco dependence, continuous Status: Chronic Plan: Nicotine patch 21 mg Remove each night before sleeping (9) Nutrition, metabolism, and development symptoms Status: Acute Plan: Fluids: NS at 100 cc/hr Electrolytes: Continue to monitor and replete as necessary Nutrition: Heart healthy diet DVT prophylaxis: Lovenox GI prophylaxis: Protonix Patient is a [employer], avoid blood draws if possible (Niko Bauer MD R2) Niko Bauer MD R2 April 15, 2017 09:04 Emilia Anderson MD April 15, 2017 12:20
[2017-04-15] MEDS: MAGNESIUM OXIDE 400 MG TAB PO SCH ×2 (09:15→21:30)
--- NOTE | 2017-04-15 09:29 | RADRPT ---
EXAM DATE/TIME: 04/15/2017 09:03 [place] COMPARISON: CHEST SINGLE AP, April 14, 2017, 10:42. INDICATIONS : Evaluate for pneumonia. Shortness of breath. MEDICAL HISTORY : Hypertension. Cardiovascular disease. SURGICAL HISTORY : None. ENCOUNTER: Initial ACUITY: 1 day PAIN SCORE: 0/10 LOCATION: Bilateral chest FINDINGS: Portable AP view of the chest demonstrates a normal-sized cardiac silhouette. Left chest tube is pres ent and no pneumothorax is visualized. There is stable left pleural thickening and severe air space c onsolidation in the left lower lung zone. Hazy opacity remains present at the right lung base. CONCLUSION: 1. Stable severe air space consolidation at the left lung base. This could represent a pneumonia in t he proper clinical setting. 2. Left chest tube remains present and no pneumothorax is seen. There is stable left pleural thickeni ng. Maximo Encinas MD on April 15, 2017 at 9:27 Board Certified Radiologist. This report was verified electronically.
[2017-04-15] MEDS: THIAMINE HCL 100 MG TAB PO SCH (10:13)
[2017-04-15] MEDS: NICOTINE 21 MG/24 HR PATCH T-DERMAL SCH (10:13)
[2017-04-15] MEDS: LISINOPRIL 20 MG TAB PO SCH (10:14)
[2017-04-15] MEDS: FOLIC ACID 1 MG TAB PO SCH (10:14)
[2017-04-15] MEDS: PANTOPRAZOLE SOD 40 MG DELAYED RELEASE TAB PO SCH (10:14)
[2017-04-15] MEDS: MULTIVITAMINS/MINERALS THERAPEUTIC TAB PO SCH (10:14)
[2017-04-15] MEDS: SODIUM CHLOR 0.9% 1000 ML INJ 1,000 ML IV SCH ×2 (10:15→17:12)
[2017-04-15] MEDS: amLODIPine BESYLATE 5 MG TAB PO SCH (10:15)
[2017-04-15] MEDS ORDERED: MAGNESIUM OXIDE 400 MG TAB PO ONE (10:45)
--- NOTE | 2017-04-15 12:47 | PD.CAR.PN ---
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 Patient is on wide spectrum antibiotics as he should be Lung is not fully expanded yet and when drainage seizes in next few days we will reevaluate the patient as far as the need for surgery In the lung is unable to expand due to pleural peel patient will need thoracoscopy and possible thoracotomy with decortication but I will give him at least 4-5 days for this to sort out All things equal patient may need thoracoscopy in the near future and I'll taken to the OR next week if indicated Will continue to follow 04/13/17 Drainage from the left chest tube has decreased and is more serosanguineous at this time Patient continuous IV antibiotics and will remain on for at least 2 weeks On current chest x-ray lung is still not fully expanded and there is a residual pneumothorax of about 2 cm all around the lower portion of the lung where it does not appear to the chest wall If this persists patient will be taken next week for thoracoscopy/thoracotomy and decortication 04/14/17 Lung still not fully expanded and while the left lower lobe area is slowly expanding and effusion is clearing up the entire lung appears to be encased and there is a persistent pneumothorax present due to lung entrapment Patient will be scheduled for thoracoscopy / thoracotomy and decortication early next week 04/15/17 Patient with entrapped left lung and left drained empyema Scheduled for Sunday for thoracoscopy and decortication of the left lung Objective: Vital Signs Date Time Temp Pulse Resp B/P Pulse Ox O2 Delivery O2 Flow Rate FiO2 04/15/17 12:00 98.0 90 18 100/53 96 04/15/17 11:43 98 Nasal Cannula 2.00 04/15/17 08:00 97.8 80 18 136/83 98 04/15/17 04:00 97.6 95 18 124/76 96 04/15/17 00:00 97.6 94 18 141/81 98 04/14/17 20:42 96 Nasal Cannula 2.00 04/14/17 20:00 Nasal Cannula 2.00 04/14/17 20:00 97.7 94 18 139/76 94 04/14/17 16:00 94.3 82 20 143/80 100 Labs: Laboratory Tests Test 04/15/17 06:34 White Blood Count 12.8 TH/MM3 (4.0-11.0) Red Blood Count 3.20 MIL/MM3 (4.50-5.90) Hemoglobin 9.2 GM/DL (13.0-17.0) Hematocrit 28.6 % (39.0-51.0) Mean Corpuscular Volume 89.2 FL (80.0-100.0) Mean Corpuscular Hemoglobin 28.8 PG (27.0-34.0) Mean Corpuscular Hemoglobin 32.3 % Concent (32.0-36.0) Red Cell Distribution Width 17.1 % (11.6-17.2) Platelet Count 352 TH/MM3 (150-450) Mean Platelet Volume 7.3 FL (7.0-11.0) Neutrophils (%) (Auto) 86.1 % (16.0-70.0) Lymphocytes (%) (Auto) 7.2 % (9.0-44.0) Monocytes (%) (Auto) 5.9 % (0.0-8.0) Eosinophils (%) (Auto) 0.3 % (0.0-4.0) Basophils (%) (Auto) 0.5 % (0.0-2.0) Neutrophils # (Auto) 11.0 TH/MM3 (1.8-7.7) Lymphocytes # (Auto) 0.9 TH/MM3 (1.0-4.8) Monocytes # (Auto) 0.7 TH/MM3 (0-0.9) Eosinophils # (Auto) 0.0 TH/MM3 (0-0.4) Basophils # (Auto) 0.1 TH/MM3 (0-0.2) CBC Comment DIFF FINAL Differential Comment Sodium Level 142 MEQ/L (136-145) Potassium Level 3.3 MEQ/L (3.5-5.1) Chloride Level 100 MEQ/L (98-107) Carbon Dioxide Level 34.4 MEQ/L (21.0-32.0) Anion Gap 8 MEQ/L (5-15) Blood Urea Nitrogen 4 MG/DL (7-18) Creatinine 0.53 MG/DL (0.60-1.30) Estimat Glomerular Filtration 158 ML/MIN Rate (>89) Random Glucose 91 MG/DL (74-106) Calcium Level 7.8 MG/DL (8.5-10.1) Magnesium Level 1.2 MG/DL (1.5-2.5) Result Diagram: 04/15/17 0634 04/15/17 0634 Emma Suarez MD April 15, 2017 12:47
[2017-04-15] MEDS: ENOXAPARIN SODIUM 40 MG/0.4 ML SYRINGE SQ SCH (15:00)
[2017-04-15] MEDS: REMOVE OLD PATCH T-DERMAL SCH (21:00)
[2017-04-15] MEDS: LORazepam 1 MG TAB PO PRN (21:29)
[2017-04-16] VITALS (8 sets, daily range): BP systolic 120–150; BP diastolic 66–96; PULSE 95–106; RESP 16–20; TEMP 97.2–98.4; O2SAT 96–98
[2017-04-16] MEDS: PIPERACIL-TAZO 4.5 GM PREMIX 100 ML IV SCH ×4 (02:43→18:53)
[2017-04-16] MEDS: SODIUM CHLOR 0.9% 1000 ML INJ 1,000 ML IV SCH ×3 (03:12→23:19)
[2017-04-16] MEDS: RESP: ALBUTEROL 2.5 MG/IPRATROPIUM 0.5 MG NEB (SCH) NEB ×3 (03:42→15:37)
[2017-04-16] MEDS: VANCOMYCIN INJ 1,500 MG in SODIUM CHLORID 0.9% 500 ML INJ 500 ML IV SCH ×2 (04:58→15:13)
[2017-04-16 08:18] LABS: AUTOMATED NEUTROPHIL # 11.2 TH/MM3 (1.8-7.7); BASOPHIL % 0.2 % (0.0-2.0); EOSINOPHIL % 0.4 % (0.0-4.0); HEMATOCRIT 28.1 % (39.0-51.0); HEMO FLAGS DIFF FINAL; LYMPH % 7.8 % (9.0-44.0); MEAN CELL VOLUME 90.5 FL (80.0-100.0); MONO % 6.7 % (0.0-8.0); NEUT % 84.9 % (16.0-70.0); PLATELET COUNT 376 TH/MM3 (150-450); RED BLOOD COUNT 3.11 MIL/MM3 (4.50-5.90); RED CELL DISTRIBUTION WIDTH 17.1 % (11.6-17.2); WHITE BLOOD COUNT 13.2 TH/MM3 (4.0-11.0)
[2017-04-16 08:51] LABS: ALKALINE PHOSPHATASE 112 U/L (45-117); ALT (GPT) 22 U/L (12-78); ANION GAP 6 MEQ/L (5-15); AST (GOT) 26 U/L (15-37); BLOOD UREA NITROGEN 7 MG/DL (7-18); CHLORIDE 105 MEQ/L (98-107); GLOMERULAR FILTRATION RATE 82 ML/MIN (>89); MAGNESIUM 1.5 MG/DL (1.5-2.5); SODIUM (NA) 145 MEQ/L (136-145); TOTAL BILIRUBIN ADULT 0.4 MG/DL (0.2-1.0)
[2017-04-16] MEDS: THIAMINE HCL 100 MG TAB PO SCH (09:00)
[2017-04-16] MEDS: MAGNESIUM OXIDE 400 MG TAB PO SCH ×2 (09:00→20:27)
[2017-04-16] MEDS: FOLIC ACID 1 MG TAB PO SCH (09:00)
[2017-04-16] MEDS: PANTOPRAZOLE SOD 40 MG DELAYED RELEASE TAB PO SCH (09:00)
[2017-04-16] MEDS: LISINOPRIL 20 MG TAB PO SCH (09:00)
[2017-04-16] MEDS: NICOTINE 21 MG/24 HR PATCH T-DERMAL SCH (09:00)
[2017-04-16] MEDS: SODIUM CHLORIDE 0.9% FLUSH 10 ML FLUSH IV FLUSH SCH ×2 (09:00→20:29)
[2017-04-16] MEDS: MULTIVITAMINS/MINERALS THERAPEUTIC TAB PO SCH (09:00)
[2017-04-16] MEDS: amLODIPine BESYLATE 5 MG TAB PO SCH (09:00)
--- NOTE | 2017-04-16 11:22 | HHI.FPPN ---
Subjective Remarks No acute events overnight. Afebrile, vitals stable. Patient remains in restraints this AM. Per RN, patient still had been attempting to get OOB and had made some attempts to alter his chest tube placement. Patient is alert this morning. Endorses pain around his chest tube site. Denies any new chest pain, denies pain elsewhere, no fevers. (Ernst David MD R1) Objective Vitals Vital Signs Date Time Temp Pulse Resp B/P Pulse Ox O2 Delivery O2 Flow Rate FiO2 04/16/17 08:59 97 Nasal Cannula 2.00 04/16/17 08:00 97.2 97 20 140/88 98 04/16/17 04:00 97.5 103 20 149/79 97 04/16/17 00:00 98.2 101 18 120/66 96 04/16/17 00:00 Nasal Cannula 2.00 04/15/17 20:41 95 Nasal Cannula 2.00 04/15/17 20:24 98 04/15/17 20:00 Nasal Cannula 2.00 04/15/17 20:00 98.3 98 20 124/71 96 04/15/17 16:00 97.8 91 18 118/64 97 04/15/17 12:00 98.0 90 18 100/53 96 04/15/17 11:43 98 Nasal Cannula 2.00 I/O 04/15/17 04/15/17 04/15/17 04/16/17 04/16/17 04/16/17 06:59 14:59 22:59 06:59 14:59 22:59 Intake Total 1829 ml 360 ml 360 ml 1540 ml Output Total 650 ml 1100 ml 775 ml 1580 ml Balance 1179 ml -740 ml -415 ml -40 ml Intake Oral 100 ml 360 ml 360 ml 240 ml IV Total 1729 ml 1300 ml Output Urine Total 600 ml 1100 ml 775 ml 1550 ml Chest Tube Drainage Total 50 ml 30 ml # Voids 1 # Bowel Movements 0 0 0 3 (Ernst David MD R1) Result Diagram: 04/16/17 0710 04/16/17 0710 Objective Remarks GENERAL: NAD, lying comfortably in bed NEURO: Alert. Oriented to person and place. Not oriented to time. Normal speech. jig grinder grossly intact. Agile Tester strength 4/5 b/l. Lower extremity strength 4/5 b/l. SKIN: Warm and dry. Small laceration covered by adhesive over left eyebrow. Another small laceration along left elbow that is wrapped. No active bleeding. HEAD: Normocephalic. Atraumatic. EYES: EOMI. No scleral icterus. No injection or drainage. ENT: No nasal drainage. Moist mucous membranes. NECK: Supple, trachea midline. No JVD. CARDIOVASCULAR: Regular rate and rhythm. RESPIRATORY: Diminished breath sounds at left mid lung to left lung base. Fair aeration of left upper lung field. Clear breath sounds right lung. GASTROINTESTINAL: Abdomen soft, nontender, nondistended, normal BS. MUSCULOSKELETAL: No edema, cyanosis, or clubbing. Normal range of motion. BACK: Nontender without obvious deformity. (Ernst David MD R1) A/P Assessment and Plan 61-year-old male with PMH significant for COPD brought to the ED via [facility] today due to shortness of breath at home and found to have a left hydropneumothorax and left basilar consolidation. Cardiovascular surgery has been consulted for recommendations and chest tube placement. Patient is a Jehovah's witness Avoid frequent blood draws Discharge Planning Unclear timetable. Cardiovascular surgery following patient, recommending thoracoscopy and decortication of the left lung for Tuesday 04/17 AM (Ernst David MD R1) Attending Attestation Patient seen, examined, and discussed with resident team. I agree with assessment and management as documented and discussed with me. pt remains stable. He continues to have some output from chest tube. Appreciate Dr. Leblanc (Eimlia Anderson MD) Problem List: (1) Hydropneumothorax Status: Acute Plan: - Cardiovascular surgery consulted, has placed left chest tube noting to drain purulent material, planning for OR tomorrow 04/17 for thoracoscopy and decortication of the left lung Pleural fluid: Elevated white blood cells. LDH greater than 4000. 99 neutrophils. Pleural culture: viridans streptococcus; awaiting sensitivities that have been requested Blood culture: No growth 5 day Antibiotics: - Received cefepime 2 g IV 1 and azithromycin 500 mg IV 1 in the ED - Continue Vancomycin IV q12h, dosing per pharmacy consult - Continue Zosyn 4.5 gm IV q6h - Discontinued Levaquin 750 mg IV q24h (04/11-04/14) - Consider deescalating antibiotics pending pleural fluid culture sensitivities (2) Sepsis Status: Acute Plan: Patient meets sepsis criteria on admission Plan as above (3) Anemia Status: Acute Plan: Hgb 10.4 on admission Stable Normocytic Patient is a Jehovah's witness Continue to monitor Avoid frequent blood draws (4) Hypokalemia Status: Resolved Plan: Monitor and replace as needed (5) Hypomagnesemia Status: Resolved Plan: Monitor and replace as needed (6) Melena Status: Resolved Plan: - Patient endorsed melena over the past week - Obtain Hemoccult, GI consult if positive (7) Alcohol abuse Status: Chronic Plan: - [facility] protocol - PO MV, thiamine, folic acid (8) Tobacco dependence, continuous Status: Chronic Plan: Nicotine patch 21 mg Remove each night before sleeping (9) Nutrition, metabolism, and development symptoms Status: Acute Plan: Fluids: NS at 100 cc/hr Electrolytes: Continue to monitor and replete as necessary Nutrition: Heart healthy diet. NPO after MN ahead of OR 04/17 DVT prophylaxis: Hold Lovenox today GI prophylaxis: Protonix 40 mg po daily Patient is a Jehovah's witness, avoid blood draws if possible (Ernst David MD R1) Ernst David MD R1 April 16, 2017 11:22 Emilia Anderson MD April 16, 2017 12:41
--- NOTE | 2017-04-16 13:33 | PD.CAR.PN ---
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 Patient is on wide spectrum antibiotics as he should be Lung is not fully expanded yet and when drainage seizes in next few days we will reevaluate the patient as far as the need for surgery In the lung is unable to expand due to pleural peel patient will need thoracoscopy and possible thoracotomy with decortication but I will give him at least 4-5 days for this to sort out All things equal patient may need thoracoscopy in the near future and I'll taken to the OR next week if indicated Will continue to follow 04/13/17 Drainage from the left chest tube has decreased and is more serosanguineous at this time Patient continuous IV antibiotics and will remain on for at least 2 weeks On current chest x-ray lung is still not fully expanded and there is a residual pneumothorax of about 2 cm all around the lower portion of the lung where it does not appear to the chest wall If this persists patient will be taken next week for thoracoscopy/thoracotomy and decortication 04/14/17 Lung still not fully expanded and while the left lower lobe area is slowly expanding and effusion is clearing up the entire lung appears to be encased and there is a persistent pneumothorax present due to lung entrapment Patient will be scheduled for thoracoscopy / thoracotomy and decortication early next week 04/15/17 Patient with entrapped left lung and left drained empyema Scheduled for Sunday for thoracoscopy and decortication of the left lung 04/16/17 Patient with persistent lung entrapment and inability to the expand the lung Patient will need thoracoscopy and decortication of the lung patient scheduled for surgery tomorrow Objective: Vital Signs Date Time Temp Pulse Resp B/P Pulse Ox O2 Delivery O2 Flow Rate FiO2 5/29/17 11:53 97.9 98 18 150/81 98 04/16/17 08:59 97 Nasal Cannula 2.00 04/16/17 08:00 95 Nasal Cannula 2.00 04/16/17 08:00 97.2 97 20 140/88 98 04/16/17 04:00 97.5 103 20 149/79 97 04/16/17 00:00 98.2 101 18 120/66 96 04/16/17 00:00 Nasal Cannula 2.00 04/15/17 20:41 95 Nasal Cannula 2.00 04/15/17 20:24 98 04/15/17 20:00 Nasal Cannula 2.00 04/15/17 20:00 98.3 98 20 124/71 96 04/15/17 16:00 97.8 91 18 118/64 97 Labs: Laboratory Tests Test 04/16/17 07:10 White Blood Count 13.2 TH/MM3 (4.0-11.0) Red Blood Count 3.11 MIL/MM3 (4.50-5.90) Hemoglobin 9.0 GM/DL (13.0-17.0) Hematocrit 28.1 % (39.0-51.0) Mean Corpuscular Volume 90.5 FL (80.0-100.0) Mean Corpuscular Hemoglobin 29.0 PG (27.0-34.0) Mean Corpuscular Hemoglobin 32.0 % Concent (32.0-36.0) Red Cell Distribution Width 17.1 % (11.6-17.2) Platelet Count 376 TH/MM3 (150-450) Mean Platelet Volume 7.2 FL (7.0-11.0) Neutrophils (%) (Auto) 84.9 % (16.0-70.0) Lymphocytes (%) (Auto) 7.8 % (9.0-44.0) Monocytes (%) (Auto) 6.7 % (0.0-8.0) Eosinophils (%) (Auto) 0.4 % (0.0-4.0) Basophils (%) (Auto) 0.2 % (0.0-2.0) Neutrophils # (Auto) 11.2 TH/MM3 (1.8-7.7) Lymphocytes # (Auto) 1.0 TH/MM3 (1.0-4.8) Monocytes # (Auto) 0.9 TH/MM3 (0-0.9) Eosinophils # (Auto) 0.0 TH/MM3 (0-0.4) Basophils # (Auto) 0.0 TH/MM3 (0-0.2) CBC Comment DIFF FINAL Differential Comment Sodium Level 145 MEQ/L (136-145) Potassium Level 4.0 MEQ/L (3.5-5.1) Chloride Level 105 MEQ/L (98-107) Carbon Dioxide Level 34.0 MEQ/L (21.0-32.0) Anion Gap 6 MEQ/L (5-15) Blood Urea Nitrogen 7 MG/DL (7-18) Creatinine 0.93 MG/DL (0.60-1.30) Estimat Glomerular Filtration 82 ML/MIN (>89) Rate Random Glucose 119 MG/DL (74-106) Calcium Level 7.8 MG/DL (8.5-10.1) Magnesium Level 1.5 MG/DL (1.5-2.5) Total Bilirubin 0.4 MG/DL (0.2-1.0) Aspartate Amino Transf 26 U/L (15-37) (AST/SGOT) Alanine Aminotransferase 22 U/L (12-78) (ALT/SGPT) Alkaline Phosphatase 112 U/L (45-117) Total Protein 6.1 GM/DL (6.4-8.2) Albumin 1.5 GM/DL (3.4-5.0) Result Diagram: 04/16/17 0710 04/16/17 0710 Emma Suarez MD April 16, 2017 13:33
[2017-04-16] MEDS: LORazepam 1 MG TAB PO PRN (15:14)
[2017-04-16] MEDS: REMOVE OLD PATCH T-DERMAL SCH (20:30)
[2017-04-17] VITALS (8 sets, daily range): BP systolic 124–145; BP diastolic 78–95; PULSE 96–107; RESP 18; TEMP 97.7–98.4; O2SAT 92–99
[2017-04-17] MEDS: PIPERACIL-TAZO 4.5 GM PREMIX 100 ML IV SCH ×2 (01:00→06:16)
[2017-04-17] MEDS: RESP: ALBUTEROL 2.5 MG/IPRATROPIUM 0.5 MG NEB (SCH) NEB ×4 (04:00→21:53)
[2017-04-17] MEDS: VANCOMYCIN INJ 1,500 MG in SODIUM CHLORID 0.9% 500 ML INJ 500 ML IV SCH (04:23)
[2017-04-17 07:39] LABS: AUTOMATED NEUTROPHIL # 10.7 TH/MM3 (1.8-7.7); BASOPHIL # 0.1 TH/MM3 (0-0.2); BASOPHIL % 0.4 % (0.0-2.0); EOSINOPHIL # 0.1 TH/MM3 (0-0.4); EOSINOPHIL % 0.6 % (0.0-4.0); HEMATOCRIT 28.9 % (39.0-51.0); HEMO FLAGS DIFF FINAL; LYMPH % 9.3 % (9.0-44.0); LYMPHOCYTE # 1.2 TH/MM3 (1.0-4.8); MEAN CELL VOLUME 90.4 FL (80.0-100.0); MEAN CORPUSCULAR HEMOGLOBIN 27.9 PG (27.0-34.0); MEAN CORPUSCULAR HGB CONC 30.9 % (32.0-36.0); MONO % 7.2 % (0.0-8.0); NEUT % 82.5 % (16.0-70.0); PLATELET COUNT 347 TH/MM3 (150-450); RED CELL DISTRIBUTION WIDTH 17.3 % (11.6-17.2)
[2017-04-17 07:50] LABS: BICARBONATE 33.8 MEQ/L (21.0-32.0)
[2017-04-17] MEDS: SODIUM CHLORIDE 0.9% FLUSH 10 ML FLUSH IV FLUSH SCH ×2 (09:00→20:41)
--- NOTE | 2017-04-17 09:04 | HHI.FPPN ---
Subjective Remarks No acute events overnight. Afebrile, vitals are stable. Patient is alert this morning, oriented x3. He is aware and has a basic understanding of the procedure today and recalls his conversation with Dr. Suarez. He endorses some pain around site of chest tube insertion. Denies chest pain otherwise; denies fevers or SOB. No calf pain. (Ernst David MD R1) Objective Vitals Vital Signs Date Time Temp Pulse Resp B/P Pulse Ox O2 Delivery O2 Flow Rate FiO2 04/17/17 08:00 97.8 102 18 133/87 98 04/17/17 04:00 98.1 102 18 124/78 92 04/17/17 04:00 Room Air 04/17/17 00:00 97.7 100 18 145/95 95 04/17/17 00:00 Nasal Cannula 2.00 04/16/17 20:00 Nasal Cannula 2.00 04/16/17 20:00 106 04/16/17 20:00 98.4 99 16 133/78 98 04/16/17 19:24 98 Nasal Cannula 2.00 04/16/17 16:04 16 04/16/17 16:00 97.8 95 20 141/96 97 04/16/17 11:53 97.9 98 18 150/81 98 I/O 04/16/17 04/16/17 04/16/17 04/17/17 04/17/17 04/17/17 06:59 14:59 22:59 06:59 14:59 22:59 Intake Total 1540 ml 840 ml 2043 ml 1269 ml Output Total 1580 ml 1825 ml 850 ml 770 ml Balance -40 ml -985 ml 1193 ml 499 ml Intake Oral 240 ml 840 ml IV Total 1300 ml 2043 ml 1269 ml Output Urine Total 1550 ml 1825 ml 850 ml 750 ml Chest Tube Drainage Total 30 ml 0 ml 20 ml # Bowel Movements 3 3 0 1 (Ernst David MD R1) Result Diagram: 04/17/17 0540 04/17/17 0540 Objective Remarks GENERAL: NAD, lying comfortably in bed NEURO: Alert. Oriented to person and place. Not oriented to time. Normal speech. jewel hole finish opener grossly intact. Dude Wrangler strength 4/5 b/l. Lower extremity strength 4/5 b/l. SKIN: Warm and dry. Small laceration covered by adhesive over left eyebrow. Another small laceration along left elbow that is wrapped. No active bleeding. HEAD: Normocephalic. Atraumatic. EYES: EOMI. No scleral icterus. No injection or drainage. ENT: No nasal drainage. Moist mucous membranes. NECK: Supple, trachea midline. No JVD. CARDIOVASCULAR: Regular rate and rhythm. RESPIRATORY: Diminished breath sounds at left mid lung to left lung base. Fair aeration of left upper lung field. Clear breath sounds right lung. GASTROINTESTINAL: Abdomen soft, nontender, nondistended, normal BS. MUSCULOSKELETAL: No edema, cyanosis, or clubbing. Normal range of motion. BACK: Nontender without obvious deformity. (Ernst David MD R1) A/P Assessment and Plan 61-year-old male with PMH significant for COPD brought to the ED via EVAC today due to shortness of breath at home and found to have a left hydropneumothorax and left basilar consolidation. Cardiovascular surgery has been consulted for recommendations. Patient is a Shinto Avoid frequent blood draws Discharge Planning Unclear timetable. Cardiovascular surgery following patient, recommending thoracoscopy and decortication of the left lung for Tuesday 04/17 (Ernst David MD R1) Attending Attestation Patient seen and examined, discussed with resident team. I agree with assessment and management as documented and discussed with me. Pt feels ready for surgery today. His friend and caregiver, Da Dubois, is in room today. Appreciate Dr. Leblanc (Emilia Anderson MD) Problem List: (1) Hydropneumothorax Status: Acute Plan: - Cardiovascular surgery consulted, has placed left chest tube noting to drain purulent material, planning for OR 04/17 for thoracoscopy and decortication of the left lung Pleural fluid: Elevated white blood cells. LDH greater than 4000. 99 neutrophils. Pleural culture: viridans streptococcus; awaiting sensitivities that have been requested Blood culture: No growth 5 day Antibiotics: - Received cefepime 2 g IV 1 and azithromycin 500 mg IV 1 in the ED - Continue Vancomycin IV q12h, dosing per pharmacy consult - Continue Zosyn 4.5 gm IV q6h - Discontinued Levaquin 750 mg IV q24h (04/11-04/14) - Consider deescalating antibiotics pending pleural fluid culture sensitivities (2) Sepsis Status: Acute Plan: Patient meets sepsis criteria on admission Plan as above (3) Anemia Status: Acute Plan: Hgb 10.4 on admission Stable Normocytic Patient is a Shinto Continue to monitor Avoid frequent blood draws (4) Hypokalemia Status: Resolved Plan: Monitor and replace as needed (5) Hypomagnesemia Status: Resolved Plan: Monitor and replace as needed (6) Melena Status: Resolved Plan: - Patient endorsed melena over the past week - Obtain Hemoccult, GI consult if positive - Hgb stable (7) Alcohol abuse Status: Chronic Plan: - [facility] protocol - PO MV, thiamine, folic acid (8) Tobacco dependence, continuous Status: Chronic Plan: Nicotine patch 21 mg Remove each night before sleeping (9) Nutrition, metabolism, and development symptoms Status: Acute Plan: Fluids: NS at 100 cc/hr Electrolytes: Continue to monitor and replete as necessary Nutrition: Has been NPO after this past MN ahead of OR today. Resume heart healthy diet when appropriate DVT prophylaxis: Hold Lovenox; b/l SCDs GI prophylaxis: Protonix 40 mg po daily (Ernst David MD R1) Ernst David MD R1 April 17, 2017 09:04 Emilia Anderson MD April 17, 2017 12:30
[2017-04-17] MEDS: THIAMINE HCL 100 MG TAB PO SCH (09:57)
[2017-04-17] MEDS: LISINOPRIL 20 MG TAB PO SCH (09:57)
[2017-04-17] MEDS: amLODIPine BESYLATE 5 MG TAB PO SCH (09:57)
[2017-04-17] MEDS: PANTOPRAZOLE SOD 40 MG DELAYED RELEASE TAB PO SCH (09:58)
[2017-04-17] MEDS: MULTIVITAMINS/MINERALS THERAPEUTIC TAB PO SCH (09:58)
[2017-04-17] MEDS: FOLIC ACID 1 MG TAB PO SCH (09:58)
[2017-04-17] MEDS: MAGNESIUM OXIDE 400 MG TAB PO SCH ×2 (09:58→20:41)
[2017-04-17] MEDS: SODIUM CHLOR 0.9% 1000 ML INJ 1,000 ML IV SCH ×2 (15:00→19:12)
[2017-04-17] MEDS: REMOVE OLD PATCH T-DERMAL SCH ×2 (16:02→20:44)
[2017-04-17] MEDS: NICOTINE 21 MG/24 HR PATCH T-DERMAL SCH (16:02)
[2017-04-17] MEDS: cefTRIAXone INJ 1,000 MG in SODIUM CHLORIDE 0.9% INJ 100 ML IV SCH (16:08)
--- NOTE | 2017-04-17 18:11 | PD.CAR.PN ---
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 Patient is on wide spectrum antibiotics as he should be Lung is not fully expanded yet and when drainage seizes in next few days we will reevaluate the patient as far as the need for surgery In the lung is unable to expand due to pleural peel patient will need thoracoscopy and possible thoracotomy with decortication but I will give him at least 4-5 days for this to sort out All things equal patient may need thoracoscopy in the near future and I'll taken to the OR next week if indicated Will continue to follow 04/13/17 Drainage from the left chest tube has decreased and is more serosanguineous at this time Patient continuous IV antibiotics and will remain on for at least 2 weeks On current chest x-ray lung is still not fully expanded and there is a residual pneumothorax of about 2 cm all around the lower portion of the lung where it does not appear to the chest wall If this persists patient will be taken next week for thoracoscopy/thoracotomy and decortication 04/14/17 Lung still not fully expanded and while the left lower lobe area is slowly expanding and effusion is clearing up the entire lung appears to be encased and there is a persistent pneumothorax present due to lung entrapment Patient will be scheduled for thoracoscopy / thoracotomy and decortication early next week 04/15/17 Patient with entrapped left lung and left drained empyema Scheduled for Sunday for thoracoscopy and decortication of the left lung 04/16/17 Patient with persistent lung entrapment and inability to the expand the lung Patient will need thoracoscopy and decortication of the lung patient scheduled for surgery tomorrow 04/17/17 Clearing up of the left lower quadrant of the lung with better visualization of the diaphragm Lung is still not fully inflated and there is about a centimeter or 2 between the chest wall and the actual lung parenchyma due to entrapment and inability to expand completely Patient was going to have a VATS today yet he refuses blood or blood products While most likely patient would not need transfusion doing the pleurectomy and removing the peel is often associated with diffuse bleeding and before you know at the hemoglobin can drop significantly I've discussed this with patient at length and at this point given the circumstances I believe the risk-benefit ratio goes against surgery for I'll not be in the clinical situation where patient requires blood by every medical standard but refuses to get it Surgeries therefore postponed and we will work to get patient's hemoglobin up before we do any surgery Objective: Vital Signs Date Time Temp Pulse Resp B/P Pulse Ox O2 Delivery O2 Flow Rate FiO2 04/17/17 16:00 98.1 107 18 128/80 96 04/17/17 12:00 98.2 100 18 145/91 95 04/17/17 08:15 100 04/17/17 08:00 97.8 102 18 133/87 98 04/17/17 07:00 Nasal Cannula 2.00 04/17/17 07:00 Nasal Cannula 2.00 04/17/17 04:00 98.1 102 18 124/78 92 04/17/17 04:00 Room Air 04/17/17 00:00 97.7 100 18 145/95 95 04/17/17 00:00 Nasal Cannula 2.00 04/16/17 20:00 Nasal Cannula 2.00 04/16/17 20:00 106 04/16/17 20:00 98.4 99 16 133/78 98 04/16/17 19:24 98 Nasal Cannula 2.00 Result Diagram: 04/17/17 0540 04/17/17 0540 Emma Suarez MD April 17, 2017 18:11
[2017-04-18] VITALS (10 sets, daily range): BP systolic 120–138; BP diastolic 72–86; PULSE 54–109; RESP 16–18; TEMP 97.8–98.6; O2SAT 94–100
[2017-04-18] MEDS ORDERED: PHARMACY ORDERED LAB ONE (03:45)
[2017-04-18] MEDS: RESP: ALBUTEROL 2.5 MG/IPRATROPIUM 0.5 MG NEB (SCH) NEB ×4 (04:00→21:11)
[2017-04-18 07:28] LABS: AUTOMATED NEUTROPHIL # 8.7 TH/MM3 (1.8-7.7); BASOPHIL % 0.4 % (0.0-2.0); EOSINOPHIL # 0.1 TH/MM3 (0-0.4); EOSINOPHIL % 0.6 % (0.0-4.0); HEMATOCRIT 28.9 % (39.0-51.0); HEMO FLAGS DIFF FINAL; LYMPH % 12.6 % (9.0-44.0); LYMPHOCYTE # 1.4 TH/MM3 (1.0-4.8); MEAN CELL VOLUME 89.1 FL (80.0-100.0); MEAN CORPUSCULAR HEMOGLOBIN 29.1 PG (27.0-34.0); MEAN CORPUSCULAR HGB CONC 32.6 % (32.0-36.0); MONO % 9.2 % (0.0-8.0); NEUT % 77.2 % (16.0-70.0); PLATELET COUNT 354 TH/MM3 (150-450); RED BLOOD COUNT 3.24 MIL/MM3 (4.50-5.90); RED CELL DISTRIBUTION WIDTH 17.3 % (11.6-17.2); WHITE BLOOD COUNT 11.2 TH/MM3 (4.0-11.0)
[2017-04-18 08:06] LABS: POTASSIUM 4.1 MEQ/L (3.5-5.1)
[2017-04-18] MEDS: LISINOPRIL 20 MG TAB PO SCH (08:19)
[2017-04-18] MEDS: MAGNESIUM OXIDE 400 MG TAB PO SCH ×2 (08:19→22:26)
[2017-04-18] MEDS: THIAMINE HCL 100 MG TAB PO SCH (08:19)
[2017-04-18] MEDS: amLODIPine BESYLATE 5 MG TAB PO SCH (08:19)
[2017-04-18] MEDS: PANTOPRAZOLE SOD 40 MG DELAYED RELEASE TAB PO SCH (08:19)
[2017-04-18] MEDS: SODIUM CHLORIDE 0.9% FLUSH 10 ML FLUSH IV FLUSH SCH ×2 (08:20→22:27)
[2017-04-18] MEDS: NICOTINE 21 MG/24 HR PATCH T-DERMAL SCH (08:20)
--- NOTE | 2017-04-18 08:21 | HHI.FPPN ---
Subjective Remarks Patient unable to go for VATS yesterday by cardiovascular surgery due to low Hgb level. Patient is a Hoahaoism and denies any administration of blood products. Patient resting comfortably in bed this morning. Denies fevers or SOB. Endorses chest pain around chest tube insertion; otherwise no new chest pain. No calf pain. (Ernst David MD R1) Objective Vitals Vital Signs Date Time Temp Pulse Resp B/P Pulse Ox O2 Delivery O2 Flow Rate FiO2 04/18/17 04:00 Nasal Cannula 2.00 04/18/17 03:54 98.2 103 18 135/86 96 04/18/17 00:50 54 04/18/17 00:00 Nasal Cannula 2.00 04/17/17 23:25 98.4 101 18 139/80 95 04/17/17 20:13 97.9 96 18 138/78 99 04/17/17 20:00 Nasal Cannula 2.00 04/17/17 16:00 98.1 107 18 128/80 96 04/17/17 12:00 98.2 100 18 145/91 95 I/O 04/17/17 04/17/17 04/17/17 04/18/17 04/18/17 04/18/17 07:00 15:00 23:00 07:00 15:00 23:00 Intake Total 1269 ml 0 ml 240 ml 0 ml Output Total 770 ml 1850 ml 250 ml 1230 ml Balance 499 ml -1850 ml -10 ml -1230 ml Intake Oral 0 ml 240 ml 0 ml IV Total 1269 ml Output Urine Total 750 ml 1850 ml 250 ml 1200 ml Chest Tube Drainage Total 20 ml 30 ml # Bowel Movements 1 1 0 0 (Ernst David MD R1) Result Diagram: 04/18/1762704/18/17627 Objective Remarks GENERAL: NAD, lying comfortably in bed NEURO: Alert. Oriented to person and place. Not oriented to time. Normal speech. boilerhouse mechanic grossly intact. Electric Freight Car Operator strength 4/5 b/l. Lower extremity strength 4/5 b/l. SKIN: Warm and dry. Small laceration covered by adhesive over left eyebrow. Another small laceration along left elbow that is wrapped. No active bleeding. HEAD: Normocephalic. Atraumatic. EYES: EOMI. No scleral icterus. No injection or drainage. ENT: No nasal drainage. Moist mucous membranes. NECK: Supple, trachea midline. No JVD. CARDIOVASCULAR: Regular rate and rhythm. RESPIRATORY: Diminished breath sounds at left mid lung to left lung base. Fair aeration of left upper lung field. Clear breath sounds right lung. GASTROINTESTINAL: Abdomen soft, nontender, nondistended, normal BS. MUSCULOSKELETAL: No edema, cyanosis, or clubbing. Normal range of motion. BACK: Nontender without obvious deformity. (Ernst David MD R1) A/P Assessment and Plan 61-year-old male with PMH significant for COPD brought to the ED via EVAC today due to shortness of breath at home and found to have a left hydropneumothorax and left basilar consolidation. Cardiovascular surgery has been consulted for recommendations. Patient is a Hoahaoism Avoid frequent blood draws Discharge Planning Unclear timetable. (Ernst David MD R1) Attending Attestation Patient seen and examined, discussed with resident team. I agree with assessment and management as documented and discussed with me. Pt reports he is feeling well. Surgery cancelled due to potential for blood transfusion. Pt reports his breathing is better. (Emilia Anderson MD) Problem List: (1) Hydropneumothorax Status: Acute Plan: - Cardiovascular surgery consulted, has placed left chest tube noting to drain purulent material. Patient unable to undergo VATS as procedure is associated with diffuse bleeding and patient is unable to receive blood transfusions. Pleural fluid: Elevated white blood cells. LDH greater than 4000. 99 neutrophils. Pleural culture: viridans streptococcus; awaiting sensitivities that have been requested Blood culture: No growth 5 day Antibiotics: - Received cefepime 2 g IV 1 and azithromycin 500 mg IV 1 in the ED - Started Rocephin 1 gm IV q24h (04/17- ) - Discontinued Vancomycin (04/11-04/17) - Discontinued Zosyn 4.5 gm IV q6h (04/11-04/17) - Discontinued Levaquin 750 mg IV q24h (04/11-04/14) (2) Sepsis Status: Acute Plan: Patient meets sepsis criteria on admission Plan as above (3) Anemia Status: Acute Plan: Hgb 10.4 on admission Stable Normocytic Patient is a Hoahaoism Continue to monitor Avoid frequent blood draws (4) Hypokalemia Status: Resolved Plan: Monitor and replace as needed (5) Hypomagnesemia Status: Resolved Plan: Monitor and replace as needed (6) Melena Status: Resolved Plan: - Patient endorsed melena on admission - Hgb stable (7) Alcohol abuse Status: Chronic Plan: - [facility] protocol - PO MV, thiamine, folic acid (8) Tobacco dependence, continuous Status: Chronic Plan: Nicotine patch 21 mg Remove each night before sleeping (9) Nutrition, metabolism, and development symptoms Status: Acute Plan: Fluids: NS at 100 cc/hr Electrolytes: Continue to monitor and replete as necessary Nutrition: heart healthy diet DVT prophylaxis: Hold Lovenox; b/l SCDs GI prophylaxis: Protonix 40 mg po daily (Ernst David MD R1) Ernst David MD R1 April 18, 2017 08:21 Emilia Anderson MD April 18, 2017 20:47
--- NOTE | 2017-04-18 08:28 | RADRPT ---
EXAM DATE/TIME: 04/18/2017 06:04 [place] COMPARISON: CHEST SINGLE AP, April 15, 2017, 9:03. INDICATIONS : Pneumothorax. MEDICAL HISTORY : Hypertension. Cardiovascular disease. SURGICAL HISTORY : None. Chest tube, left. ENCOUNTER: Subsequent ACUITY: 3 days PAIN SCORE: 0/10 LOCATION: Left chest FINDINGS: Left thoracostomy tube remains in place. There is lateral pleural thickening or fluid with minimal gama bpleural air noted on today's exam. There are consolidative changes in the left base which may be sli ghtly improved. Hazy density at the right base is almost resolved. Heart size mediastinal contours ar e stable. CONCLUSION: Improving aeration. Small roughly stable collection of lateral subpleural fluid and minimal air. Maximo Perez MD on April 18, 2017 at 6:48 Board Certified Radiologist. This report was verified electronically.
[2017-04-18] MEDS: cefTRIAXone INJ 1,000 MG in SODIUM CHLORIDE 0.9% INJ 100 ML IV SCH (15:55)
--- NOTE | 2017-04-18 17:14 | PD.CAR.PN ---
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 Patient is on wide spectrum antibiotics as he should be Lung is not fully expanded yet and when drainage seizes in next few days we will reevaluate the patient as far as the need for surgery In the lung is unable to expand due to pleural peel patient will need thoracoscopy and possible thoracotomy with decortication but I will give him at least 4-5 days for this to sort out All things equal patient may need thoracoscopy in the near future and I'll taken to the OR next week if indicated Will continue to follow 04/13/17 Drainage from the left chest tube has decreased and is more serosanguineous at this time Patient continuous IV antibiotics and will remain on for at least 2 weeks On current chest x-ray lung is still not fully expanded and there is a residual pneumothorax of about 2 cm all around the lower portion of the lung where it does not appear to the chest wall If this persists patient will be taken next week for thoracoscopy/thoracotomy and decortication 04/14/17 Lung still not fully expanded and while the left lower lobe area is slowly expanding and effusion is clearing up the entire lung appears to be encased and there is a persistent pneumothorax present due to lung entrapment Patient will be scheduled for thoracoscopy / thoracotomy and decortication early next week 04/15/17 Patient with entrapped left lung and left drained empyema Scheduled for Sunday for thoracoscopy and decortication of the left lung 04/16/17 Patient with persistent lung entrapment and inability to the expand the lung Patient will need thoracoscopy and decortication of the lung patient scheduled for surgery tomorrow 04/17/17 Clearing up of the left lower quadrant of the lung with better visualization of the diaphragm Lung is still not fully inflated and there is about a centimeter or 2 between the chest wall and the actual lung parenchyma due to entrapment and inability to expand completely Patient was going to have a VATS today yet he refuses blood or blood products While most likely patient would not need transfusion doing the pleurectomy and removing the peel is often associated with diffuse bleeding and before you know at the hemoglobin can drop significantly I've discussed this with patient at length and at this point given the circumstances I believe the risk-benefit ratio goes against surgery for I'll not be in the clinical situation where patient requires blood by every medical standard but refuses to get it Surgeries therefore postponed and we will work to get patient's hemoglobin up before we do any surgery 04/18/17 Patient stable at this time still has a space between the chest wall and the not fully inflated lung Eventually patient will need thoracoscopy and decortication of the lung but in the face of the fact that he does not want to accept any blood or blood products we need to drive his hemoglobin as high as we can preop which would include administration of Epogen and reduction of the IV fluids to allow for some degree of hemoconcentration I will take the patient to the OR by the end of the week probably Sunday if we can get hemoglobin at least over 10g/dl Objective: Vital Signs Date Time Temp Pulse Resp B/P Pulse Ox O2 Delivery O2 Flow Rate FiO2 04/18/17 15:59 95 21 04/18/17 12:00 98.0 107 16 120/72 95 04/18/17 10:15 94 21 04/18/17 08:14 109 04/18/17 08:00 Room Air 04/18/17 08:00 98.0 102 18 138/86 96 04/18/17 04:00 Nasal Cannula 2.00 04/18/17 03:54 98.2 103 18 135/86 96 04/18/17 00:50 54 04/18/17 00:00 Nasal Cannula 2.00 04/17/17 23:25 98.4 101 18 139/80 95 04/17/17 20:13 97.9 96 18 138/78 99 04/17/17 20:00 Nasal Cannula 2.00 Labs: Laboratory Tests Test 04/18/17 06:28 White Blood Count 11.2 TH/MM3 (4.0-11.0) Red Blood Count 3.24 MIL/MM3 (4.50-5.90) Hemoglobin 9.4 GM/DL (13.0-17.0) Hematocrit 28.9 % (39.0-51.0) Mean Corpuscular Volume 89.1 FL (80.0-100.0) Mean Corpuscular Hemoglobin 29.1 PG (27.0-34.0) Mean Corpuscular Hemoglobin 32.6 % Concent (32.0-36.0) Red Cell Distribution Width 17.3 % (11.6-17.2) Platelet Count 354 TH/MM3 (150-450) Mean Platelet Volume 7.2 FL (7.0-11.0) Neutrophils (%) (Auto) 77.2 % (16.0-70.0) Lymphocytes (%) (Auto) 12.6 % (9.0-44.0) Monocytes (%) (Auto) 9.2 % (0.0-8.0) Eosinophils (%) (Auto) 0.6 % (0.0-4.0) Basophils (%) (Auto) 0.4 % (0.0-2.0) Neutrophils # (Auto) 8.7 TH/MM3 (1.8-7.7) Lymphocytes # (Auto) 1.4 TH/MM3 (1.0-4.8) Monocytes # (Auto) 1.0 TH/MM3 (0-0.9) Eosinophils # (Auto) 0.1 TH/MM3 (0-0.4) Basophils # (Auto) 0.0 TH/MM3 (0-0.2) CBC Comment DIFF FINAL Differential Comment Sodium Level 142 MEQ/L (136-145) Potassium Level 4.1 MEQ/L (3.5-5.1) Chloride Level 103 MEQ/L (98-107) Carbon Dioxide Level 33.0 MEQ/L (21.0-32.0) Anion Gap 6 MEQ/L (5-15) Blood Urea Nitrogen 9 MG/DL (7-18) Creatinine 1.00 MG/DL (0.60-1.30) Estimat Glomerular Filtration 76 ML/MIN (>89) Rate Random Glucose 89 MG/DL (74-106) Calcium Level 8.8 MG/DL (8.5-10.1) Result Diagram: 04/18/17 0628 04/18/17 0628 Emma Suarez MD April 18, 2017 17:14
[2017-04-18] MEDS: REMOVE OLD PATCH T-DERMAL SCH (21:00)
[2017-04-19] VITALS (7 sets, daily range): BP systolic 103–145; BP diastolic 61–80; PULSE 84–108; RESP 16–20; TEMP 97.7–98.6; O2SAT 93–98
[2017-04-19] MEDS: RESP: ALBUTEROL 2.5 MG/IPRATROPIUM 0.5 MG NEB (SCH) NEB ×3 (04:00→14:24)
--- NOTE | 2017-04-19 07:04 | HHI.FPPN ---
Subjective Remarks No acute events overnight. Afebrile, vitals stable. Patient resting comfortably in bed this morning. Has c/o of pain around chest tube insertion site. Denies CP otherwise. Denies fevers or SOB. No calf pain. (Ernst David MD R1) Objective Vitals Vital Signs Date Time Temp Pulse Resp B/P Pulse Ox O2 Delivery O2 Flow Rate FiO2 04/19/17 04:00 98.6 84 16 115/72 95 04/19/17 00:00 98.3 104 18 106/61 95 04/18/17 20:00 98.6 100 18 133/73 96 04/18/17 19:15 105 04/18/17 19:15 Room Air 04/18/17 16:00 Room Air 04/18/17 16:00 97.8 94 16 127/82 100 04/18/17 15:59 95 21 04/18/17 12:00 98.0 107 16 120/72 95 04/18/17 12:00 Room Air 04/18/17 10:15 94 21 04/18/17 08:14 109 04/18/17 08:00 Room Air 04/18/17 08:00 98.0 102 18 138/86 96 I/O 04/18/17 04/18/17 04/18/17 04/19/17 04/19/17 04/19/17 07:00 15:00 23:00 07:00 15:00 23:00 Intake Total 0 ml 480 ml 240 ml 120 ml Output Total 1230 ml 395 ml 500 ml 300 ml Balance -1230 ml 85 ml -260 ml -180 ml Intake Oral 0 ml 480 ml 240 ml 120 ml Output Urine Total 1200 ml 375 ml 425 ml 300 ml Chest Tube Drainage Total 30 ml 20 ml 75 ml 0 ml # Bowel Movements 0 1 0 0 (Ernst David MD R1) Result Diagram: 04/18/1762704/18/17627 Objective Remarks GENERAL: NAD, lying comfortably in bed NEURO: AOx3. Normal speech. petrophysicist grossly intact. Aids Nurse strength 4/5 b/l. Lower extremity strength 4/5 b/l. SKIN: Warm and dry. Small laceration covered by adhesive over left eyebrow. Another small laceration along left elbow that is wrapped. No active bleeding. HEAD: Normocephalic. Atraumatic. EYES: EOMI. No scleral icterus. No injection or drainage. ENT: No nasal drainage. Moist mucous membranes. NECK: Supple, trachea midline. No JVD. CARDIOVASCULAR: Regular rate and rhythm. RESPIRATORY: Diminished breath sounds at left mid lung to left lung base. Fair aeration of left upper lung field. Clear breath sounds right lung. GASTROINTESTINAL: Abdomen soft, nontender, nondistended, normal BS. MUSCULOSKELETAL: No edema, cyanosis, or clubbing. Normal range of motion. BACK: Nontender without obvious deformity. (Ernst David MD R1) A/P Assessment and Plan 61-year-old male with PMH significant for COPD brought to the ED via EVAC today due to shortness of breath at home and found to have a left hydropneumothorax and left basilar consolidation. Cardiovascular surgery has been consulted for recommendations. 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 (Ernst David MD R1) Attending Attestation Patient seen and examined, discussed with resident team. I agree with assessment and management as documented and discussed with me. Pt without complaints. He feels frustrated to still be in the hospital but understands that he still requires surgery. Await improvement in hemoglobin prior to heading to OR. (Emilia Anderson MD) Problem List: (1) Hydropneumothorax Status: Acute Plan: - Cardiovascular surgery consulted, has placed left chest tube noting to drain purulent material. 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 Pleural fluid: Elevated white blood cells. LDH greater than 4000. 99 neutrophils. 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 Domingo, hematology/oncology, this AM regarding recommendations for increasing Hgb in light of patient refusing blood transfusions. Recommended obtaining an iron panel and starting the patient on iron supplementation as well as B12 and folate supplementation and monitor Hgb; if Hgb does not rise recommends to start Procrit injections once weekly and if there is a concern for thromboemboli to use prophylactic heparin - Ordered iron profile - Start ferrous fumarate 325 mg po q12h, folic acid 1mg po daily, B12 1mcg po daily (4) Melena Status: Resolved Plan: - Patient endorsed melena on admission - Hgb stable (5) Alcohol abuse Status: Chronic Plan: - [facility] protocol - PO thiamine and folic acid (6) Tobacco dependence, continuous Status: Chronic Plan: Nicotine patch 21 mg Remove each night before sleeping (7) Nutrition, metabolism, and development symptoms Status: Acute Plan: Fluids: None Electrolytes: Replete as necessary Nutrition: heart healthy diet DVT prophylaxis: Hold Lovenox; b/l SCDs GI prophylaxis: Protonix 40 mg po daily (Ernst David MD R1) Ernst David MD R1 Apr 19, 2017 07:04 Emilia Anderson MD Apr 19, 2017 16:54
[2017-04-19] MEDS: NICOTINE 21 MG/24 HR PATCH T-DERMAL SCH (08:56)
[2017-04-19] MEDS: THIAMINE HCL 100 MG TAB PO SCH (08:58)
[2017-04-19] MEDS: PANTOPRAZOLE SOD 40 MG DELAYED RELEASE TAB PO SCH (08:58)
[2017-04-19] MEDS: MAGNESIUM OXIDE 400 MG TAB PO SCH ×2 (08:58→20:46)
[2017-04-19] MEDS: amLODIPine BESYLATE 5 MG TAB PO SCH (08:59)
[2017-04-19] MEDS: SODIUM CHLORIDE 0.9% FLUSH 10 ML FLUSH IV FLUSH SCH ×2 (08:59→20:46)
[2017-04-19] MEDS: LISINOPRIL 20 MG TAB PO SCH (09:01)
[2017-04-19 11:10] LABS: TRANSFERRIN IRON PROFILE 132 MG/DL (200-360)
[2017-04-19] MEDS: FERROUS FUMARATE 325 MG TAB (106 MG ELEMENTAL IRON) PO SCH ×2 (12:23→20:45)
[2017-04-19] MEDS: FOLIC ACID 1 MG TAB PO SCH (12:24)
[2017-04-19] MEDS: CYANOCOBALAMIN 1,000 MCG TAB PO SCH (12:24)
[2017-04-19] MEDS ORDERED: HEPARIN SODIUM - SQ 10,000 UNITS/ML VIAL SQ ONE (13:00)
--- NOTE | 2017-04-19 16:03 | PD.CAR.PN ---
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 Patient is on wide spectrum antibiotics as he should be Lung is not fully expanded yet and when drainage seizes in next few days we will reevaluate the patient as far as the need for surgery In the lung is unable to expand due to pleural peel patient will need thoracoscopy and possible thoracotomy with decortication but I will give him at least 4-5 days for this to sort out All things equal patient may need thoracoscopy in the near future and I'll taken to the OR next week if indicated Will continue to follow 04/13/17 Drainage from the left chest tube has decreased and is more serosanguineous at this time Patient continuous IV antibiotics and will remain on for at least 2 weeks On current chest x-ray lung is still not fully expanded and there is a residual pneumothorax of about 2 cm all around the lower portion of the lung where it does not appear to the chest wall If this persists patient will be taken next week for thoracoscopy/thoracotomy and decortication 04/14/17 Lung still not fully expanded and while the left lower lobe area is slowly expanding and effusion is clearing up the entire lung appears to be encased and there is a persistent pneumothorax present due to lung entrapment Patient will be scheduled for thoracoscopy / thoracotomy and decortication early next week 04/15/17 Patient with entrapped left lung and left drained empyema Scheduled for Sunday for thoracoscopy and decortication of the left lung 04/16/17 Patient with persistent lung entrapment and inability to the expand the lung Patient will need thoracoscopy and decortication of the lung patient scheduled for surgery tomorrow 04/17/17 Clearing up of the left lower quadrant of the lung with better visualization of the diaphragm Lung is still not fully inflated and there is about a centimeter or 2 between the chest wall and the actual lung parenchyma due to entrapment and inability to expand completely Patient was going to have a VATS today yet he refuses blood or blood products While most likely patient would not need transfusion doing the pleurectomy and removing the peel is often associated with diffuse bleeding and before you know at the hemoglobin can drop significantly I've discussed this with patient at length and at this point given the circumstances I believe the risk-benefit ratio goes against surgery for I'll not be in the clinical situation where patient requires blood by every medical standard but refuses to get it Surgeries therefore postponed and we will work to get patient's hemoglobin up before we do any surgery 04/18/17 Patient stable at this time still has a space between the chest wall and the not fully inflated lung Eventually patient will need thoracoscopy and decortication of the lung but in the face of the fact that he does not want to accept any blood or blood products we need to drive his hemoglobin as high as we can preop which would include administration of Epogen and reduction of the IV fluids to allow for some degree of hemoconcentration I will take the patient to the OR by the end of the week probably Sunday if we can get hemoglobin at least over 10g/dl 04/19/17 Patient doing okay at this point White count is on its way down I truly appreciate the help from hematology in face of the patient's refusal to take blood While I do not believe that he'll have significant blood loss with thoracoscopy and decortication occasional patient will bleed and it would be unfortunate to be caught in situation where patient is symptomatically anemic but on the other hand refuses blood Considering that surgery is not an emergency I would allow patient sometime to increase his hemoglobin by either ferrous sulfate or as suggested Epogen Right now patient is on antibiotic therapy and chest tube drainage is decreasing so there is no aguayo to take the patient to the operating room Objective: Vital Signs Date Time Temp Pulse Resp B/P Pulse Ox O2 Delivery O2 Flow Rate FiO2 04/19/17 14:25 98 04/19/17 12:00 97.9 104 20 120/75 96 04/19/17 08:00 98.3 108 20 111/70 93 04/19/17 07:20 Room Air 04/19/17 04:00 98.6 84 16 115/72 95 04/19/17 00:00 98.3 104 18 106/61 95 04/18/17 20:00 98.6 100 18 133/73 96 04/18/17 19:15 105 04/18/17 19:15 Room Air 04/18/17 16:00 Room Air 04/18/17 16:00 97.8 94 16 127/82 100 04/18/17 15:59 95 21 Labs: Laboratory Tests Test 04/19/17 10:33 Iron Level 39 MCG/DL (65-175) Total Iron Binding Capacity 185 MCG/DL (250-450) Percent Iron Saturation 21.1 % (20-50) Result Diagram: 04/18/17 0628 04/18/17 0628 Emma Suarez MD Apr 19, 2017 16:03
[2017-04-19] MEDS: cefTRIAXone INJ 1,000 MG in SODIUM CHLORIDE 0.9% INJ 100 ML IV SCH (17:20)
[2017-04-19] MEDS: REMOVE OLD PATCH T-DERMAL SCH (20:46)
[2017-04-20] VITALS (9 sets, daily range): BP systolic 116–145; BP diastolic 67–84; PULSE 93–132; RESP 16–20; TEMP 97.6–98.9; O2SAT 93–100
[2017-04-20] MEDS: RESP: ALBUTEROL 2.5 MG/IPRATROPIUM 0.5 MG NEB (SCH) NEB ×4 (04:00→21:37)
--- NOTE | 2017-04-20 07:00 | RADRPT ---
EXAM DATE/TIME: 04/20/2017 06:30 [facility] COMPARISON: CHEST SINGLE AP, April 18, 2017, 6:04. INDICATIONS : Short of breath, cough, evaluate pneumothorax and chest tube on left MEDICAL HISTORY : Chronic obstructive pulmonary disease. pneumothorax SURGICAL HISTORY : Umbilical hernia repair. chest tube ENCOUNTER: Subsequent ACUITY: 4 - 6 days PAIN SCORE: 4/10 LOCATION: Bilateral chest FINDINGS: The cardiac silhouette is enlarged in transverse diameter. A left chest tube is in place. There is no evidence of pneumothorax. There is left lower lobe atelectasis versus pneumonia. The right lung is f ree of acute parenchymal opacity. CONCLUSION: 1. There is no evidence of pneumothorax. Da Jacob MD on April 20, 2017 at 6:58 Board Certified Radiologist. This report was verified electronically.
[2017-04-20] MEDS: FOLIC ACID 1 MG TAB PO SCH (08:14)
[2017-04-20] MEDS: THIAMINE HCL 100 MG TAB PO SCH (08:14)
[2017-04-20] MEDS: LISINOPRIL 20 MG TAB PO SCH (08:14)
[2017-04-20] MEDS: MAGNESIUM OXIDE 400 MG TAB PO SCH ×2 (08:14→21:50)
[2017-04-20] MEDS: CYANOCOBALAMIN 1,000 MCG TAB PO SCH (08:14)
[2017-04-20] MEDS: amLODIPine BESYLATE 5 MG TAB PO SCH (08:14)
[2017-04-20] MEDS: FERROUS FUMARATE 325 MG TAB (106 MG ELEMENTAL IRON) PO SCH ×2 (08:14→21:51)
[2017-04-20] MEDS: PANTOPRAZOLE SOD 40 MG DELAYED RELEASE TAB PO SCH (08:14)
[2017-04-20] MEDS: NICOTINE 21 MG/24 HR PATCH T-DERMAL SCH (08:15)
[2017-04-20] MEDS: SODIUM CHLORIDE 0.9% FLUSH 10 ML FLUSH IV FLUSH SCH ×2 (08:15→21:51)
[2017-04-20 08:51] LABS: HEMATOCRIT 28.2 % (39.0-51.0); REVIEW FLAG FINAL
[2017-04-20] MEDS ORDERED: EPOETIN ALFA 20,000 UNITS/ML VIAL SQ ONE (12:15)
--- NOTE | 2017-04-20 12:21 | HHI.FPPN ---
Subjective Remarks No acute events overnight. Afebrile. Chest tube draining about 70 cc. Hgb at 9.3 this AM. Pt denies fevers or SOB. Has some pain around chest tube insertion site but none otherwise. No lower extremity swelling or pain. (Ernst David MD R1) Objective Vitals Vital Signs Date Time Temp Pulse Resp B/P Pulse Ox O2 Delivery O2 Flow Rate FiO2 04/20/17 12:01 98.2 96 18 140/75 99 04/20/17 11:25 96 21 04/20/17 08:19 Room Air 04/20/17 08:15 96 04/20/17 08:01 97.9 95 18 116/67 93 04/20/17 04:00 97.6 96 20 123/69 94 04/20/17 00:02 97.9 93 16 127/76 100 04/19/17 20:00 97.7 103 20 103/80 98 04/19/17 20:00 101 04/19/17 19:15 Room Air 04/19/17 16:00 98.1 103 20 145/80 97 04/19/17 14:25 98 I/O 04/19/17 04/19/17 04/19/17 04/20/17 04/20/17 04/20/17 07:00 15:00 23:00 07:00 15:00 23:00 Intake Total 120 ml 480 ml 240 ml 360 ml Output Total 300 ml 575 ml 250 ml 445 ml Balance -180 ml -95 ml -10 ml -85 ml Intake Oral 120 ml 480 ml 240 ml 360 ml Output Urine Total 300 ml 575 ml 200 ml 425 ml Chest Tube Drainage Total 0 ml 50 ml 20 ml # Bowel Movements 0 1 0 (Ernst David MD R1) Result Diagram: 04/20/17 0713 04/18/17 0628 Objective Remarks GENERAL: NAD, lying comfortably in bed NEURO: AOx3. Normal speech. global sales executive grossly intact. Diamond Wheel Edger strength 4/5 b/l. Lower extremity strength 4/5 b/l. SKIN: Warm and dry. HEAD: Normocephalic. Atraumatic. EYES: EOMI. No scleral icterus. No injection or drainage. ENT: No nasal drainage. Moist mucous membranes. NECK: Supple, trachea midline. No JVD. CARDIOVASCULAR: Regular rate and rhythm. RESPIRATORY: Diminished breath sounds at left mid lung to left lung base. Fair aeration of left upper lung field. Clear breath sounds right lung. GASTROINTESTINAL: Abdomen soft, nontender, nondistended, normal BS. MUSCULOSKELETAL: No edema, cyanosis, or clubbing. Normal range of motion. BACK: Nontender without obvious deformity. (Ernst David MD R1) A/P Assessment and Plan 61-year-old male with PMH significant for COPD brought to the ED via EVAC today due to shortness of breath at home and found to have a left hydropneumothorax and left basilar consolidation. Cardiovascular surgery has been consulted for recommendations. Patient is a [employer] Avoid frequent blood draws Discharge Planning Unclear timetable. (Ernst David MD R1) Attending Attestation Patient seen, examined, and discussed with resident team. I agree with assessment and management as documented and discussed with me. Pt is getting frustrated being in the hospital. Await hemoglobin improvement - Procrit x 1 today. (Emilia Anderson MD) Problem List: (1) Hydropneumothorax Status: Acute Plan: - Cardiovascular surgery consulted, has placed left chest tube. Patient unable to undergo VATS as procedure is associated with diffuse bleeding and patient refuses blood transfusions as he is a [employer]. Pleural fluid: Elevated white blood cells. LDH greater than 4000. 99 neutrophils. Pleural culture: viridans streptococcus; awaiting sensitivities that have been requested Blood culture: No growth 5 day Antibiotics: - Started Rocephin 1 gm IV q24h (04/17- ) - Discontinued Vancomycin (04/11-04/17) - Discontinued Zosyn 4.5 gm IV q6h (04/11-04/17) - Discontinued Levaquin 750 mg IV q24h (04/11-04/14) - Received cefepime 2 g IV 1 and azithromycin 500 mg IV 1 in the ED (2) Sepsis Status: Acute Plan: Patient meets sepsis criteria on admission Plan as above (3) Anemia Status: Acute Plan: Hgb 10.4 on admission Stable Normocytic Patient is a [employer] Refuses blood transfusions Avoid frequent blood draws; if needed draw in pediatric tubes Spoke with Dr. Domingo, hematology/oncology, this AM regarding recommendations for increasing Hgb in light of patient refusing blood transfusions. Recommended obtaining an iron panel and starting the patient on iron supplementation as well as B12 and folate supplementation and monitor Hgb; if Hgb does not rise recommends to start Procrit injections once weekly and if there is a concern for thromboemboli to use prophylactic heparin - Ordered iron profile - Start ferrous fumarate 325 mg po q12h, folic acid 1mg po daily, B12 1mcg po daily - Started Epogen 20,000 units subq once weekly (4) Melena Status: Resolved Plan: - Patient endorsed melena on admission - Hgb stable (5) Alcohol abuse Status: Chronic Plan: - [facility] protocol - PO thiamine and folic acid (6) Tobacco dependence, continuous Status: Chronic Plan: Nicotine patch 21 mg Remove each night before sleeping (7) Nutrition, metabolism, and development symptoms Status: Acute Plan: Fluids: None Electrolytes: Replete as necessary Nutrition: heart healthy diet DVT prophylaxis: Started heparin 5000 units subq q8h; b/l SCDs GI prophylaxis: Protonix 40 mg po daily (Ernst David MD R1) Ernst David MD R1 Apr 20, 2017 12:21 Emilia Anderson MD Apr 20, 2017 17:25
[2017-04-20] MEDS: HEPARIN SODIUM - SQ 10,000 UNITS/ML VIAL SQ SCH ×2 (12:57→21:51)
[2017-04-20] MEDS: cefTRIAXone INJ 1,000 MG in SODIUM CHLORIDE 0.9% INJ 100 ML IV SCH (15:28)
--- NOTE | 2017-04-20 17:29 | PD.CAR.PN ---
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 Patient is on wide spectrum antibiotics as he should be Lung is not fully expanded yet and when drainage seizes in next few days we will reevaluate the patient as far as the need for surgery In the lung is unable to expand due to pleural peel patient will need thoracoscopy and possible thoracotomy with decortication but I will give him at least 4-5 days for this to sort out All things equal patient may need thoracoscopy in the near future and I'll taken to the OR next week if indicated Will continue to follow 04/13/17 Drainage from the left chest tube has decreased and is more serosanguineous at this time Patient continuous IV antibiotics and will remain on for at least 2 weeks On current chest x-ray lung is still not fully expanded and there is a residual pneumothorax of about 2 cm all around the lower portion of the lung where it does not appear to the chest wall If this persists patient will be taken next week for thoracoscopy/thoracotomy and decortication 04/14/17 Lung still not fully expanded and while the left lower lobe area is slowly expanding and effusion is clearing up the entire lung appears to be encased and there is a persistent pneumothorax present due to lung entrapment Patient will be scheduled for thoracoscopy / thoracotomy and decortication early next week 04/15/17 Patient with entrapped left lung and left drained empyema Scheduled for Sunday for thoracoscopy and decortication of the left lung 04/16/17 Patient with persistent lung entrapment and inability to the expand the lung Patient will need thoracoscopy and decortication of the lung patient scheduled for surgery tomorrow 04/17/17 Clearing up of the left lower quadrant of the lung with better visualization of the diaphragm Lung is still not fully inflated and there is about a centimeter or 2 between the chest wall and the actual lung parenchyma due to entrapment and inability to expand completely Patient was going to have a VATS today yet he refuses blood or blood products While most likely patient would not need transfusion doing the pleurectomy and removing the peel is often associated with diffuse bleeding and before you know at the hemoglobin can drop significantly I've discussed this with patient at length and at this point given the circumstances I believe the risk-benefit ratio goes against surgery for I'll not be in the clinical situation where patient requires blood by every medical standard but refuses to get it Surgeries therefore postponed and we will work to get patient's hemoglobin up before we do any surgery 04/18/17 Patient stable at this time still has a space between the chest wall and the not fully inflated lung Eventually patient will need thoracoscopy and decortication of the lung but in the face of the fact that he does not want to accept any blood or blood products we need to drive his hemoglobin as high as we can preop which would include administration of Epogen and reduction of the IV fluids to allow for some degree of hemoconcentration I will take the patient to the OR by the end of the week probably Sunday if we can get hemoglobin at least over 10g/dl 04/19/17 Patient doing okay at this point White count is on its way down I truly appreciate the help from hematology in face of the patient's refusal to take blood While I do not believe that he'll have significant blood loss with thoracoscopy and decortication occasional patient will bleed and it would be unfortunate to be caught in situation where patient is symptomatically anemic but on the other hand refuses blood Considering that surgery is not an emergency I would allow patient sometime to increase his hemoglobin by either ferrous sulfate or as suggested Epogen Right now patient is on antibiotic therapy and chest tube drainage is decreasing so there is no aguayo to take the patient to the operating room 04/20/17 Patient is doing well and drainage from the chest tube is about 100 cc starting to clear up Lung is now fully expanded We'll order another CT of the chest and this looks okay will pull the chest tube This is a good finding because the continuous suction and the chest has expand the lung now fully and even if there is a minute pneumothorax left, this is better than having to undergo pleural decortication Objective: Vital Signs Date Time Temp Pulse Resp B/P Pulse Ox O2 Delivery O2 Flow Rate FiO2 04/20/17 16:06 98.9 105 18 121/74 97 04/20/17 15:56 Room Air 04/20/17 12:01 98.2 96 18 140/75 99 04/20/17 11:25 96 21 04/20/17 08:19 Room Air 04/20/17 08:15 96 04/20/17 08:01 97.9 95 18 116/67 93 04/20/17 04:00 97.6 96 20 123/69 94 04/20/17 00:02 97.9 93 16 127/76 100 04/19/17 20:00 97.7 103 20 103/80 98 04/19/17 20:00 101 04/19/17 19:15 Room Air Labs: Laboratory Tests Test 04/20/17 07:13 Hemoglobin 9.3 GM/DL (13.0-17.0) Hematocrit 28.2 % (39.0-51.0) Result Diagram: 04/20/17 0713 04/18/17 0628 Emam Suarez MD Apr 20, 2017 17:29
--- NOTE | 2017-04-20 19:26 | RADRPT ---
EXAM DATE/TIME: 04/20/2017 18:47 [facility] COMPARISON: CT THORAX W/O CONTRAST, April 11, 2017, 15:31. INDICATIONS : Evaluate left sided pneumothorax. RADIATION DOSE: 3.33 CTDIvol (mGy) MEDICAL HISTORY : Cardiovascular disease. Hypertension. SURGICAL HISTORY : None. ENCOUNTER: Subsequent ACUITY: 1 week PAIN SCALE: 2/10 LOCATION: Left chest TECHNIQUE: Volumetric scanning of the chest was performed. Using automated exposure control and adjustment of t he mA and/or kV according to patient size, radiation dose was kept as low as reasonably achievable to obtain optimal diagnostic quality images. FINDINGS: There has been no interval change from the prior examination. A hydropneumothorax is seen on the left with a left-sided chest tube in place. The pneumothorax is exceedingly small. A small air-fluid leve l is seen within the pleural space. The chest tube is in good position. Consolidation with cavitation observed within the left lower lobe. Right lung is clear. A tiny pericardial effusion. Small anterio r mediastinal lymph nodes without adenopathy. Diffuse calcified plaque of the aorta. CONCLUSION: 1. No interval change in a tiny hydropneumothorax on the left with left chest tube in place. 2. No change in cavitary consolidation involving the left lower lobe. Jay Velasquez Jr., MD on April 20, 2017 at 19:21 Board Certified Radiologist. This report was verified electronically.
[2017-04-20] MEDS: REMOVE OLD PATCH T-DERMAL SCH (21:00)
[2017-04-21] VITALS (8 sets, daily range): BP systolic 117–152; BP diastolic 69–83; PULSE 91–110; RESP 16–18; TEMP 96.7–98.5; O2SAT 93–96
[2017-04-21] MEDS: RESP: ALBUTEROL 2.5 MG/IPRATROPIUM 0.5 MG NEB (SCH) NEB ×4 (03:42→20:15)
[2017-04-21] MEDS: HEPARIN SODIUM - SQ 10,000 UNITS/ML VIAL SQ SCH ×3 (06:27→21:09)
[2017-04-21] MEDS: SODIUM CHLORIDE 0.9% FLUSH 10 ML FLUSH IV FLUSH SCH ×2 (09:00→21:09)
[2017-04-21] MEDS: MAGNESIUM OXIDE 400 MG TAB PO SCH ×2 (10:13→21:10)
[2017-04-21] MEDS: FOLIC ACID 1 MG TAB PO SCH (10:13)
[2017-04-21] MEDS: CYANOCOBALAMIN 1,000 MCG TAB PO SCH (10:13)
[2017-04-21] MEDS: NICOTINE 21 MG/24 HR PATCH T-DERMAL SCH (10:13)
[2017-04-21] MEDS: LISINOPRIL 20 MG TAB PO SCH (10:13)
[2017-04-21] MEDS: amLODIPine BESYLATE 5 MG TAB PO SCH (10:13)
[2017-04-21] MEDS: FERROUS FUMARATE 325 MG TAB (106 MG ELEMENTAL IRON) PO SCH ×2 (10:13→21:10)
[2017-04-21] MEDS: THIAMINE HCL 100 MG TAB PO SCH (10:14)
[2017-04-21] MEDS: PANTOPRAZOLE SOD 40 MG DELAYED RELEASE TAB PO SCH (10:14)
--- NOTE | 2017-04-21 11:21 | PD.CAR.PN ---
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 Patient is on wide spectrum antibiotics as he should be Lung is not fully expanded yet and when drainage seizes in next few days we will reevaluate the patient as far as the need for surgery In the lung is unable to expand due to pleural peel patient will need thoracoscopy and possible thoracotomy with decortication but I will give him at least 4-5 days for this to sort out All things equal patient may need thoracoscopy in the near future and I'll taken to the OR next week if indicated Will continue to follow 04/13/17 Drainage from the left chest tube has decreased and is more serosanguineous at this time Patient continuous IV antibiotics and will remain on for at least 2 weeks On current chest x-ray lung is still not fully expanded and there is a residual pneumothorax of about 2 cm all around the lower portion of the lung where it does not appear to the chest wall If this persists patient will be taken next week for thoracoscopy/thoracotomy and decortication 04/14/17 Lung still not fully expanded and while the left lower lobe area is slowly expanding and effusion is clearing up the entire lung appears to be encased and there is a persistent pneumothorax present due to lung entrapment Patient will be scheduled for thoracoscopy / thoracotomy and decortication early next week 04/15/17 Patient with entrapped left lung and left drained empyema Scheduled for Sunday for thoracoscopy and decortication of the left lung 04/16/17 Patient with persistent lung entrapment and inability to the expand the lung Patient will need thoracoscopy and decortication of the lung patient scheduled for surgery tomorrow 04/17/17 Clearing up of the left lower quadrant of the lung with better visualization of the diaphragm Lung is still not fully inflated and there is about a centimeter or 2 between the chest wall and the actual lung parenchyma due to entrapment and inability to expand completely Patient was going to have a VATS today yet he refuses blood or blood products While most likely patient would not need transfusion doing the pleurectomy and removing the peel is often associated with diffuse bleeding and before you know at the hemoglobin can drop significantly I've discussed this with patient at length and at this point given the circumstances I believe the risk-benefit ratio goes against surgery for I'll not be in the clinical situation where patient requires blood by every medical standard but refuses to get it Surgeries therefore postponed and we will work to get patient's hemoglobin up before we do any surgery 04/18/17 Patient stable at this time still has a space between the chest wall and the not fully inflated lung Eventually patient will need thoracoscopy and decortication of the lung but in the face of the fact that he does not want to accept any blood or blood products we need to drive his hemoglobin as high as we can preop which would include administration of Epogen and reduction of the IV fluids to allow for some degree of hemoconcentration I will take the patient to the OR by the end of the week probably Sunday if we can get hemoglobin at least over 10g/dl 04/19/17 Patient doing okay at this point White count is on its way down I truly appreciate the help from hematology in face of the patient's refusal to take blood While I do not believe that he'll have significant blood loss with thoracoscopy and decortication occasional patient will bleed and it would be unfortunate to be caught in situation where patient is symptomatically anemic but on the other hand refuses blood Considering that surgery is not an emergency I would allow patient sometime to increase his hemoglobin by either ferrous sulfate or as suggested Epogen Right now patient is on antibiotic therapy and chest tube drainage is decreasing so there is no aguayo to take the patient to the operating room 04/20/17 Patient is doing well and drainage from the chest tube is about 100 cc starting to clear up Lung is now fully expanded We'll order another CT of the chest and this looks okay will pull the chest tube This is a good finding because the continuous suction and the chest has expand the lung now fully and even if there is a minute pneumothorax left, this is better than having to undergo pleural decortication 04/21/17 CT scan reveals full expansion of the left lung with of course a residual cavitary lesion which is essentially a resolving abscess DC chest tube today Patient should stay on by mouth antibiotics as per infectious disease and period of time we recommend this is 4-6 weeks total depending on organisms, patient in clinical circumstances involved All things equal patient can go home tomorrow on by mouth antibiotics Follow up with me in about a month in the office Objective: Vital Signs Date Time Temp Pulse Resp B/P Pulse Ox O2 Delivery O2 Flow Rate FiO2 04/21/17 09:00 91 04/21/17 08:02 98.2 95 18 133/72 94 04/21/17 08:00 Room Air 04/21/17 04:00 97.7 93 16 126/75 95 04/21/17 00:00 96.7 108 16 152/83 94 04/20/17 21:38 95 21 04/20/17 20:00 97.6 121 18 145/84 95 04/20/17 20:00 132 04/20/17 19:30 Room Air 04/20/17 16:06 98.9 105 18 121/74 97 04/20/17 15:56 Room Air 04/20/17 12:01 98.2 96 18 140/75 99 04/20/17 11:25 96 21 Result Diagram: 04/20/17 0713 04/18/17 0628 Emma Suarez MD Apr 21, 2017 11:21
--- NOTE | 2017-04-21 11:47 | HHI.FPPN ---
Subjective Remarks Patient is doing good this morning. He is looking forward to getting his chest tube removed. He is happy does not need to go undergo surgery. Denies fevers or chills. Denies shortness of breath. (iNko Bauer MD R2) Objective Vitals Vital Signs Date Time Temp Pulse Resp B/P Pulse Ox O2 Delivery O2 Flow Rate FiO2 04/21/17 09:00 91 04/21/17 08:02 98.2 95 18 133/72 94 04/21/17 08:00 Room Air 04/21/17 04:00 97.7 93 16 126/75 95 04/21/17 00:00 96.7 108 16 152/83 94 04/20/17 21:38 95 21 04/20/17 20:00 97.6 121 18 145/84 95 04/20/17 20:00 132 04/20/17 19:30 Room Air 04/20/17 16:06 98.9 105 18 121/74 97 04/20/17 15:56 Room Air 04/20/17 12:01 98.2 96 18 140/75 99 I/O 04/20/17 04/20/17 04/20/17 04/21/17 04/21/17 04/21/17 06:59 14:59 22:59 06:59 14:59 22:59 Intake Total 360 ml 720 ml 120 ml Output Total 445 ml 812 ml 610 ml 1414 ml Balance -85 ml -92 ml -490 ml -1414 ml Intake Oral 360 ml 720 ml IV Total 120 ml Output Urine Total 425 ml 800 ml 600 ml 1400 ml Chest Tube Drainage Total 20 ml 12 ml 10 ml 14 ml # Bowel Movements 0 1 0 1 (Niko Bauer MD R2) Result Diagram: 04/20/17 0713 04/18/17 0628 Imaging Last Impressions Chest X-Ray 04/20/17 0600 Signed Impressions: Service Date/Time: Thursday, April 20, 2017 06:30 - CONCLUSION: 1. There is no evidence of pneumothorax. Da Jacob MD Chest CT 04/20/17 0000 Signed Impressions: Service Date/Time: Thursday, April 20, 2017 18:47 - CONCLUSION: 1. No interval change in a tiny hydropneumothorax on the left with left chest tube in place. 2. No change in cavitary consolidation involving the left lower lobe. Jay Velasquez Jr., MD Head CT 04/14/17 0000 Signed Impressions: Service Date/Time: Friday, April 14, 2017 07:01 - CONCLUSION: Stable noncontrast head CT. No acute intracranial abnormality is identified. Chronic changes include generalized atrophy and old left lacune. Maximo Encinas MD Objective Remarks GENERAL: NAD, lying comfortably in bed NEURO: AOx3. Normal speech. service support representative grossly intact. Marketing Operations Associate strength 4/5 b/l. Lower extremity strength 4/5 b/l. SKIN: Warm and dry. HEAD: Normocephalic. Atraumatic. EYES: EOMI. No scleral icterus. No injection or drainage. ENT: No nasal drainage. Moist mucous membranes. NECK: Supple, trachea midline. No JVD. CARDIOVASCULAR: Regular rate and rhythm. RESPIRATORY: Diminished breath sounds at left mid lung to left lung base. Fair aeration of left upper lung field. Clear breath sounds right lung. GASTROINTESTINAL: Abdomen soft, nontender, nondistended, normal BS. MUSCULOSKELETAL: No edema, cyanosis, or clubbing. Normal range of motion. BACK: Nontender without obvious deformity. (Niko Bauer MD R2) A/P Assessment and Plan 61-year-old male with PMH significant for COPD brought to the ED via EVAC today due to shortness of breath at home and found to have a left hydropneumothorax and left basilar consolidation. Cardiovascular surgery has been consulted for recommendations. Patient is a Restorationist Avoid frequent blood draws Discharge Planning Per cardiovascular surgery, likely tomorrow. Follow-up with Dr. Rae in one month. (Niko Bauer MD R2) Attending Attestation Patient seen and examined, discussed with Dr. Tereza Bauer. I agree with assessment and management as documented and discussed with me. Patient seen after Chest tube pulled. He denies SOB. Possible discharge tomorrow with 6 weeks total of antibiotics. (Emilia Anderson MD) Problem List: (1) Hydropneumothorax Status: Acute Plan: - Cardiovascular surgery consulted, has placed left chest tube. Planning on chest tube removal today Likely discharge home tomorrow with by mouth antibiotics. Pleural fluid: Elevated white blood cells. LDH greater than 4000. 99 neutrophils. Pleural culture: viridans streptococcus; sensitivities in the EMR and reviewed Blood culture: No growth 5 day Antibiotics: - Started Rocephin 1 gm IV q24h (04/17- ) - Discontinued Vancomycin (04/11-04/17) - Discontinued Zosyn 4.5 gm IV q6h (04/11-04/17) - Discontinued Levaquin 750 mg IV q24h (04/11-04/14) - Received cefepime 2 g IV 1 and azithromycin 500 mg IV 1 in the ED (2) Sepsis Status: Resolved Plan: Patient meets sepsis criteria on admission Plan as above (3) Anemia Status: Acute Plan: Hgb 10.4 on admission Stable Normocytic Patient is a Restorationist Refuses blood transfusions Avoid frequent blood draws; if needed draw in pediatric tubes Spoke with Dr. Domingo, hematology/oncology, this AM regarding recommendations for increasing Hgb in light of patient refusing blood transfusions. Recommended obtaining an iron panel and starting the patient on iron supplementation as well as B12 and folate supplementation and monitor Hgb; if Hgb does not rise recommends to start Procrit injections once weekly and if there is a concern for thromboemboli to use prophylactic heparin -iron profile: Iron 39, TIBC 185, percent saturation 21.1 -Continue ferrous fumarate 325 mg po q12h, folic acid 1mg po daily, B12 1mcg po daily - Started Epogen 20,000 units subq once weekly (4) Melena Status: Resolved Plan: - Patient endorsed melena on admission - Hgb stable (5) Alcohol abuse Status: Chronic Plan: - [facility] protocol - PO thiamine and folic acid (6) Tobacco dependence, continuous Status: Chronic Plan: Nicotine patch 21 mg Remove each night before sleeping (7) Nutrition, metabolism, and development symptoms Status: Acute Plan: Fluids: None Electrolytes: Replete as necessary Nutrition: heart healthy diet DVT prophylaxis: Started heparin 5000 units subq q8h; b/l SCDs GI prophylaxis: Protonix 40 mg po daily (Niko Bauer MD R2) Niko Bauer MD R2 Apr 21, 2017 11:47 Emilia Anderson MD Apr 21, 2017 12:05
[2017-04-21] MEDS: cefTRIAXone INJ 1,000 MG in SODIUM CHLORIDE 0.9% INJ 100 ML IV SCH (16:11)
[2017-04-21] MEDS: REMOVE OLD PATCH T-DERMAL SCH (21:00)
[2017-04-22] VITALS: BP 152/86; PULSE 76; RESP 18; TEMP 97.2; O2SAT 98
[2017-04-22] MEDS: RESP: ALBUTEROL 2.5 MG/IPRATROPIUM 0.5 MG NEB (SCH) NEB ×2 (03:34→08:01)
[2017-04-22] MEDS: HEPARIN SODIUM - SQ 10,000 UNITS/ML VIAL SQ SCH (04:46)
--- NOTE | 2017-04-22 05:42 | RADRPT ---
EXAM DATE/TIME: 04/22/2017 05:00 [place] COMPARISON: CHEST SINGLE AP, April 20, 2017, 6:30. INDICATIONS : Evaluate post CT removal. MEDICAL HISTORY : Cardiovascular disease. Hypertension SURGICAL HISTORY : None. ENCOUNTER: Subsequent ACUITY: 4 - 6 days PAIN SCORE: 7/10 LOCATION: Bilateral chest FINDINGS: Previously seen left chest tube has been removed. No definite pneumothorax is seen for technique. The re is no change in left lower lung airspace process. Tiny left pleural effusion may be present. CONCLUSION: Removal of chest tube otherwise no change. David Saha MD on April 22, 2017 at 5:39 Board Certified Radiologist. This report was verified electronically.
[2017-04-22 06:00] VITALS: BP 149/85; PULSE 88; RESP 18; TEMP 98.2; O2SAT 97
[2017-04-22 07:15] VITALS: PULSE 115
--- NOTE | 2017-04-22 07:20 | HHI.FPPN ---
Subjective Remarks No acute events overnight. Patient doing very well this morning. He is eager to go home. Pt denies any fevers, CP, SOB, pain or swelling of either lower extremity. Appetite is good. No issues stooling or voiding. Ambulating without issues. States he still has a mild cough but is nonproductive. Denies pain elsewhere. (Ernst David MD R1) Objective Vitals Vital Signs Date Time Temp Pulse Resp B/P Pulse Ox O2 Delivery O2 Flow Rate FiO2 04/22/17 06:00 98.2 88 18 149/85 97 04/22/17 04:10 Room Air 04/22/17 00:01 Room Air 04/22/17 00:00 97.2 76 18 152/86 98 04/21/17 20:05 Room Air 04/21/17 20:01 98.5 95 16 120/78 96 04/21/17 20:00 100 04/21/17 16:01 98.2 93 16 117/69 96 04/21/17 12:03 98.0 110 18 131/80 93 04/21/17 09:00 91 04/21/17 08:02 98.2 95 18 133/72 94 04/21/17 08:00 Room Air I/O 04/21/17 04/21/17 04/21/17 04/22/17 04/22/17 04/22/17 07:00 15:00 23:00 07:00 15:00 23:00 Intake Total 600 ml 284 ml Output Total 1414 ml 800 ml 650 ml 600 ml Balance -1414 ml -200 ml -366 ml -600 ml Intake Oral 600 ml 280 ml IV Total 0 ml 4 ml Output Urine Total 1400 ml 800 ml 650 ml 600 ml Chest Tube Drainage Total 14 ml # Bowel Movements 1 2 1 0 (Ernst David MD R1) Result Diagram: 04/20/17 0713 04/18/17 0628 Objective Remarks GENERAL: NAD, lying comfortably in bed NEURO: AOx3. Normal speech. parachute rigger grossly intact. Wire Spiral Binder strength 4/5 b/l. Lower extremity strength 4/5 b/l. SKIN: Warm and dry. HEAD: Normocephalic. Atraumatic. EYES: EOMI. No scleral icterus. No injection or drainage. ENT: No nasal drainage. Moist mucous membranes. NECK: Supple, trachea midline. No JVD. CARDIOVASCULAR: Regular rate and rhythm. RESPIRATORY: Diminished breath sounds at left lung base. Fair aeration of left upper lung field. Clear breath sounds right lung. GASTROINTESTINAL: Abdomen soft, nontender, nondistended, normal BS. MUSCULOSKELETAL: No edema, cyanosis, or clubbing. Normal range of motion. BACK: Nontender without obvious deformity. (Ernst David MD R1) A/P Assessment and Plan 61-year-old male with PMH significant for COPD brought to the ED via EVAC today due to shortness of breath at home and found to have a left hydropneumothorax and left basilar consolidation. Discharge Planning Stable for discharge today Follow-up with Dr. Rae in one month. (Ernst David MD R1) Attending Attestation Patient seen and examined, discussed with Dr. David. I agree with assessment and management as documented and discussed with me. Pt reports no SOB, no chest pain. AM CXR ok. Discharge home today with 30 more days of PO levaquin to complete 6 weeks. Discussed the importance of adherence to treatment plan. Discussed importance of alcohol and tobacco cessation. (Emilia Anderson MD) Problem List: (1) Hydropneumothorax Status: Acute Plan: - Cardiovascular surgery consulted, has placed left chest tube. Chest tube removed and pt without complications Discharge home today on PO Levaquin 750 mg daily for additional 30 days to complete a total of 6 weeks Pleural fluid: Elevated white blood cells. LDH greater than 4000. 99 neutrophils. Pleural culture: viridans streptococcus; sensitivities in the EMR and reviewed Blood culture: No growth 5 day Antibiotic History: - Started Rocephin 1 gm IV q24h (04/17- ) - Discontinued Vancomycin (04/11-04/17) - Discontinued Zosyn 4.5 gm IV q6h (04/11-04/17) - Discontinued Levaquin 750 mg IV q24h (04/11-04/14) - Received cefepime 2 g IV 1 and azithromycin 500 mg IV 1 in the ED (2) Sepsis Status: Resolved Plan: Patient meets sepsis criteria on admission Plan as above (3) Anemia Status: Acute Plan: Hgb 10.4 on admission Stable Normocytic Patient is a Zoroastrian Refuses blood transfusions Avoid frequent blood draws; if needed draw in pediatric tubes -iron profile: Iron 39, TIBC 185, percent saturation 21.1 - Continue ferrous fumarate 325 mg po q12h, folic acid 1mg po daily, B12 1mcg po daily - Given Epogen 20,000 units subq x1 during hospitalization (4) Melena Status: Resolved Plan: - Patient endorsed melena on admission - Hgb stable (5) Alcohol abuse Status: Chronic Plan: - [facility] protocol - PO thiamine and folic acid (6) Tobacco dependence, continuous Status: Chronic Plan: Nicotine patch 21 mg Remove each night before sleeping (7) Nutrition, metabolism, and development symptoms Status: Acute Plan: Fluids: None Electrolytes: Replete as necessary Nutrition: heart healthy diet DVT prophylaxis: heparin 5000 units subq q8h; b/l SCDs GI prophylaxis: Protonix 40 mg po daily (Ernst David MD R1) Ernst David MD R1 Apr 22, 2017 07:20 Emilia Anderson MD Apr 22, 2017 12:03
[2017-04-22 08:29] VITALS: BP 135/75; PULSE 102; RESP 18; TEMP 98.3; O2SAT 98
[2017-04-22] MEDS: SODIUM CHLORIDE 0.9% FLUSH 10 ML FLUSH IV FLUSH SCH (09:00)
[2017-04-22] MEDS: amLODIPine BESYLATE 5 MG TAB PO SCH (09:02)
[2017-04-22] MEDS: LISINOPRIL 20 MG TAB PO SCH (09:02)
[2017-04-22] MEDS: FERROUS FUMARATE 325 MG TAB (106 MG ELEMENTAL IRON) PO SCH (09:02)
[2017-04-22] MEDS: THIAMINE HCL 100 MG TAB PO SCH (09:02)
[2017-04-22] MEDS: PANTOPRAZOLE SOD 40 MG DELAYED RELEASE TAB PO SCH (09:03)
[2017-04-22] MEDS: CYANOCOBALAMIN 1,000 MCG TAB PO SCH (09:03)
[2017-04-22] MEDS: FOLIC ACID 1 MG TAB PO SCH (09:03)
[2017-04-22] MEDS: MAGNESIUM OXIDE 400 MG TAB PO SCH (09:03)
[2017-04-22] MEDS: NICOTINE 21 MG/24 HR PATCH T-DERMAL SCH (09:03)
--- NOTE | 2017-04-22 09:51 | PD.CAR.PN ---
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 Patient is on wide spectrum antibiotics as he should be Lung is not fully expanded yet and when drainage seizes in next few days we will reevaluate the patient as far as the need for surgery In the lung is unable to expand due to pleural peel patient will need thoracoscopy and possible thoracotomy with decortication but I will give him at least 4-5 days for this to sort out All things equal patient may need thoracoscopy in the near future and I'll taken to the OR next week if indicated Will continue to follow 04/13/17 Drainage from the left chest tube has decreased and is more serosanguineous at this time Patient continuous IV antibiotics and will remain on for at least 2 weeks On current chest x-ray lung is still not fully expanded and there is a residual pneumothorax of about 2 cm all around the lower portion of the lung where it does not appear to the chest wall If this persists patient will be taken next week for thoracoscopy/thoracotomy and decortication 04/14/17 Lung still not fully expanded and while the left lower lobe area is slowly expanding and effusion is clearing up the entire lung appears to be encased and there is a persistent pneumothorax present due to lung entrapment Patient will be scheduled for thoracoscopy / thoracotomy and decortication early next week 04/15/17 Patient with entrapped left lung and left drained empyema Scheduled for Sunday for thoracoscopy and decortication of the left lung 04/16/17 Patient with persistent lung entrapment and inability to the expand the lung Patient will need thoracoscopy and decortication of the lung patient scheduled for surgery tomorrow 04/17/17 Clearing up of the left lower quadrant of the lung with better visualization of the diaphragm Lung is still not fully inflated and there is about a centimeter or 2 between the chest wall and the actual lung parenchyma due to entrapment and inability to expand completely Patient was going to have a VATS today yet he refuses blood or blood products While most likely patient would not need transfusion doing the pleurectomy and removing the peel is often associated with diffuse bleeding and before you know at the hemoglobin can drop significantly I've discussed this with patient at length and at this point given the circumstances I believe the risk-benefit ratio goes against surgery for I'll not be in the clinical situation where patient requires blood by every medical standard but refuses to get it Surgeries therefore postponed and we will work to get patient's hemoglobin up before we do any surgery 04/18/17 Patient stable at this time still has a space between the chest wall and the not fully inflated lung Eventually patient will need thoracoscopy and decortication of the lung but in the face of the fact that he does not want to accept any blood or blood products we need to drive his hemoglobin as high as we can preop which would include administration of Epogen and reduction of the IV fluids to allow for some degree of hemoconcentration I will take the patient to the OR by the end of the week probably Sunday if we can get hemoglobin at least over 10g/dl 04/19/17 Patient doing okay at this point White count is on its way down I truly appreciate the help from hematology in face of the patient's refusal to take blood While I do not believe that he'll have significant blood loss with thoracoscopy and decortication occasional patient will bleed and it would be unfortunate to be caught in situation where patient is symptomatically anemic but on the other hand refuses blood Considering that surgery is not an emergency I would allow patient sometime to increase his hemoglobin by either ferrous sulfate or as suggested Epogen Right now patient is on antibiotic therapy and chest tube drainage is decreasing so there is no aguayo to take the patient to the operating room 04/20/17 Patient is doing well and drainage from the chest tube is about 100 cc starting to clear up Lung is now fully expanded We'll order another CT of the chest and this looks okay will pull the chest tube This is a good finding because the continuous suction and the chest has expand the lung now fully and even if there is a minute pneumothorax left, this is better than having to undergo pleural decortication 04/21/17 CT scan reveals full expansion of the left lung with of course a residual cavitary lesion which is essentially a resolving abscess DC chest tube today Patient should stay on by mouth antibiotics as per infectious disease and period of time we recommend this is 4-6 weeks total depending on organisms, patient in clinical circumstances involved All things equal patient can go home tomorrow on by mouth antibiotics Follow up with me in about a month in the office 04/22/17 CT removed. Lung fully inflated. Bilateral BS. The CT site will likely leak a bit, but that is expected. Patient can FU with my office in a month. Will sign off Thanks Kyra Objective: Vital Signs Date Time Temp Pulse Resp B/P Pulse Ox O2 Delivery O2 Flow Rate FiO2 04/22/17 08:29 98.3 102 18 135/75 98 04/22/17 06:00 98.2 88 18 149/85 97 04/22/17 04:10 Room Air 04/22/17 00:01 Room Air 04/22/17 00:00 97.2 76 18 152/86 98 04/21/17 20:05 Room Air 04/21/17 20:01 98.5 95 16 120/78 96 04/21/17 20:00 100 04/21/17 16:01 98.2 93 16 117/69 96 04/21/17 12:03 98.0 110 18 131/80 93 Result Diagram: 04/20/17 0713 04/18/17 0628 Emma Suarez MD Apr 22, 2017 09:51
[2017-04-22 10:08] LABS: AUTOMATED NEUTROPHIL # 8.5 TH/MM3 (1.8-7.7); BASOPHIL # 0.1 TH/MM3 (0-0.2); BASOPHIL % 0.8 % (0.0-2.0); EOSINOPHIL % 0.3 % (0.0-4.0); HEMATOCRIT 32.9 % (39.0-51.0); HEMO FLAGS DIFF FINAL; LYMPH % 17.4 % (9.0-44.0); MEAN CELL VOLUME 91.1 FL (80.0-100.0); MEAN CORPUSCULAR HEMOGLOBIN 28.7 PG (27.0-34.0); MEAN CORPUSCULAR HGB CONC 31.5 % (32.0-36.0); MONO % 6.8 % (0.0-8.0); NEUT % 74.7 % (16.0-70.0); PLATELET COUNT 379 TH/MM3 (150-450); RED BLOOD COUNT 3.61 MIL/MM3 (4.50-5.90); WHITE BLOOD COUNT 11.4 TH/MM3 (4.0-11.0)
[2017-04-22 10:30] LABS: ALT (GPT) 26 U/L (12-78); ANION GAP 8 MEQ/L (5-15); AST (GOT) 23 U/L (15-37); BICARBONATE 30.1 MEQ/L (21.0-32.0); BLOOD UREA NITROGEN 11 MG/DL (7-18); CHLORIDE 100 MEQ/L (98-107); GLOMERULAR FILTRATION RATE 79 ML/MIN (>89); SODIUM (NA) 138 MEQ/L (136-145)
[2017-04-22 10:34] LABS: ALKALINE PHOSPHATASE 126 U/L (45-117); TOTAL BILIRUBIN ADULT 0.3 MG/DL (0.2-1.0)
[2017-04-22] MEDS ORDERED: Folic Acid PO (11:25)
[2017-04-22] MEDS ORDERED: HEMO324T PO (11:25)
[2017-04-22] MEDS ORDERED: LEVO750T3 PO (11:25)
[2017-04-22] MEDS ORDERED: PANT40TA3 PO (11:25)
[2017-04-22] MEDS ORDERED: VITA10002 PO (11:25)
[2017-04-22 12:18] VITALS: BP 118/73; PULSE 110; RESP 17; TEMP 97.4; O2SAT 99
--- NOTE | 2017-04-22 13:02 | HHI.DS ---
Discharge Summary Admission Date April 11, 2017 at 12:12 Discharge Date: Apr 22, 2017 Admitting Diagnosis pneumonia/sepsis/left-sided pneumo/ pleural effusion (1) Hydropneumothorax Diagnosis: Principal Plan: - Cardiovascular surgery consulted, has placed left chest tube. Chest tube removed and pt without complications Discharge home today on PO Levaquin 750 mg daily for additional 30 days to complete a total of 6 weeks Pleural fluid: Elevated white blood cells. LDH greater than 4000. 99 neutrophils. Pleural culture: viridans streptococcus; sensitivities in the EMR and reviewed Blood culture: No growth 5 day Antibiotic History: - Started Rocephin 1 gm IV q24h (04/17- ) - Discontinued Vancomycin (04/11-04/17) - Discontinued Zosyn 4.5 gm IV q6h (04/11-04/17) - Discontinued Levaquin 750 mg IV q24h (04/11-04/14) - Received cefepime 2 g IV 1 and azithromycin 500 mg IV 1 in the ED (2) Sepsis Diagnosis: Principal Plan: Patient meets sepsis criteria on admission Plan as above (3) Anemia Diagnosis: Principal Plan: Hgb 10.4 on admission Stable Normocytic Patient is a Alevism Refuses blood transfusions Avoid frequent blood draws; if needed draw in pediatric tubes -iron profile: Iron 39, TIBC 185, percent saturation 21.1 - Continue ferrous fumarate 325 mg po q12h, folic acid 1mg po daily, B12 1mcg po daily - Given Epogen 20,000 units subq x1 during hospitalization (4) Melena Diagnosis: Principal Plan: - Patient endorsed melena on admission - Hgb stable (5) Alcohol abuse Diagnosis: Secondary Plan: - [facility] protocol - PO thiamine and folic acid (6) Tobacco dependence, continuous Diagnosis: Secondary Plan: Nicotine patch 21 mg Remove each night before sleeping (7) Nutrition, metabolism, and development symptoms Diagnosis: Secondary Plan: Fluids: None Electrolytes: Replete as necessary Nutrition: heart healthy diet DVT prophylaxis: heparin 5000 units subq q8h; b/l SCDs GI prophylaxis: Protonix 40 mg po daily Consultants Cardiovascular surgery Procedures Left chest tube placement Brief History Patient is a 61-year-old male with PMH significant for COPD not requiring oxygen at home, brought to the ED via [facility] today due to shortness of breath at home. Patient was evaluated in the ED with his caregiver at bedside. His caregiver states earlier today he became very short of breath while walking a short distance in his living room and it was concerning enough to call the ambulance. Patient was recently admitted here to the hospital on 03/15/17 and treated for sepsis due to HCAP with Levaquin, aztreonam, and vancomycin. He was discharged on 03/19/17 on po antibiotics and a prednisone taper. His chest x-ray today in the ED demonstrates a left hydropneumothorax, and left basilar consolidation. He denies any significant cough recently. Denies fevers. He may have had some chills recently. They also state that over the past week the patient has not been able to tolerate PO intake. They also report black stools and at times visible blood in his stools. His caregiver states that sometimes he has fecal incontinence while sleeping at night. Patient denies any abdominal pain. Patient states he is a Alevism and would not want blood products if indicated. CBC/BMP: 04/22/17 0826 04/22/17 0826 Significant Findings Laboratory Tests Test 04/20/17 04/22/17 07:13 08:26 Hemoglobin 9.3 GM/DL 10.3 GM/DL (13.0-17.0) (13.0-17.0) Hematocrit 28.2 % 32.9 % (39.0-51.0) (39.0-51.0) White Blood Count 11.4 TH/MM3 (4.0-11.0) Red Blood Count 3.61 MIL/MM3 (4.50-5.90) Mean Corpuscular Hemoglobin 31.5 % Concent (32.0-36.0) Red Cell Distribution Width 18.0 % (11.6-17.2) Neutrophils (%) (Auto) 74.7 % (16.0-70.0) Neutrophils # (Auto) 8.5 TH/MM3 (1.8-7.7) Estimat Glomerular Filtration 79 ML/MIN (>89) Rate Alkaline Phosphatase 126 U/L (45-117) Albumin 2.4 GM/DL (3.4-5.0) Imaging Initial chest x-ray 04/11: Left basilar consolidation and pleural effusion. Vertical curvilinear opacity left upper lobe could be related to fluid in fissure or possible pneumothorax. CT chest 04/11: Consolidation, hydropneumothorax and volume loss in the left chest tube in place. Minimal airspace disease in the right lung. Head CT 04/14: Stable noncontrast head CT. No acute intracranial abnormality identified. Chronic changes include generalized atrophy. Chest CT 04/20: No interval change and a tiny hydropneumothorax on the left with chest tube in place. No change in cavitary consolidation involving the left lower lobe. Chest x-ray 04/20: No evidence of pneumothorax. PE at Discharge GENERAL: NAD, lying comfortably in bed NEURO: AOx3. Normal speech. railway yard assistant grossly intact. Pasta Press Operator strength 4/5 b/l. Lower extremity strength 4/5 b/l. SKIN: Warm and dry. HEAD: Normocephalic. Atraumatic. EYES: EOMI. No scleral icterus. No injection or drainage. ENT: No nasal drainage. Moist mucous membranes. NECK: Supple, trachea midline. No JVD. CARDIOVASCULAR: Regular rate and rhythm. RESPIRATORY: Diminished breath sounds at left lung base. Fair aeration of left upper lung field. Clear breath sounds right lung. GASTROINTESTINAL: Abdomen soft, nontender, nondistended, normal BS. MUSCULOSKELETAL: No edema, cyanosis, or clubbing. Normal range of motion. BACK: Nontender without obvious deformity. Hospital Course Cardiovascular surgery was consulted for placement of a left chest tube and recommendations regarding the patient's hydropneumothorax with empyema and bronchopleural fistula. The patient was started on broad-spectrum antibiotics with vancomycin, Zosyn, and Levaquin. The pleural fluid was sent for Gram stain and culture, and was found to be growing viridans streptococcus pansensitive. The patient was then transitioned to IV Rocephin. The patient was monitored for worsening or resolution of his pneumothorax. Patient may have required thoracoscopy with decortication however the patient's hemoglobin was not high enough to safely tolerate the procedure. The patient was then started on ferrous fumarate, folic acid, and B12. He was given 1 dose of Epogen 20,000 units 1. The patient's hemoglobin did rise up to 10.3 prior to discharge, however given that his pneumothorax resolved he no longer needed the procedure by cardiovascular surgery. He will be continued on Levaquin 750 mg by mouth daily for an additional 30 days to complete a six-week course of antibiotic therapy. He will follow-up with Dr. Suarez in his office in 1 month after discharge. Pt Condition on Discharge: Stable Discharge Disposition: Discharge Home Discharge Instructions DIET: Follow Instructions for: Heart Healthy Diet Speech Therapy-Diet Recommends: Mechanical Soft, [place] Thickened Liquids Activities you can perform: Weight Bearing as [place] Follow up Referrals: Cardiothoracic Surgery - 1 Month with Emma Suarez MD PCP Follow-up - 1 Week New Medications: Levofloxacin (Levofloxacin) 750 Mg Tablet 750 MG PO DAILY Infection #30 Ref 0 TAB Cyanocobalamin (Vitamin B-12) 1,000 Mcg Tab 1000 MCG PO DAILY #30 TAB Ferrous Fumarate (Hemocyte) 324 Mg Tab 325 MG PO Q12HR #60 TAB Pantoprazole (Pantoprazole) 40 Mg Tab 40 MG PO DAILY #28 TAB ([Folic Acid]) 1 MG TAB 1 MG PO DAILY #30 TAB Continued Medications: Amlodipine (Amlodipine) 2.5 Mg Tab 2.5 MG PO DAILY Blood Pressure Management #30 Ref 0 TAB Famotidine (Famotidine) 10 Mg Tab 10 MG PO BID #60 Ref 0 TAB Lisinopril (Lisinopril) 10 Mg Tab 40 MG PO DAILY htn #30 TAB Discontinued Medications: Metoprolol Tartrate (Metoprolol Tartrate) 25 Mg Tab 25 MG PO Q12HR htn #60 TAB Ernst David MD R1 Apr 22, 2017 13:02
== END 2017-04-22 14:59 | disposition home or self-care (01) | DRG 871 ==
LOC: NEPE 09:50 → NEDA 12:12 → N04A 18:10 → N03B 20:54 → N04B 04-12 19:17
PROVIDERS: ADMIT Family Medicine; ATTEND Family Medicine
PROC: 0W9B30Z Drainage of Left Pleural Cavity with Drainage Device, Percutaneous Approach (ICD-10-PCS; principal; 2017-04-11)
DX: A41.9 Sepsis, unspecified organism (principal); J86.0 Pyothorax with fistula; J94.8 Other specified pleural conditions; E87.2 Acidosis; D64.9 Anemia, unspecified; S01.01XA Laceration without foreign body of scalp, initial encounter; K92.1 Melena; J44.9 Chronic obstructive pulmonary disease, unspecified; S51.012A Laceration without foreign body of left elbow, initial encounter; E83.42 Hypomagnesemia; E87.6 Hypokalemia; R15.9 Full incontinence of feces; I10 Essential (primary) hypertension; M19.90 Unspecified osteoarthritis, unspecified site; Y90.9 Presence of alcohol in blood, level not specified; F10.10 Alcohol abuse, uncomplicated; K44.9 Diaphragmatic hernia without obstruction or gangrene; F17.210 Nicotine dependence, cigarettes, uncomplicated; W01.10XA Fall on same level from slipping, tripping and stumbling with subsequent striking against unspecified object, initial encounter; Y95 Nosocomial condition; Y92.230 Patient room in hospital as the place of occurrence of the external cause; Z53.1 Procedure and treatment not carried out because of patient's decision for reasons of belief and group pressure; Z78.1 Physical restraint status; Z87.01 Personal history of pneumonia (recurrent); Z88.0 Allergy status to penicillin; Z88.2 Allergy status to sulfonamides; Z88.5 Allergy status to narcotic agent; Z91.19 Patient's noncompliance with other medical treatment and regimen; Z99.81 Dependence on supplemental oxygen
CPT/HCPCS: 36600; 70450; 71010; 71020; 71250; 80048; 80053; 80202; 82150; 82550; 82805; 82945; 83540; 83550; 83605; 83615; 83735; 83880; 83986; 84157; 84484; 85014; 85018; 85025; 87040; 87070; 87205; 87641; 89051; 93005; 94150; 94640; 94664; 94667; 94668; 94762; 96365; 96368; 96375; J0456; J0692; J0696; J1644; J1650; J1956; J2060; J2250; J2543; J2930; J3370; J3411; J3475; J3480; J7030; J7040; J7050; Q4081

== ENCOUNTER 2017-06-23 01:29 | Emergency (ER) | payer MEDICARE ==
[~2017-06-23] VITALS: Ht 167.6 cm; Wt 65.0 kg
[~2017-06-23 01:29] MED LIST changes: +AMLO2.5T PO; +FAMO1TAB30 PO; +Folic Acid PO; +HEMO324T PO; -LEVA750T PO; +LEVO750T3 PO; -METO25TA3 PO; +PANT40TA3 PO; -PRED10PA PO; +VITA10002 PO
[2017-06-23 01:37] VITALS: BP 129/64; PULSE 74; RESP 16; TEMP 97.8; O2SAT 98
--- NOTE | 2017-06-23 01:56 | PD ---
HPI Chief Complaint: Laceration/Skin Injury Time Seen by Provider: 01:50 Travel History International Travel<30 days: No Contact w/Intl Traveler<30days: No Traveled to known affect area: No History of Present Illness HPI 62-year-old alcoholic male here for laceration. Reportedly patient was drinking heavily today, EMS found the empty bottle of vodka next to him. Patient stood and hit his left side of the face on a TV stand per bystander. No LOC. Patient denies any headache, nausea vomiting, neck or back pain. EMS noted a small laceration to the left cheek. Patient admits to drinking heavily today but does not have any other complaints. Patient is alert to self, knows he's in the hospital but does not know which one. Knows the year. PFSH Past Medical History ADD: Yes Arthritis: Yes Asthma: No Autoimmune Disease: No Blood Disorders: No Anxiety: No Depression: No Heart Rhythm Problems: No Cancer: No Cardiovascular Problems: Yes High Cholesterol: No Chemotherapy: No Chest Pain: Yes Congestive Heart Failure: No COPD: Yes Cerebrovascular Accident: No Diabetes: No Diminished Hearing: No Endocrine: No Gastrointestinal Disorders: Yes GERD: Yes Genitourinary: Yes Headaches: Yes Hepatitis: No Hiatal Hernia: Yes Heparin Induced Thrombocytopen: No Hypertension: Yes Immune Disorder: No Implanted Vascular Access Dvce: Yes Kidney Stones: No Musculoskeletal: No Neurologic: Yes Psychiatric: No Reproductive: No Respiratory: Yes Migraines: No Myocardial Infarction: No Pneumonia: Yes Radiation Therapy: No Renal Failure: No Seizures: No Sickle Cell Disease: No Sleep Apnea: No Thyroid Disease: No Ulcer: No Tetanus Vaccination: > 5 Years Influenza Vaccination: No Past Surgical History Abdominal Surgery: Yes AICD: No Appendectomy: No Arteriovenous Shunt: No Cardiac Surgery: No Cholecystectomy: No Ear Surgery: No Endocrine Surgery: No Eye Surgery: No Genitourinary Surgery: No Gynecologic Surgery: No Insulin Pump: No Joint Replacement: No Neurologic Surgery: No Oral Surgery: No Pacemaker: No Thoracic Surgery: No Tonsillectomy: Yes Other Surgery: Yes Social History Alcohol Use: Yes (EVERY DAY) Tobacco Use: Yes (1 PPD) Substance Use: No Allergies-Medications (Allergen,Severity, Reaction): Coded Allergies: Codeine (Verified Allergy, Severe, HIVES, 06/23/17) Morphine (Verified Allergy, Severe, 06/23/17) Penicillin (Verified Allergy, Severe, HIVES, 06/23/17) Bactrim (Verified Allergy, Mild, HIVES, 06/23/17) Reported Meds & Prescriptions Reported Meds & Active Scripts Active Levofloxacin 750 Mg Tablet 750 Mg PO DAILY Pantoprazole (Pantoprazole Sodium) 40 Mg Tab 40 Mg PO DAILY [Folic Acid] 1 MG Tab 1 Mg PO DAILY Hemocyte (Ferrous Fumarate) 324 Mg Tab 325 Mg PO Q12HR Vitamin B-12 (Cyanocobalamin) 1,000 Mcg Tab 1,000 Mcg PO DAILY Lisinopril 10 Mg Tab 40 Mg PO DAILY Reported Famotidine 10 Mg Tab 10 Mg PO BID Amlodipine (Amlodipine Besylate) 2.5 Mg Tab 2.5 Mg PO DAILY Review of Systems ROS Limitations: Intoxication Except as stated in HPI: all other systems reviewed are Neg Physical Exam Exam Limitations: Intoxication Narrative GENERAL: Adult male appearing older than stated age in no acute distress SKIN: Focused skin assessment warm/dry. HEAD: Atraumatic. Normocephalic. EYES: Pupils equal and round. No scleral icterus. No injection or drainage. ENT: No nasal bleeding or discharge. Mucous membranes pink and moist. Superficial laceration/abrasion over the left cheek. TMs clear bilaterally NECK: Supple without midline tenderness to palpation CARDIOVASCULAR: Regular rate and rhythm. RESPIRATORY: No accessory muscle use. GASTROINTESTINAL: Abdomen soft, non-tender, nondistended. MUSCULOSKELETAL: No obvious deformities. No edema. NEUROLOGICAL: Awake and alert to person, time,he is in a hospital but does not know which one. No obvious cranial nerve deficits. Motor grossly within normal limits. Normal speech. PSYCHIATRIC: insight and judgment poor Data Data Last Documented VS Vital Signs Date Time Temp Pulse Resp B/P Pulse Ox O2 Delivery O2 Flow Rate FiO2 06/23/17 01:42 16 06/23/17 01:37 97.8 74 129/[address] Brain W/O Iv Contrast(Rout) (06/23/17 ) [facility] Medical Decision Making Medical Screen Exam Complete: Yes Emergency Medical Condition: Yes Medical Record Reviewed: Yes Differential Diagnosis 62-year-old alcoholic male here after fall with facial trauma. Reportedly did not hit his head, but given his lack of ability to give history concern for closed head injury, skull fracture, ICH. Laceration on the face is superficial and does not warrant repair. There is no bony tenderness of the face to suggest a facial fracture. Narrative Course CT of the brain was obtained and negative. Patient was able ambulate independently, roommate is here and will drive him home with safe ride. Diagnosis Primary Impression: Alcohol intoxication Qualified Code: F10.920 - Alcoholic intoxication without complication Additional Impressions: Facial abrasion Qualified Code: S00.81XA - Abrasion of face, initial encounter Fall Qualified Code: W19.XXXA - Fall, initial encounter Referrals: Primary Care Physician call for appointment Chand[facility] call for appointment Additional Instructions: Seek outpatient counseling for your substance abuse Med/Other Pt SpecificInfo: No Change to Meds Disposition: 01 DISCHARGE HOME Condition: Stable Taya Eason MD Jun 23, 2017 01:56
--- NOTE | 2017-06-23 02:41 | RADRPT ---
EXAM DATE/TIME: 06/23/2017 02:19 [facility] COMPARISON: CT BRAIN W/O CONTRAST, April 14, 2017, 7:01. INDICATIONS : Trauma, fall. RADIATION DOSE: 56.35 CTDIvol (mGy) MEDICAL HISTORY : None SURGICAL HISTORY : None. ENCOUNTER: Initial ACUITY: 1 day PAIN SCALE: Non-responsive LOCATION: cranial TECHNIQUE: Multiple contiguous axial images were obtained of the head. Using automated exposure control and adj ustment of the mA and/or kV according to patient size, radiation dose was kept as low as reasonably a chievable to obtain optimal diagnostic quality images. DICOM format image data is available electro nically for review and comparison. FINDINGS: The ventricles are enlarged with a prominent sulcal pattern compatible with atrophic change. No acute intracranial hemorrhage, acute cortical infarction, mass or midline shift is seen. There is benign-a ppearing mucosal disease in the left maxillary sinus. There is old lacunar infarct involving the left basal ganglia. Posterior fossa structures are unremarkable. Bone windows are unremarkable. CONCLUSION: Atrophy. No evidence of acute intracranial pathology. Da Jacob MD on June 23, 2017 at 2:37 Board Certified Radiologist. This report was verified electronically.
[2017-06-23 03:25] VITALS: BP 141/74
== END 2017-06-23 03:34 | disposition home or self-care (01) ==
LOC: NEPE 01:29
DX: F10.129 Alcohol abuse with intoxication, unspecified (principal); S00.81XA Abrasion of other part of head, initial encounter; I10 Essential (primary) hypertension; J44.9 Chronic obstructive pulmonary disease, unspecified; M13.88 Other specified arthritis, other site; F17.200 Nicotine dependence, unspecified, uncomplicated; X58.XXXA Exposure to other specified factors, initial encounter; Z79.899 Other long term (current) drug therapy; Z88.0 Allergy status to penicillin
CPT/HCPCS: 70450; 99284

== ENCOUNTER 2017-09-19 18:45 | Emergency (ER) | payer MEDICARE ==
[~2017-09-19] VITALS: Ht 172.7 cm; Wt 61.5 kg
[2017-09-19 18:47] VITALS: BP 108/58; PULSE 99; RESP 20; TEMP 98.7; O2SAT 97
--- NOTE | 2017-09-19 19:26 | PD ---
HPI Chief Complaint: Bite or Sting Time Seen by Provider: 19:13 Travel History International Travel<30 days: No Contact w/Intl Traveler<30days: No Traveled to known affect area: No History of Present Illness HPI Patient comes in complaining of a squirrel bite to his left middle finger that occurred yesterday. Patient states he was feeding the squirrel peanut butter and jelly when the squirrel ran up his leg he believes bit his finger. Patient denies doing anything for this. Denies anything making it better. Pain is worse to palpation. States feels pressure from pain around the site without radiation. Denies any fevers, nausea, or vomiting. Patient reports tetanus shot was not up-to-date. [facility] Past Medical History ADD: Yes Arthritis: Yes Asthma: No Autoimmune Disease: No Blood Disorders: No Anxiety: No Depression: No Heart Rhythm Problems: No Cancer: No Cardiovascular Problems: Yes (htn) High Cholesterol: No Chemotherapy: No Chest Pain: Yes Congestive Heart Failure: No COPD: Yes Cerebrovascular Accident: No Diabetes: No Diminished Hearing: No Endocrine: No Gastrointestinal Disorders: Yes GERD: Yes Genitourinary: Yes Headaches: Yes Hepatitis: No Hiatal Hernia: Yes Heparin Induced Thrombocytopen: No Hypertension: Yes Immune Disorder: No Implanted Vascular Access Dvce: Yes Kidney Stones: No Musculoskeletal: No Neurologic: Yes Psychiatric: No Reproductive: No Respiratory: Yes Migraines: No Myocardial Infarction: No Pneumonia: Yes Radiation Therapy: No Renal Failure: No Seizures: No Sickle Cell Disease: No Sleep Apnea: No Thyroid Disease: No Ulcer: No Past Surgical History Abdominal Surgery: Yes AICD: No Appendectomy: No Arteriovenous Shunt: No Cardiac Surgery: No Cholecystectomy: No Ear Surgery: No Endocrine Surgery: No Eye Surgery: No Genitourinary Surgery: No Gynecologic Surgery: No Insulin Pump: No Joint Replacement: No Neurologic Surgery: No Oral Surgery: No Pacemaker: No Thoracic Surgery: No Tonsillectomy: Yes Other Surgery: Yes Social History Alcohol Use: Yes (EVERY DAY) Tobacco Use: Yes (1 PPD) Substance Use: No Allergies-Medications (Allergen,Severity, Reaction): Coded Allergies: codeine (Unverified Allergy, Severe, HIVES, 09/19/17) morphine (Unverified Allergy, Severe, 09/19/17) penicillin G (Unverified Allergy, Severe, HIVES, 09/19/17) sulfamethoxazole (Unverified Allergy, Mild, HIVES, 09/19/17) trimethoprim (Unverified Allergy, Mild, HIVES, 09/19/17) Reported Meds & Prescriptions Reported Meds & Active Scripts Active Doxycycline Hyclate 100 Mg Cap 100 Mg PO BID Clindamycin (Clindamycin HCl) 150 Mg Cap 2 Cap PO Q6H Levofloxacin 750 Mg Tablet 750 Mg PO DAILY Pantoprazole (Pantoprazole Sodium) 40 Mg Tab 40 Mg PO DAILY [Folic Acid] 1 MG Tab 1 Mg PO DAILY Hemocyte (Ferrous Fumarate) 324 Mg Tab 325 Mg PO Q12HR Vitamin B-12 (Cyanocobalamin) 1,000 Mcg Tab 1,000 Mcg PO DAILY Lisinopril 10 Mg Tab 40 Mg PO DAILY Reported Famotidine 10 Mg Tab 10 Mg PO BID Amlodipine (Amlodipine Besylate) 2.5 Mg Tab 2.5 Mg PO DAILY Review of Systems Except as stated in HPI: all other systems reviewed are Neg Physical Exam Narrative GENERAL: Well-developed, well nourished, in no acute distress, and non-ill appearing. SKIN: Small superficial scratch versus bite over the dorsal aspect left middle finger. It is afebrile without crepitus mildly tender and without drainage. HEAD: Atraumatic. Normocephalic. EYES: Pupils equal and round. EOMI. No scleral icterus. No injection or drainage. ENT: No nasal bleeding or discharge. Mucous membranes pink and moist. NECK: Trachea midline. No JVD. Supple. No nuclear rigidity. CARDIOVASCULAR: Capillary refill less than 2 seconds. RESPIRATORY: No accessory muscle use. No respiratory distress. MUSCULOSKELETAL: No obvious deformities. No clubbing. No cyanosis. No edema. Full range of motion. NEUROLOGICAL: Awake and alert. No obvious cranial nerve deficits. Motor grossly within normal limits. Normal speech. PSYCHIATRIC: Appropriate mood and affect; insight and judgment normal. Data Data Last Documented VS Vital Signs Date Time Temp Pulse Resp B/P (MAP) Pulse Ox O2 Delivery O2 Flow Rate FiO2 09/19/17 20:18 09/19/17 18:47 98.7 99 20 97 Room Air Orders Orders Finger ([id number]) (09/19/17 ) Rabies Immune Globulin Inj (Hyperrab S/D (09/19/17 19:30) Rabies Vaccine Chick Emb Inj (Rabavert I (09/19/17 19:30) Clindamycin (Cleocin) (09/19/17 19:30) Doxycycline (Vibramycin) (09/19/17 19:30) Tetanus/Diphtheria Tox Adult (Tetanus/Di (09/19/17 20:00) MDM Medical Decision Making Medical Screen Exam Complete: Yes Emergency Medical Condition: Yes Interpretation(s) Finger x-ray read by the radiologist shows: 1. Soft tissue swelling over the distal second digit with no radiopaque foreign body or fracture. 2. Osteopenia and osteoarthritic change. 3. Postsurgical changes after multiple amputations. Differential Diagnosis Scleral bite, animal scratch, wound infection, retained foreign body, other Narrative Course Patient is uncertain of his last tetanus shot however after reviewing patient's medical record was noted patient had a shot within the last 5 years. The patient suffered animal bite wound. There is no evidence of deep tissue involvement and/or local tendon involvement. There was no evidence to suggest foreign bodies. Visual and tactile exams were unremarkable. There was no evidence of neurovascular injury as well. Rabies prophylaxis was discussed with the patient and exposure appears mod risk and indicated. Rabies prophylaxis and treatment plan was discussed with the patient. Human rabies immune globulin ( HRIG) and initial Rabies vaccine was begun in the ED. The patient was given signs and symptom warnings for infection, such as increasing pain, pain with movement of involved extremity, redness, swelling, associated heat, pus or fever. The patient was given antibiotics to cover mouth zaynab and instructions for timely follow up for wound recheck. The patient agreed with plan of care. The patient was instructed to return on days 3, 7 and 14 post exposure. X-ray was performed and there was no foreign body or tooth/tooth fragment. Patient in no obvious distress upon re-evaluation. All pertinent Radiology result(s) discussed with patient/family. Patient was asked if they wanted to speak to my attending, which the patient did not wish to do at this time. Any questions/concerns in reference to patient diagnosis/condition discussed and clarified prior to patient's discharge. Reinforced sheer importance of close follow up with health department or return to the emergency department 3 days for his next rabies vaccination. Instructed patient to return to ED immediately , if symptoms return/worsen. Patient showed understanding of above instructions. Further instructions and recommendations were detailed in discharge paperwork. Patient ambulated without difficulty out of ED at discharge. Diagnosis Primary Impression: Wound due to squirrel bite Referrals: [facility] Dept. Patient Instructions: Animal Bite (ED), General Instructions Additional Instructions: Follow-up with department to return here in 3 days for your second rabies vaccine. Take all medication as prescribed. Return to the emergency department if symptoms get worse. Med/Other Pt SpecificInfo: Prescription(s) given Scripts Doxycycline Hyclate (Doxycycline Hyclate) 100 Mg Cap 100 MG PO BID for Infection, #20 CAP 0 Refills Prov: Grace Ashford MD 09/19/17 Clindamycin (Clindamycin) 150 Mg Cap 2 CAP PO Q6H for Infection, #10 CAP 0 Refills Prov: Grace Ashford MD 09/19/17 Disposition: 01 DISCHARGE HOME Condition: Stable Abel Ortiz Sep 19, 2017 19:26
[2017-09-19] MEDS ORDERED: RABIES VACCINE CHICK EMB INJ 2.5 UNITS/ML SYR IM ONE (19:30)
[2017-09-19] MEDS ORDERED: RABIES IMMUNE GLOBULIN INJ 1,500 UNITS/10 ML VIAL IM ONE (19:30)
[2017-09-19] MEDS ORDERED: CLINDAMYCIN 150 MG CAP PO ONE (19:30)
[2017-09-19] MEDS ORDERED: DOXYCYCLINE HYCLATE 100 MG CAP PO ONE (19:30)
[2017-09-19] MEDS ORDERED: DOXY100C PO (19:33)
[2017-09-19] MEDS ORDERED: CLIN150C14 PO (19:33)
--- NOTE | 2017-09-19 19:54 | RADRPT ---
EXAM DATE/TIME: 09/19/2017 19:32 [facility] COMPARISON: No previous studies available for comparison. INDICATIONS : Distal left middle finger swelling from a squirrel bite. Evaluate for foreign body. MEDICAL HISTORY : None. SURGICAL HISTORY : Left hand surgery. ENCOUNTER: Initial ACUITY: 1 day PAIN SCORE: 5/10 LOCATION: Left 3rd digit. FINDINGS: AP, lateral and oblique views of the left hand were obtained and demonstrate the patient is status po st amputation of the third digit the level of the mid metacarpal. The patient is also status post amp utation of the second digit down to level of the carpal bone. There is soft tissue swelling over the second distal phalanx with no radiopaque foreign body. There are diffuse osteoporotic changes. CONCLUSION: 1. Soft tissue swelling over the distal second digit with no radiopaque foreign body or fracture. 2. Osteopenia and osteoarthritic change. 3. Postsurgical changes after multiple amputations. Wilfredo Andersen MD on September 19, 2017 at 19:52 Board Certified Radiologist. This report was verified electronically.
[2017-09-19] MEDS ORDERED: TETANUS/DIPHTHERIA TOXOID ADULT 0.5 ML VIAL IM ONE (20:00)
== END 2017-09-19 20:19 | disposition home or self-care (01) ==
LOC: NEPK 18:45
DX: S61.253A Open bite of left middle finger without damage to nail, initial encounter (principal); M85.842 Other specified disorders of bone density and structure, left hand; F98.8 Other specified behavioral and emotional disorders with onset usually occurring in childhood and adolescence; I10 Essential (primary) hypertension; J44.9 Chronic obstructive pulmonary disease, unspecified; K21.9 Gastro-esophageal reflux disease without esophagitis; F17.200 Nicotine dependence, unspecified, uncomplicated; W53.21XA Bitten by squirrel, initial encounter; Z29.14 Encounter for prophylactic rabies immune globulin
CPT/HCPCS: 73140; 90375; 90471; 90472; 90675; 96372

== ENCOUNTER 2017-11-05 22:12 | Emergency (ER) | payer MEDICARE, OTHER ==
[~2017-11-05] VITALS: Ht 172.7 cm; Wt 65.0 kg
[~2017-11-05 22:12] MED LIST changes: +CLIN150C14 PO; +DOXY100C PO
[2017-11-05 22:35] VITALS: BP 98/54; PULSE 75; RESP 20; TEMP 97.9; O2SAT 96
--- NOTE | 2017-11-05 23:02 | PD ---
HPI . Chief Complaint: act Time Seen by Provider: 22:30 Travel History International Travel<30 days: No Contact w/Intl Traveler<30days: No Traveled to known affect area: No History of Present Illness HPI 62-year-old white male homeless alcoholic presents emergency department under acted to his intoxication. Patient was found heavily intoxicated and unable to care for himself. He appeared to be slightly confused. He felt that he was in [facility] as opposed to [place]. He felt the president was Suarez. The patient here is pleasant but intoxicated. He is not able to answer any meaningful questions. [facility] Past Medical History ADD: Yes Arthritis: Yes Asthma: No Autoimmune Disease: No Blood Disorders: No Anxiety: No Depression: No Heart Rhythm Problems: No Cancer: No Cardiovascular Problems: Yes (htn) High Cholesterol: No Chemotherapy: No Chest Pain: Yes Congestive Heart Failure: No COPD: Yes Cerebrovascular Accident: No Diabetes: No Diminished Hearing: No Endocrine: No Gastrointestinal Disorders: Yes GERD: Yes Genitourinary: Yes Headaches: Yes Hepatitis: No Hiatal Hernia: Yes Heparin Induced Thrombocytopen: No Hypertension: Yes Immune Disorder: No Implanted Vascular Access Dvce: Yes Kidney Stones: No Musculoskeletal: No Neurologic: Yes Psychiatric: No Reproductive: No Respiratory: Yes Immunizations Current: Yes Migraines: No Myocardial Infarction: No Pneumonia: Yes Radiation Therapy: No Renal Failure: No Seizures: No Sickle Cell Disease: No Sleep Apnea: No Thyroid Disease: No Ulcer: No Past Surgical History Abdominal Surgery: Yes AICD: No Appendectomy: No Arteriovenous Shunt: No Cardiac Surgery: No Cholecystectomy: No Ear Surgery: No Endocrine Surgery: No Eye Surgery: No Genitourinary Surgery: No Gynecologic Surgery: No Insulin Pump: No Joint Replacement: No Neurologic Surgery: No Oral Surgery: No Pacemaker: No Thoracic Surgery: No Tonsillectomy: Yes Other Surgery: Yes Social History Alcohol Use: Yes (EVERY DAY) Tobacco Use: Yes (1 PPD) Substance Use: No Allergies-Medications (Allergen,Severity, Reaction): Coded Allergies: codeine (Unverified Allergy, Severe, HIVES, 09/19/17) morphine (Unverified Allergy, Severe, 09/19/17) penicillin G (Unverified Allergy, Severe, HIVES, 09/19/17) sulfamethoxazole (Unverified Allergy, Mild, HIVES, 09/19/17) trimethoprim (Unverified Allergy, Mild, HIVES, 09/19/17) Reported Meds & Prescriptions Reported Meds & Active Scripts Active Doxycycline Hyclate 100 Mg Cap 100 Mg PO BID Clindamycin (Clindamycin HCl) 150 Mg Cap 2 Cap PO Q6H Levofloxacin 750 Mg Tablet 750 Mg PO DAILY Pantoprazole (Pantoprazole Sodium) 40 Mg Tab 40 Mg PO DAILY [Folic Acid] 1 MG Tab 1 Mg PO DAILY Hemocyte (Ferrous Fumarate) 324 Mg Tab 325 Mg PO Q12HR Vitamin B-12 (Cyanocobalamin) 1,000 Mcg Tab 1,000 Mcg PO DAILY Lisinopril 10 Mg Tab 40 Mg PO DAILY Reported Famotidine 10 Mg Tab 10 Mg PO BID Amlodipine (Amlodipine Besylate) 2.5 Mg Tab 2.5 Mg PO DAILY Review of Systems ROS Limitations: Intoxication Physical Exam Narrative GENERAL: Well-nourished, well-developed patient. Smells of EtOH and appears heavily intoxicated SKIN: Warm and dry. HEAD: Normocephalic and atraumatic. EYES: No scleral icterus. No injection or drainage. ENT: No nasal drainage noted. Mucous membranes pink. Airway patent. NECK: Supple, trachea midline. Moves head freely without obvious discomfort. CARDIOVASCULAR: Regular rate and rhythm without murmurs, gallops, or rubs. RESPIRATORY: Breath sounds equal bilaterally. No accessory muscle use. GASTROINTESTINAL: Abdomen soft, non-tender, nondistended. EXTREMITIES: No cyanosis or edema. BACK: Nontender without obvious deformity. No CVA tenderness. NEURO: Patient is alert and oriented. no sensorimotor deficits. Nonfocal. Slurred speech. Ataxic gait. PSYCH: No delusions. No auditory or visual hallucinations. Data Data Last Documented VS Vital Signs Date Time Temp Pulse Resp B/P (MAP) Pulse Ox O2 Delivery O2 Flow Rate FiO2 11/05/17 22:35 97.9 75 20 98/54 (69) 96 MDM Medical Decision Making Medical Screen Exam Complete: Yes Emergency Medical Condition: Yes Medical Record Reviewed: Yes Differential Diagnosis Differential diagnoses: Alcohol intoxication, substance abuse, electrolyte abnormality, malingering Narrative Course The patient is here under act. The patient will be allowed to sleep it off here in the ER once he exhibits of bright he will be discharged. This is alcohol intoxication Diagnosis Primary Impression: Alcohol intoxication Qualified Codes: F10.920 - Alcohol use, unspecified with intoxication, uncomplicated Additional Impression: Alcohol abuse Additional Instructions: Rest. Increase fluids. Avoid alcohol. Avoid illegal substances. Follow-up with [facility] for detox. Do not operate a car or any heavy machinery under the influence of alcohol or drugs. Follow-up with a medical doctor this week. Return to the ER for emergencies Med/Other Pt SpecificInfo: No Meds Exist/No RX given Disposition: 01 DISCHARGE HOME Condition: Stable Carlo Holley Nov 05, 2017 23:02
== END 2017-11-06 03:31 | disposition home or self-care (01) ==
LOC: NEDAMB 22:12 → NEPD 11-06 03:31
DX: F10.129 Alcohol abuse with intoxication, unspecified (principal); I10 Essential (primary) hypertension; F17.200 Nicotine dependence, unspecified, uncomplicated; K21.9 Gastro-esophageal reflux disease without esophagitis
CPT/HCPCS: 99283

== ENCOUNTER 2017-11-22 14:57 | Emergency (ER) | payer MEDICARE, MEDICAID, OTHER ==
[~2017-11-22] VITALS: Ht 172.7 cm; Wt 63.5 kg
[2017-11-22 15:12] VITALS: BP 187/104; PULSE 97; RESP 18; TEMP 97.9; O2SAT 98
--- NOTE | 2017-11-22 15:18 | PD ---
HPI Chief Complaint: Alcohol/Drug Intoxication Time Seen by Provider: 15:11 Travel History International Travel<30 days: No Contact w/Intl Traveler<30days: No Traveled to known affect area: No History of Present Illness HPI PATIENT WAS BROUGHT IN A [employer] [facility] FOR PUBLIC INTOXICATION. PT DENIES WOMACK/ FALL/TRAUMA/N/V/VISUAL CHANGES. NO ALLEVIATING/AGGRAVATING FACTORS PFSH Past Medical History ADD: Yes Arthritis: Yes Asthma: No Autoimmune Disease: No Blood Disorders: No Anxiety: No Depression: No Heart Rhythm Problems: No Cancer: No Cardiovascular Problems: Yes (htn) High Cholesterol: No Chemotherapy: No Chest Pain: Yes Congestive Heart Failure: No COPD: Yes Cerebrovascular Accident: No Diabetes: No Diminished Hearing: No Endocrine: No Gastrointestinal Disorders: Yes GERD: Yes Genitourinary: Yes Headaches: Yes Hepatitis: No Hiatal Hernia: Yes Heparin Induced Thrombocytopen: No Hypertension: Yes Immune Disorder: No Implanted Vascular Access Dvce: Yes Kidney Stones: No Musculoskeletal: No Neurologic: Yes Psychiatric: No Reproductive: No Respiratory: Yes Immunizations Current: Yes Migraines: No Myocardial Infarction: No Pneumonia: Yes Radiation Therapy: No Renal Failure: No Seizures: No Sickle Cell Disease: No Sleep Apnea: No Thyroid Disease: No Ulcer: No Past Surgical History Abdominal Surgery: Yes AICD: No Appendectomy: No Arteriovenous Shunt: No Cardiac Surgery: No Cholecystectomy: No Ear Surgery: No Endocrine Surgery: No Eye Surgery: No Genitourinary Surgery: No Gynecologic Surgery: No Insulin Pump: No Joint Replacement: No Neurologic Surgery: No Oral Surgery: No Pacemaker: No Thoracic Surgery: No Tonsillectomy: Yes Other Surgery: Yes Social History Alcohol Use: Yes (EVERY DAY) Tobacco Use: Yes (1 PPD) Substance Use: No Allergies-Medications (Allergen,Severity, Reaction): Coded Allergies: codeine (Unverified Allergy, Severe, HIVES, 11/22/17) morphine (Unverified Allergy, Severe, 11/22/17) penicillin G (Unverified Allergy, Severe, HIVES, 11/22/17) sulfamethoxazole (Unverified Allergy, Mild, HIVES, 11/22/17) trimethoprim (Unverified Allergy, Mild, HIVES, 11/22/17) Reported Meds & Prescriptions Reported Meds & Active Scripts Active Lisinopril 10 Mg Tab 40 Mg PO DAILY Reported Amlodipine (Amlodipine Besylate) 2.5 Mg Tab 2.5 Mg PO DAILY Review of Systems ROS Limitations: Intoxication Except as stated in HPI: all other systems reviewed are Neg Physical Exam Exam Limitations: Intoxication Narrative GENERAL: SKIN: Warm and dry....ETOH SMELL ON BREATH HEAD: Atraumatic. Normocephalic. NO SIGN OF TRAUMA, NO HEMOTYMPANUM. EYES: Pupils equal and round. No scleral icterus. No injection or drainage. ENT: No nasal bleeding or discharge. Mucous membranes pink and moist. NECK: Trachea midline. No JVD. CARDIOVASCULAR: Regular rate and rhythm. RESPIRATORY: No accessory muscle use. Clear to auscultation. Breath sounds equal bilaterally. GASTROINTESTINAL: Abdomen soft, non-tender, nondistended. MUSCULOSKELETAL: Extremities without clubbing, cyanosis, or edema. No obvious deformities. NEUROLOGICAL: Awake and alert. No obvious cranial nerve deficits. Motor grossly within normal limits. Five out of 5 muscle strength in the arms and legs. Normal speech. PSYCHIATRIC: Appropriate mood and affect; insight and judgment normal. Data Data Last Documented VS Vital Signs Date Time Temp Pulse Resp B/P (MAP) Pulse Ox O2 Delivery O2 Flow Rate FiO2 11/22/17 15:12 97.9 97 18 187/104 (131) [address] Brain W/O Iv Contrast(Rout) (11/22/17 15:15) Blood Glucose (11/22/17 15:15) MDM Medical Decision Making Medical Screen Exam Complete: Yes Emergency Medical Condition: Yes Medical Record Reviewed: Yes Differential Diagnosis INTOXICATION V HYPOGLYCEMIA V ICH Diagnosis Primary Impression: INTOXICATION S/P SOBRIETY Referrals: [facility] Disposition: 01 DISCHARGE HOME Condition: Stable Unruly Gotti MD Nov 22, 2017 15:18
--- NOTE | 2017-11-22 15:44 | RADRPT ---
EXAM DATE/TIME: 11/22/2017 15:36 [facility] COMPARISON: CT BRAIN W/O CONTRAST, June 23, 2017, 2:19. INDICATIONS : Altered mental status. RADIATION DOSE: 35.97 CTDIvol (mGy) MEDICAL HISTORY : Hypertension. Chronic obstructive pulmonary disease. Syncope. SURGICAL HISTORY : None. ENCOUNTER: Initial ACUITY: 1 day PAIN SCALE: 0/10 LOCATION: cranial TECHNIQUE: Multiple contiguous axial images were obtained of the head. Using automated exposure control and adj ustment of the mA and/or kV according to patient size, radiation dose was kept as low as reasonably a chievable to obtain optimal diagnostic quality images. DICOM format image data is available electro nically for review and comparison. FINDINGS: CEREBRUM: Diffuse cerebral atrophy is noted. Old lacunar infarct is noted within the left basal ganglia. No rene dence of midline shift, mass lesion, hemorrhage or acute infarction. No extra-axial fluid collection s are seen. POSTERIOR FOSSA: The cerebellum and brainstem are intact. The 4th ventricle is midline. The cerebellopontine angle i s unremarkable. EXTRACRANIAL: The visualized portion of the orbits is intact. There is a mucous retention cyst within left maxillar y sinus. SKULL: The calvaria is intact. No evidence of skull fracture. CONCLUSION: 1. Diffuse cerebral atrophy. 2. Old lacunar infarct within the basal ganglia. 3. No acute infarct, acute hemorrhage, mass effect or extra-axial fluid collections. 4. Mucous retention cyst within left maxillary sinus. Keo Marrufo MD on November 22, 2017 at 15:41 Board Certified Radiologist. This report was verified electronically.
[2017-11-22 22:15] VITALS: BP 152/70; PULSE 80; RESP 16; O2SAT 95
== END 2017-11-23 02:52 | disposition home or self-care (01) ==
LOC: NEPD 14:57 → NEDAMB 11-23 02:52
DX: F10.129 Alcohol abuse with intoxication, unspecified (principal); F98.8 Other specified behavioral and emotional disorders with onset usually occurring in childhood and adolescence; I10 Essential (primary) hypertension; J44.9 Chronic obstructive pulmonary disease, unspecified; K21.9 Gastro-esophageal reflux disease without esophagitis; F17.200 Nicotine dependence, unspecified, uncomplicated; Z79.899 Other long term (current) drug therapy; Z88.5 Allergy status to narcotic agent; Z88.0 Allergy status to penicillin
CPT/HCPCS: 70450; 99284

== ENCOUNTER 2017-12-26 07:12 | Emergency (ER) | payer MEDICARE, MEDICAID ==
[~2017-12-26] VITALS: Ht 172.7 cm; Wt 66.0 kg
[~2017-12-26 07:12] MED LIST changes: -CLIN150C14 PO; -DOXY100C PO; -FAMO1TAB30 PO; -Folic Acid PO; -HEMO324T PO; -LEVO750T3 PO; -PANT40TA3 PO; -VITA10002 PO
[2017-12-26 07:14] VITALS: BP 190/89; PULSE 127; RESP 20; TEMP 100; O2SAT 89
[2017-12-26 07:25] VITALS: BP 173/97; PULSE 114; RESP 20; O2SAT 91
[2017-12-26 07:35] VITALS: O2SAT 91
[2017-12-26] MEDS ORDERED: SODIUM CHLORIDE 0.9% FLUSH 10 ML FLUSH IVF PRN (07:45)
[2017-12-26] MEDS ORDERED: methylPREDNISolone SOD SUCC 125 MG/2 ML VIAL IV PUSH ONE (07:45)
--- NOTE | 2017-12-26 08:08 | RADRPT ---
EXAM DATE/TIME: 12/26/2017 07:43 [facility] COMPARISON: CT THORAX W/O CONTRAST, April 20, 2017, 18:47. CHEST SINGLE AP, April 22, 2017, 5:00. INDICATIONS : Short of breath. MEDICAL HISTORY : Hypertension. Chronic obstructive pulmonary disease. Syncope. SURGICAL HISTORY : Left hand surgery. ENCOUNTER: Initial ACUITY: 4 - 6 days PAIN SCORE: 2/10 LOCATION: Bilateral chest FINDINGS: The heart is stable. The pulmonary vascular pattern is normal. Minimal scattered fibrotic scarring is noted. There is no acute focal alveolar consolidation. CONCLUSION: No acute focal alveolar consolidation. Minimal scattered fibrotic scarring. Keo Marrufo MD on December 26, 2017 at 8:04 Board Certified Radiologist. This report was verified electronically.
[2017-12-26 08:20] LABS: AUTOMATED NEUTROPHIL # 8.8 TH/MM3 (1.8-7.7); BASOPHIL % 0.3 % (0.0-2.0); HEMATOCRIT 37.5 % (39.0-51.0); HEMOGLOBIN 13.5 GM/DL (13.0-17.0); LYMPHOCYTE # 0.5 TH/MM3 (1.0-4.8); MEAN CELL VOLUME 89.1 FL (80.0-100.0); MEAN CORPUSCULAR HEMOGLOBIN 32.1 PG (27.0-34.0); MEAN PLATELET VOLUME 9.2 FL (7.0-11.0); MONO % 5.6 % (0.0-8.0); MONOCYTE # 0.6 TH/MM3 (0-0.9); NEUT % 89.1 % (16.0-70.0); PLATELET COUNT 172 TH/MM3 (150-450); RED BLOOD COUNT 4.21 MIL/MM3 (4.50-5.90); WHITE BLOOD COUNT 9.9 TH/MM3 (4.0-11.0)
[2017-12-26] MEDS: RESP: ALBUTEROL 2.5 MG/IPRATROPIUM 0.5 MG NEB (SCH) INH ×2 (08:20→08:21)
[2017-12-26 08:24] VITALS: O2SAT 95
[2017-12-26 08:59] LABS: BANDS 19 % (0-6); BASOPHILS 1 % (0-2); LYMPHOCYTES 6 % (9-44); MONOCYTES 7 % (0-8); NEUTROPHIL # MANUAL DIFF 8.5 TH/MM3 (1.8-7.7); POLYS (SEG NEUTROPHILS) 67 % (16-70)
[2017-12-26 09:15] LABS: PROTHROMBIN TIME - PATIENT 10.2 SEC (9.8-11.6)
[2017-12-26 09:24] LABS: ALBUMIN 3.4 GM/DL (3.4-5.0); AST (GOT) 38 U/L (15-37); BLOOD UREA NITROGEN 15 MG/DL (7-18); CALCIUM 9.2 MG/DL (8.5-10.1); CHLORIDE 99 MEQ/L (98-107); CREATININE 0.73 MG/DL (0.60-1.30); GLOMERULAR FILTRATION RATE 109 ML/MIN (>89); GLUCOSE,RANDOM 92 MG/DL (74-106); SODIUM (NA) 136 MEQ/L (136-145)
[2017-12-26 09:31] LABS: ALKALINE PHOSPHATASE 90 U/L (45-117); ALT (GPT) 27 U/L (12-78); TOTAL BILIRUBIN ADULT 0.6 MG/DL (0.2-1.0); TOTAL PROTEIN 7.1 GM/DL (6.4-8.2); TROPONIN I LESS THAN 0.02 NG/ML (0.02-0.05)
[2017-12-26 11:02] VITALS: BP 156/78
--- NOTE | 2017-12-26 11:05 | PD ---
HPI Chief Complaint: Respiratory Symptoms Time Seen by Provider: 07:30 Travel History International Travel<30 days: No Contact w/Intl Traveler<30days: No Traveled to known affect area: No History of Present Illness HPI Patient is a 62 year old male who comes in because he says "I think I have pneumonia." He says he is coughing up phlegm. He does not know if he had a fever. He is a smoker. He says nothing makes the symptoms better or worse. He says it has been going on for 2 days. He only has chest pain when he coughs. He denies abdominal pain, nausea or vomiting. PFSH Past Medical History ADD: Yes Arthritis: Yes Asthma: No Autoimmune Disease: No Blood Disorders: No Anxiety: No Depression: No Heart Rhythm Problems: No Cancer: No Cardiovascular Problems: Yes High Cholesterol: No Chemotherapy: No Chest Pain: Yes Congestive Heart Failure: No COPD: Yes Cerebrovascular Accident: No Diabetes: No Diminished Hearing: No Endocrine: No Gastrointestinal Disorders: Yes GERD: Yes Genitourinary: Yes Headaches: Yes Hepatitis: No Hiatal Hernia: Yes Heparin Induced Thrombocytopen: No Hypertension: Yes Immune Disorder: No Implanted Vascular Access Dvce: Yes Kidney Stones: No Musculoskeletal: No Neurologic: Yes Psychiatric: No Reproductive: No Respiratory: Yes Immunizations Current: Yes Migraines: No Myocardial Infarction: No Pneumonia: Yes Radiation Therapy: No Renal Failure: No Seizures: No Sickle Cell Disease: No Sleep Apnea: No Thyroid Disease: No Ulcer: No Past Surgical History Abdominal Surgery: Yes AICD: No Appendectomy: No Arteriovenous Shunt: No Cardiac Surgery: No Cholecystectomy: No Ear Surgery: No Endocrine Surgery: No Eye Surgery: No Genitourinary Surgery: No Gynecologic Surgery: No Insulin Pump: No Joint Replacement: No Neurologic Surgery: No Oral Surgery: No Pacemaker: No Thoracic Surgery: No Tonsillectomy: Yes Other Surgery: Yes Social History Alcohol Use: Yes (DAILY) Tobacco Use: Yes (1 PPD) Substance Use: No Allergies-Medications (Allergen,Severity, Reaction): Coded Allergies: codeine (Unverified Allergy, Severe, HIVES, 12/26/17) morphine (Unverified Allergy, Severe, 12/26/17) penicillin G (Unverified Allergy, Severe, HIVES, 12/26/17) sulfamethoxazole (Unverified Allergy, Mild, HIVES, 12/26/17) trimethoprim (Unverified Allergy, Mild, HIVES, 12/26/17) Reported Meds & Prescriptions Reported Meds & Active Scripts Active Lisinopril 10 Mg Tab 40 Mg PO DAILY Reported Amlodipine (Amlodipine Besylate) 2.5 Mg Tab 2.5 Mg PO DAILY Review of Systems Except as stated in HPI: all other systems reviewed are Neg General / Constitutional: No: Fever, Chills HENT: No: Headaches Cardiovascular: No: Palpitations Respiratory: Positive: Cough Gastrointestinal: No: Nausea Genitourinary: No: Dysuria Musculoskeletal: No: Myalgias, Edema Skin: No Rash, No Change in Pigmentation Neurologic: No: Weakness, Dizziness Physical Exam Narrative GENERAL: Awake and alert, in no acute distress. SKIN: Focused skin assessment warm/dry. HEAD: Atraumatic. Normocephalic. EYES: Pupils equal and round. No scleral icterus. ENT: Mucous membranes pink and moist. NECK: Trachea midline. No JVD. CARDIOVASCULAR: Regular rate and rhythm. No murmur appreciated. RESPIRATORY: No accessory muscle use. Diffuse wheezing and coarse breath sounds. Breath sounds equal bilaterally. GASTROINTESTINAL: Abdomen soft, non-tender, nondistended. Hepatic and splenic margins not palpable. MUSCULOSKELETAL: No obvious deformities. No clubbing. No cyanosis. No edema. NEUROLOGICAL: Awake and alert. No obvious cranial nerve deficits. Motor grossly within normal limits. Normal speech. PSYCHIATRIC: Appropriate mood and affect; insight and judgment normal. Data Data Last Documented VS Vital Signs Date Time Temp Pulse Resp B/P (MAP) Pulse Ox O2 Delivery O2 Flow Rate FiO2 12/26/17 11:02 102 20 156/78 (104) 93 12/26/17 08:24 Nasal Cannula 3.00 12/26/17 07:14 100.0 Orders Orders Complete Blood Count With Diff (12/26/17 07:35) Comprehensive Metabolic Panel (12/26/17 07:35) Act Partial Throm Time (Ptt) (12/26/17 07:35) Prothrombin Time / Inr (Pt) (12/26/17 07:35) Troponin I (12/26/17 07:35) Iv Access Insert/Monitor (12/26/17 07:35) Ecg Monitoring (12/26/17 07:35) Oximetry (12/26/17 07:35) Oxygen Administration (12/26/17 07:35) Chest, Single Ap (12/26/17 07:35) Sodium Chloride 0.9% Flush (Ns Flush) (12/26/17 07:45) Methylprednisolone So Succ Inj (Solumedr (12/26/17 07:45) Albuterol-Ipratropium Neb (Duoneb Neb) (12/26/17 07:45) Labs Laboratory Tests Test 12/26/17 08:01 12/26/17 08:45 White Blood Count 9.9 TH/MM3 Red Blood Count 4.21 MIL/MM3 Hemoglobin 13.5 GM/DL Hematocrit 37.5 % Mean Corpuscular Volume 89.1 FL Mean Corpuscular Hemoglobin 32.1 PG Mean Corpuscular Hemoglobin Concent 36.0 % Red Cell Distribution Width 16.0 % Platelet Count 172 TH/MM3 Mean Platelet Volume 9.2 FL Neutrophils (%) (Auto) 89.1 % Lymphocytes (%) (Auto) 5.0 % Monocytes (%) (Auto) 5.6 % Eosinophils (%) (Auto) 0.0 % Basophils (%) (Auto) 0.3 % Neutrophils # (Auto) 8.8 TH/MM3 Lymphocytes # (Auto) 0.5 TH/MM3 Monocytes # (Auto) 0.6 TH/MM3 Eosinophils # (Auto) 0.0 TH/MM3 Basophils # (Auto) 0.0 TH/MM3 CBC Comment AUTO DIFF Differential Total Cells Counted 100 Neutrophils % (Manual) 67 % Band Neutrophils % 19 % Lymphocytes % 6 % Monocytes % 7 % Basophils % 1 % Neutrophils # (Manual) 8.5 TH/MM3 Differential Comment FINAL DIFF MANUAL Platelet Morphology Comment NORMAL Prothrombin Time 10.2 SEC Prothromb Time International Ratio 1.0 RATIO Activated Partial Thromboplast Time 33.6 SEC Blood Urea Nitrogen 15 MG/DL Creatinine 0.73 MG/DL Random Glucose 92 MG/DL Total Protein 7.1 GM/DL Albumin 3.4 GM/DL Calcium Level 9.2 MG/DL Alkaline Phosphatase 90 U/L Aspartate Amino Transf (AST/SGOT) 38 U/L Alanine Aminotransferase (ALT/SGPT) 27 U/L Total Bilirubin 0.6 MG/DL Sodium Level 136 MEQ/L Potassium Level 3.8 MEQ/L Chloride Level 99 MEQ/L Carbon Dioxide Level 24.0 MEQ/L Anion Gap 13 MEQ/L Estimat Glomerular Filtration Rate 109 ML/MIN Troponin I LESS THAN 0.02 NG/ML MDM Medical Decision Making Medical Screen Exam Complete: Yes Emergency Medical Condition: Yes Medical Record Reviewed: Yes Differential Diagnosis pneumonia vs COPD exacerbation vs URI Narrative Course Patient is a 62 year old male who comes in complaining of cough and SOB. Exam shows diffuse wheezing and coarse breath sounds. Given 3 duonebs and solumedrol. CXR performed shows no acute abnormalities. Last 24 hours Impressions Chest X-Ray 12/26/17 0735 Signed Impressions: Service Date/Time: Sunday, December 26, 2017 07:43 - CONCLUSION: No acute focal alveolar consolidation. Minimal scattered fibrotic scarring. Keo Marrufo MD Labs show no acute abnormalities. Patient reports feeling better after treatment. He is advised to quit smoking. Given a prescription for albuterol as well as prednisone. Advised to follow- up with a primary care doctor. Advised to return to the ED as needed for any worsening symptoms. Diagnosis Primary Impression: COPD exacerbation Referrals: [facility] call for appointment Patient Instructions: COPD (Chronic Obstructive Pulmonary Disease) (ED), General Instructions Additional Instructions: Tried to quit smoking. Take the prednisone starting tomorrow. Use her albuterol inhaler as needed for any shortness of breath. Scripts Albuterol 8.5 GM Inh (Proair Hfa 8.5 GM Inh) 90 Mcg/Act Aer 2 PUFF INH Q4-6H Y for SHORTNESS OF BREATH, #1 INHALER 0 Refills 108 mcg/actuation Prov: Sherron Abarca MD 12/26/17 Prednisone (Prednisone) 50 Mg Tab 50 MG PO DAILY for 4 Days, #4 TAB 0 Refills Prov: Sherron Abarca MD 12/26/17 Disposition: 01 DISCHARGE HOME Condition: Stable Sherron Abarca MD Dec 26, 2017 11:05
[2017-12-26] MEDS ORDERED: PRED50 PO (11:17)
[2017-12-26] MEDS ORDERED: ALBUAER3 INH (11:17)
== END 2017-12-26 11:26 | disposition home or self-care (01) ==
LOC: NEPE 07:12
DX: J44.1 Chronic obstructive pulmonary disease with (acute) exacerbation (principal); I10 Essential (primary) hypertension; M19.90 Unspecified osteoarthritis, unspecified site; K21.9 Gastro-esophageal reflux disease without esophagitis; F17.210 Nicotine dependence, cigarettes, uncomplicated
CPT/HCPCS: 71045; 80053; 84484; 85007; 85027; 85610; 85730; 94640; 94664; 96374; 99284; J2930

== ENCOUNTER 2018-01-01 15:17 | Inpatient (IN) | payer MEDICARE, MEDICAID ==
[~2018-01-01] VITALS: Ht 172.7 cm; Wt 65.9 kg
[~2018-01-01 15:17] MED LIST changes: +ALBUAER3 INH; +PRED50 PO
[2018-01-01 15:37] VITALS: BP 110/69; PULSE 102; PULSE 94; RESP 18; TEMP 98.3; O2SAT 94
[2018-01-01] MEDS ORDERED: SODIUM CHLOR 0.9% 1000 ML INJ 1,000 ML IV ONE ×4 (15:37→18:30)
[2018-01-01] MEDS ORDERED: ONDANSETRON HCL 4 MG/2 ML VIAL IV PUSH ONE (15:45)
[2018-01-01] MEDS ORDERED: SODIUM CHLORIDE 0.9% FLUSH 10 ML FLUSH IVF PRN (15:45)
--- NOTE | 2018-01-01 15:48 | PD ---
HPI Chief Complaint: GI Complaint Time Seen by Provider: 15:36 Travel History International Travel<30 days: No Contact w/Intl Traveler<30days: No Traveled to known affect area: No History of Present Illness HPI The patient is a 62-year-old male who presents to the emergency department via EMS for diarrhea and generalized weakness. The patient states she was recently evaluated in the hospital for COPD exacerbation. The patient states her last 5 days he's had diarrhea which she describes as loose, watery, several times a day. He also complains of generalized weakness with poor oral intake of last several days. He does have a history of alcohol use. He is unsure if he has any history of C. difficile, denies taking any antibiotics currently. He denies any nausea, vomiting, or abdominal pain. He does note generalized weakness with the diarrhea, denies any other family members with similar symptoms. He denies any recent international travel. He denies any fever, chills, or sweats. PFSH Past Medical History ADD: Yes Arthritis: Yes Asthma: No Autoimmune Disease: No Blood Disorders: No Anxiety: No Depression: No Heart Rhythm Problems: No Cancer: No Cardiovascular Problems: Yes (HTN) High Cholesterol: No Chemotherapy: No Chest Pain: Yes Congestive Heart Failure: No COPD: Yes Cerebrovascular Accident: No Diabetes: No Diminished Hearing: No Endocrine: No Gastrointestinal Disorders: Yes GERD: Yes Genitourinary: Yes Headaches: Yes Hepatitis: No Hiatal Hernia: Yes Heparin Induced Thrombocytopen: No Hypertension: Yes Immune Disorder: No Implanted Vascular Access Dvce: Yes Kidney Stones: No Musculoskeletal: No Neurologic: Yes Psychiatric: No Reproductive: No Respiratory: Yes (COPD) Immunizations Current: Yes Migraines: No Myocardial Infarction: No Pneumonia: Yes Radiation Therapy: No Renal Failure: No Seizures: No Sickle Cell Disease: No Sleep Apnea: No Thyroid Disease: No Ulcer: No Past Surgical History Abdominal Surgery: Yes AICD: No Appendectomy: No Arteriovenous Shunt: No Cardiac Surgery: No Cholecystectomy: No Ear Surgery: No Endocrine Surgery: No Eye Surgery: No Genitourinary Surgery: No Gynecologic Surgery: No Insulin Pump: No Joint Replacement: No Neurologic Surgery: No Oral Surgery: No Pacemaker: No Thoracic Surgery: No Tonsillectomy: Yes Other Surgery: Yes Social History Alcohol Use: Yes (DAILY) Tobacco Use: Yes (1 PPD) Substance Use: No Allergies-Medications (Allergen,Severity, Reaction): Coded Allergies: codeine (Unverified Allergy, Severe, HIVES, 12/26/17) morphine (Unverified Allergy, Severe, 12/26/17) sulfamethoxazole (Unverified Allergy, Mild, HIVES, 12/26/17) trimethoprim (Unverified Allergy, Mild, HIVES, 12/26/17) Reported Meds & Prescriptions Reported Meds & Active Scripts Active Review of Systems Except as stated in HPI: all other systems reviewed are Neg General / Constitutional: No: Fever HENT: No: Lightheadedness Cardiovascular: No: Chest Pain or Discomfort Respiratory: Positive: Cough, No: Shortness of Breath Gastrointestinal: Positive: Diarrhea, Loss of Appetite, No: Nausea, Vomiting, Abdominal Pain Genitourinary: No: Dysuria Musculoskeletal: Positive: Weakness Neurologic: Positive: Weakness Psychiatric: Positive: Substance Abuse (history of previous alcohol use) Physical Exam Narrative GENERAL: Awake, alert, 62-year-old male who appears his stated age and is in no acute respiratory distress. Somewhat disheveled appearance. SKIN: Focused skin assessment warm/dry. HEAD: Atraumatic. Normocephalic. EYES: No injection or drainage. ENT: No nasal bleeding or discharge. Dry mucous membranes. NECK: Trachea midline. No JVD. CARDIOVASCULAR: Regular, tachycardic with a heart rate of 105. RESPIRATORY: No accessory muscle use. Clear to auscultation. Breath sounds equal bilaterally. GASTROINTESTINAL: Abdomen soft, non-tender, nondistended. No rebound tenderness. MUSCULOSKELETAL: No obvious deformities. No clubbing. No cyanosis. No edema. NEUROLOGICAL: Awake and alert. No obvious cranial nerve deficits. Motor grossly within normal limits. Normal speech. Nonfocal. PSYCHIATRIC: Appropriate mood and affect; insight and judgment normal. Data Data Last Documented VS Vital Signs Date Time Temp Pulse Resp B/P (MAP) Pulse Ox O2 Delivery O2 Flow Rate FiO2 01/01/18 16:28 101 18 116/75 (89) 95 Nasal Cannula 2.00 01/01/18 15:37 98.3 Orders Orders Complete Blood Count With Diff (01/01/18 15:37) Comprehensive Metabolic Panel (01/01/18 15:37) Urinalysis - C+S If Indicated (01/01/18 15:37) Lipase (01/01/18 15:37) Iv Access Insert/Monitor (01/01/18 15:37) Ecg Monitoring (01/01/18 15:37) Oximetry (01/01/18 15:37) Ondansetron Inj (Zofran Inj) (01/01/18 15:45) Sodium Chlor 0.9% 1000 Ml Inj (Ns 1000 M (01/01/18 15:37) Sodium Chloride 0.9% Flush (Ns Flush) (01/01/18 15:45) Blood Culture (01/01/18 15:37) C Diff Toxin Pcr (01/01/18 15:37) Lactic Acid (01/01/18 15:37) Alcohol (Ethanol) (01/01/18 15:37) Ct Abd/Pel W/O Iv Contrast (01/01/18 ) Sodium Chlor 0.9% 1000 Ml Inj (Ns 1000 M (01/01/18 17:30) Potassium Chloride (Kcl) (01/01/18 17:30) Ceftriaxone Inj (Rocephin Inj) (01/01/18 18:30) Azithromycin Inj (Zithromax Inj) (01/01/18 18:30) Chest, Single Ap (01/01/18 ) Sodium Chlor 0.9% 1000 Ml Inj (Ns 1000 M (01/01/18 18:30) Sodium Chlor 0.9% 1000 Ml Inj (Ns 1000 M (01/01/18 18:30) Admit Order (Ed Use Only) (01/01/18 18:42) Labs Laboratory Tests Test 01/01/18 16:01 01/01/18 16:11 01/01/18 16:20 White Blood Count 18.2 TH/MM3 Red Blood Count 4.02 MIL/MM3 Hemoglobin 12.5 GM/DL Hematocrit 36.7 % Mean Corpuscular Volume 91.4 FL Mean Corpuscular Hemoglobin 31.1 PG Mean Corpuscular Hemoglobin Concent 34.1 % Red Cell Distribution Width 15.8 % Platelet Count 157 TH/MM3 Mean Platelet Volume 8.0 FL Neutrophils (%) (Auto) 79.4 % Lymphocytes (%) (Auto) 9.4 % Monocytes (%) (Auto) 10.9 % Eosinophils (%) (Auto) 0.1 % Basophils (%) (Auto) 0.2 % Neutrophils # (Auto) 14.5 TH/MM3 Lymphocytes # (Auto) 1.7 TH/MM3 Monocytes # (Auto) 2.0 TH/MM3 Eosinophils # (Auto) 0.0 TH/MM3 Basophils # (Auto) 0.0 TH/MM3 CBC Comment DIFF FINAL Differential Comment Urine Color YELLOW Urine Turbidity CLEAR Urine pH 6.0 Urine Specific [place] 1.027 Urine Protein 30 mg/dL Urine Glucose (UA) NEG mg/dL Urine Ketones TRACE mg/dL Urine Occult Blood TRACE Urine Nitrite NEG Urine Bilirubin NEG Urine Urobilinogen 2.0 MG/DL Urine Leukocyte Esterase NEG Urine RBC 1 /hpf Urine WBC 1 /hpf Urine Squamous Epithelial Cells 1 /hpf Urine Hyaline Casts 1 /lpf Microscopic Urinalysis Comment CULT NOT INDICATED Blood Urea Nitrogen 22 MG/DL Creatinine 0.80 MG/DL Random Glucose 102 MG/DL Total Protein 7.6 GM/DL Albumin 2.6 GM/DL Calcium Level 9.0 MG/DL Alkaline Phosphatase 110 U/L Aspartate Amino Transf (AST/SGOT) 36 U/L Alanine Aminotransferase (ALT/SGPT) 33 U/L Total Bilirubin 0.9 MG/DL Sodium Level 137 MEQ/L Potassium Level 3.2 MEQ/L Chloride Level 97 MEQ/L Carbon Dioxide Level 27.7 MEQ/L Anion Gap 12 MEQ/L Estimat Glomerular Filtration Rate 98 ML/MIN Lactic Acid Level 1.9 mmol/L Lipase 109 U/L Ethyl Alcohol Level 115 MG/DL [facility] Medical Decision Making Medical Screen Exam Complete: Yes Emergency Medical Condition: Yes Medical Record Reviewed: Yes Interpretation(s) Laboratory Tests Test 01/01/18 16:01 01/01/18 16:11 01/01/18 16:20 White Blood Count 18.2 TH/MM3 Red Blood Count 4.02 MIL/MM3 Hemoglobin 12.5 GM/DL Hematocrit 36.7 % Mean Corpuscular Volume 91.4 FL Mean Corpuscular Hemoglobin 31.1 PG Mean Corpuscular Hemoglobin Concent 34.1 % Red Cell Distribution Width 15.8 % Platelet Count 157 TH/MM3 Mean Platelet Volume 8.0 FL Neutrophils (%) (Auto) 79.4 % Lymphocytes (%) (Auto) 9.4 % Monocytes (%) (Auto) 10.9 % Eosinophils (%) (Auto) 0.1 % Basophils (%) (Auto) 0.2 % Neutrophils # (Auto) 14.5 TH/MM3 Lymphocytes # (Auto) 1.7 TH/MM3 Monocytes # (Auto) 2.0 TH/MM3 Eosinophils # (Auto) 0.0 TH/MM3 Basophils # (Auto) 0.0 TH/MM3 CBC Comment DIFF FINAL Differential Comment Urine Color YELLOW Urine Turbidity CLEAR Urine pH 6.0 Urine Specific [place] 1.027 Urine Protein 30 mg/dL Urine Glucose (UA) NEG mg/dL Urine Ketones TRACE mg/dL Urine Occult Blood TRACE Urine Nitrite NEG Urine Bilirubin NEG Urine Urobilinogen 2.0 MG/DL Urine Leukocyte Esterase NEG Urine RBC 1 /hpf Urine WBC 1 /hpf Urine Squamous Epithelial Cells 1 /hpf Urine Hyaline Casts 1 /lpf Microscopic Urinalysis Comment CULT NOT INDICATED Blood Urea Nitrogen 22 MG/DL Creatinine 0.80 MG/DL Random Glucose 102 MG/DL Total Protein 7.6 GM/DL Albumin 2.6 GM/DL Calcium Level 9.0 MG/DL Alkaline Phosphatase 110 U/L Aspartate Amino Transf (AST/SGOT) 36 U/L Alanine Aminotransferase (ALT/SGPT) 33 U/L Total Bilirubin 0.9 MG/DL Sodium Level 137 MEQ/L Potassium Level 3.2 MEQ/L Chloride Level 97 MEQ/L Carbon Dioxide Level 27.7 MEQ/L Anion Gap 12 MEQ/L Estimat Glomerular Filtration Rate 98 ML/MIN Lactic Acid Level 1.9 mmol/L Lipase 109 U/L Ethyl Alcohol Level 115 MG/DL Last Impressions Abdomen/Pelvis CT 01/01/18 0000 Signed Impressions: Service Date/Time: Monday, January 01, 2018 17:55 - CONCLUSION: 1. Patchy basilar airspace disease and distal airway disease characteristic of bronchopneumonia or aspiration. 2. No acute findings within the abdomen or pelvis. Mild ileus. Carlo Mclaughlin MD Chest x-ray reveals bilateral lower patchy bronchopneumonia and opacities Differential Diagnosis Differential diagnosis includes C. difficile, colitis, enteritis, dehydration, alcohol abuse, medication side effect, electrolyte abnormality. Narrative Course IV was established, labs are drawn and sent, and the patient was placed on cardiac telemetry monitoring and continuous pulse oximetry monitoring. C. difficile was ordered. Lactic acid was sent to lab. The patient was administered IV fluids. The patient was tachycardic upon arrival, however, did smell of alcohol. Alcohol level was elevated. However, white count is elevated 18.2. Patient was unable to provide a stool sample for possible C. difficile, CT the abdomen and pelvis was performed for colitis. No evidence of colitis, however, the patient has bilateral bronchopneumonia. The patient does meet sepsis criteria with tachycardia and leukocytosis 18.2, was covered for community-acquired pneumonia with Rocephin and Zithromax. He was administered 2 more liters of IV fluid and chest x-ray was obtained. The on-call medical service was paged for admission. Sepsis Criteria SIRS Criteria (2 or more): Heart rate over 90, WBC > 65646, < 4000 or > 10% bands Sepsis Criteria (SIRS+source): Infect source susp/known Criteria Outcome: Meets sepsis criteria Physician Communication Physician Communication The on-call medical service was paged for admission. I discussed the patient with Dr. Cruz who agrees with admission. Diagnosis Primary Impression: Bronchopneumonia Additional Impressions: Sepsis Qualified Codes: A41.9 - Sepsis, unspecified organism Diarrhea Qualified Codes: R19.7 - Diarrhea, unspecified Condition: Stable Morgan Gutierrez MD Jan 01, 2018 15:48
[2018-01-01 16:23] VITALS: RESP 18; O2SAT 93
[2018-01-01 16:28] VITALS: BP 116/75; PULSE 101; RESP 18; O2SAT 95
[2018-01-01 16:31] LABS: AUTOMATED NEUTROPHIL # 14.5 TH/MM3 (1.8-7.7); BASOPHIL % 0.2 % (0.0-2.0); EOSINOPHIL % 0.1 % (0.0-4.0); HEMATOCRIT 36.7 % (39.0-51.0); HEMOGLOBIN 12.5 GM/DL (13.0-17.0); LYMPH % 9.4 % (9.0-44.0); LYMPHOCYTE # 1.7 TH/MM3 (1.0-4.8); MEAN CELL VOLUME 91.4 FL (80.0-100.0); MEAN CORPUSCULAR HEMOGLOBIN 31.1 PG (27.0-34.0); MEAN CORPUSCULAR HGB CONC 34.1 % (32.0-36.0); MONO % 10.9 % (0.0-8.0); NEUT % 79.4 % (16.0-70.0); PLATELET COUNT 157 TH/MM3 (150-450); RED BLOOD COUNT 4.02 MIL/MM3 (4.50-5.90); RED CELL DISTRIBUTION WIDTH 15.8 % (11.6-17.2); WHITE BLOOD COUNT 18.2 TH/MM3 (4.0-11.0)
[2018-01-01 16:41] LABS: BLOOD, URINE TRACE (NEG); GLUCOSE,URINE NEG (NEG); HYALINE CAST, URINE 1 /lpf (RARE); KETONE, URINE TRACE mg/dL (NEG); NITRITE,URINE NEG (NEG); SQUAMOUS EPITHELIAL CELL URINE 1 /hpf (0-5); URINE COLOR YELLOW (YELLW/STRAW); URINE LEUKOCYTE ESTERASE NEG (NEG)
[2018-01-01 16:43] LABS: ALBUMIN 2.6 GM/DL (3.4-5.0); AST (GOT) 36 U/L (15-37); BICARBONATE 27.7 MEQ/L (21.0-32.0); BLOOD UREA NITROGEN 22 MG/DL (7-18); CHLORIDE 97 MEQ/L (98-107); GLOMERULAR FILTRATION RATE 98 ML/MIN (>89); GLUCOSE,RANDOM 102 MG/DL (74-106); SODIUM (NA) 137 MEQ/L (136-145)
[2018-01-01 16:43] LABS: BILIRUBIN, URINE NEG (NEG)
[2018-01-01 16:46] LABS: ALKALINE PHOSPHATASE 110 U/L (45-117); ALT (GPT) 33 U/L (12-78); TOTAL BILIRUBIN ADULT 0.9 MG/DL (0.2-1.0); TOTAL PROTEIN 7.6 GM/DL (6.4-8.2)
[2018-01-01] MEDS ORDERED: POTASSIUM CHLORIDE 20 MEQ CONTROLLED RELEASE TAB PO ONE (17:30)
--- NOTE | 2018-01-01 18:12 | RADRPT ---
EXAM DATE/TIME: 01/01/2018 17:55 [facility] COMPARISON: No previous studies available for comparison. INDICATIONS : Abdomen pain. ORAL CONTRAST: No oral contrast ingested. RADIATION DOSE: 5.1 CTDIvol (mGy) MEDICAL HISTORY : Hypertension. Chronic obstructive pulmonary disease. Hernia, hiatal. SURGICAL HISTORY : None. ENCOUNTER: Initial ACUITY: 1 day PAIN SCALE: 5/10 LOCATION: Bilateral abdomen TECHNIQUE: Volumetric scanning of the abdomen and pelvis was performed. Using automated exposure control and ad justment of the mA and/or kV according to patient size, radiation dose was kept as low as reasonably achievable to obtain optimal diagnostic quality images. DICOM format image data is available electro nically for review and comparison. FINDINGS: Compare December 02. There is patchy airspace consolidation and distal airway disease of both lung bas es characteristic of bronchopneumonia. No acute findings in the liver, adrenals, kidneys or pancreas. Stable calcifications along the medial aspect of the spleen. No calcified gallstones or biliary ductal dilatation. No free air or free fluid. No bowel obstruction. CONCLUSION: 1. Patchy basilar airspace disease and distal airway disease characteristic of bronchopneumonia or as piration. 2. No acute findings within the abdomen or pelvis. Mild ileus. Carlo Mclaughlin MD on January 01, 2018 at 18:06 Board Certified Radiologist. This report was verified electronically.
[2018-01-01] MEDS ORDERED: cefTRIAXone INJ 1,000 MG in SODIUM CHLORIDE 0.9% INJ 100 ML IV ONE (18:30)
[2018-01-01] MEDS ORDERED: AZITHROMYCIN INJ 500 MG in SODIUM CHLOR 0.9% 250 ML INJ 250 ML IV ONE (18:30)
--- NOTE | 2018-01-01 18:43 | RADRPT ---
EXAM DATE/TIME: 01/01/2018 18:36 [facility] COMPARISON: CHEST SINGLE AP, December 26, 2017, 7:43. CT ABDOMEN & PELVIS W/O CONTRAST, January 01, 2018, 17:55 . INDICATIONS : Cough. MEDICAL HISTORY : Hypertension. Chronic obstructive pulmonary disease. Hernia, hiatal SURGICAL HISTORY : None. ENCOUNTER: Initial ACUITY: 2 days PAIN SCORE: 0/10 LOCATION: Bilateral chest FINDINGS: A single view of the chest demonstrates a bilateral patchy mostly basilar airspace disease most mart cteristic of bronchopneumonia. Heart size within normal limits. No effusion or pneumothorax. CONCLUSION: Bilateral mostly basilar patchy bronchopneumonia. No significant effusion. Carlo Mclaughlin MD on January 01, 2018 at 18:39 Board Certified Radiologist. This report was verified electronically.
[2018-01-01 19:55] VITALS: BP 147/81; PULSE 108; RESP 22; O2SAT 92
[2018-01-01] MEDS ORDERED: NALOXONE HCL 0.4 MG/ML AMP IV PUSH PRN (20:00)
[2018-01-01] MEDS ORDERED: SODIUM CHLORIDE 0.9% FLUSH 10 ML FLUSH IV FLUSH PRN (20:00)
[2018-01-01] MEDS ORDERED: RESP: ALBUTEROL 2.5 MG/IPRATROPIUM 0.5 MG NEB (PRN) NEB (20:00)
[2018-01-01 21:10] VITALS: O2SAT 90
[2018-01-01] MEDS: LEVOFLOXACIN 750 MG PREMIX INJ 150 ML IV SCH (21:53)
[2018-01-01] MEDS: SODIUM CHLORIDE 0.9% FLUSH 10 ML FLUSH IV FLUSH SCH (21:53)
[2018-01-01] MEDS ORDERED: RESP: ALBUTEROL 2.5 MG/IPRATROPIUM 0.5 MG NEB (SCH) NEB (22:00)
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
[2018-01-01] MEDS ORDERED: THIAMINE HCL 100 MG TAB PO ONE (22:30)
[2018-01-01] MEDS: RESP: IPRATROPIUM 0.5 MG/2.5 ML NEB NEB SCH (22:30)
[2018-01-01] MEDS ORDERED: LORazepam 2 MG/ML VIAL IV PUSH PRN (22:30)
[2018-01-01] MEDS ORDERED: RESP: IPRATROPIUM 0.5 MG/2.5 ML NEB NEB PRN (22:30)
[2018-01-01 22:38] VITALS: BP 156/89
[2018-01-01] MEDS: guaiFENesin E.R. 600 MG TAB PO SCH (23:25)
[2018-01-02 03:39] VITALS: BP 145/80; PULSE 100; RESP 18; TEMP 98; O2SAT 95
[2018-01-02] MEDS: RESP: IPRATROPIUM 0.5 MG/2.5 ML NEB NEB SCH ×4 (03:54→19:40)
[2018-01-02 05:16] LABS: BASOPHIL % 0.1 % (0.0-2.0); HEMATOCRIT 31.5 % (39.0-51.0); HEMOGLOBIN 10.6 GM/DL (13.0-17.0); LYMPH % 6.5 % (9.0-44.0); LYMPHOCYTE # 0.9 TH/MM3 (1.0-4.8); MEAN CELL VOLUME 91.6 FL (80.0-100.0); MEAN CORPUSCULAR HGB CONC 33.8 % (32.0-36.0); MEAN PLATELET VOLUME 7.8 FL (7.0-11.0); MONO % 9.8 % (0.0-8.0); MONOCYTE # 1.4 TH/MM3 (0-0.9); NEUT % 83.6 % (16.0-70.0); PLATELET COUNT 146 TH/MM3 (150-450); RED BLOOD COUNT 3.43 MIL/MM3 (4.50-5.90); RED CELL DISTRIBUTION WIDTH 15.5 % (11.6-17.2); WHITE BLOOD COUNT 14.3 TH/MM3 (4.0-11.0)
[2018-01-02 05:27] VITALS: PULSE 94
[2018-01-02 05:33] LABS: BICARBONATE 24.9 MEQ/L (21.0-32.0); CALCIUM 7.7 MG/DL (8.5-10.1); CREATININE 0.52 MG/DL (0.60-1.30)
[2018-01-02 08:00] VITALS: PULSE 100
[2018-01-02] MEDS: SODIUM CHLORIDE 0.9% FLUSH 10 ML FLUSH IV FLUSH SCH ×2 (09:00→21:05)
[2018-01-02 09:02] VITALS: BP 148/86; PULSE 102; RESP 18; TEMP 98.2; O2SAT 93
[2018-01-02] MEDS ORDERED: LOPERAMIDE HCL 2 MG CAP PO PRN (09:15)
[2018-01-02] MEDS ORDERED: ALBUTEROL SULFATE 90 MCG/ACT HFA 8 GM INHALER INH PRN (09:15)
[2018-01-02] MEDS: guaiFENesin E.R. 600 MG TAB PO SCH ×2 (11:43→11:51)
[2018-01-02] MEDS: chlordiazePOXIDE 25 MG CAP PO SCH ×3 (11:43→19:40)
[2018-01-02] MEDS: THIAMINE HCL 100 MG TAB PO SCH (11:50)
[2018-01-02] MEDS: NICOTINE 14 MG/24 HR PATCH T-DERMAL SCH (11:54)
[2018-01-02] MEDS: predniSONE 50 MG TAB PO SCH (15:06)
--- NOTE | 2018-01-02 16:33 | HHI.PR ---
Subjective Remarks Patient states he did well overnight, still having periodic diarrhea, stool is still dark. He is feeling a little better from his cough, a little stronger after hydration. Objective Vitals Vital Signs Date Time Temp Pulse Resp B/P (MAP) Pulse Ox O2 Delivery O2 Flow Rate FiO2 01/02/18 09:02 98.2 102 18 148/86 (106) 93 01/02/18 08:00 100 01/02/18 05:27 94 01/02/18 03:39 98.0 100 18 145/80 (101) 95 01/01/18 22:38 106 20 156/89 (111) 93 01/01/18 21:10 90 Nasal Cannula 4.00 01/01/18 19:55 108 22 147/81 (103) 92 Nasal Cannula 3.00 01/01/18 16:28 101 18 116/75 (89) 95 Nasal Cannula 2.00 I/O 01/01/18 01/01/18 01/01/18 01/02/18 01/02/18 01/02/18 07:00 15:00 23:00 07:00 15:00 23:00 Intake Total 3350 ml 250 ml Balance 3350 ml 250 ml Intake Oral 250 ml IV Total 3350 ml # Voids 1 # Bowel Movements 1 Result Diagram: 01/02/18 0406 01/02/18 0406 A/P Problem List: (1) Alcohol abuse Status: Chronic (2) Sepsis ICD Code: A41.9 - Sepsis, unspecified organism Status: Acute (3) Diarrhea ICD Code: R19.7 - Diarrhea, unspecified Status: Acute (4) Bronchopneumonia ICD Code: J18.0 - Bronchopneumonia, unspecified organism Status: Acute Assessment and Plan Bronchopneumonia with Sepsis Risk Feeling better, WBC trending downward following antibiotics Continue with Levaquin IV Afebrile, vitals stable Diarrhea, Dark Stools Negative for c. diff Occult stool pending H&H appears stable so far, but will follow trend GI consult if loses seem more significant than the irritation of diarrhea h/o Alcohol Abuse Telemetry, watch for signs of DT's CIWA protocol if tremors occur DVT Prophylaxis Anticoagulants held due to dark diarrhea SCD hose Problem Qualifiers (1) Sepsis: Qualified Codes: A41.9 - Sepsis, unspecified organism (2) Diarrhea: Qualified Codes: R19.7 - Diarrhea, unspecified Cesar Cruz MD Jan 02, 2018 16:32
[2018-01-02 16:40] VITALS: BP 132/75; PULSE 96; RESP 18; TEMP 98.1; O2SAT 93
[2018-01-02] MEDS: LEVOFLOXACIN 750 MG PREMIX INJ 150 ML IV SCH (21:05)
[2018-01-02] MEDS: REMOVE OLD PATCH T-DERMAL SCH (21:06)
[2018-01-02 22:00] VITALS: BP 168/78; PULSE 96; RESP 18; TEMP 98.4; O2SAT 95
[2018-01-03] VITALS: BP 154/87; PULSE 79; PULSE 81; RESP 18; TEMP 97.9; O2SAT 97
[2018-01-03] MEDS: RESP: IPRATROPIUM 0.5 MG/2.5 ML NEB NEB SCH ×2 (03:03→07:28)
[2018-01-03 06:00] VITALS: BP 151/84; PULSE 78; RESP 18; TEMP 98.1; O2SAT 96
[2018-01-03 07:07] LABS: AUTOMATED NEUTROPHIL # 8.2 TH/MM3 (1.8-7.7); BASOPHIL % 0.1 % (0.0-2.0); HEMATOCRIT 33.2 % (39.0-51.0); HEMOGLOBIN 11.5 GM/DL (13.0-17.0); LYMPH % 8.1 % (9.0-44.0); LYMPHOCYTE # 0.8 TH/MM3 (1.0-4.8); MEAN CORPUSCULAR HEMOGLOBIN 31.7 PG (27.0-34.0); MEAN CORPUSCULAR HGB CONC 34.5 % (32.0-36.0); MEAN PLATELET VOLUME 8.1 FL (7.0-11.0); MONOCYTE # 0.8 TH/MM3 (0-0.9); NEUT % 83.8 % (16.0-70.0); PLATELET COUNT 190 TH/MM3 (150-450); RED BLOOD COUNT 3.61 MIL/MM3 (4.50-5.90); RED CELL DISTRIBUTION WIDTH 15.4 % (11.6-17.2); WHITE BLOOD COUNT 9.8 TH/MM3 (4.0-11.0)
[2018-01-03 08:00] VITALS: PULSE 82
[2018-01-03] MEDS ORDERED: BENZ100 PO (08:28)
[2018-01-03] MEDS ORDERED: LEVA750T9 PO (08:28)
[2018-01-03] MEDS ORDERED: MEDR4PAK PO (08:28)
[2018-01-03] MEDS ORDERED: LOPE-1 PO (08:28)
--- NOTE | 2018-01-03 08:31 | HHI.DS ---
Discharge Summary Admission Date Jan 01, 2018 at 18:44 Discharge Date: Jan 03, 2018 Admitting Diagnosis bilateral bronchopneumonia, sepsis, diarrhea, alcohol intoxication (1) Alcohol abuse Status: Chronic (2) Sepsis ICD Code: A41.9 - Sepsis, unspecified organism Status: Acute (3) Diarrhea ICD Code: R19.7 - Diarrhea, unspecified Status: Acute (4) Bronchopneumonia ICD Code: J18.0 - Bronchopneumonia, unspecified organism Status: Acute Procedures none Brief History - From Admission Written by Adriana Byers, acting as scribe for [Darryl] on 01/01/18 at 22:17. 62 y/o male with a history of HTN and COPD not on any medication was brought to the ED due to increased shortness of breath. Patient states his room mate called EVAC. Patient states he has been short of breath with chest pains for a while. He states he has a cough, with yellow dark sputum production, and liquid diarrhea for 2 days. He states they are black in color. He was seen in the ED a few days ago and treated for copd exacerbation and released. He denies any abdominal pain, nausea, vomiting, dizziness or dysuria. He does not take any medications at home because he can not afford them. He continues to use tobacco and alcohol daily. CBC/BMP: 01/03/18 0620 01/02/18 0406 Significant Findings Laboratory Tests Test 01/01/18 16:01 01/01/18 16:11 01/01/18 16:20 01/01/18 20:10 White Blood Count 18.2 TH/MM3 (4.0-11.0) Red Blood Count 4.02 MIL/MM3 (4.50-5.90) Hemoglobin 12.5 GM/DL (13.0-17.0) Hematocrit 36.7 % (39.0-51.0) Neutrophils (%) (Auto) 79.4 % (16.0-70.0) Monocytes (%) (Auto) 10.9 % (0.0-8.0) Neutrophils # (Auto) 14.5 TH/MM3 (1.8-7.7) Monocytes # (Auto) 2.0 TH/MM3 (0-0.9) Urine Protein 30 mg/dL (NEG-TRACE) Urine Ketones TRACE mg/dL (NEG) Urine Occult Blood TRACE (NEG) Blood Urea Nitrogen 22 MG/DL (7-18) Albumin 2.6 GM/DL (3.4-5.0) Potassium Level 3.2 MEQ/L (3.5-5.1) Chloride Level 97 MEQ/L (98-107) Ethyl Alcohol Level 115 MG/DL (0-5) Test 01/02/18 04:06 01/03/18 06:20 White Blood Count 14.3 TH/MM3 (4.0-11.0) Red Blood Count 3.43 MIL/MM3 (4.50-5.90) 3.61 MIL/MM3 (4.50-5.90) Hemoglobin 10.6 GM/DL (13.0-17.0) 11.5 GM/DL (13.0-17.0) Hematocrit 31.5 % (39.0-51.0) 33.2 % (39.0-51.0) Platelet Count 146 TH/MM3 (150-450) Neutrophils (%) (Auto) 83.6 % (16.0-70.0) 83.8 % (16.0-70.0) Lymphocytes (%) (Auto) 6.5 % (9.0-44.0) 8.1 % (9.0-44.0) Monocytes (%) (Auto) 9.8 % (0.0-8.0) Neutrophils # (Auto) 12.0 TH/MM3 (1.8-7.7) 8.2 TH/MM3 (1.8-7.7) Lymphocytes # (Auto) 0.9 TH/MM3 (1.0-4.8) 0.8 TH/MM3 (1.0-4.8) Monocytes # (Auto) 1.4 TH/MM3 (0-0.9) Creatinine 0.52 MG/DL (0.60-1.30) Calcium Level 7.7 MG/DL (8.5-10.1) Hospital Course Patient presented with a cough, dyspnea and diarrhea that was dark in color. Work up revealed bronchopneumonia, and likely COPD exacerbation worsening cough. He has responded well to antibiotics, steroids and nebulizer treatments. The diarrhea was negative for c. diff and negative for occult blood. He is off of oxygen,sitting up and interested in going home today. I believe he is stable for discharge. Pt Condition on Discharge: Fair Discharge Disposition: Discharge Home Discharge Time: <= 30 minutes Discharge Instructions DIET: Follow Instructions for: As Tolerated, No Restrictions Activities you can perform: Regular-No Restrictions Cesar Cruz MD Jan 03, 2018 08:31
[2018-01-03] MEDS ORDERED: VENTAER INH (08:32)
[2018-01-03] MEDS: NICOTINE 14 MG/24 HR PATCH T-DERMAL SCH (09:23)
[2018-01-03] MEDS: predniSONE 50 MG TAB PO SCH (09:23)
[2018-01-03] MEDS: REMOVE OLD PATCH T-DERMAL SCH (09:23)
[2018-01-03] MEDS: chlordiazePOXIDE 25 MG CAP PO SCH (09:24)
[2018-01-03] MEDS: THIAMINE HCL 100 MG TAB PO SCH (09:24)
[2018-01-03] MEDS: SODIUM CHLORIDE 0.9% FLUSH 10 ML FLUSH IV FLUSH SCH (09:24)
[2018-01-03] MEDS: guaiFENesin E.R. 600 MG TAB PO SCH (09:24)
== END 2018-01-03 11:12 | disposition home or self-care (01) | DRG 190 ==
LOC: NEPE 15:17 → NEDA 18:44 → NEPGCP 22:53
PROVIDERS: ADMIT Family Medicine; ATTEND Family Medicine
DX: J44.0 Chronic obstructive pulmonary disease with (acute) lower respiratory infection (principal); J18.0 Bronchopneumonia, unspecified organism; K56.7 Ileus, unspecified; J44.1 Chronic obstructive pulmonary disease with (acute) exacerbation; R00.0 Tachycardia, unspecified; Z72.0 Tobacco use; F10.129 Alcohol abuse with intoxication, unspecified; I10 Essential (primary) hypertension; E87.6 Hypokalemia; Y90.5 Blood alcohol level of 100-119 mg/100 ml
CPT/HCPCS: 71045; 74176; 80048; 80053; 80307; 81001; 82272; 83605; 83690; 85025; 87040; 87070; 87205; 87328; 87329; 87493; 87506; 96361; 96365; 96375; J0456; J0696; J1956; J2405; J7030; J7050; J7512

== ENCOUNTER 2018-03-03 17:22 | Emergency (ER) | payer MEDICARE, MEDICAID ==
[~2018-03-03] VITALS: Ht 172.7 cm; Wt 65.0 kg
[~2018-03-03 17:22] MED LIST changes: -ALBUAER3 INH; -AMLO2.5T PO; +BENZ100 PO; +LEVA750T9 PO; -LISI10TA3 PO; +LOPE-1 PO; +MEDR4PAK PO; -PRED50 PO; +VENTAER INH
[2018-03-03 17:33] VITALS: BP 170/97; PULSE 112; RESP 20; TEMP 98.5; O2SAT 96
[2018-03-03] MEDS ORDERED: TETANUS/DIPHTHERIA TOXOID ADULT 0.5 ML VIAL IM ONE (18:45)
[2018-03-03 18:50] VITALS: BP 198/95; PULSE 92; RESP 18; O2SAT 97
[2018-03-03] MEDS ORDERED: SODIUM CHLOR 0.9% 1000 ML INJ 1,000 ML IV ONE (19:00)
--- NOTE | 2018-03-03 19:09 | PD ---
HPI Chief Complaint: Head Injury Time Seen by Provider: 18:38 Travel History International Travel<30 days: No Contact w/Intl Traveler<30days: No Traveled to known affect area: No History of Present Illness HPI 62-year-old male that presents to the ED for evaluation of fall. Patient had a head injury today. Fall was not witnessed. Caregiver who comes here with the patient states that patient was on his room and he fell. Patient has a laceration to the back of his head. This happened earlier today. Patient has been complaining of headache as well as some blurry vision to his left eye. Patient has double vision as well. He has a history of alcohol abuse and is being treated for this. He denies any blood thinners. No other injuries. Allergies to different medications. No back pain. No arm or leg pain. He does have "the shakes" per patient and caregiver. They have lowered his alcohol intake prevent him from going to shakes. Per caregiver that given some alcohol in the morning and afternoon and dinner. Per patient the pain is 2 out of 10. No other medical issues. PFSH Past Medical History ADD: Yes Arthritis: Yes Asthma: No Autoimmune Disease: No Blood Disorders: No Anxiety: No Depression: Yes Heart Rhythm Problems: No Cancer: No Cardiovascular Problems: Yes (HTN) High Cholesterol: No Chemotherapy: No Chest Pain: Yes Congestive Heart Failure: No COPD: Yes Cerebrovascular Accident: No Diabetes: No Diminished Hearing: No Endocrine: No Gastrointestinal Disorders: Yes GERD: Yes Genitourinary: No Headaches: Yes Hepatitis: No Hiatal Hernia: Yes Heparin Induced Thrombocytopen: No Hypertension: Yes Immune Disorder: No Implanted Vascular Access Dvce: Yes Kidney Stones: No Musculoskeletal: No Neurologic: Yes Psychiatric: No Reproductive: No Respiratory: Yes (COPD) Immunizations Current: Yes Migraines: No Myocardial Infarction: No Pneumonia: Yes Radiation Therapy: No Renal Failure: No Seizures: No Sickle Cell Disease: No Sleep Apnea: No Thyroid Disease: No Ulcer: No Past Surgical History Abdominal Surgery: Yes AICD: No Appendectomy: No Arteriovenous Shunt: No Cardiac Surgery: No Cholecystectomy: No Ear Surgery: No Endocrine Surgery: No Eye Surgery: No Genitourinary Surgery: No Gynecologic Surgery: No Insulin Pump: No Joint Replacement: No Neurologic Surgery: No Oral Surgery: No Pacemaker: No Thoracic Surgery: No Tonsillectomy: Yes Other Surgery: Yes Social History Alcohol Use: Yes (pint of vodka a day, starts at "5am") Tobacco Use: Yes (1 PPD) Substance Use: No Allergies-Medications (Allergen,Severity, Reaction): Coded Allergies: codeine (Unverified Allergy, Severe, HIVES, 03/03/18) morphine (Unverified Allergy, Severe, 03/03/18) sulfamethoxazole (Unverified Allergy, Mild, HIVES, 03/03/18) trimethoprim (Unverified Allergy, Mild, HIVES, 03/03/18) Reported Meds & Prescriptions Reported Meds & Active Scripts Active Ventolin Hfa 18 GM Inh (Albuterol Sulfate) 90 Mcg/Act Aer 2 Puff INH Q4H PRN 30 Days Tessalon Perles (Benzonatate) 100 Mg Cap 200 Mg PO TID PRN 5 Days Levaquin (Levofloxacin) 750 Mg Tablet 750 Mg PO DAILY 5 Days Imodium A-D (Loperamide HCl) 2 Mg Capsule 2 Mg PO DIRECTED PRN 3 Days One capsule after each loose stool. Not to exceed 8 tablets per day. Medrol Dosepak (Methylprednisolone) 4 Mg Dspk 4 Mg PO DIRECTED Per Pharmacist direction Review of Systems Except as stated in HPI: all other systems reviewed are Neg Physical Exam Narrative GENERAL: SKIN: Warm and dry. Patient has a hematoma to the back of his head position 1 cm laceration. HEAD: Atraumatic. Normocephalic. EYES: Pupils equal and round 4mms reactive to light and accomodation. No scleral icterus. No injection or drainage. ENT: No nasal bleeding or discharge. Mucous membranes pink and moist. Tongue is midline. No uvula deviation. NECK: Trachea midline. No JVD. CARDIOVASCULAR: Regular rate and rhythm. RESPIRATORY: No accessory muscle use. Clear to auscultation. Breath sounds equal bilaterally. GASTROINTESTINAL: Abdomen soft, non-tender, nondistended. Hepatic and splenic margins not palpable. MUSCULOSKELETAL: Extremities without clubbing, cyanosis, or edema. No obvious deformities. Full range of motion of the upper and lower extremities bilaterally. 2+ pulses bilaterally. NEUROLOGICAL: Awake and alert. No obvious cranial nerve deficits. Motor grossly within normal limits. Five out of 5 muscle strength in the arms and legs. Normal speech. PSYCHIATRIC: Appropriate mood and affect; insight and judgment normal. Data Data Last Documented VS Vital Signs Date Time Temp Pulse Resp B/P (MAP) Pulse Ox O2 Delivery O2 Flow Rate FiO2 03/03/18 19:54 95 16 186/98 (127) 99 Room Air 03/03/18 17:[address] Brain W/O Iv Contrast(Rout) (03/03/18 ) Wound Care (03/03/18 18:45) Ct Cerv Spine W/O Contrast (03/03/18 ) Complete Blood Count With Diff (03/03/18 18:45) Comprehensive Metabolic Panel (03/03/18 18:45) Ckmb (Isoenzyme) Profile (03/03/18 18:45) Troponin I (03/03/18 18:45) Magnesium (Mg) (03/03/18 18:45) Iv Access Insert/Monitor (03/03/18 18:45) Alcohol (Ethanol) (03/03/18 18:45) Tetanus/Diphtheria Tox Adult (Tetanus/Di (03/03/18 18:45) Sodium Chlor 0.9% 1000 Ml Inj (Ns 1000 M (03/03/18 19:00) Electrocardiogram (03/03/18 ) CKMB (03/03/18 19:39) CKMB% (03/03/18 19:39) Labs Laboratory Tests Test 03/03/18 19:39 White Blood Count 5.6 TH/MM3 Red Blood Count 3.99 MIL/MM3 Hemoglobin 12.7 GM/DL Hematocrit 37.4 % Mean Corpuscular Volume 93.7 FL Mean Corpuscular Hemoglobin 31.9 PG Mean Corpuscular Hemoglobin Concent 34.1 % Red Cell Distribution Width 17.4 % Platelet Count 73 TH/MM3 Mean Platelet Volume 8.0 FL Neutrophils (%) (Auto) 74.1 % Lymphocytes (%) (Auto) 15.4 % Monocytes (%) (Auto) 8.6 % Eosinophils (%) (Auto) 0.6 % Basophils (%) (Auto) 1.3 % Neutrophils # (Auto) 4.1 TH/MM3 Lymphocytes # (Auto) 0.9 TH/MM3 Monocytes # (Auto) 0.5 TH/MM3 Eosinophils # (Auto) 0.0 TH/MM3 Basophils # (Auto) 0.1 TH/MM3 CBC Comment AUTO DIFF Differential Comment AUTO DIFF CONFIRMED Platelet Estimate LOW Platelet Morphology Comment NORMAL Ovalocytes 1+ [place] Bodies PRESENT Blood Urea Nitrogen 13 MG/DL Creatinine 0.82 MG/DL Random Glucose 85 MG/DL Total Protein 7.9 GM/DL Albumin 4.2 GM/DL Calcium Level 8.9 MG/DL Magnesium Level 1.3 MG/DL Alkaline Phosphatase 78 U/L Aspartate Amino Transf (AST/SGOT) 74 U/L Alanine Aminotransferase (ALT/SGPT) 66 U/L Total Bilirubin 1.2 MG/DL Sodium Level 140 MEQ/L Potassium Level 3.7 MEQ/L Chloride Level 104 MEQ/L Carbon Dioxide Level 24.6 MEQ/L Anion Gap 11 MEQ/L Estimat Glomerular Filtration Rate 95 ML/MIN Total Creatine Kinase 148 U/L Creatine Kinase MB 3.0 NG/ML Troponin I LESS THAN 0.02 NG/ML Ethyl Alcohol Level 27 MG/DL MDM Medical Decision Making Medical Screen Exam Complete: Yes Emergency Medical Condition: Yes Medical Record Reviewed: Yes Differential Diagnosis Laceration versus head injury versus fracture versus ICH versus syncope Narrative Course 62-year-old male who presents to the ED for head injury. Patient was properly examined and found to have some symptoms concerning for head injury. Labs and imaging ordered. Imaging readings still pending at the writing of this note. Case signed out to my attending pending disposition. Jose De Jesus Yepez Mar 03, 2018 19:09
--- NOTE | 2018-03-03 19:19 | RADRPT ---
EXAM DATE/TIME: 03/03/2018 18:54 [facility] COMPARISON: CT BRAIN W/O CONTRAST, November 22, 2017, 15:36. INDICATIONS : Trauma, fall today onto head. RADIATION DOSE: 39.54 CTDIvol (mGy) MEDICAL HISTORY : Hypertension. Gastroesophageal reflux disease. SURGICAL HISTORY : None. ENCOUNTER: Initial ACUITY: 1 day PAIN SCALE: 5/10 LOCATION: Bilateral head TECHNIQUE: Multiple contiguous axial images were obtained of the head. Using automated exposure control and adj ustment of the mA and/or kV according to patient size, radiation dose was kept as low as reasonably a chievable to obtain optimal diagnostic quality images. DICOM format image data is available electro nically for review and comparison. FINDINGS: CEREBRUM: The ventricles and cortical sulci are widened. There is low-density seen at the left caudate head and left anterior limb of the internal capsule consistent with prior lacunar infarct. There is mild expa nsion of the frontal horn of left lateral ventricle in response to this. No evidence of midline shif t, mass lesion, hemorrhage or acute infarction. No extra-axial fluid collections are seen. POSTERIOR FOSSA: The cerebellum and brainstem are intact. The 4th ventricle is midline. The cerebellopontine angle i s unremarkable. EXTRACRANIAL: The visualized portion of the orbits is intact. There is left parietal scalp swelling. There is bilat eral maxillary sinus disease. SKULL: The calvaria is intact. No evidence of skull fracture. CONCLUSION: 1. No acute intracranial abnormality seen. 2. Old lacunar infarct at the left caudate head and left anterior limb of the internal capsule. 3. Atrophy. 4. Posterior superior left parietal scalp injury. Maximo Rankin MD on March 03, 2018 at 19:14 Board Certified Radiologist. This report was verified electronically.
[2018-03-03 19:54] VITALS: BP 186/98; PULSE 95; RESP 16; O2SAT 99
[2018-03-03 20:08] LABS: AUTOMATED NEUTROPHIL # 4.1 TH/MM3 (1.8-7.7); BASOPHIL # 0.1 TH/MM3 (0-0.2); BASOPHIL % 1.3 % (0.0-2.0); EOSINOPHIL % 0.6 % (0.0-4.0); HEMATOCRIT 37.4 % (39.0-51.0); HEMOGLOBIN 12.7 GM/DL (13.0-17.0); LYMPH % 15.4 % (9.0-44.0); LYMPHOCYTE # 0.9 TH/MM3 (1.0-4.8); MEAN CELL VOLUME 93.7 FL (80.0-100.0); MEAN CORPUSCULAR HEMOGLOBIN 31.9 PG (27.0-34.0); MEAN CORPUSCULAR HGB CONC 34.1 % (32.0-36.0); MONO % 8.6 % (0.0-8.0); MONOCYTE # 0.5 TH/MM3 (0-0.9); NEUT % 74.1 % (16.0-70.0); PLATELET COUNT 73 TH/MM3 (150-450); RED BLOOD COUNT 3.99 MIL/MM3 (4.50-5.90); RED CELL DISTRIBUTION WIDTH 17.4 % (11.6-17.2); WHITE BLOOD COUNT 5.6 TH/MM3 (4.0-11.0)
[2018-03-03 20:29] LABS: ALBUMIN 4.2 GM/DL (3.4-5.0); ALT (GPT) 66 U/L (12-78); AST (GOT) 74 U/L (15-37); BICARBONATE 24.6 MEQ/L (21.0-32.0); BLOOD UREA NITROGEN 13 MG/DL (7-18); CALCIUM 8.9 MG/DL (8.5-10.1); CHLORIDE 104 MEQ/L (98-107); CREATININE 0.82 MG/DL (0.60-1.30); GLOMERULAR FILTRATION RATE 95 ML/MIN (>89); GLUCOSE,RANDOM 85 MG/DL (74-106); MAGNESIUM 1.3 MG/DL (1.5-2.5); SODIUM (NA) 140 MEQ/L (136-145)
[2018-03-03 20:33] LABS: ALKALINE PHOSPHATASE 78 U/L (45-117); TOTAL BILIRUBIN ADULT 1.2 MG/DL (0.2-1.0); TOTAL PROTEIN 7.9 GM/DL (6.4-8.2); TROPONIN I LESS THAN 0.02 NG/ML (0.02-0.05)
--- NOTE | 2018-03-03 20:41 | PD ---
Physical Exam Date Seen by Provider: Mar 03, 2018 Narrative This patient presents for evaluation of injury sustained in a fall. He fell and hit the back of his head almost 24 hours ago. Data Data Last Documented VS Vital Signs Date Time Temp Pulse Resp B/P (MAP) Pulse Ox O2 Delivery O2 Flow Rate FiO2 03/03/18 19:54 95 16 186/98 (127) 99 Room Air 03/03/18 17:[address] Brain W/O Iv Contrast(Rout) (03/03/18 ) Wound Care (03/03/18 18:45) Ct Cerv Spine W/O Contrast (03/03/18 ) Complete Blood Count With Diff (03/03/18 18:45) Comprehensive Metabolic Panel (03/03/18 18:45) Ckmb (Isoenzyme) Profile (03/03/18 18:45) Troponin I (03/03/18 18:45) Magnesium (Mg) (03/03/18 18:45) Iv Access Insert/Monitor (03/03/18 18:45) Alcohol (Ethanol) (03/03/18 18:45) Tetanus/Diphtheria Tox Adult (Tetanus/Di (03/03/18 18:45) Sodium Chlor 0.9% 1000 Ml Inj (Ns 1000 M (03/03/18 19:00) Electrocardiogram (03/03/18 ) CKMB (03/03/18 19:39) CKMB% (03/03/18 19:39) Labs Laboratory Tests Test 03/03/18 19:39 White Blood Count 5.6 TH/MM3 Red Blood Count 3.99 MIL/MM3 Hemoglobin 12.7 GM/DL Hematocrit 37.4 % Mean Corpuscular Volume 93.7 FL Mean Corpuscular Hemoglobin 31.9 PG Mean Corpuscular Hemoglobin Concent 34.1 % Red Cell Distribution Width 17.4 % Platelet Count 73 TH/MM3 Mean Platelet Volume 8.0 FL Neutrophils (%) (Auto) 74.1 % Lymphocytes (%) (Auto) 15.4 % Monocytes (%) (Auto) 8.6 % Eosinophils (%) (Auto) 0.6 % Basophils (%) (Auto) 1.3 % Neutrophils # (Auto) 4.1 TH/MM3 Lymphocytes # (Auto) 0.9 TH/MM3 Monocytes # (Auto) 0.5 TH/MM3 Eosinophils # (Auto) 0.0 TH/MM3 Basophils # (Auto) 0.1 TH/MM3 CBC Comment AUTO DIFF Differential Comment AUTO DIFF CONFIRMED Platelet Estimate LOW Platelet Morphology Comment NORMAL Ovalocytes 1+ [place]an[place] Bodies PRESENT Blood Urea Nitrogen 13 MG/DL Creatinine 0.82 MG/DL Random Glucose 85 MG/DL Total Protein 7.9 GM/DL Albumin 4.2 GM/DL Calcium Level 8.9 MG/DL Magnesium Level 1.3 MG/DL Alkaline Phosphatase 78 U/L Aspartate Amino Transf (AST/SGOT) 74 U/L Alanine Aminotransferase (ALT/SGPT) 66 U/L Total Bilirubin 1.2 MG/DL Sodium Level 140 MEQ/L Potassium Level 3.7 MEQ/L Chloride Level 104 MEQ/L Carbon Dioxide Level 24.6 MEQ/L Anion Gap 11 MEQ/L Estimat Glomerular Filtration Rate 95 ML/MIN Total Creatine Kinase 148 U/L Creatine Kinase MB 3.0 NG/ML Troponin I LESS THAN 0.02 NG/ML Ethyl Alcohol Level 27 MG/DL MDM Supervised Visit with AMANDA: Yes Narrative Course I, Dr. Ashford, have reviewed the advance practice practitioner's documentation and am in agreement, met with the patient face to face, made the diagnosis, and the medical decision making was done by me. *My assessment and Findings: Patient is awake and alert. He has a large hematoma on the back of his head. He is currently lucid and moving all 4 extremities equally. See RUFINA Zhong- note for lab and radiology results, final diagnosis and disposition Last Impressions Head CT 03/03/18 0000 Signed Impressions: Service Date/Time: Saturday, March 03, 2018 18:54 - CONCLUSION: 1. No acute intracranial abnormality seen. 2. Old lacunar infarct at the left caudate head and left anterior limb of the internal capsule. 3. Atrophy. 4. Posterior superior left parietal scalp injury. Maximo Rankin MD Cervical Spine CT 03/03/18 0000 Signed Impressions: Service Date/Time: Saturday, March 03, 2018 18:54 - CONCLUSION: 1. Chronic persistent change at the dens from either an unfused os odontoideum versus a prior C2 fracture. The C2 appearance is completely unchanged from the prior exam. 2. Scattered degenerative change. 3. Very prominent anterior spurs likely from DISH from the C3-C6 levels. 4. No acute bony change is seen. Maximo Rankin MD CBC & BMP Diagram 03/03/18 19:39 Total Protein 7.9, Albumin 4.2, Calcium Level 8.9, Magnesium Level 1.3 L, Alkaline Phosphatase 78, Aspartate Amino Transf (AST/SGOT) 74 H, Alanine Aminotransferase (ALT/SGPT) 66, Total Bilirubin 1.2 H Alcohol level is 27. This patient is stable for discharge to home. Diagnosis Primary Impression: Scalp contusion Qualified Codes: S00.03XA - Contusion of scalp, initial encounter Patient Instructions: General Instructions, Scalp Contusion in Adults (ED) Disposition: 01 DISCHARGE HOME Condition: Stable Grace Ashford MD Mar 03, 2018 20:41
[2018-03-03 20:47] LABS: HOWELL-JOLLY BODIES PRESENT (NONE SEEN); OVALOCYTES 1+ (NORMAL)
--- NOTE | 2018-03-03 23:06 | RADRPT ---
EXAM DATE/TIME: 03/03/2018 18:54 [facility] COMPARISON: CT CERVICAL SPINE W/O CONTRAST, July 31, 2014, 6:40. INDICATIONS : Trauma, fall today onto head. RADIATION DOSE: 20.08 CTDIvol (mGy) MEDICAL HISTORY : Hypertension. Gastroesophageal reflux disease. SURGICAL HISTORY : None. ENCOUNTER: Initial ACUITY: 1 day PAIN SCALE: 6/10 LOCATION: Bilateral neck TECHNIQUE: Volumetric scanning of the cervical spine was performed. Multiplanar reconstructions in the sagittal, coronal and oblique axial planes were performed. Using automated exposure control and adjustment o f the mA and/or kV according to patient size, radiation dose was kept as low as reasonably achievable to obtain optimal diagnostic quality images. DICOM format image data is available electronically f or review and comparison. FINDINGS: VERTEBRAE: There is a chronic deformity at C2 with a separate odontoid fragment. There is also a small separate fragment seen between the dens and C2 body posteriorly. The edges all bony margins in this region gill ear well corticated consistent with a chronic change. C2 has a similar appearance when compared to th e prior exam. There is minimal posterior subluxation of the dens in relation to the body of C2. This is in the order of 2-3 mm. This is unchanged. There is very prominent anterior osteophyte formation a t the C3-C6 levels. This appearance is unchanged. ALIGNMENT: The cervical vertebral bodies are normally aligned. C2-C3: The bony spinal canal is normal in size. No evidence of disc bulge or herniation. The neural forami na are bilaterally patent. There is bilateral facet hypertrophy. C3-C4: There is mild diffuse disc bulge. There is mild facet hypertrophy. The neural foramina are bilateral ly patent. C4-C5: The bony spinal canal is normal in size. No evidence of disc bulge or herniation. The neural forami na are bilaterally patent. There is mild facet hypertrophy. C5-C6: There is a mild right lateral recess disc protrusion. Significant stenosis is not seen. There is mild facet hypertrophy. The neural foramina are bilaterally patent. C6-C7: The disc demonstrates decreased height. There is minimal bulging and osteophytic ridging. These malloy es causing mild impression on the thecal sac. The neural foramina are bilaterally patent. C7-T1: The bony spinal canal is normal in size. No evidence of disc bulge or herniation. The neural forami na are bilaterally patent. CONCLUSION: 1. Chronic persistent change at the dens from either an unfused os odontoideum versus a prior C2 frac ture. The C2 appearance is completely unchanged from the prior exam. 2. Scattered degenerative change. 3. Very prominent anterior spurs likely from DISH from the C3-C6 levels. 4. No acute bony change is seen. Maximo Rankin MD on March 03, 2018 at 22:56 Board Certified Radiologist. This report was verified electronically.
--- NOTE | 2018-03-04 17:17 | EKG ---
Date Performed: 03/03/2018 Time Performed: 19:50:36 PTAGE: 62 years EKG: Sinus rhythm MARKED LEFT AXIS DEVIATION Since the previous tracing, no significant change noted ABNORMAL ECG PREVIOUS TRACING : 04/11/2017 20.31 DOCTOR: Da Dubois Interpretating Date/Time 03/04/2018 17:17:21
[2018-03-06] MEDS ORDERED: AMLO5TAB2 PO (10:24)
== END 2018-03-03 23:46 | disposition home or self-care (01) ==
LOC: NEPE 17:22
DX: S00.03XA Contusion of scalp, initial encounter (principal); R94.31 Abnormal electrocardiogram [ECG] [EKG]; F98.8 Other specified behavioral and emotional disorders with onset usually occurring in childhood and adolescence; M19.90 Unspecified osteoarthritis, unspecified site; I10 Essential (primary) hypertension; J44.9 Chronic obstructive pulmonary disease, unspecified; W19.XXXA Unspecified fall, initial encounter; Z23 Encounter for immunization; Z79.899 Other long term (current) drug therapy
CPT/HCPCS: 70450; 72125; 80053; 80307; 82550; 82552; 83735; 84484; 85025; 90471; 90714; 93005; 96360; 99284; J7030

== ENCOUNTER → 2018-03-06 | Outpatient (CLI) | payer MEDICARE, MEDICAID ==
[~2018-03-06] VITALS: Ht 172.7 cm; Wt 59.2 kg
[~2018-03-06] MED LIST changes: +AMLO5TAB2 PO; -BENZ100 PO; +CHLORHEXIDINE GLUCONATE 2 % 1 PACK (2 CLOTHS) TOPICAL PRN; +DEXTROSE 5%-LACTATED RING INJ 1,000 ML IV SCH; +DO NOT ADM ANY ANTICOAGULANT DRUGS PRN; +LACTATED RINGER'S 1000 ML IV PRN; -LEVA750T9 PO; +LIDOCAINE HCL 1% PF 5 ML SYRINGE OTHER ONE; -LOPE-1 PO; -MEDR4PAK PO; +METOPROLOL TARTRATE 25 MG TAB PO PRN; +POVIDONE IODINE 5% (ANTISEPSIS KIT) 4 APPLICATIONS EACH NARE PRN; +PROPOFOL 200 MG/20 ML AMP IV ONE; +SODIUM CHLORID 0.9% 500 ML IV PRN
--- NOTE | 2018-03-06 12:34 | GIPROC ---
[facility] [address] [facility]. [facility] [place], [address] EGD PROCEDURE REPORT EXAM DATE: 03/06/2018 PATIENT NAME: Ric Vera MR #: [id number] BIRTHDATE: 1955 ATTENDING: Monica Garner MD ORDER #: [id number] PEDIATRICS PHYSICIAN: Cristi Dougherty and Briana Shane STATUS: outpatient INDICATIONS: The patient is a 62 yr old male here for an EGD due to hem positive stool, diarrhea PROCEDURE PERFORMED: EGD w/ biopsy MEDICATIONS: None and Per Anesthesia. TOPICAL ANESTHETIC: none CONSENT: The patient understands the risks and benefits of the procedure and understands that these risks include, but are not limited to: sedation, allergic reaction, infection, perforation and/or bleeding. Alternative means of evaluation and treatment include, among others: physical exam, x-rays, and/or surgical intervention. The patient elects to proceed with this endoscopic procedure. medical equipment was checked for proper function. Hand hygiene and appropriate measures for infection prevention was taken. After the risks, benefits and alternatives of the procedure were thoroughly explained, Informed consent was verified, confirmed and timeout was successfully executed by the treatment team. The patient was anesthetized with topical anesthesia and the EC-3490Li (Pedi C) endoscope was introduced through the mouth and advanced to the second portion of the duodenum. Retroflexed views revealed a hiatal hernia The gastroscope was then slowly withdrawn and removed. Duodenitis second portion-biopsy gastritis antrum-biopsy esophagitis distal esophagus -biopsy. ADVERSE EVENTS: There were no complications. IMPRESSIONS: 1. Duodenitis second portion-biopsy gastritis antrum-biopsy esophagitis distal esophagus -biopsy 2. Retroflexed views revealed a hiatal hernia RECOMMENDATIONS: 1. Await biopsy results. Biopsy results will not be ready for 7-10 days. If you don't hear from us in two weeks, call our office for biopsy results. 2. Anti-reflux regimen 3. Continue PPI 4. Avoid NSAIDS PATIENT CONDITION: stable DISPOSITION: Home REPEAT EXAM: Return 3 years EGD Monica Garner MD eSigned: Monica Garner MD 03/06/2018 12:34 PM cc: PATIENT NAME: Ric Vera MR#: [id number]
--- NOTE | 2018-03-06 12:50 | GIPROC ---
[facility] [address] [facility]. [facility] [place], [address] COLONOSCOPY PROCEDURE REPORT EXAM DATE: 03/06/2018 PATIENT NAME: Ric Vera MR #: [id number] BIRTHDATE: 1955 ENDOSCOPIST: Monica Garner MD ORDER #: [id number] PACKAGER HAND: Cristi Dougherty and Briana Shane STATUS: outpatient INDICATIONS: The patient is a 62 yr old male here for a colonoscopy due to hem positive stool, diarrhea PROCEDURE PERFORMED: Colonoscopy with polypectomy MEDICATIONS: None and Per Anesthesia. PREP QUALITY: good PREP TYPE:Other: ESTIMATED BLOOD LOSS: None CONSENT: The patient understands the risks and benefits of the procedure and understands that these risks include, but are not limited to: sedation, allergic reaction, infection, perforation and/or bleeding. Alternative means of evaluation and treatment include, among others: physical exam, x-rays, and/or surgical intervention. The patient elects to proceed with this endoscopic procedure. medical equipment was checked for proper function. Hand hygiene and appropriate measures for infection prevention was taken. After the risks, benefits and alternatives of the procedure were thoroughly explained, Informed consent was verified, confirmed and timeout was successfully executed by the treatment team. A digital exam revealed external hemorrhoids The Pentax EC-3490Li endoscope was introduced through the anus and advanced to the cecum, which was identified by both the appendix and ileocecal valve. The instrument was then slowly withdrawn as the colon was fully examined. COLON FINDINGS: Diverticulosis sigmoid,descending polyp cecum-8 mm-cold snare polypectomy with complete removal. Retroflexed views revealed internal hemorrhoids and Retroflexed views revealed small internal hemorrhoids The scope was then completely withdrawn from the patient and the procedure terminated. PROCEDURE WITHDRAWAL TIME:6minutes ADVERSE EVENTS: There were no complications. IMPRESSIONS: 1. Diverticulosis sigmoid,descending polyp cecum-8 mm-cold snare polypectomy with complete removal 2. Retroflexed views revealed internal hemorrhoids 3. Retroflexed views revealed small internal hemorrhoids 4. Revealed external hemorrhoids RECOMMENDATIONS: 1. Await biopsy results. Biopsy results will not be ready for 7-10 days. If you don't hear from us in two weeks, call our office for results. 2. Benefiber 2 tsp daily 3. Probiotics from any [employer] or health food store RECALL: Return 3 years Colonoscopy Monica Garner MD eSigned: Monica Garner MD 03/06/2018 12:49 PM cc:
[2018-03-06 12:55] VITALS: BP 144/79; PULSE 101; RESP 18; TEMP 98.5; O2SAT 99
== END ==
LOC: HEND 09:27
PROVIDERS: ATTEND Internal Medicine Gastroenterology
DX: K29.70 Gastritis, unspecified, without bleeding (principal); B96.81 Helicobacter pylori [H. pylori] as the cause of diseases classified elsewhere; K29.80 Duodenitis without bleeding; K44.9 Diaphragmatic hernia without obstruction or gangrene; D64.9 Anemia, unspecified; R19.7 Diarrhea, unspecified; D12.0 Benign neoplasm of cecum; K64.4 Residual hemorrhoidal skin tags; K57.30 Diverticulosis of large intestine without perforation or abscess without bleeding; K64.8 Other hemorrhoids; I10 Essential (primary) hypertension; F17.210 Nicotine dependence, cigarettes, uncomplicated; J44.9 Chronic obstructive pulmonary disease, unspecified
CPT/HCPCS: 88305; 88312